=== PATIENT | male | born 1950 | race Caucasian/White ===

== ENCOUNTER 2022-11-25 15:09 | Emergency (ER) | payer MEDICARE, OTHER, SELFPAY ==
[2022-11-25 15:33] VITALS: BP 127/65; PULSE 75; RESP 24; TEMP 37; O2SAT 100; BMI 37.7
--- NOTE | 2022-11-25 16:02 | ED.GENADUL1 ---
HPI - General Adult General Chief complaint: Abdominal Pain Stated complaint: lEFT ARM GONE KRYSTLE Time Seen by Provider: 11/25/22 16:01 Source: patient and family Mode of arrival: Wheelchair Limitations: no limitations History of Present Illness HPI narrative: Patient is a 72-year-old male who is presenting to the Emergency Room today with chief complaint of left upper quadrant pain this started at 1 PM. Patient states that he is having normal bowel movements daily. Patient has no history kidney stones. pATIENT HAS NO CHEST PAIN OR SHORTNESS OF BREATH. nO HISTORY of acute onset of acid reflux. Patient has no rash. No heavy lifting, twisting or turning. Patient did give himself a insulin shot to the left upper quadrant earlier today, patient is afraid that he might have popped air bubble in his lung. Patient has nausea no vomiting. No fever or chills. Patient went to the bedside. 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 No acute changes to patient's face today. Patient very pleasant with his at bedside. No recent traveling. No sick contacts. No diarrhea. No bowel or bladder changes. No hematuria, right no urinary frequency or urgency or burning. Patient had a bowel movement in the Emergency Room prior to me seeing the patient. After patient had a soft stool bowel movement, patient feels like the painn is subsiding to his left upper quadrant and improving after his bowel movement. Patient's had no recent hard rocks or large hard balls. Patient states it is still has been soft . All systems are negative except as noted/marked. All systems reviewed and otherwise negative. . Nurses note and vital signs reviewed and patient is not hypoxic. General: The patient appears well and in no apparent distress. Patient is resting comfortably on cart. Patient is not toxic, lethargic, or listless Skin: Warm, dry, no pallor noted. There is no rash noted. No petechiae, purpura. Head: Normocephalic, atraumatic; Chronic changes to the left side of his face secondary to previous cancer history and treatment. Eye: Normal conjunctiva, no drainage, EOMI. PERRL Ears, Nose, Mouth, and Throat: oral mucosa is moist. Nares patent. Mouth without vesicles. Cardiovascular: Regular Rate and Rhythm, no murmur, gallop, rub Respiratory: Patient is in no distress, no accessory muscle use, lungs are clear to auscultation, no wheezing, rales or rhonchi Back: non-tender, no CVA tenderness bilaterally to percussion. No CT LS midline pain GI: soft, OBESE, Mild tenderness to palpation to the left upper quadrant that is improving after patient just had a bowel movement prior to my HPI. Bowel sounds ?4. no tenderness to palpation, no masses appreciated. No rebound, guarding, or rigidity noted. No flank pain bilateral, No distention Musculoskeletal: Patient has full range of motion of all of the extremities, no motor, sensory, or focal neurological deficits Neurological: A&O x3, normal speech Psychiatric: Cooperative Related Data Previous Rx's Medication Instructions Recorded dicyclomine 20 mg tablet 20 mg PO TID PRN abdominal pain #7 11/25/22 tabs hydrocodone 5 mg-acetaminophen 325 1 tab PO Q4H PRN pain #8 tabs 11/25/22 mg tablet ondansetron 4 mg disintegrating 4 mg PO Q4H PRN nausea and 11/25/22 tablet vomiting 3 days #6 tabs Allergies Allergy/AdvReac Type Severity Reaction Status Date / Time IV dye Allergy Uncoded 11/25/22 15:33 PFSH PFSH Social History Smoking status: Never smoker Exam Constitutional Vital Signs, click to edit/add: Last Vital Signs Temp 98.6 F 11/25/22 15:33 Pulse 78 11/25/22 18:01 Resp 18 11/25/22 18:01 BP 143/85 H 11/25/22 18:01 Pulse Ox 100 11/25/22 18:01 O2 Del Method Room Air 11/25/22 18:01 Course Vital Signs Vital signs: Vital Signs Temperature 98.6 F 11/25/22 15:33 Pulse Rate 75 11/25/22 15:33 Respiratory Rate 24 11/25/22 15:33 Blood Pressure 127/65 11/25/22 15:33 Pulse Oximetry 100 11/25/22 15:33 Oxygen Delivery Method Room Air 11/25/22 15:33 Temperature 98.6 F 11/25/22 15:33 Pulse Rate 78 11/25/22 18:01 Respiratory Rate 18 11/25/22 18:01 Blood Pressure 143/85 H 11/25/22 18:01 Pulse Oximetry 100 11/25/22 18:01 Oxygen Delivery Method Room Air 11/25/22 18:01 Medical Decision Making MDM Narrative Medical decision making narrative: CT reports is no acute findings. Patient CT report shows some inflammation around his pancreas. Patient's lipase is just about 3 times the upper limits of normal. Patient has no midepigastric pain, no right upper quadrant pain. At discharge patient has no left upper quadrant pain. Patient never had pancreatitis before. Patient does not drink daily. He does have his galllbladder and appendix. Patient is not fitting the clinical picture for pancreatitis. However with his left upper quadrant pain is almost completely resolved, patient was educated on pancreatitis and WILL BE treated pancreatitis at home to ERROR on the Side of caution. Patient was sent home with a prescription for Zofran, Bentyl and [place] to use as needed. Patient's pain is also completely subsided. We discussed the possibility of air underneath his left diaphragm secondary to backup of stool. Patient states he has felt very gassy recently and has been burping more as well. Education of pancreatitis was done at bedside and on discharge paperwork. Patient will do clear liquids for a few days. No questions at discharge. Patient feels very comfortable going home. Patient has no midepigastric, right or left upper quadrant tenderness to palpation at discharge. Nonsurgical abdomen, no peritoneal signs. No guarding, rebound, rigidity. Lab Data Labs: Lab Results 11/25/22 Range/Units 16:08 WBC 11.8 H (4.0-11.0) 10^3/uL RBC 3.73 L (4.70-6.10) 10^6/uL Hgb 10.2 L (14.0-18.0) g/dL Hct 31.7 L (42.0-54.0) % MCV 85.0 (80.0-94.0) fL MCH 27.3 (25.9-34.0) pg MCHC 32.2 (29.9-35.2) g/dL RDW 14.0 (11.0-15.0) % Plt Count 235 (150-450) 10^3/uL MPV 9.3 L (9.5-13.5) fL Neut % (Auto) 88.1 H (43.0-75.0) % Lymph % (Auto) 5.2 L (20.5-60.0) % [place] % (Auto) 4.9 (1.7-12.0) % Eos % (Auto) 0.8 L (0.9-7.0) % Baso % (Auto) 0.7 (0.2-2.0) % Neut # (Auto) 10.4 H (1.4-6.5) 10^3/uL Lymph # (Auto) 0.6 L (1.2-3.8) 10^3/uL [place] # (Auto) 0.6 (0.3-0.8) 10^3/uL Eos # (Auto) 0.1 (0.0-0.7) 10^3/uL Baso # (Auto) 0.1 (0.0-0.1) 10^3/uL Abs Immat Gran (auto) 0.04 H (0.00-0.03) 10^3/uL Imm/Tot Granulo (auto) 0.3 (0.0-0.5) % Sodium 137 (136-145) mmol/L Potassium 4.7 (3.5-5.1) mmol/L Chloride 105 (98-107) mmol/L Carbon Dioxide 18.4 L (21.0-32.0) mmol/L Anion Gap 18.3 BUN 70.0 H (7.0-18.0) mg/dL Creatinine 3.63 H (0.70-1.30) mg/dL Est GFR ( Amer) 20 L (>=60) Est GFR (Non-Af Amer) 17 L (>=60) BUN/Creatinine Ratio 19.3 Glucose 146 H (74-106) mg/dL Calcium 9.1 (8.5-10.1) mg/dL Total Bilirubin 0.2 (0.2-1.0) mg/dL AST 22 (15-37) U/L ALT 22 (16-63) U/L Alkaline Phosphatase 128 H (46-116) U/L Total Protein 7.0 (6.4-8.2) g/dL Albumin 3.4 (3.4-5.0) g/dL Globulin 3.6 g/dL Albumin/Globulin Ratio 0.9 Lipase 919.0 H (73.0-393.0) U/L Urine Color Lt. yellow (YELLOW) Urine Clarity Clear (CLEAR) Urine pH 6.0 (5.0-9.0) Ur Specific [place] 1.020 (1.005-1.025) Urine Protein >=300 A (NEG/TRACE) mg/dL Urine Glucose (UA) 100 A (NEGATIVE) mg/dL Urine Ketones Negative (NEGATIVE) mg/dL Urine Occult Blood Small A (NEGATIVE) Urine Nitrite Negative (NEGATIVE) Urine Bilirubin Negative (NEGATIVE) Urine Urobilinogen 0.2 (0.2-1.0) EU/dL Ur Leukocyte Esterase Negative (NEGATIVE) Urine RBC 5-10 A (0-2) #/HPF Urine WBC None seen (NONE SEEN) #/HPF Ur Squamous Epith Cells Few A (NONE/RARE) #/LPF Urine Crystals None seen (None Seen) #/HPF Urine Bacteria None seen (NONE SEEN) #/HPF Urine Casts None seen (NONE SEEN) #/LPF Urine Mucus None seen (NONE SEEN) Ur Culture Indicated? No Patient has known kidney disease, stage IV kidney disease. Discharge Plan Discharge Chief Complaint: Abdominal Pain Clinical Impression: Abdominal pain, Pancreatitis Patient Disposition: Home, Self-Care Condition: Fair Prescriptions / Home Meds: New hydrocodone-acetaminophen 5-325 mg tablet 1 tab PO Q4H PRN (Reason: pain) Qty: 8 0RF dicyclomine 20 mg tablet 20 mg PO TID PRN (Reason: abdominal pain) Qty: 7 0RF ondansetron 4 mg tablet,disintegrating 4 mg PO Q4H PRN (Reason: nausea and vomiting) 3 Days Qty: 6 0RF Instructions: Pancreatitis (ED), Abdominal Pain (ED) Additional Instructions: Clear liquid diet for the next 2-3 days. Use Zofran, Bentyl and [place] as needed for nausea, belly cramping, and pain respectively. If the pain significant worse, return back to the Emergency Room.Follow-up with PCP next week. Stand Alone Forms: Portal Instructions Referrals: ANGEL LUIS DOWNEY [Primary Care Provider] - 1 week Discharge Date/Time: 11/25/22 19:24
[2022-11-25 16:16] LABS: Basophils Absolute Auto 0.1 10^3/uL (0.0-0.1); Basophils Percent Auto 0.7 % (0.2-2.0); Bilirubin Urine NEGATIVE (NEGATIVE); Blood Urine SMALL (NEGATIVE); Clarity Urine CLEAR (CLEAR); Color Urine LT. YELLOW (YELLOW); Eosinophils Absolute Auto 0.1 10^3/uL (0.0-0.7); Eosinophils Percent Auto 0.8 % (0.9-7.0); Glucose Urine UA 100 mg/dL (NEGATIVE); Hematocrit 31.7 % (42.0-54.0); Hemoglobin 10.2 g/dL (14.0-18.0); Immature Granulocytes Abs Auto 0.04 10^3/uL (0.00-0.03); Immature Granulocytes Pct Auto 0.3 % (0.0-0.5); Ketones Urine NEGATIVE (NEGATIVE); Leukocyte Esterase Urine NEGATIVE (NEGATIVE); Lymphocytes Absolute Auto 0.6 10^3/uL (1.2-3.8); Lymphocytes Percent Auto 5.2 % (20.5-60.0); Mean Corpuscular HGB Conc 32.2 g/dL (29.9-35.2); Mean Corpuscular Hemoglobin 27.3 pg (25.9-34.0); Mean Platelet Volume 9.3 fL (9.5-13.5); Monocytes Absolute Auto 0.6 10^3/uL (0.3-0.8); Monocytes Percent Auto 4.9 % (1.7-12.0); Neutrophils Absolute Auto 10.4 10^3/uL (1.4-6.5); Neutrophils Percent Auto 88.1 % (43.0-75.0); Nitrite Urine NEGATIVE (NEGATIVE); Platelet Count 235 10^3/uL (150-450); Protein Urine >=300 mg/dL (NEG/TRACE); Red Blood Count 3.73 10^6/uL (4.70-6.10); Urine Microscopic Indicated YES; Urobilinogen Urine 0.2 EU/dL (0.2-1.0); White Blood Count 11.8 10^3/uL (4.0-11.0)
[2022-11-25 16:22] LABS: Bacteria Urine NONE SEEN #/HPF (NONE SEEN); Cast Seen? NONE SEEN #/LPF (NONE SEEN); Crystals Seen? None Seen #/HPF (None Seen); Mucus Urine NONE SEEN (NONE SEEN); Squamous Epithelial Cell Urine FEW #/LPF (NONE/RARE); Urine Culture Indicated NO; WBC Urine NONE SEEN #/HPF (NONE SEEN)
--- NOTE | 2022-11-25 16:24 | CT_ITS ---
[address] [address] Patient Name: SAHRA DRUMMOND MRN: [id number] date: 1950 Sex: M Assigned Patient Location: ED.MAIN Current Patient Location: Accession/Order Number: [id number] Exam Date: 11/25/2022 17:01 Report Date: 11/25/2022 17:47 At the request of: MANI HERMOSILLO Procedure: CT abdomen pelvis wo con EXAM: CT abdomen pelvis wo con HISTORY: LUQ pain COMPARISON: None. TECHNIQUE: Axial CT imaging was performed through the abdomen and pelvis without intravenous contrast. Multiplanar reformats were performed. Dose reduction techniques were achieved by using automated exposure control and/or adjustment of mA and/or kV according to patient size and/or use of iterative reconstruction technique. FINDINGS: Lung bases: There are mild fibrotic changes of both lung bases. Several small calcified granulomas are seen at the posterior pleural margins of each lower lobe. GI upper: Unremarkable. Liver: Normal size and contour. Gallbladder: No significant abnormality. No cholelithiasis. Biliary system: No dilatation or calculus Pancreas: The pancreas is normal in size. There is subtle fat stranding adjacent to the pancreatic tail. No abnormal fluid collection is seen in the area. Spleen: Normal size. Adrenal glands: Mild thickening bilaterally. The adrenal glands otherwise are normal in shape. Kidneys/ureters: Normal contours. No hydronephrosis or visible mass. Small low-density foci within the right kidney compatible with cysts. No nephrolithiasis. There is mild fat stranding adjacent to the superior pole of the left kidney. Both ureters are normal in caliber and course to the bladder. Vessels: No aneurysmal dilatation of the aorta. Atherosclerotic disease is noted. Retroperitoneum: No lymphadenopathy. Small bowel: No wall thickening or dilatation. Colon: No dilatation. Colonic diverticulosis. Adjacent fat planes are normal. Appendix: Appendix is identified with normal appearance. Peritoneal cavity: No free fluid or pneumoperitoneum. Lower : Unremarkable. Bones:Multilevel spondylosis. No acute bony abnormality. Soft tissues: No acute finding. Additional findings: None. CT/CT abdomen pelvis wo con IMPRESSION: 1. Subtle fat stranding adjacent to the pancreatic tail. Please correlate for laboratory evidence of pancreatitis. 2. Colonic diverticulosis without CT evidence for diverticulitis. 3. Remote granulomatous disease. Electronically authenticated by: Carlos DIAZ Date: 11/25/2022 17:47
[2022-11-25 16:30] LABS: Alanine Aminotransferase 22 U/L (16-63); Albumin Globulin Ratio 0.9; Albumin Level 3.4 g/dL (3.4-5.0); Alkaline Phosphatase 128 U/L (46-116); Anion Gap 18.3; Aspartate Amino Transferase 22 U/L (15-37); BUN Creatinine Ratio 19.3; Bilirubin Total 0.2 mg/dL (0.2-1.0); Calcium 9.1 mg/dL (8.5-10.1); Carbon Dioxide 18.4 mmol/L (21.0-32.0); Chloride 105 mmol/L (98-107); Estimated GFR (African America 20 (>=60); Estimated GFR (Non-African Ame 17 (>=60); Globulin 3.6 g/dL; Glucose 146 mg/dL (74-106); Potassium 4.7 mmol/L (3.5-5.1); Sodium 137 mmol/L (136-145)
[2022-11-25 16:44] VITALS: BP 154/62; PULSE 79; RESP 18
[2022-11-25] MEDS: ONDANSETRON PF 4 MG/2 ML VIAL IV (16:49)
[2022-11-25] MEDS: 0.9 % SODIUM CHLORIDE 1,000 ML 999 ML IV ×2 (16:49→17:57)
[2022-11-25 18:01] VITALS: BP 143/85; PULSE 78; RESP 18; O2SAT 100
== END 2022-11-25 19:24 | disposition home or self-care (01) ==
PROVIDERS: Emergency Provider Emergency Medicine; PCP Family Medicine
DX: K85.90 Acute pancreatitis without necrosis or infection, unspecified (principal); R10.9 Unspecified abdominal pain; Z68.37 Body mass index [BMI] 37.0-37.9, adult; E66.9 Obesity, unspecified
CPT/HCPCS: 36415; 74176; 80053; 81001; 81003; 83690; 85025; 96374; 96375; 99285

== ENCOUNTER 2023-03-21 18:07 | Observation (INO) | payer MEDICARE, OTHER, SELFPAY ==
[2023-03-21] VITALS (11 sets, daily range): BP systolic 117–149; BP diastolic 77; PULSE 63–89; RESP 13–23; TEMP 37; O2SAT 99; BMI 36.6
--- NOTE | 2023-03-21 18:23 | CT_ITS ---
The [address] [address] Patient Name: SAHRA DRUMMOND MRN: [id number] date: 1950 Sex: M Assigned Patient Location: ER Current Patient Location: ER Accession/Order Number: [id number] Exam Date: 03/21/2023 18:38 Report Date: 03/21/2023 18:52 At the request of: HIRAL FELIZ Procedure: CT head/brain wo con EXAM: CT head/brain wo con; [id number] REASON FOR EXAM: vision changes COMPARISON: None. TECHNIQUE: Axial CT images of the head obtained without contrast. Multiplanar reformats generated at the scanner. Dose reduction technique used: Automated exposure control and/or adjustment of the mA and/or kV according to patient size and/or use of iterative reconstruction technique. FINDINGS: Parenchyma: -Mild generalized cerebral volume loss. -No midline shift or mass effect. Basilar cisterns are patent. -No acute intracranial hemorrhage. -No loss of cortical plummer-white differentiation to indicate acute cortical infarct. Extra-axial spaces: No extra-axial fluid collection or hemorrhage. Ventricles: Normal in size and symmetric. Paranasal sinuses: Visualized paranasal sinuses are clear. Mastoid air cells: Small left mastoid air cell effusion. Orbits: No acute abnormality. Osseous: No acute findings. Partially visualized left mandibular fixation hardware. Soft tissues: Large amount of presumed cerumen in the left external auditory canal. CT/CT head/brain wo con IMPRESSION: No acute intracranial abnormality demonstrated. Electronically authenticated by: CELESTINO TERAN Date: 03/21/2023 18:52
--- NOTE | 2023-03-21 18:54 | PC.NURSE ---
pt states for about 1 week L eye issues. Has been painful, watering and vision changes on and off. States occassionally in his L eye the upper vision is completely black. 1 month ago, pt had laser eye surgery
--- NOTE | 2023-03-21 21:06 | ED.EYEPROB1 ---
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 treated surgically and with radiation. 2 years ago 2 stents placed left carotid at [facility]. 03/18 complete loss of vision left eye for about 1/2 hour. States vision returned to normal but occ would blur some and water and then return to normal. Tonight around 5pm he woke up from a nap and he was only able to see from the bottom 1/2 of vision left eye. Top was dark. This has now cleared and his vision is normal again. Has known diabetic retinopathy treated by laser therapy. No headache. No weakness of his extremities and his denies any change in his vision. Related Data Home Medications Medication Instructions Recorded Confirmed amlodipine 10 mg tablet 10 mg PO DAILY 03/21/23 03/21/23 aspirin 81 mg capsule 81 mg PO DAILY 03/21/23 03/21/23 atorvastatin 80 mg tablet 80 mg PO DAILY 03/21/23 03/21/23 calcitriol 0.25 mcg capsule 0.25 mcg PO DAILY 03/21/23 03/21/23 carvedilol 25 mg tablet 25 mg PO BID 03/21/23 03/21/23 fluoxetine 40 mg capsule 40 mg PO DAILY 03/21/23 03/21/23 insulin glargine 100 unit/mL (3 40 unit subcut DAILY 03/21/23 03/21/23 mL) subcutaneous pen (Navneetaglar Pearl U-100 Insulin) lisinopril 10 mg tablet 10 mg PO DAILY 03/21/23 03/21/23 pioglitazone 30 mg tablet 30 mg PO DAILY 03/21/23 03/21/23 Previous Rx's Medication Instructions Recorded dicyclomine 20 mg tablet 20 mg PO TID PRN abdominal pain #7 11/25/22 tabs hydrocodone 5 mg-acetaminophen 325 1 tab PO Q4H PRN pain #8 tabs 11/25/22 mg tablet ondansetron 4 mg disintegrating 4 mg PO Q4H PRN nausea and 11/25/22 tablet vomiting 3 days #6 tabs Allergies Allergy/AdvReac Type Severity Reaction Status Date / Time Iodinated Contrast Media Allergy Verified 03/21/23 18:21 Review of Systems ROS Status of ROS 10 or more systems reviewed and unremarkable except as noted in history and below PFS PFS Social History Smoking status: Former smoker Exam Constitutional Vital Signs, click to edit/add: Last Vital Signs Temp 98.6 F 03/21/23 18:13 Pulse 64 03/21/23 21:09 Resp 20 03/21/23 21:09 BP 149/77 H 03/21/23 21:09 Pulse Ox 99 03/21/23 21:09 O2 Del Method Room Air 03/21/23 18:13 Common normals: no apparent distress, average body habitus, oriented x3, no limitations, healthy appearing, alert and well nourished HENAL Other: surgical deformity left and right neck. More extensive on the left Eye Common normals: PERRL, EOMs intact bilaterally and conjunctivae normal Other: limited exam left retina with vessels visible. No evidence of bleeding that I can see Respiratory Common normals: normal respiratory effort, no retractions, no use of accessory muscles and clear to auscultation bilaterally Cardio Common normals: regular rate, regular rhythm, S1 normal heart sound and S2 normal heart sound GI Common normals: Normal to inspection, nondistended, normoactive bowel sounds present, soft to palpation and non-tender Extremity Common normals: normal to inspection and full ROM Neuro Common normals: oriented x3, moves all extremities, no focal motor deficits and no sensory deficits noted Psych Appearance: grossly normal Course Vital Signs Vital signs: Vital Signs Temperature 98.6 F 03/21/23 18:13 Pulse Rate 72 03/21/23 18:13 Respiratory Rate 18 03/21/23 18:13 Blood Pressure 117/77 03/21/23 18:13 Pulse Oximetry 99 03/21/23 18:13 Oxygen Delivery Method Room Air 03/21/23 18:13 Temperature 98.6 F 03/21/23 18:13 Pulse Rate 64 03/21/23 21:09 Respiratory Rate 20 03/21/23 21:09 Blood Pressure 149/77 H 03/21/23 21:09 Pulse Oximetry 99 03/21/23 21:09 Oxygen Delivery Method Room Air 03/21/23 18:13 MDM - Eye Problem MDM Narrative Medical decision making narrative: patient has past history of IDDM, CKD followed by nephrology and state he knows that he will likely require dialysis in the future. 3 days ago complete loss of vision left eye. returned after 30 minutes. for past couple of days vision would decrease some but return to normal. Woke up from nap tonight and had loss vision is 1/2 of the left eye. The upper 1/2 of the vision was dark and the lower was normal. This cleared back to normal again and remains normal now. CT brain neg. Discussed with environmental engineering intern stroke Neurologist Dr Grant who initially wanted CTAs ordered but because of patient's allergy to contrast dye recommended MRA brain and neck tomorrow. Also patient is not candidate for contrast due to his late stage renal disease. Dr Cotto recommended loading dose of 300mg plavix. 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 Both parotids removed and lymph nodes and radiation to his left neck. He also has 2 stents in the left carotid that were placed about 2 years ago. Discussed with the hospitalist and patient accepted to med surgery floor Lab Data Labs: Lab Results 03/21/23 Range/Units 21:46 WBC 8.9 (4.0-11.0) 10^3/uL RBC 3.97 L (4.70-6.10) 10^6/uL Hgb 10.4 L (14.0-18.0) g/dL Hct 33.4 L (42.0-54.0) % MCV 84.1 (80.0-94.0) fL MCH 26.2 (25.9-34.0) pg MCHC 31.1 (29.9-35.2) g/dL RDW 14.9 (11.0-15.0) % Plt Count 225 (150-450) 10^3/uL MPV 9.5 (9.5-13.5) fL Neut % (Auto) 79.8 H (43.0-75.0) % Lymph % (Auto) 9.9 L (20.5-60.0) % [place] % (Auto) 7.7 (1.7-12.0) % Eos % (Auto) 1.5 (0.9-7.0) % Baso % (Auto) 0.9 (0.2-2.0) % Neut # (Auto) 7.1 H (1.4-6.5) 10^3/uL Lymph # (Auto) 0.9 L (1.2-3.8) 10^3/uL [place] # (Auto) 0.7 (0.3-0.8) 10^3/uL Eos # (Auto) 0.1 (0.0-0.7) 10^3/uL Baso # (Auto) 0.1 (0.0-0.1) 10^3/uL Abs Immat Gran (auto) 0.02 (0.00-0.03) 10^3/uL Imm/Tot Granulo (auto) 0.2 (0.0-0.5) % Sodium 140 (136-145) mmol/L Potassium 4.5 (3.5-5.1) mmol/L Chloride 104 (98-107) mmol/L Carbon Dioxide 25.4 (21.0-32.0) mmol/L Anion Gap 15.1 BUN 77.0 H* (7.0-18.0) mg/dL Creatinine 4.16 H (0.70-1.30) mg/dL Est GFR ( Amer) 17 L (>=60) Est GFR (Non-Af Amer) 14 L (>=60) BUN/Creatinine Ratio 18.5 Glucose 105 (74-106) mg/dL Calcium 9.2 (8.5-10.1) mg/dL Troponin I High Sens 19.6 (4.0-76.1) pg/mL Critical Care Time Critical Care Time Total Critical Care Time: 30 Discharge Plan Discharge Chief Complaint: Eye Problems Clinical Impression: History of recurrent TIAs, CKD (chronic kidney disease), stage IV, Dehydration Patient Disposition: Admitted as Observation
--- NOTE | 2023-03-21 21:18 | ECG_ITS ---
The [facility] Test Date: 2023-03-21 Pat Name: SAHRA DRUMMOND Department: Room: - Gender: Male Ben Day Artist: : 1950 Requested By: [id number] Order Number: [id number] Reading MD: OTONIEL BADILLO Measurements Intervals [place] Rate: 64 P: 50 GA: 220 QRS: 26 QRSD: 96 T: 22 QT: 406 QTc: 416 Interpretive Statements 1100 Sinus rhythm 2231 First degree AV block 9150 abnormal ECG No previous ECG available for comparison Electronically Signed On 03-22-2023 7:19:06 EST by OTONIEL BADILLO
[2023-03-21] MEDS: CLOPIDOGREL BISULFATE 75 MG TABLET 300 MG PO (21:46)
[2023-03-21 21:56] LABS: Basophils Absolute Auto 0.1 10^3/uL (0.0-0.1); Basophils Percent Auto 0.9 % (0.2-2.0); Eosinophils Absolute Auto 0.1 10^3/uL (0.0-0.7); Eosinophils Percent Auto 1.5 % (0.9-7.0); Hematocrit 33.4 % (42.0-54.0); Hemoglobin 10.4 g/dL (14.0-18.0); Immature Granulocytes Abs Auto 0.02 10^3/uL (0.00-0.03); Immature Granulocytes Pct Auto 0.2 % (0.0-0.5); Lymphocytes Absolute Auto 0.9 10^3/uL (1.2-3.8); Lymphocytes Percent Auto 9.9 % (20.5-60.0); Mean Corpuscular HGB Conc 31.1 g/dL (29.9-35.2); Mean Corpuscular Hemoglobin 26.2 pg (25.9-34.0); Mean Corpuscular Volume 84.1 fL (80.0-94.0); Mean Platelet Volume 9.5 fL (9.5-13.5); Monocytes Absolute Auto 0.7 10^3/uL (0.3-0.8); Monocytes Percent Auto 7.7 % (1.7-12.0); Neutrophils Absolute Auto 7.1 10^3/uL (1.4-6.5); Neutrophils Percent Auto 79.8 % (43.0-75.0); Platelet Count 225 10^3/uL (150-450); Red Blood Count 3.97 10^6/uL (4.70-6.10); Red Cell Distribution Width 14.9 % (11.0-15.0); White Blood Count 8.9 10^3/uL (4.0-11.0)
[2023-03-21 22:13] LABS: Anion Gap 15.1; BUN Creatinine Ratio 18.5; Calcium 9.2 mg/dL (8.5-10.1); Carbon Dioxide 25.4 mmol/L (21.0-32.0); Chloride 104 mmol/L (98-107); Estimated GFR (African America 17 (>=60); Estimated GFR (Non-African Ame 14 (>=60); Glucose 105 mg/dL (74-106); Potassium 4.5 mmol/L (3.5-5.1); Sodium 140 mmol/L (136-145); Troponin I High Sensitivity 19.6 pg/mL (4.0-76.1)
[2023-03-21] MEDS: 0.9 % SODIUM CHLORIDE 1,000 ML 100 ML IV (23:20)
[2023-03-22] VITALS (13 sets, daily range): BP systolic 148–163; BP diastolic 64–77; PULSE 68–81; RESP 16–18; TEMP 36.4–36.7; O2SAT 96–98; BMI 36.8
--- NOTE | 2023-03-22 01:28 | MR_ITS ---
The [address] [address] Patient Name: SAHRA DRUMMOND MRN: [id number] date: 1950 Sex: M Assigned Patient Location: MS Current Patient Location: MS Accession/Order Number: [id number] Exam Date: 03/22/2023 14:25 Report Date: 03/22/2023 16:15 At the request of: ENRIQUE PINEDA Procedure: MR angio head wo con MRA HEAD EXAMINATION. HISTORY: tia COMPARISONS: None. TECHNIQUE: 3-D time of flight MR angiogram of the [place] of [place] was performed without IV contrast. Multiplanar reformatted and MIP images were created. NASCET criteria used where appropriate for estimation of percentage luminal stenosis. FINDINGS: ANTERIOR INTRACRANIAL CIRCULATION: There is no signal within the left cavernous ICA. There is signal within the supraclinoid ICA. The bilateral anterior cerebral arteries and middle cerebral arteries and anterior and posterior communicating arteries are normal. POSTERIOR INTRACRANIAL CIRCULATION: The basilar artery and posterior cerebral arteries are patent, without stenosis or occlusion. RIGHT INTERNAL CAROTID ARTERY: No significant stenosis.. LEFT INTERNAL CAROTID ARTERY: No significant stenosis.. RIGHT VERTEBRAL ARTERY: No significant stenosis.. LEFT VERTEBRAL ARTERY: No significant stenosis.. There is a 2 mm Y view directed outpouching involving the right ophthalmic ICA.. No AVM. MR/MR angio head wo con IMPRESSION: 1. 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 2. No high-grade stenosis or occlusion of the remaining major intracranial arteries. 3. Right ophthalmic ICA 2 mm outpouching which may represent an infundibulum or aneurysm. Consider CTA head for further evaluation. Electronically authenticated by: EVA MEZA Date: 03/22/2023 16:15
--- NOTE | 2023-03-22 01:28 | CA_ITS ---
Patient Name: SAHRA DRUMMOND MR#: [id number] : 1950 Exam Date: 03/22/2023 Ordering Doctor: ENRIQUE PINEDA ECHOCARDIOGRAM REPORT PROCEDURE: CA ECHO DOPPLER COMPLETE INDICATIONS: tia COMPARISON: None. DESCRIPTION: COMPLETE ECHOCARDIOGRAM Real-time transthoracic echocardiography with 2D, M-mode, spectral and color flow Doppler performed. QUALITY: Technical quality was limited. LEFT VENTRICLE: Normal chamber size. Moderate concentric left ventricular hypertrophy. Global left ventricular systolic function is normal. LV EF: Visual estimation of left ventricular ejection fraction is 55-60% DIASTOLIC: Grade I diastolic dysfunction. ATRIAL SEPTUM: LEFT ATRIUM: Moderate dilatation. RIGHT ATRIUM: Mild dilatation. RIGHT VENTRICLE: Normal chamber size. Normal right ventricular systolic function. TRICUSPID VALVE: Normal mobility and thickness. No stenosis with mild regurgitation. Moderate pulmonary hypertension. RVSP 45 mmHg MITRAL VALVE: Normal mobility and thickness. No evidence of mitral valve stenosis. There is no mitral annular calcification. Trivial mitral regurgitation. AORTIC VALVE: Normal trileaflet appearance. Mildly calcified aortic valve. Normal leaflet mobility. No evidence of aortic valve stenosis. No aortic regurgitation. AORTIC ROOT: Normal diameter and appearance. PULMONIC VALVE: Normal thickness and mobility. No stenosis. No regurgitation. PERICARDIUM: No evidence of pericardial effusion. IVC: Not well visualized. PLEURA: CONCLUSION: 1. Moderate concentric left ventricular hypertrophy with normal systolic function. LVEF is 55 to 60%. 2. Normal right ventricular size and systolic function. 3. Mild to moderate biatrial dilatation. 4. Mild tricuspid regurgitation. 5. Moderately elevated right-sided pressures. Adult Echocardiography Procedure Report Left Ventricle LVEDD (3.7 - 5.6 cm): 4.99 cm LVESD (2.2 - 4.0 cm): 3.43 cm LVIVS thickness (0.6 - 1.2 cm): 1.44 cm LVPW thickness (0.5 - 1.0 cm): 1.35 cm e': 0.07 m/s E - e': 12.02 LVOT Max Gradient: 3.12 mm[Hg] LVOT Area (cm2): 0.88 m/s Peak Velocity (LVOT): 0.88 m/s Mean Velocity (LVOT): 0.51 m/s LVOT Diameter 2.09 cm Left Atrium LA Volume Index (2D A2C): 50.22 ml/m2 Left Atrium Systolic Dimension: 4.09 cm Mitral Valve MV E to A Ratio: 0.76 Mitral Valve A-Wave Peak Velocity: 1.07 m/s Mitral Valve E-Wave Peak Velocity: 0.82 m/s Right Ventricle RV Internal Diastolic Dimension: 4.07 cm Aorta AO Root Diam: 3.22 cm Ascending Ao Diam: 3.30 cm Aortic Valve AoV Area (Peak Jn): 2.13 cm2, 2.13 cm2 AoV Area (VTI): 2.24 cm2, 2.24 cm2 Peak Velocity(Antegrade Flow): 1.42 m/s Peak Gradient(Antegrade Flow): 8.03 mm[Hg] Mean Velocity(Antegrade Flow): 0.97 m/s Mean Gradient(Antegrade Flow): 4.31 mm[Hg] Velocity Time Integral: 34.08 cm Tricuspid Valve Peak Velocity (Regurgitant Flow): 3.14 m/s, 3.25 m/s Pulmonic Valve Mean Gradient: 3.43 mm[Hg], 2.29 mm[Hg], 1.93 mm[Hg] Mean Velocity: 0.87 m/s, 0.72 m/s, 0.64 m/s Peak Velocity: 1.10 m/s Peak Gradient: 6.56 mm[Hg], 4.20 mm[Hg], 3.88 mm[Hg] Right Atrium Right Atrium Systolic Pressure: 68.44 ml, 68.44 ml Dictated by: Toni Hidalgo M.D. on 03/22/2023 at 19:49 Approved by: Toni Hidalgo M.D. on 03/22/2023 at 19:53
--- NOTE | 2023-03-22 01:35 | W.PM.TELEPN ---
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 He stated that he had complete visual loss of his left eye and it resolved within 30 minutes. He was doing well until today. He woke up from a nap at 5 PM and started having visual loss in the same eye. He stated that he could not see from the top half of his left eye. He is also got a left temporal headache. He presented to the ED and the provider spoke to teleneurology who is requesting admission for TIA workup. The patient is allergic to IV contrast dye and therefore is requesting an MRI of the head and neck. The patient was loaded with Plavix, 300 mg and is supposed to be continued on 75 mg daily. He is being admitted for further evaluation. Exam Narrative Exam Narrative: General : Alert and oriented x3 HEENT : Extraocular movements intact, pupils equal round and reactive to light and accommodation Neck: Supple, no JVD Chest: Clear to auscultation bilaterally, no wheezes Heart: Regular rate and rhythm, S1 and S2 heard Abdomen: Soft nontender nondistended. Extremities: No clubbing cyanosis or edema Neurologically: Moving all 4 extremities Skin: No rashes Constitutional Vital Signs, click to edit/add: Last Vital Signs Temp 98.1 F 03/22/23 00:05 Pulse 68 03/22/23 00:05 Resp 16 03/22/23 00:05 BP 163/68 H 03/22/23 00:05 Pulse Ox 96 03/22/23 00:05 O2 Del Method Room Air 03/22/23 00:05 Progress Note: Objective Labs Labs: Short CBC 03/21/23 Range/Units 21:46 WBC 8.9 (4.0-11.0) 10^3/uL Hgb 10.4 L (14.0-18.0) g/dL Hct 33.4 L (42.0-54.0) % Plt Count 225 (150-450) 10^3/uL BMP 03/21/23 21:46 Sodium 140 Potassium 4.5 Chloride 104 Carbon Dioxide 25.4 BUN 77.0 H* Creatinine 4.16 H Glucose 105 Calcium 9.2 Progress Note: A&P Assessment and Plan (1) History of recurrent TIAs: (2) CKD (chronic kidney disease), stage IV: Plan The patient is a 72-year-old male with above medical problems, presenting with left eye visual changes Left eye visual changes -Likely from TIA -Provide supportive care -Monitor on telemetry to look for underlying arrhythmia -Continue Plavix -Continue statin -Check lipid panel -Check MRI of head and neck and MRA. -If patient unable to undergo MRA, can change to carotid ultrasound. -PT/OT evaluation Accelerated hypertension -Hydralazine IV as needed -Resume home medications CKD stage III-IV -Appears to be stable, despite being on lisinopril -Monitor renal function -Patient states that we cannot use his right arm for blood draws or IV access as he may be getting a fistula placed in there in the future. Diabetes -Sliding scale coverage -Continue scheduled insulin DVT Prophylaxis -Plavix Medication review -Medication reconciliation form completed Goals of care -DNR [employer] -Discussed with the emergency room physician -Discussed with the bedside nurse -Patient updated of plan of care, all questions answered to their satisfaction Disposition -Home when medically stable Telemedicine clause -As the provider of this telehealth evaluation, requested by the patient's evaluating physician, I attest that I introduced myself to the patient, provided my credentials and determined that telemedicine via a real-time, two-way interactive audio and video platform is an appropriate and effective means of providing this service. -I reviewed the patient's chart and had a discussion with the member of the patient's treatment team. -The patient and I mutually agreed with continuation of this evaluation via telemedicine. The patient consented for the telemedicine evaluation. -This virtual encounter was taken place from [place], [place]. The encounter was approximately 35 minutes. The nurse was present during the entire time of the encounter and was able to remove the stethoscope and appropriate directions. The patient was evaluated at [facility] Telemedicine Attestation Telemedicine Attestation I conducted this encounter from [] via secure live, [id number] video conference with the patient, located at [facility] with []. Prior to the interview, the risks and benefits of telemedicine were discussed with the patient and verbal consent was obtained.
[2023-03-22] MEDS: SODIUM CHLORIDE 0.45 % 1,000 ML 75 ML IV ×2 (02:10→12:48)
[2023-03-22 05:35] LABS: Chol HDL Ratio 3.4; Cholesterol 121 mg/dL (<=200); HDL Cholesterol 36 mg/dL (40-60); Triglycerides 91 mg/dL (<=150); VLDL CHOLESTEROL 18.2 mg/dL
[2023-03-22 07:32] LABS: Glucometer 76 mg/dL (74-106)
[2023-03-22] MEDS: INSULIN DETEMIR 300 UNIT/3 ML INSULN.PEN 40 UNIT SUBQ (08:37)
[2023-03-22] MEDS: AMLODIPINE BESYLATE 5 MG TABLET 10 MG PO (08:37)
[2023-03-22] MEDS: ASPIRIN 81 MG TABLET.DR PO (08:38)
[2023-03-22] MEDS: CALCITRIOL 0.25 MCG CAPSULE PO (08:38)
[2023-03-22] MEDS: FLUOXETINE HCL 20 MG CAPSULE 40 MG PO (08:38)
[2023-03-22] MEDS: ZINC GLUCONATE 50 MG TABLET PO (08:38)
[2023-03-22] MEDS: CLOPIDOGREL BISULFATE 75 MG TABLET PO (08:38)
[2023-03-22] MEDS: LISINOPRIL 10 MG TABLET PO (08:38)
[2023-03-22] MEDS: PIOGLITAZONE 15 MG TABLET 30 MG PO (08:38)
[2023-03-22] MEDS: CARVEDILOL 25 MG TABLET PO (08:38)
--- NOTE | 2023-03-22 09:28 | US_ITS ---
[place] [address] Patient Name: SAHRA DRUMMOND MRN: [id number] date: 1950 Sex: M Assigned Patient Location: [place] Current Patient Location: Accession/Order Number: [id number] Exam Date: 03/22/2023 10:30 Report Date: 03/22/2023 12:06 At the request of: ANDREW DALE Procedure: US carotid duplex BI US carotid duplex BI, 03/22/2023 10:30 AM EST INDICATION:Loss of vision left eye. TIA symptoms. COMPARISON: CT of the neck 09/30/2011 TECHNIQUE: Duplex Doppler ultrasound evaluation of the carotid systems including both vertebral arteries was performed. FINDINGS: The following velocities were obtained in the right carotid system: ICA peak systolic velocity = 118 cm/sec CCA peak systolic velocity = 127 cm/sec ICA/CCA ratio is 0.9 The following velocities were obtained in the left carotid system: ICA peak systolic velocity = 23 cm/sec CCA peak systolic velocity = 0 cm/sec Complete occlusion of common carotid artery stent. Echogenic filling defect within the distal aspect of the stent extending into the adjacent internal carotid artery. Flow within the vertebral arteries is antegrade. US/US carotid duplex BI IMPRESSION: 1. Complete occlusion of left common carotid artery stent with significant intimal thickening and possible thrombus distal aspect of the stent and proximal left internal carotid artery. Extremely diminished flow within visualized portions of the internal carotid artery. 2. Antegrade flow within both vertebral arteries. Critical results were NOTIFIED by TELEPHONE BY Dr. Berry Hanna MD to Lety Weaver RN At 03/22/2023 11:51 AM EST. Electronically authenticated by: BERRY HANNA Date: 03/22/2023 12:06
--- NOTE | 2023-03-22 10:23 | CM.NOTE ---
rounding with Dr. Guillermo. Discussed stents in Carotid Stents. Pt. states he had a ultrasound pointing to left neck and there was a blockage. Dr. Guillermo discussed possibly transferring to [facility] as this is where his vascular provider and previous procedures have been performed. Dr Guillermo and SERGEY Harper at bedside, discussed MRI Brain and Ultrasound, and possible transfer after this. also at bedside and aware of the above discussion.
[2023-03-22 11:31] LABS: Glucometer 117 mg/dL (74-106)
--- NOTE | 2023-03-22 12:06 | PC.NURSE ---
radiologist notified technical report writer of critical results of carotid us. notified renu johnson collar runner. collar runner on floor at time of results.
--- NOTE | 2023-03-22 14:17 | PC.NURSE ---
patient taken to mri at this time
--- NOTE | 2023-03-22 14:25 | MR_ITS ---
The [address] [address] Patient Name: SAHRA DRUMMOND MRN: [id number] date: 1950 Sex: M Assigned Patient Location: MS Current Patient Location: MS Accession/Order Number: [id number] Exam Date: 03/22/2023 14:25 Report Date: 03/22/2023 16:10 At the request of: ENRIQUE PINEDA Procedure: MR head/brain wo con MRI BRAIN WITHOUT CONTRAST. INDICATION: TIA. COMPARISON: None available. TECHNIQUE: MR imaging of the brain using the following unenhanced sequences: Axial diffusion, axial FLAIR, axial T2 weighted, coronal and sagittal T1, coronal gradient-echo T2. FINDINGS: EXTRA-AXIAL SPACE:Age appropriate ventricles. No extra-axial collection. There is loss of signal flow void in the left cavernous ICA. CEREBRUM: There are T2/FLAIR hyperintense signal changes in the periventricular and deep white matter, which is nonspecific but likely reflective of chronic microvascular ischemic disease. No areas of restricted diffusion. No acute infarct, hemorrhage or mass. CEREBELLUM: No signal abnormality. No areas of restricted diffusion. No acute infarct, hemorrhage or mass. BRAINSTEM: No signal abnormality. No areas of restricted diffusion. No acute infarct, hemorrhage or mass. EXTRACRANIAL STRUCTURES:Paranasal sinuses are clear. There is mild fluid in the left mastoid air cells. Globes and orbits are normal. Normal pituitary gland. Normal calvarium. MR/MR head/brain wo con IMPRESSION: 1. No acute infarct or hemorrhage. 2. Findings are suggestive of high-grade stenosis or occlusion of the left cavernous ICA. 3. Mild chronic microvascular ischemic changes. Electronically authenticated by: EVA MEZA Date: 03/22/2023 16:10
--- NOTE | 2023-03-22 14:43 | P.HP_ITS ---
Patient seen and examined, agree with assessment and plan. Presented with visual field defect and know history of carotid artery stenosis. Stable in hospital. Carotid US showed complete occlusion of left and patient stated was scheduled for outpatient angiogram tomorrow. Contacted hospitalist and vascular surgery who accepted patient for transferred. Patient transferred to [facility] in stable condition. Diagnosis: 1. TIA 2. Visual field defect 3. Carotid artery stenosis 4. Diabetic retinopathy 5. DM2 6. CKD IV 7. 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 H&P: HPI History of Present Illness Chief complaint: postoperative complication VISION CHANGES TIA Narrative: Date/time of exam 03/22/23 1397 This is a 72-year-old male patient with past medical history of head and neck cancer status post parotidectomy and lymph node excision on the left, CKD 4, DM 2, and carotid stenosis s/p stents x2 in the left; who presented to the ED last night complaining of acute onset of visual disturbance on the left side. He began having visual issues on 03/18/2023 and has intermittently lost complete pleat vision of the left eye that usually resolved within 30 minutes he had been doing well the last couple of days but last night suddenly lost vision on the top half of his left eye that he noted after awakening from a nap. He also had a left temporal headache at that time. He presented to the ED for further evaluation. Work-up in the ED was relatively benign with labs unremarkable except for known CKD 4. A CT of the brain was unremarkable with no acute intracranial abnormalities. The ED provider spoke with the telestroke service and they recommended being loaded with Plavix 300 mg last night and then 75 mg daily. He was admitted to observation last night to the hospitalist service for further TIA work-up including 2D echo, MRI of the brain, MRA of the brain and neck, and further consult with telestroke service. At the time of my exam the patient is resting in bed visiting with his spouse. He reports that his vision changes completely resolved last night while he was still in the ER and have not recurred overnight. He denies any headache at this time. Patient and his spouse noted during our visit that he had a already had a carotid ultrasound as an outpatient which revealed significant occlusion on the left. He was scheduled tomorrow to meet with a vascular surgeon for possible intervention. We will attempt to complete work-up that is still pending and plan to arrange transfer to [facility] where the patient's usual vascular surgeon is located for more emergent intervention. There has been some delay in obtaining an MRI and if the patient has metal hardware implanted in his left jaw and we are attempting to find out if this is MRI compatible or not. A carotid ultrasound has alreeady been obtained and a critical result of near complete occlusion on the left has been reported. A 2D echo have been obtained and results are pending. Review of Systems ROS Status of ROS 10 or more systems reviewed and unremarkable except as noted in history and below [facility] Medical History (Updated 03/22/23 @ 15:11 by Meredith Azevedo NP) Abdominal pain ?R10.9 - Unspecified abdominal pain (ICD-10) Anemia in CKD (chronic kidney disease) ?N18.9 - Chronic kidney disease, unspecified (ICD-10) ?D63.1 - Anemia in chronic kidney disease (ICD-10) Chronic kidney disease (CKD) ?N18.9 - Chronic kidney disease, unspecified (ICD-10) CKD (chronic kidney disease), stage IV ?N18.4 - Chronic kidney disease, stage 4 (severe) (ICD-10) Dehydration ?E86.0 - Dehydration (ICD-10) Depression ?F32.A - Depression, unspecified (ICD-10) Diabetes mellitus ?E11.9 - Type 2 diabetes mellitus without complications (ICD-10) Diabetic retinopathy ?E11.319 - Type 2 diabetes mellitus with unspecified diabetic retinopathy without macular edema (ICD-10) Diabetic retinopathy associated with type 2 diabetes mellitus ?E11.319 - Type 2 diabetes mellitus with unspecified diabetic retinopathy without macular edema (ICD-10) History of recurrent TIAs ?Z86.73 - Personal history of transient ischemic attack (TIA), and cerebral infarction without residual deficits (ICD-10) HTN (hypertension) ?I10 - Essential (primary) hypertension (ICD-10) Pancreatitis ?K85.90 - Acute pancreatitis without necrosis or infection, unspecified (ICD- 10) 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 - Secondary and unspecified malignant neoplasm of lymph nodes of head, face and neck (ICD-10) Sleep apnea ?G47.30 - Sleep apnea, unspecified (ICD-10) Squamous cell carcinoma Type 2 diabetes mellitus with hyperglycemia ?E11.65 - Type 2 diabetes mellitus with hyperglycemia (ICD-10) Surgical History (Updated 03/22/23 @ 00:55 by Allie Chen, RN) History of mandibular surgery ?Z98.890 - Other specified postprocedural states (ICD-10) History of uvulectomy ?Z90.89 - Acquired absence of other organs (ICD-10) Hx of heart artery stent ?Z95.5 - Presence of coronary angioplasty implant and graft (ICD-10) Hx of parotidectomy ?Z90.49 - Acquired absence of other specified parts of digestive tract (ICD- 10) Stented coronary artery ?Z95.5 - Presence of coronary angioplasty implant and graft (ICD-10) Family History (Updated 03/22/23 @ 00:55 by Allie Chen, RN) Other Family history of COPD (chronic obstructive pulmonary disease) Family history of cancer Family history of diabetes mellitus Family history of hypertension Family history of stroke Social History (Updated 03/22/23 @ 00:56 by Allie Chen, RN) Within the past year, how often did you have a drink containing alcohol: never Within the past year, how often did you have six or more drinks on one occasion: never Score interpretation: A score less than 4 is consistent with normal alcohol consumption. Smoking status: Former smoker Non-prescribed substance use: denies use Do you think of yourself as: straight/heterosexual Gender Identity: male Meds Home Medications and Allergies Home Medications Medication Instructions Recorded Confirmed Type amlodipine 10 mg tablet 10 mg PO DAILY 03/21/23 03/21/23 History aspirin 81 mg capsule 81 mg PO DAILY 03/21/23 03/21/23 History atorvastatin 80 mg tablet 80 mg PO DAILY 03/21/23 03/21/23 History calcitriol 0.25 mcg capsule 0.25 mcg PO DAILY 03/21/23 03/21/23 History carvedilol 25 mg tablet 25 mg PO BID 03/21/23 03/21/23 History fluoxetine 40 mg capsule 40 mg PO DAILY 03/21/23 03/21/23 History insulin glargine 100 unit/mL (3 40 unit subcut DAILY 03/21/23 03/21/23 History mL) subcutaneous pen (Basaglar KwikPen U-100 Insulin) lisinopril 10 mg tablet 10 mg PO DAILY 03/21/23 03/21/23 History pioglitazone 30 mg tablet 30 mg PO DAILY 03/21/23 03/21/23 History nitroglycerin 0.4 mg sublingual 0.4 mg sublingual Q5M PRN chest 03/22/23 03/22/23 History tablet pain zinc gluconate 50 mg tablet 50 mg PO DAILY 03/22/23 03/22/23 History Allergies Allergy/AdvReac Type Severity Reaction Status Date / Time Iodinated Contrast Media Allergy Verified 03/21/23 18:21 Exam Constitutional Vital Signs, click to edit/add: Last Vital Signs Temp 97.5 F L 03/22/23 13:29 Pulse 75 03/22/23 13:52 Resp 16 03/22/23 13:29 BP 153/77 H 03/22/23 13:29 Pulse Ox 97 03/22/23 13:29 O2 Del Method Room Air 03/22/23 13:29 Common normals: no apparent distress, oriented x3, alert and well nourished General appearance: cooperative Orientation/consciousness: Yes awake HENMT Common normals: normocephalic, head/scalp atraumatic, hearing grossly normal bilaterally, external nose normal and moist oral mucous membranes Eye Common normals: PERRL, EOMs intact bilaterally, conjunctivae normal and no scleral icterus Alignment: alignment normal Eyelid: eyelids normal Neck & C-Spine Carotids: other (No carotid upstroke noted on L) Other: L neck deformity w/ scarring, muscle wasting s/p parotidectomy Chest Common normals: inspection of chest normal Chest: symmetrical chest wall rise Respiratory Common normals: normal respiratory effort, no retractions, no use of accessory muscles and clear to auscultation bilaterally Effort & inspection: able to speak in complete sentences Cardio Common normals: no JVD, regular rate, regular rhythm, S1 normal heart sound, S2 normal heart sound, no gallops, no clicks, no murmurs, no rub and peripheral pulses 2+ throughout GI Common normals: Normal to inspection, nondistended, normoactive bowel sounds present, soft to palpation, non-tender, no hepatosplenomegaly, no masses and no bruits Bladder/kidney exam: bladder normal to palpation Extremity Common normals: normal capillary refill and no pedal edema General: normal exam except as noted; no clubbing and no cyanosis Neuro Trini Coma Scale: GCS not evaluated Common normals: CN's II-XII intact bilaterally, moves all extremities, no focal motor deficits (No acute focal deficits) and no sensory deficits noted Speech: other (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) Motor exam: strength 5/5 throughout Other: Chronic L shoulder abduction weakness from nerve damage s/p neck/jaw surgery Psych Common normals: mental status grossly normal, thought process normal, affect normal and activity/motor behavior normal Results Labs Labs: Short CBC 03/21/23 Range/Units 21:46 WBC 8.9 (4.0-11.0) 10^3/uL Hgb 10.4 L (14.0-18.0) g/dL Hct 33.4 L (42.0-54.0) % Plt Count 225 (150-450) 10^3/uL BMP 03/21/23 21:46 Sodium 140 Potassium 4.5 Chloride 104 Carbon Dioxide 25.4 BUN 77.0 H* Creatinine 4.16 H Glucose 105 Calcium 9.2 Pulse Oximetry Attestation: I have reviewed the pertinent pulse oximetry results. Imaging CT scan - head: Attestation: I have reviewed the pertinent imaging results. Radiologist's impression: IMPRESSION: No acute intracranial abnormality demonstrated. Carotid Doppler: Attestation: I have reviewed the pertinent imaging results. Radiologist's impression: IMPRESSION: 1. Complete occlusion of left common carotid artery stent with significant intimal thickening and possible thrombus distal aspect of the stent and proximal left internal carotid artery. Extremely diminished flow within visualized portions of the internal carotid artery. 2. Antegrade flow within both vertebral arteries. Assessment and Plan Assessment and Plan (1) TIA (transient ischemic attack): Assessment and Plan: ACUTE * Adm observation * US carotid doppler - Complete occlusion of stents on L side - emergent finding * Attempt transfer to [facility] by attending physician Dr Guillermo where pt's usual vascular surgeon, Dr Euceda, is located * 2D echo obtained - result pending * MRI brain pending - attempting to confirm MRI compatibility of jaw hardware * MRA brain pending * MRA neck d/c'd - Already well assessed with US and significant artifact from jaw hardware would likely obscure the image completely * DAPT * Plavix 300 mg x 1 given in ED, continue 75 mg daily prior to carotid intervention per telestroke service recommendations * Continue home low dose daily ASA * Continue home statin * Lipid panel unremarkable (2) Carotid artery stenosis: Assessment and Plan: ACUTE ON CHRONIC * Known hx w/ L carotid stents x 2 placed about 2 yrs ago * Follows with Dr Euceda at [facility] (3) CKD (chronic kidney disease), stage IV: Assessment and Plan: CHRONIC * Stable at baseline * Planning fistula placement and initiation of HD within 6 months (4) Type 2 diabetes mellitus with hyperglycemia: Assessment and Plan: CHRONIC * ACHS glucometer checks * SS insulin for glucose correction * Continue home basal glargine insulin * Hold home PO meds for now (5) HTN (hypertension): Assessment and Plan: CHRONIC * Continue home amlodipine, Coreg, Lisinopril (6) Depression: Assessment and Plan: CHRONIC * Continue home fluoxetine
--- NOTE | 2023-03-22 15:15 | CM.NOTE ---
Medicare Outpatient Observation Notice discussed with pt, pt verbalizes understanding and signs paper. Original given to pt and copy placed on pt's chart.
[2023-03-22 16:24] LABS: Glucometer 120 mg/dL (74-106)
--- NOTE | 2023-03-22 18:58 | PC.NURSE ---
called report to [facility] at this time.
== END 2023-03-22 19:24 | disposition short-term general hospital (02) ==
LOC: ER 23:21 → MS 23:51
PROVIDERS: Internal Medicine; Admitting Provider Family Medicine; Emergency Provider Internal Medicine; PCP Family Medicine; Visit Provider Nurse Practitioner
DX: I65.22 Occlusion and stenosis of left carotid artery (principal); R47.1 Dysarthria and anarthria; Z79.82 Long term (current) use of aspirin; I25.10 Atherosclerotic heart disease of native coronary artery without angina pectoris; F32.A Depression, unspecified; E78.5 Hyperlipidemia, unspecified; Z79.899 Other long term (current) drug therapy; Z79.4 Long term (current) use of insulin; Z79.84 Long term (current) use of oral hypoglycemic drugs; Z95.5 Presence of coronary angioplasty implant and graft; E11.319 Type 2 diabetes mellitus with unspecified diabetic retinopathy without macular edema; N18.4 Chronic kidney disease, stage 4 (severe); I12.9 Hypertensive chronic kidney disease with stage 1 through stage 4 chronic kidney disease, or unspecified chronic kidney disease; E11.22 Type 2 diabetes mellitus with diabetic chronic kidney disease; H53.8 Other visual disturbances; D63.1 Anemia in chronic kidney disease; Z86.73 Personal history of transient ischemic attack (TIA), and cerebral infarction without residual deficits; G47.30 Sleep apnea, unspecified; Z85.89 Personal history of malignant neoplasm of other organs and systems; Z87.891 Personal history of nicotine dependence; E11.65 Type 2 diabetes mellitus with hyperglycemia; Z66 Do not resuscitate; Z92.3 Personal history of irradiation; Z92.21 Personal history of antineoplastic chemotherapy; Z91.041 Radiographic dye allergy status; E86.0 Dehydration; Z90.89 Acquired absence of other organs; I07.1 Rheumatic tricuspid insufficiency
CPT/HCPCS: 36415; 70450; 70544; 70551; 80048; 80061; 82948; 84484; 85025; 93005; 93306; 93880; 96360; 96361; 97162; 99285; G0378; Q3014

== ENCOUNTER 2023-10-12 23:04 | Emergency (ER) | payer MEDICARE, OTHER, SELFPAY ==
[2023-10-12 23:08] VITALS: BP 138/54; PULSE 80; TEMP 36.9; O2SAT 99; BMI 36.0
[2023-10-12 23:09] VITALS: BP 134/37
--- OUTSIDE RECORDS SUMMARY | 2023-10-12 23:17 | XMS_ITS | CCD ---
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 Name Role Phone KIRNUS, MATT Unavailable Unavailable KIRNUS, MATT Unavailable Unavailable KIRNUS, MATT Unavailable Unavailable KIRNUS, MATT Unavailable Unavailable KIRNUS, MATT Unavailable Unavailable LETY DOWNEY~[id number] UNKNOWN Unavailable Unavailable Lety Downey Unavailable [phone] Unavailable Unavailable Lety Downey Unavailable Pieter Duarte Unavailable Sidagam, Miguel Unavailable Unavailable Cardiology Consult Team Unavailable Unavaila armando Thayerfranklin Lynn Unavailable Gael Euceda Unavailable MD Lety Downey Primary Care Provider MD Gael Euceda Attending Provider Monique Palacios Unavailable MD Lety Downey Primary Care Provider MD Lety Downey Attending Provider [phone] Dr. Lety Downey Primary Care Unavail able Felicia, Dr. Pieter Baltazar Attending Shadia vailable Fleicia, Dr. Pieter Baltazar Referring Shadia vailable Nasreen, Dr. Lety Dooley Primary Care Unavail able Felicia, Dr. Pieter Baltazar Attending Shadia vailable Felicia, Dr. Pieter Baltazar Referring Shadia vailable Nasreen, Dr. Lety Dooley Primary Care Unavail able Sherwood, Dr. Villalta Attending Unavailable Sherwood, Dr. Villalta Referring Unavailable Nasreen, Dr. Lety Dooley Primary Care Unavail able Sherwood, Dr. Villalta Attending Unavailable Sherwood, Dr. Villalta Referring Unavailable Nasreen, Dr. Lety Dooley Primary Care Unavail able Sherwood, Dr. Villalta Attending Unavailable Sherwood, Dr. Villalta Referring Unavailable Nasreen, Dr. Lety Dooley Primary Care Unavail able MD Lety Downey Primary Care Provider QUINN Palacios Attending Provider MD Lety Downey Primary Care Provider QUINN Palacios Attending Provider MD Gael Euceda Attending Provider [phone] MD Lety Hodgson Primary Care Pr ovider DO Lynn Mane Admit Provider [phone] MD Sharri Cancino Attending Provider [phone] ANDREW Milan Other Provider Unavailable MD Gael Euceda Other Provider QUINN Palacios Other Provider MD Coleman Joyce F Other Provider [phone] MD Gregory Alegria Other Provider Lety Downey MD Primary Care Provider Tiny Pavon DO Unavailable [phone] Lety Downey MD Primary Care Provider MD Lety Hodgson Primary Care Pr ovider MD Gael Euceda Attending Provider [phone] LETY DOWNEY Referring Unavailable LETY DOWNEY Primary Care Unavailable LETY DOWNEY Referring Unavailable LETY DOWNEY Primary Care Unavailable Lety Downey MD Primary Care Provider PIETER DUARTE Attending Unavailable LETY DOWNEY Primary Care Unavailable MD Lety Hodgson Primary Care Pr ovider MD Gael Euceda Attending Provider PIETER DUARTE Attending Unavailable LETY DOWNEY Primary Care Unavailable MD Lety Hodgson Primary Care Pr ovider MD Gael Euceda Attending Provider Drew [facility] Maritza Grover Emergency Provider DO Gregory Rodriguez Emergency Provider UnavaADELINE Rivera Referring Unavailable LETY DOWNEY Primary Care Unavailable LETY DOWNEY Referring Unavailable LETY DOWNEY Primary Care Unavailable ADELINE OREILLY Referring Unavailable LETY DOWNEY Primary Care Unavailable LETY DOWNEY Referring Unavailable LETY DOWNEY Primary Care Unavailable LETY DOWNEY Referring Unavailable LETY DOWNEY Primary Care Unavailable LETY DOWNEY Referring Unavailable LETY DOWNEY Primary Care Unavailable LETY DOWNEY Referring Unavailable LETY DOWNEY Primary Care Unavailable MEREDITH SPICER Referring Unavailable LETY DOWNEY Primary Care Unavailable LETY DOWNEY Referring Unavailable LETY DOWNEY Primary Care Unavailable MEREDITH SPICER Referring Unavailable LETY DOWNEY Primary Care Unavailable LETY DOWNEY Referring Unavailable LETY DOWNEY Primary Care Unavailable MEREDITH SPICER Referring Unavailable LETY DOWNEY Primary Care Unavailable LETY DOWNEY Referring Unavailable LETY DOWNEY Primary Care Unavailable MEREDITH SPICER Referring Unavailable LETY DOWNEY Primary Care Unavailable ADELINE OREILLY Referring Unavailable LETY DOWNEY Primary Care Unavailable NASREEN LETY Coello Referring Unavailable LETY DOWNEY Primary Care Unavailable ADELINE OREILLY Referring Unavailable NASREEN LETY G Primary Care Unavailable NASREEN, LETY Coello Referring Unavailable NASREEN, LETY Coello Primary Care Unavailable ADELINE OREILLY Referring Unavailable LETY DOWNEY Primary Care Unavailable NASREEN, LETY Coello Referring Unavailable NASREEN, LETY G Primary Care Unavailable MEREDITH SPICER Referring Unavailable NASREEN, LETY G Primary Care Unavailable NASREEN, LETY Coello Referring Unavailable NASREEN, LETY Coello Primary Care Unavailable ADELINE OREILLY Referring Unavailable LETY DOWNEY Primary Care Unavailable LETY DOWNEY Referring Unavailable NASREEN, LETY G Primary Care Unavailable Monique Palacios Admitting Unavailable Monique Palacios Attending Unavailable Lilia Downey, Lety L Primary Care Un available Gael Euceda Attending Unavailable Lilia Downey, Lety L Primary Care Un available Gael Euceda Admitting Unavailable Gael Euceda Attending Unavailable Lilia Downey, Lety L Primary Care Un available Gael Euceda Admitting Unavailable Gael Euceda Admitting Unavailable MarioslaMahajan, Lety L Primary Care Un available Gael Euceda Attending Unavailable Maritza Russell Admitting Unavailable Maritza Russell Attending Unavailable Lilia Downey, Lety L Primary Care Un available Gregory Rodriguez Admitting Unavailable Gregory Rodriguez Attending Unavailable Lilia Downey, Lety L Primary Care Un available GreenslaMahajan, Lety L Primary Care Un available Lynn Mane Admitting Unavailable Sharri Cancino Attending Unavailable Thalia Milan Consulting Unavailable Gael Euceda Consulting Unavailable Monique Palacios Consulting Unavailable Coleman Joyce Consulting Unavailable Gregory Alegria Consulting Unavailjarrett e Gael Euceda Admitting Unavailable [place]lade Nasreen, Lety L Primary Care Un available Gael Euceda Attending Unavailable LETY DOWNEY Attending Unavailable TINY PAVON Attending Unavailable LETY DOWNEY Attending Unavailable TINY PAVON Attending Unavailable TINY PAVON Referring Unavailable LETY DOWNEY Attending Unavailable Allergies Allergy Classification Reported Allergen(s) Allergy Type Date of Onset Reaction(s) Facility (20 sources) Contrast media Allergy to substance (finding) [facility] 600 DO Work Phone: (1 source) Contrast media Unknown [facility] (20 sources) Iodinated Contrast Media; Translations: [IODINATED CONTRAST MEDIA] Propensity to adverse reactions 6 Unknown [facility] (20 sources) Benzoate; Translations: [BENZOIC ACID] Drug Allergy 6 Rash [facility] (1 source) Benzoate Drug Allergy 6 [facility] Medications Current Medications Medication Drug Class(es) Dates Sig (Normalized) Sig (Original) acetaminophen 32 mg/ml oral solution (1 source) Start: 08-01-2021 End: 08-10-2021 take 30 mL by mouth three times daily acetaminophen 160 mg/5 mL oral liquid ; 30 milliliter(s) by gastrostomy tube 3 times a day Quantity: 900 Refills: 0 Ordered: 01-Aug-2021 Charlie Pineda Start: 01-Aug-2021 End: 10-Aug-2021 Generic Substitution Allowed Comments: This product contains acetaminophen. Do not use with any other product containing acetaminophen to prevent possible liver damage. Comment on above: This product contain s acetaminophen. Do not use with any other product containing acetaminophen to prevent possible liver damage. amLODIPine 10 mg oral tablet (20 sources) Dihydropyridine Calcium Channel Marixa Start: 01-10-2023 End: 01-10-2024 take 10 mg by mouth once daily in the morning Amlodipine Active 10 MG PO Every morning March 22, 2023 1:00am Start: 08-01-2021 End: 08-30-2021 take 1 tablet by mouth once daily amLODIPine 10 mg oral tablet ; 1 tab(s) by gastrostomy tube once a day Quantity: 30 Refills: 0 Ordered: 01-Aug-2021 Charlie Pineda Start: 01-Aug-2021 End: 30-Aug-2021 Generic Substitution Allowed Aspir-81 81 MG (6 sources) take 1 tablet by mouth once daily Aspir-81 81 MG 1 tablet Orally Once a day Active aspirin 81 mg oral tablet (20 sources) Platelet Aggregation Inhibitor, Nonsteroidal Anti-inflammatory Drug Start: 2 take 1 tablet by mouth once daily aspirin 81 mg oral tablet ; 1 tab(s) by gastrostomy tube once a day Quantity: 81 Refills: 0 Ordered: 01-Aug-2021 Charlie Pineda Start: 01-Aug-2021 Generic Substitution Allowed Start: 05-31-2018 take 1 tablet by miah th once daily Aspirin (Aspir-81) 81 mg Tablet,Delayed Release (Dr/Ec) Active 81 MG PO Daily May 31, 2018 1:00am atorvastatin 80 mg oral tablet (20 sources) HMG-CoA Reductase Inhibitor Start: 12-25-2015 End: 07-23-2024 take 80 mg by mouth at bedtime Atorvastatin Active 80 MG PO Bedtime May 31, 2018 1:00am calcitriol 0.85532 mg oral capsule (20 sources) Vitamin D3 Analog Start: 08-11-2022 End: 08-06-2023 take 0.25 ug by mouth once daily Calcitriol Active 0.25 MCG PO 1 time daily March 22, 2023 1:00am carvedilol 25 mg oral tablet (20 sources) alpha-Adrenergic Marixa, beta-Adrenergic Marixa Start: 05-31-2018 End: 08-30-2021 take 25 mg by mouth twice daily Carvedilol Active 25 MG PO Twice daily May 31, 2018 1:00am take 1 tablet by mouth once martin y carvedilol (Coreg) 25 MG tablet Take 25 mg by mouth 1 (one) time each day. 0 Active chlorhexidine gluconate 1.2 mg/ml mouthwash (11 sources) Start: 08-01-2021 End: 08-10-2021 take 15 mL by mouth three times daily Peridex 0.12% mucous membrane liquid ; 15 milliliter(s) orally 3 times a day Quantity: 1 Refills: 0 Ordered: 01-Aug-2021 Charlie Pineda Start: 01-Aug-2021 End: 10-Aug-2021 Generic Substitution Allowed Start: 06-25-2021 Hibiclens 4 % External Liquid USE DIRECTED as preop shower Quantity: 1 Refills: 0 Ordered: 25-Jun-2021 Beatriz COATSDAVIDKhalida Start : 25-Jun-2021 Active Peridex 0.12 % M outh/Throat Solution Quantity: 0 Refills: 0 Ordered: 11-Aug-2021 DO Active cholecalciferol 0.05 mg oral tablet (20 sources) Vitamin D Start: 03-22-2023 take 100 ug by mouth once daily Cholecalciferol (Vitamin D3) Active 100 MCG PO 1 time daily March 22, 2023 1:00am Start: 08-11-2022 End: 08-06-2023 take 2 tablets by mouth in the morning cholecalciferol, vitamin D3, (VITAMIN D3) 2,000 units tablet Take 2 tablets (4,000 Units total) by mouth in the morning for 360 days. 180 tablet 3 08/11/2022 08/06/2023 Active take 1 tablet by miah th once daily cholecalciferol (Vitamin D3) 25 MCG (1000 UT) tablet Take 1 tablet (1,000 Units) by mouth once daily. Active take 1 capsule by mo uth once daily Vitamin D3 25 MCG (1000 UT) Oral Capsule TAKE 1 CAPSULE Daily Quantity: 90 Refills: 1 Ordered: 02-Jan-2023 DO Active ciprofloxacin 3 mg/ml / dexamethasone 1 mg/ml otic suspension (1 source) Corticosteroid, Quinolone Antimicrobial Start: 07-12-2023 End: 07-19-2023 ciprofloxacin-dexamethasone (CiproDEX) otic suspension Indications: Impacted cerumen of left ear , Infective otitis externa of left ear Administer 4 drops into affected ear(s) 2 times a day for 7 days. 7.5 mL 1 07/12/2023 07/19/2023 Active clopidogrel 75 mg oral tablet (20 sources) [id number] Platelet Inhibitor Start: 05-31-2018 End: 03-23-2023 take 75 mg by mouth once daily Clopidogrel Active 75 MG PO Daily March 24, 2023 1:00am clotrimazole 10 mg/ml topical solution (1 source) Azole Antifungal Start: 08-25-2023 clotrimazole (Lotrimin) 1 % external solution Indications: 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, unsp ear Apply 3 drops to left ear for 10 days, please use for 10 days prior to next visit as well 30 mL 1 08/25/2023 Active Continuous Blood Gluc Sensor (Dexcom G7 Sensor) mis (1 source) Start: 04-10-2023 Continuous Blood Gluc Sensor (Dexcom G7 Sensor) misc Indications: Type 2 diabetes mellitus with chronic kidney disease, with long-term current use of insulin, unspecified CKD stage (CMS/HCC) Inject 1 Device under the skin See administration instructions Change every 10 days 9 each 3 04/10/2023 Active dexamethasone 1 mg/ml / tobramycin 3 mg/ml ophthalmic suspension (2 sources) Aminoglycoside Antibacterial, Corticosteroid Start: 07-13-2023 take 5 drop(s) into the eye(s) twice daily tobramycin-dexamethasone (Tobradex) ophthalmic suspension Indications: Infective otitis externa of left ear 5 drops left ear bid for 7 days 10 mL 07/13/2023 Active Start: 01-13-2023 take 4-5 drop(s) int o the eye(s) twice daily Tobramycin-dexAMETHasone 0.3-0.1 % Ophthalmic Suspension Instill 4-5 drops into left ear two times a day for 5 days Quantity: 1 Refills: 0 Ordered: 13-Jan-2023 Pieter Duarte MD Start : 13-Jan-2023 Active famotidine 20 mg oral tablet (8 sources) Histamine-2 Receptor Antagonist Start: 08-01-2021 End: 08-30-2021 take 1 tablet by mouth twice daily famotidine 20 mg oral tablet ; 1 tab(s) by gastrostomy tube 2 times a day Quantity: 60 Refills: 0 Ordered: 01-Aug-2021 Charlie Pineda Start: 01-Aug-2021 End: 30-Aug-2021 Generic Substitution Allowed Comments: It is very important that you take or use this exactly as directed. Do not skip doses or discontinue unless directed by your doctor.Obtain medical advice before taking any non-prescription drugs as some may affect the action of this medication. take 1 tablet by mouth once martin y Famotidine 20 MG Oral Tablet TAKE 1 TABLET EVERY 12 HOURS DAILY. Quantity: 0 Refills: 0 Ordered: 12-Aug-2021 DO Active Comment on above: It is very important that you take or use this exactly as directed. Do not skip doses or discontinue unless directed by your doctor.Obtain medical advice before taking any non-prescription drugs as some may affect the action of this medication. FLUoxetine 40 mg oral capsule (20 sources) Serotonin Reuptake Inhibitor Start: 10-09-19 End: 05-30-19 take 40 mg by mouth once daily in the evening Fluoxetine Active 40 MG PO Every evening March 22, 2023 1:00am Start: 10-08-2021 FLUoxetine HCl - 40 MG Oral Capsule take po as directed Quantity: 0 Refills: 0 Ordered: 08-Oct-2021 DO Start : 08-Oct-2021 Active Start: 04-22-2021 take 1 capsule by mo uth once daily FLUoxetine HCl - 20 MG Oral Capsule TAKE 1 CAPSULE BY MOUTH ONCE DAILY Quantity: 90 Refills: 0 Ordered: 22-Apr-2021 DO Start : 22-Apr-2021 Active Fluoxetine Activ e gabapentin 400 mg oral capsule (2 sources) Anti-epileptic Agent Start: 10-08-2023 take 400 mg by mouth three times daily Gabapentin Active 400 MG PO Three times daily 10 09October 08, 2023 2:05pm insulin aspart, human 100 unt/ml injectable solution (2 sources) Insulin Analog Relion NovoLOG 1 00 units/mL injectable solution ; 15 injectable once a day Quantity: 0 Refills: 0 Ordered: 19-Jul-2021 Emilie Fritz Generic Substitution Allowed Relion NovoLOG 1 00 units/mL injectable solution ; 30 unit(s) injectable once a day (at bedtime) Quantity: 0 Refills: 0 Ordered: 19-Jul-2021 Emilie Fritz Generic Substitution Allowed 3 ml insulin glargine 100 unt/ml pen injector (20 sources) Insulin Analog Start: 03-22-2023 Insulin Glargi ne (Basaglar Kwikpen U-100 Insulin) 100 unit/mL (3 mL) insulin pen Active 27 UNIT SUBCUT Every morning March 22, 2023 1:00am Start: 03-22-2023 Insulin Glargi ne (Basaglar Kwikpen U-100 Insulin) 100 unit/mL (3 mL) insulin pen Active 30 UNIT SUBCUT 1 time daily March 22, 2023 12:00am Start: 09-19-2022 BASAGLAR KWIKP EN U-100 INSULIN 100 unit/mL (3 mL) insulin pen Inject 27 Units under the skin in the morning. 0 09/19/2022 Active Start: 09-19-2022 BASAGLAR KWIKP EN U-100 INSULIN 100 unit/mL (3 mL) insulin pen Inject 30 Units under the skin in the morning. 0 09/19/2022 Active Basaglar KwikPen 100 UNIT/ML Subcutaneous Solution Pen-injector INJECT 40 UNITS UNDER THE SKIN Quantity: 0 Refills: 0 Ordered: 02-Jan-2023 DO Active insulin isophane, human 70 unt/ml / insulin, regular, human 30 unt/ml injectable suspension (2 sources) Insulin End: 05-18-2023 inject 25 mg by subcutaneous injection twice daily before mealtime insulin NPH and regular human (NovoLIN 70-30) 100 unit/mL (70-30) injection Inject under the skin 2 (two) times a day before meals. 25MG AT NIGHT 15 IN MORNING 0 05/18/2023 Discontinued isosorbide dinitrate 30 mg oral tablet (8 sources) Nitrate Vasodilator Start: 08-01-2021 End: 08-30-2021 take 1 tablet by mouth three times daily isosorbide dinitrate 30 mg oral tablet ; 1 tab(s) by gastrostomy tube 3 times a day Quantity: 90 Refills: 0 Ordered: 01-Aug-2021 Charlie Pineda Start: 01-Aug-2021 End: 30-Aug-2021 Generic Substitution Allowed Comments: Do not drink alcoholic beverages when taking this medication.It is very important that you take or use this exactly as directed. Do not skip doses or discontinue unless directed by your doctor. Comment on above: Do not drink alcoholic beverages when ta usha this medication.It is very important that you take or use this exactly as directed. Do not skip doses or discontinue unless directed by your doctor. lisinopril 10 mg oral tablet (20 sources) Angiotensin Converting Enzyme Inhibitor Start: 08-24-2023 take 1 tablet by mouth once daily lisinopril 10 mg tablet Take 1 tablet (10 mg) by mouth once daily. 08/24/2023 Active Start: 08-25-2022 End: 05-22-2023 take 1 tablet by mouth in the morning lisinopriL (PRINIVIL,ZESTRIL) 10 mg tablet Take 1 tablet (10 mg total) by mouth in the morning. 90 tablet 3 05/22/2023 Active Start: 08-01-2021 End: 08-30-2021 take 1 tablet by mouth once daily lisinopril 20 mg oral tablet ; 1 tab(s) by gastrostomy tube once a day Quantity: 30 Refills: 0 Ordered: 01-Aug-2021 Charlie Pineda Start: 01-Aug-2021 End: 30-Aug-2021 Generic Substitution Allowed Start: 10-29-2020 take 10 mg by mouth once daily in the morning Lisinopril Active 10 MG PO Every morning October 29, 2020 12:00am Start: 10-29-2020 take 20 mg by mouth twice daily Lisinopril Active 20 MG PO Twice daily October 28, 2020 11:00pm nitroglycerin 0.4 mg sublingual tablet (20 sources) Nitrate Vasodilator Start: 02-17-2021 nitroglyce rin (Nitrostat) 0.[address] 1 tablet (0.4 mg) under the tongue every 5 minutes if needed. 02/17/2021 Active Start: 03-18-2019 nitroglycerin (NITROSTAT) 0.4 MG SL tablet 1 under the tongue as needed for angina, may repeat q5mins for up three doses 25 tablet 3 03/18/2019 Active petrolatum 1 mg/mg topical ointment (1 source) Start: 08-01-2021 End: 08-07-2021 Vaseline topical ointment ; Apply topically to surgery incisions 2 times a day Quantity: 1 Refills: 0 Ordered: 01-Aug-2021 Charlie Pineda Start: 01-Aug-2021 End: 07-Aug-2021 Generic Substitution Allowed Comments: For external use only. Comment on above: For external use onl y. pioglitazone 30 mg oral tablet (20 sources) Peroxisome Proliferator Receptor alpha Agonist, Peroxisome Proliferator Receptor gamma Agonist, Thiazolidinedione Start: 05-31-2018 End: 04-09-2024 take 1 tablet by mouth once daily in the morning Pioglitazone (Actos) 30 mg tablet Active 30 MG PO Every morning May 31, 2018 1:00am tamsulosin hydrochloride 0.4 mg oral capsule (19 sources) alpha-Adrenergic Marixa Start: 01-25-2024 take 1 capsule by mouth once daily Tamsulosin (Flomax) 0.4 mg capsule Active 0.4 MG PO Daily June 06, 2023 1:00am Zinc (14 sources) Start: 05-31-2018 take 50 mg by mouth once daily Zinc Active 50 MG PO Daily May 31, 2018 12:00am Start: 05-31-2018 take 50 mg by mouth once daily Zinc Active 50 MG PO Daily May 31, 2018 1:00am take 1 tablet by mouth once martin y Zinc 50 MG 1 tablet Orally Once a day for 30 day(s) Active zinc acetate 50 mg oral capsule (2 sources) take 1 capsule by mo uth once daily zinc acetate 50 mg (zinc) capsule Take 1 capsule by mouth once daily. Active zinc gluconate 50 mg oral tablet (20 sources) take 1 tablet by miah th in the morning zinc gluconate 50 mg tablet Take 1 tablet (50 mg total) by mouth in the morning. 0 Active Zinc Sulfate (1 source) Zinc ; 1 tab(s) by gastrostomy tube once a day Quantity: 0 Refills: 0 Ordered: 01-Aug-2021 Charlie Pineda Generic Substitution Allowed Completed/Discontinued Medications Medication Drug Class(es) Dates Sig (Normalized) Sig (Original) amoxicillin 875 mg / clavulanate 125 mg oral tablet (10 sources) Penicillin-class Antibacterial Start: 11-16-2021 take 1 tablet by mouth twice daily Amoxicillin-Pot Clavulanate 875-125 MG Oral Tablet TAKE 1 TABLET TWICE DAILY UNTIL GONE. Quantity: 28 Refills: 0 Ordered: 29-Apr-2022 Pieter Duarte MD Start : 16-Nov-2021 Active Start: 11-16-2021 take 1 tablet by miah th every twelve hours Amoxicillin-Pot Clavulanate 875-125 MG Oral Tablet TAKE 1 TABLET Every twelve hours crush and give through PEG tube. Quantity: 28 Refills: 0 Ordered: 28-Dec-2021 Pieter Duarte MD Start : 16-Nov-2021 Active Start: 08-01-2021 End: 08-05-2021 take 30 mL by mouth twice daily at mealtime Augmentin 125 mg-31.25 mg/5 mL oral liquid ; 30 milliliter(s) by gastrostomy tube 2 times a day Quantity: 300 Refills: 0 Ordered: 01-Aug-2021 Charlie Pineda Start: 01-Aug-2021 End: 05-Aug-2021 Generic Substitution Allowed Comments: Expires Finish all this medication unless otherwise directed by prescriber.Refrigerate and shake well. Expires Take with food or milk. Comment on above: Expires Finish all this medication unless otherwise directed by prescriber.Refrigerate and shake well. Expires Take with food or milk. benzonatate 100 mg oral capsule (13 sources) Non-narcotic Antitussive Star t: 08-11 End: 11-23 take 1 capsule by mouth three times daily Benzonatate (Tessalon Perles) 100 mg Capsule Discontinued 100 MG PO Three times daily October 29, 2020 12:00am December 14, 2020 6:46am cephalexin 500 mg oral capsule (12 sources) Cephalosporin Antibacterial Star t: 10-23 End: 11-23 take 500 mg by mouth every six hours Cephalexin Discontinued 500 MG PO Q6H 28 November 14, 2020 12:00am December 14, 2020 6:46am cloNIDine hydrochloride 0.1 mg oral tablet (20 sources) Central alpha-2 Adrenergic Agonist Star t: 11-10 End: 02-23 take 1 tablet by mouth once daily Clonidine Hcl Discontinued 1 TAB PO Daily May 31, 2018 1:00am March 23, 2023 12:10am take 1 tablet by miah th every twelve hours cloNIDine HCl 0.1 MG 1 tablet Orally twi ce a day Active 0.5 ml darbepoetin francisco 0.2 mg/ml prefilled syringe (6 sources) Erythropoiesis-stimulating Agent Start: 07-17-2023 End: 07-17-2023 darbepoetin rfancisco-polysorbate (ARANESP) injection 80 mcg Start: 07-03-2023 End: 07-03-2023 darbepoetin francisco-polysorbate (ARANESP) injection 60 mcg Start: 06-05-2023 End: 06-05-2023 darbepoetin francisco-polysorbate (ARANESP) injection 60 mcg Start: 08-11-2022 End: 07-13-2023 Darbepoetin Francisco (Aranesp) 6 0 MCG/ML injection Inject 60 mcg under the skin every 14 (fourteen) days. 0 08/11/2022 07/13/2023 Active diazePAM 5 mg oral tablet (12 sources) Benzodiazepine Start: 05-26-2020 End: 10-29-2020 take 1 tablet by mouth once daily Diazepam (Valium) 5 mg Tablet Discontinued 5 MG PO Daily May 26, 2020 1:00am October 29, 2020 9:31am diphenhydrAMINE hydrochloride 25 mg oral tablet (13 sources) Histamine-1 Receptor Antagonist Start: 05-21-2021 take 2 tablets by mouth every hour Benadryl Allergy 25 MG Oral Tablet take 2 tablets 1 hour prior to scan Quantity: 2 Refills: 0 Ordered: 21-May-2021 Pieter Duarte MD Start : 21-May-2021 Active glipiZIDE 5 mg oral tablet (20 sources) Sulfonylurea Start: 04-01-2020 End: 03-22-2023 take 5 mg by mouth once daily Glipizide Discontinued 5 MG PO Daily April 01, 2020 1:00am March 23, 2023 12:10am hydroCHLOROthiazide 12.5 mg / lisinopril 20 mg oral tablet (12 sources) Thiazide Diuretic, Angiotensin Converting Enzyme Inhibitor Start: 05-31-2018 End: 10-29-2020 take 1 tablet by mouth twice daily Lisinopril-Betsy Layne chlorothiazide Discontinued 1 TAB PO Twice daily May 31, 2018 1:00am October 29, 2020 9:31am insulin isophane, human 100 unt/ml injectable suspension (20 sources) Start: 10-29-2020 End: 03-22-2023 Insulin Nph Isoph U-100 Human (Novolin N Nph U-100 Insulin) 100 unit/mL suspension Discontinued 24 UNIT SUBCUT Bedtime October 29, 2020 12:00am March 23, 2023 12:11am Start: 06-20-2018 End: 03-22-2023 inject 10 [IU] by subcutaneous injection once daily in the morning Insulin Nph Isoph U-100 Human (Novolin N Nph U-100 Insulin) 100 unit/mL Suspension Discontinued 10 UNIT SUBCUT Daily June 20, 2018 1:00am March 23, 2023 12:11am takes in morning NovoLIN N 100 UN IT/ML Subcutaneous Active NovoLIN N 100 UN IT/ML Subcutaneous Active insulin isophane (NPH) human recombinant 100 units/mL subcutaneous suspension ; 1 dose subcutaneous Quantity: 0 Refills: 0 Ordered: 25-Jun-2021 Elke Edmondson Status: Discontinued Generic Substitution Allowed metFORMIN hydrochloride 500 mg oral tablet (20 sources) Biguanide Start: 05-31-2018 End: 03-22-2023 take 500 mg by mouth twice daily Metformin Discontinued 500 MG PO Twice daily May 31, 2018 1:00am March 23, 2023 12:10am take 1 tablet by miah th every twelve hours at mealtime metFORMIN HCl - 500 MG Oral Tablet TAKE 1 TABLET PO EVERY 12 HOURS WITH FOOD Quantity: 0 Refills: 0 Ordered: 17-Nov-2021 DO Active mupirocin 0.02 mg/mg topical ointment (3 sources) RNA Synthetase Inhibitor Antibacterial Start: 04-29-2022 Mupirocin 2 % External Ointment APPLY SPARINGLY TO AFFECTED AREA(S) TWICE DAILY Quantity: 1 Refills: 0 Ordered: 29-Apr-2022 Felicia GONZALEZ, Pieter Start : 29-Apr-2022 Active NIFEdipine 60 mg osmotic 24 hr extended release oral tablet (20 sources) Dihydropyridine Calcium Channel Marixa Start: 05-31-2018 End: 03-22-2023 take 60 mg by mouth once daily Nifedipine Discontinued 60 MG PO Daily May 31, 2018 1:00am March 23, 2023 12:10am take 1 tablet by mouth once martin y NIFEdipine ER 60 MG Oral Tablet Extended Release 24 Hour TAKE 1 TABLET PO DAILY. Quantity: 0 Refills: 0 Ordered: 17-Nov-2021 DO Active NIFEdipine 60 MG as directed Orally Active nystatin 201133 unt/ml oral suspension (6 sources) Polyene Antifungal Start: 08-16-2021 take 5 mL by mouth three times daily Nystatin 481996 UNIT/ML Mouth/Throat Suspension SWISH-SPIT 5 ML 3 times daily Quantity: 210 Refills: 0 Ordered: 16-Aug-2021 Felicia GONZALEZ, Pieter Start : 16-Aug-2021 Active oxyCODONE hydrochloride 1 mg/ml oral solution (5 sources) Opioid Agonist Start: 08-01-2021 End: 08-05-2021 take 5 mL by mouth four times daily as needed oxyCODONE HCl - 5 MG/5ML Oral Solution TAKE 5 ML BY GASTROSTOMY TUBE 4 TIMES DAILY NEEDED Quantity: 100 Refills: 0 Ordered: 13-Aug-2021 DO Start : 02-Aug-2021 Active Comment on above: Caution federal law prohibits the transfer of this drug to any person other than the person for whom it was prescribed.May cause drowsiness or dizziness.This prescription cannot be refilled.Using more of this medication than prescribed may cause serious breathing problems. predniSONE 10 mg oral tablet (6 sources) Start: 05-21-2021 predniSONE 10 MG Oral Tablet take 5 tablets 13 hours prior to scan then 5 tablets 7 hours before scan then 5 tablets 1 hour prior to scan Quantity: 15 Refills: 0 Ordered: 21-May-2021 Felicia GONZALEZ, Pieter Start : 21-May-2021 Active sennosides, group home 1.76 mg/ml oral solution (5 sources) Start: 08-01-2021 End: 08-10-2021 take 5 mL by mouth once daily at bedtime Senna 8.8 MG/5ML Oral Syrup ADMINISTER 5 ML BY GASTROSTOMY TUBE ONCE A DAY AT BEDTIME Quantity: 50 Refills: 0 Ordered: 02-Aug-2021 DO Start : 02-Aug-2021 Active sodium bicarbonate 650 mg oral tablet (8 sources) Start: 03-23-2023 End: 10-08-2023 Sodium Bicarbonate Discontinued 650 MG PO Daily at 0730, 1530, 2330 March 23, 2023 1:00am October 08, 2023 1:06pm sulfamethoxazole 40 mg/ml / trimethoprim 8 mg/ml oral suspension (6 sources) Dihydrofolate Reductase Inhibitor Antibacterial, Sulfonamide Antimicrobial Start: 08-19-2021 take 20 mL by mouth twice daily Sulfamethoxazole- Trimethoprim 200-40 MG/5ML Oral Suspension TAKE 20 ML Twice daily Quantity: 400 Refills: 0 Ordered: 19-Aug-2021 Felicia GONZALEZ, Pieter Start : 19-Aug-2021 Active XyliMelts 550 MG Mouth/Throat Disk (6 sources) Start: 03-11-2022 XyliMelts 550 MG Mouth/Throat Disk Use two discs while sleeping, one on each side of the mouth. During the day, use as needed Quantity: 1 Refills: 11 Ordered: 11-Mar-2022 Pieter Duarte MD Start : 11-Mar-2022 Active Problems Active Problems Problem Classification Problem Date Documented Da te Episodic/Chronic Allergic reactions (20 sources) Allergy to contrast media; Translations: [Allergy to radiographic dye] Episodic Aortic; peripheral; and visceral artery aneurysms (16 sources) Aneurysm; Translations: [Aneurysm of unspecified site] Onset: 11-21-2022 07-11-2022 Chronic Cancer of head and neck (15 sources) Malignant tumor of head and neck; Translations: [Malignant neoplasm of head, face and neck] Onset: 03-27-2012 04-01-2020 Chronic Cancer; other and unspecified primary (20 sources) History of malignant neoplasm of head and/or neck; Translations: [Personal history of malignant neoplasm of other sites] Onset: 04-09-2015 01-10-2023 Episodic Cancer; other and unspecified primary (2 sources) Personal history of malignant neoplasm of other organs and systems; Translations: [Personal history of malignant neoplasm of other organs and systems] Onset: 06-28-2023 Episodic Cardiac dysrhythmias (13 sources) Atrial fibrillation; Translations: [Unspecified atrial fibrillation] Onset: 11-21-2022 04-01-2020 Chronic Chronic kidney disease (20 sources) Chronic kidney disease stage 3; Translations: [Chronic kidney disease, Stage III (moderate)] Onset: 03-14-2017 Resolved: 01-10-2023 Chronic Chronic kidney disease (5 sources) Chronic kidney disease; Translations: [Hypertensive chronic kidney disease w stg 1-4/unsp chr kdny] Onset: 01-30-2017 Complications of surgical procedures or medical care (12 sources) Wound dehiscence; Translations: [Disruption of wound, unspecified, initial encounter] 08-14-2021 Episodic Congestive heart failure; nonhypertensive (3 sources) Acute on chronic diastolic heart failure; Translations: [Acute on chronic diastolic heart failure] Onset: 11-21-2022 07-28-2021 Chronic Coronary atherosclerosis and other heart disease (20 sources) Coronary atherosclerosis; Translations: [Coronary atherosclerosis of [place] coronary artery] Onset: 06-23-2016 07-27-2021 Chronic Deficiency and other anemia (1 source) Anemia of chronic disease; Translations: [Anemia in other chronic diseases classified elsewhere] Onset: 11-21-2022 11-21-2022 Chronic Deficiency and other anemia (1 source) Anemia in chronic kidney disease; Translations: [Anemia in chronic kidney disease] Onset: 03-14-2017 Chronic Deficiency and other anemia (2 sources) Myocardial infarction; Translations: [Anemia, unspecified] 07-23-2021 Episodic Deficiency and other anemia (20 sources) Anemia; Translations: [Anemia, unspecified] Onset: 04-03-2012 03-14-2017 Episodic Deficiency and other anemia (4 sources) Deficiency and other anemia 07-21-2021 Diabetes mellitus with complications (8 sources) Peripheral vascular disorder due to diabetes mellitus; Translations: [Type 2 diabetes mellitus with diabetic peripheral angiopathy without gangrene] Onset: 07-23-2016 Resolved: 04-10-2023 11-21-2022 Chronic Diabetes mellitus without complication (20 sources) Diabetes mellitus; Translations: [Diabetes mellitus without mention of complication, type II or unspecified type, not stated as uncontrolled] Onset: 06-05-2012 07-23-2021 Chronic Diabetes mellitus without complication (1 source) Diabetes mellitus without complication 07-23-2021 Diseases of mouth; excluding dental (12 sources) Xerostomia; Translations: [Disturbance of salivary secretion] Onset: 11-21-2022 11-21-2022 Episodic Disorders of lipid metabolism (20 sources) Hyperlipidemia; Translations: [Other and unspecified hyperlipidemia] Onset: 06-05-2012 03-22-2023 Chronic Disorders of teeth and jaw (1 source) Periodontitis ; Translations: [Chronic periodontitis, unspecified] Onset: 11-21-2022 11-21-2022 Chronic Disorders of teeth and jaw (20 sources) Inflammatory disorder of jaw region; Translations: [Inflammatory conditions of jaw] Onset: 06-04-2019 Resolved: 11-21-2022 04-01-2020 Episodic E Codes: Adverse effects of medical care (15 sources) Complication of procedure; Translations: [Radiological procedure and radiotherapy as the cause of abnormal reaction of the patient, or of later complication, without mention of misadventure at the time of the procedure] Onset: 11-21-2022 04-01-2020 Episodic Essential hypertension (20 sources) Essential hypertension; Translations: [Unspecified essential hypertension] Onset: 06-05-2012 07-27-2021 Chronic Fluid and electrolyte disorders (4 sources) Hypokalemia; Translations: [Hypopotassemia] Onset: 06-28-2023 06-28-2023 Episodic Hypertension with complications and secondary hypertension (15 sources) 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; Translations: [Hypertensive chronic kidney disease, unspecified, with chronic kidney disease stage I through stage IV, or unspecified] Onset: 06-28-2023 06-28-2023 Chronic Malaise and fatigue (2 sources) Malaise and fatigue; Translations: [Other malaise] Onset: 12-28-2017 01-10-2023 Episodic Melanomas of skin (13 sources) Malignant melanoma; Translations: [Malignant melanoma of skin, unspecified] Onset: 11-21-2022 04-01-2020 Chronic Mood disorders (1 source) Moderate major depression, single episode; Translations: [Major depressive disorder, single episode, moderate] Onset: 11-04-2022 11-04-2022 Chronic Mycoses (20 sources) Candidiasis of mouth; Translations: [Candidiasis of mouth] Onset: 06-28-2023 06-28-2023 Episodic Occlusion or stenosis of precerebral arteries (20 sources) Carotid artery stenosis; Translations: [Occlusion and stenosis of carotid artery without mention of cerebral infarction] Onset: 09-07-2018 Resolved: 01-25-2021 Chronic Open wounds of head; neck; and trunk (20 sources) Open wound in mouth with complication; Translations: [Open wound of mouth, unspecified site, complicated] Onset: 01-26-2015 07-19-2021 Episodic Osteoarthritis (1 source) Osteoarthritis of left knee joint; Translations: [Unilateral primary osteoarthritis, left knee] Onset: 11-21-2022 11-21-2022 Chronic Other aftercare (5 sources) Encounter for surgical aftercare following surgery on the circulatory system; Translations: [Aftercare following surgery of the circulatory system, NEC] Onset: 01-25-2021 Resolved: 01-25-2021 Episodic Other aftercare (6 sources) Surgical follow-up; Translations: [Encounter for surgical aftercare following surgery on the circulatory system] 06-06-2023 Episodic Other bone disease and musculoskeletal deformities (1 source) Aseptic necrosis of bone of jaw; Translations: [Aseptic necrosis of bone, other] 07-19-2021 Chronic Other circulatory disease (1 source) Disorder of carotid artery; Translations: [Disorder of arteries and arterioles, unspecified] Onset: 11-21-2022 11-21-2022 Chronic Other circulatory disease (6 sources) Arteriovenous fistula; Translations: [Arteriovenous fistula, acquired] 06-06-2023 Chronic Other circulatory disease (3 sources) Arteriovenous fistula, acquired; Translations: [Arteriovenous fistula, acquired] 08-01-2023 Chronic Other circulatory disease (12 sources) Venous hemorrhage; Translations: [Hemorrhage, not elsewhere classified] 12-14-2020 Episodic Other ear and sense organ disorders (20 sources) Hearing loss; Translations: [Unspecified hearing loss, unspecified ear] Onset: 06-28-2023 04-01-2020 Chronic Other ear and sense organ disorders (1 source) Mixed conductive and sensorineural hearing loss of left ear; Translations: [Mixed conductive and sensorineural hearing loss, unilateral, left ear, with unrestricted hearing on the contralateral side] Onset: 11-21-2022 11-21-2022 Chronic Other ear and sense organ disorders (1 source) Sensorineural hearing loss, bilateral; Translations: [Sensorineural hearing loss, bilateral] Onset: 11-21-2022 11-21-2022 Chronic Other ear and sense organ disorders (7 sources) Impacted cerumen; Translations: [Impacted cerumen] Episodic Other ear and sense organ disorders (3 sources) Impacted cerumen in left ear; Translations: [Impacted cerumen, left ear] Onset: 06-28-2023 07-12-2023 Episodic Other ear and sense organ disorders (3 sources) Infective otitis externa of left ear; Translations: [Other infective otitis externa, left ear] Onset: 07-12-2023 07-12-2023 Episodic Other ear and sense organ disorders (2 sources) Impacted cerumen, left ear; Translations: [Impacted cerumen, left ear] Onset: 06-28-2023 Episodic Other ear and sense organ disorders (2 sources) Other infective otitis externa, left ear; Translations: [Other infective otitis externa, left ear] Onset: 07-12-2023 Episodic Other endocrine disorders (1 source) Hypoglycemia; Translations: [Hypoglycemia, unspecified] 10-10-2023 Chronic Other gastrointestinal disorders (20 sources) Dysphagia; Translations: [Dysphagia, unspecified] Onset: 10-10-2018 07-19-2021 Episodic Other injuries and conditions due to external causes (12 sources) Adverse effect of radiation therapy; Translations: [Radiation sickness, unspecified, initial encounter] 04-01-2020 Episodic Other injuries and conditions due to external causes (12 sources) Radiation injury of bone; Translations: [Radiation sickness, unspecified, initial encounter] 04-01-2020 Episodic Other lower respiratory disease (20 sources) Nodule of lung; Translations: [Solitary pulmonary nodule] Onset: 06-28-2023 06-28-2023 Episodic Other nervous system disorders (1 source) Chronic pain; Translations: [Other chronic pain] Onset: 11-21-2022 11-21-2022 Chronic Other nervous system disorders (1 source) Peripheral nerve disease ; Translations: [Polyneuropathy, unspecified] 10-10-2023 Chronic Other non-traumatic joint disorders (2 sources) Foot joint pain; Translations: [Pain in right ankle and joints of right foot] 10-08-2023 Episodic Other nutritional; endocrine; and metabolic disorders (20 sources) Obesity; Translations: [Obesity, unspecified] 04-01-2020 Chronic Other nutritional; endocrine; and metabolic disorders (15 sources) Severe obesity; Translations: [Morbid (severe) obesity due to excess calories] Onset: 08-14-2017 03-20-2018 Chronic Other skin disorders (1 source) Finding of head and neck region; Translations: [Swelling, mass, or lump in head and neck] 07-30-2021 Episodic Other skin disorders (12 sources) Fistula of skin; Translations: [Other specified disorders of the skin and subcutaneous tissue] 04-01-2020 Episodic Otitis media and related conditions (4 sources) Infection of ear; Translations: [Unspecified otitis media] Onset: 11-21-2022 11-21-2022 Episodic Peripheral and visceral atherosclerosis (6 sources) Peripheral vascular disease, unspecified; Translations: [Arm claudication] Onset: 11-21-2022 Chronic Residual codes; unclassified (1 source) Stented artery; Translations: [Other postprocedural status] 07-23-2021 Episodic Residual codes; unclassified (20 sources) Past history of procedure; Translations: [Other postprocedural status] Onset: 12-25-2015 03-14-2017 Episodic Residual codes; unclassified (6 sources) History of cardiovascular surgery; Translations: [Other specified postprocedural states] 06-06-2023 Episodic Respiratory failure; insufficiency; arrest (adult) (2 sources) Respiratory failure; insufficiency; arrest (adult) 07-21-2021 Secondary malignancies (1 source) Secondary malignant neoplasm of skin; Translations: [Secondary malignant neoplasm of skin] Onset: 06-08-2015 01-10-2023 Chronic Skin and subcutaneous tissue infections (2 sources) Cellulitis and abscess of neck; Translations: [Cellulitis and abscess of neck] 07-30-2021 Episodic Superficial injury; contusion (2 sources) Abrasion or friction burn of foot and toe(s), without mention of infection; Translations: [Abrasion of right foot or toe] 10-08-2023 Episodic Unclassified (2 sources) PL: LEFT COMPOSITE RESECTION OF MANDIBLE, TRACHEOTOMY, PEG VS. DOBHOFF PLACEMENT, DENTA/SEE SOARIAN 06-10-2021 Comment on above: PL: LEFT COMPOSITE R ESECTION OF MANDIBLE, TRACHEOTOMY, PEG VS. DOBHOFF PLACEMENT, DENTA/SEE SOARIAN Unclassified (2 sources) Type 2 myocardial infarction 07-23-2021 Unclassified (1 source) 6M 05-13-2021 Comment on above: 6M Unclassified (1 source) HOSP FOLLOW UP [facility], HTN, TYPE 2 NV 07-28-2021 Comment on above: [facility], H TN, TYPE 2 NV Unclassified (1 source) Osteonecrosis of mandible 07-19-2021 Unclassified (1 source) Wound, open, mouth, complicated 07-19-2021 Unclassified (1 source) Open neck wound 07-19-2021 Unclassified (1 source) Internal carotid artery stent present 07-23-2021 Unclassified (1 source) CAD (coronary artery disease) 07-27-2021 Unclassified (1 source) Primary hypertension 07-27-2021 Unclassified (1 source) Localized swelling, mass, and lump of head 07-30-2021 Unclassified (1 source) Injection Onset: 07-03-2023 Unclassified (1 source) Encounter for preprocedural laboratory examination; Translations: [Encounter for preprocedural laboratory examination] Onset: 04-19-2023 Unclassified (1 source) Occlusion and stenosis of left carotid artery; Translations: [Occlusion and stenosis of left carotid artery] Onset: 03-22-2023 Unclassified (1 source) Encounter for other preprocedural examination; Translations: [Encounter for other preprocedural examination] Onset: 02-28-2023 Unclassified (1 source) Occlusion and stenosis of bilateral carotid arteries; Translations: [Occlusion and stenosis of bilateral carotid arteries] Onset: 02-14-2023 Urinary tract infections (12 sources) Acute urinary tract infection; Translations: [Urinary tract infection, site not specified] 11-14-2020 Episodic Past or Other Problems Problem Classification Problem Date Documented Da te Episodic/Chronic Cancer; other and unspecified primary (1 source) H/O: malignant neoplasm; Translations: [Personal history of malignant neoplasm of soft tissue] Onset: 11-27-2016 01-10-2023 Episodic Esophageal disorders (1 source) Disorder of esophagus; Translations: [Disease of esophagus, unspecified] Onset: 11-21-2022 11-21-2022 Episodic Gastrointestinal hemorrhage (1 source) Hematochezia; Translations: [Melena] Onset: 10-30-2015 01-10-2023 Episodic Melanomas of skin (1 source) History of malignant melanoma of the skin; Translations: [Personal history of malignant melanoma of skin] Onset: 05-01-2018 01-10-2023 Episodic Nonspecific chest pain (14 sources) Chest pain; Translations: [Chest pain, unspecified] Onset: 12-10-2015 03-14-2017 Episodic Other acquired deformities (1 source) Acquired genu varum; Translations: [Varus deformity, not elsewhere classified, unspecified knee] Onset: 11-21-2022 11-21-2022 Episodic Other aftercare (1 source) Long-term current use of insulin; 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] Onset: 11-22-2022 11-22-2022 Episodic Other and unspecified benign neoplasm (1 source) Melanocytic nevus of scalp; Translations: [Melanocytic nevi of scalp and neck] Onset: 11-21-2022 11-21-2022 Episodic Other and unspecified benign neoplasm (1 source) Benign neoplasm of skin; Translations: [Other benign neoplasm of skin, unspecified] Onset: 11-21-2022 11-21-2022 Episodic Other connective tissue disease (1 source) Trismus; Translations: [Cramp and spasm] Onset: 11-21-2022 11-21-2022 Episodic Other ear and sense organ disorders (1 source) Bilateral tinnitus; Translations: [Tinnitus, bilateral] Onset: 11-21-2022 11-21-2022 Episodic Other ear and sense organ disorders (1 source) Impacted cerumen of bilateral ears; Translations: [Impacted cerumen, bilateral] Onset: 02-09-2021 01-10-2023 Episodic Other non-epithelial cancer of skin (1 source) Malignant neoplasm of skin of cheek, external ; Translations: [Unspecified malignant neoplasm of skin of other parts of face] Onset: 12-21-2016 11-22-2022 Episodic Other nutritional; endocrine; and metabolic disorders (1 source) Obese class II; Translations: [Obesity, unspecified] Onset: 11-21-2022 Resolved: 04-10-2023 04-10-2023 Chronic Other skin disorders (1 source) Lesion of skin of face; Translations: [Disorder of the skin and subcutaneous tissue, unspecified] Onset: 11-21-2022 11-21-2022 Episodic Other skin disorders (1 source) Disorder of skin and/or subcutaneous tissue; Translations: [Disorder of the skin and subcutaneous tissue, unspecified] Onset: 12-06-2016 01-10-2023 Episodic Residual codes; unclassified (1 source) Amnesia; Translations: [Other amnesia] Onset: 11-21-2022 11-21-2022 Episodic Residual codes; unclassified (1 source) H/O: radiation exposure; Translations: [Personal history of irradiation] Onset: 07-14-2020 01-10-2023 Episodic Residual codes; unclassified (1 source) Pain, unspecified; Translations: [Pain, unspecified] Onset: 03-22-2023 Episodic Spondylosis; intervertebral disc disorders; other back problems (2 sources) Neck pain; Translations: [Cervicalgia] Onset: 12-24-2017 11-21-2022 Episodic Syncope (1 source) Syncope and collapse; Translations: [Syncope and collapse] Onset: 03-23-2023 Episodic Unclassified (20 sources) Never smoked tobacco; Translations: [Never a smoker] Unclassified (2 sources) Onset: 07-12-2023 Resolved: 08-25-2023 07-12-2023 Results Test Name Value Interpretation Reference Range Facility CT head/brain wo conon 10-09 CT head/brain wo con [address] [address] [address] Scan Report Signed Patient: Mendez Drummond MR#: [id number] : 1950 Acct:[id number] Age/Sex: 72 / M ADM Date: 10/09/23 Loc: ER Room: Type: [facility] ER Attending Dr: Copies to: Gregory Rodriguez DO Ordering Provider: Gregory Rodriguez DO Date of Service: 10/09/23 CT/CT head/brain wo con: r/o ich stroke CT BRAIN WITHOUT CONTRAST: CLINICAL HISTORY: Weakness dizziness. COMPARISON: CT brain 03/21/2023 TECHNIQUE: Contiguous axial unenhanced images were obtained through the brain. This CT exam was performed using one or more following dose reduction techniques: Automated exposure control, adjustment of the mA and/or kV according to patient size, or use of iterative reconstruction technique. FINDINGS: There is no evidence of midline shift, intra or extra-axial fluid collection, hemorrhage or CT evidence of stroke. Cortical atrophy with chronic microvascular ischemic changes. Posterior fossa appears unremarkable. Visualized intraorbital contents demonstrate no acute findings. Visualized paranasal sinuses are clear. The surrounding soft tissues are normal. CT/CT head/brain wo con IMPRESSION: NO ACUTE INTRACRANIAL ABNORMALITY. Impression dictated by: Tk Lorenzana Jr., D.OCristóbal10/10/2023 8:10 AM Dictation Location: [place] [address] Transcribed By: [facility] 10/10/23 0810 Dictated By: Tk Lorenzana Jr, DO 10/10/23 0808 Signed By: 10/10/23 0810 Normal [facility] XR chest 2V*on 10-10-2023 XR chest 2V* [address] [address] XRay Report Signed Patient: Mendez Drummond MR#: [id number] : 1950 Acct:[id number] Age/Sex: 72 / M ADM Date: 10/09/23 Loc: ER Room: Type: [facility] ER Attending Dr: Copies to: Gregory Rodriguez DO Ordering Provider: Gregory Rodriguez DO Date of Service: 10/09/23 XR/XR chest 2V*: Weakness Chest 2 views CLINICAL HISTORY: Weakness, dizziness COMPARISON: Chest 04/01/2020 FINDINGS: Heart is at the upper limits normal in size. There is elevation of the left hemidiaphragm with left basilar atelectasis. No consolidation pneumothorax pleural effusion or free air. Osseous stru ctures demonstrate degenerative change. Postsurgical changes right shoulder. XR/XR chest 2V* IMPRESSION: ELEVATION LEFT HEMIDIAPHRAGM WITH LEFT BASILAR ATELECTASIS. NO CONSOLIDATION TO SUGGEST PNEUMONIA. Impression dictated by: Tk Lorenzana Jr., D.OCristóbal10/10/2023 8:07 AM Dictation Location: [place] [address] Transcribed By: [facility] 10/10/23 0807 Dictated By: Tk Lorenzana Jr, DO 10/10/23 0806 Signed By: 10/10/23 0807 Normal [facility] Alanine aminotransferase [En zymatic activity/volume] in Serum or PlasmaOrdered By: Gregory Rodriguez on 10-09-2023 ALT [Catalytic activity/Vol] 10 U/L Normal 7-52 [facility] Comment on above: Performed By: #### C MP, CBC #### [place] [id number] [facility] Albumin [Mass/volume] in Ser um or Plasma by Bromocresol green (BCG) dye binding methoOrdered By: Gregory Rodriguez on 10-09-2023 Albumin BCG dye [Mass/Vol] 3.8 g/dL 3.5-5.7 [facility] Alkaline phosphatase [Enzyma tic activity/volume] in Serum or PlasmaOrdered By: Gregory Rodriguez on 10-09-2023 ALP [Catalytic activity/Vol] 86 U/L Normal 34-104 [facility] [place] Comment on above: Performed By: #### C MP, CBC #### [address] Aspartate aminotransferase [ Enzymatic activity/volume] in Serum or PlasmaOrdered By: Gregory Rodriguez on 10-09-2023 AST [Catalytic activity/Vol] 18 U/L Normal 13-39 [facility] [place] Comment on above: Performed By: #### C MP, CBC #### [address] Automated basophil %Ordered By: Gregory Rodriguez on 10-09-2023 Basophils/100 WBC (Bld) 0.6 % Normal . [facility] [place] Comment on above: Performed By: #### C MP, CBC #### [address] Automated basophil countOrde red By: Gregory Rodriguez on 10-09-2023 Basophils (Bld) [#/Vol] 0.1 10*3/uL Normal 0.0-0.2 [facility] [place] Comment on above: Result Comment: PERF ORMED BY: [place] [address] PATHOLOGIST [employer] ABHAY ABBASI M.D. Performed By: #### C MP, CBC #### [address] Automated blood monocyte cou ntOrdered By: Gregory Rodriguez on 10-09-2023 Monocytes (Bld) [#/Vol] 0.8 10*3/uL Normal 0.0-0.8 [facility] [place] Comment on above: Performed By: #### C MP, CBC #### [address] Automated eosinophil %Ordere d By: Gregory Rodriguez on 10-09-2023 Eosinophils/100 WBC (Bld) 0.8 % Normal . [facility] [place] Comment on above: Performed By: #### C MP, CBC #### [address] Automated eosinophil countOr dered By: Gregory Rodriguez on 10-09-2023 Eosinophils (Bld) [#/Vol] 0.1 10*3/uL Normal 0.0-0.45 [facility] [place] Comment on above: Performed By: #### C MP, CBC #### [facility] [address] Automated monocyte %Ordered By: Gregory Enriquearthy on 10-09-2023 Monocytes/100 WBC (Bld) 7.2 % Normal . [facility] [place] Comment on above: Performed By: #### C MP, CBC #### [facility] [address] Automated neutrophil %Ordere d By: Gregory Ivette on 10-09-2023 Neutrophils/100 WBC (Bld) 85.6 % Normal . [facility] [place] Comment on above: Performed By: #### C MP, CBC #### [facility] [address] Bilirubin.total [Mass/volume ] in Serum or PlasmaOrdered By: Gregory Rodriguez on 10-09-2023 Bilirubin [Mass/Vol] 0.4 mg/dL Normal 0.3-1.0 [facility] Comment on above: Performed By: #### C MP, CBC #### [address] Calcium [Mass/volume] in Ser um or PlasmaOrdered By: Gregory Rodriguez on 10-09-2023 Calcium [Mass/Vol] 9.4 mg/dL Normal 8.6-10.3 [facility] Comment on above: Performed By: #### C MP, CBC #### [address] Capillary blood glucose ishmael urement by glucometer (mass/volume)Ordered By: CHADWICK MILTON on 10-09-2023 Glucose [Mass/Vol] 62 mg/dL Normal [facility] Comment on above: Random Glucose Refer ence Range is dependent on time and content of last meal. Glucose of more than 200 mg/dL in a nonstressed, ambulatory subject supports the diagnosis of Diabetes Mellitus. Result Comment: [facility] Glucose Reference Range is dependent on time and content of last meal. Glucose of more than 200 mg/dL in a nonstressed, ambulatory subject supports the diagnosis of Diabetes Mellitus. PERFORMED BY: [place] [address] PATHOLOGIST [employer] ABHAY ABBASI M.D. Performed By: #### G CHEVY #### Point of Care testing , Carbon dioxide, total [Moles /volume] in Serum or PlasmaOrdered By: Gregory Rodriguez on 10-09-2023 CO2 [Moles/Vol] 21.1 mmol/L Normal 21.0-31.0 [facility] Comment on above: Performed By: #### C MP, CBC #### [address] Chloride [Moles/volume] in S salas or PlasmaOrdered By: Gregory Rodriguez on 10-09-2023 Chloride [Moles/Vol] 102 mmol/L Normal 98-107 [facility] Comment on above: Performed By: #### C MP, CBC #### [address] Complete Blood Count Auto Di ffon 10-09-2023 Mean Corpuscular HGB Conc 32.2 g/dL Low 32.5-35.6 [facility] Comment on above: Performed By: #### C MP, CBC #### [address] Monocytes/100 WBC (Bld) 15.77 % Normal 0.00-20.00 [facility] Comment on above: Performed By: #### C MP, CBC #### [address] NRBC% 0.1 /100{WBC} Normal 0-0.5 [facility] Comment on above: Performed By: #### C MP, CBC #### [address] Comprehensive Metabolic Pane bennett 10-09-2023 Albumin [Mass/Vol] 3.8 g/dL Normal 3.5-5.7 [facility] Comment on above: Performed By: #### C MP, CBC #### [address] Creatinine Clr Calc Pharmacy 16.74 Normal [facility] Comment on above: Result Comment: PERF ORMED BY: [place] [address] PATHOLOGIST [employer] ABHAY ABBASI M.D. Performed By: #### C MP, CBC #### [place] [address] [place] GFR/1.73 sq M.predicted MDRD (S/P/Bld) [Vol rate/Area] 11.892 mL/min/{1.73_m2} Normal [facility] Comment on above: Performed By: #### C MP, CBC #### [address] Creatinine [Mass/volume] in Serum or PlasmaOrdered By: Gregory Rodriguez on 10-09-2023 Creatinine [Mass/Vol] 4.92 mg/dL High 0.70-1.[address] [facility] Comment on above: Performed By: #### C MP, CBC #### [address] ECG 12 lead ECGon 10-09-2023 ECG 12 lead ECG [facility] [place] [address] [place] [address] Electrocardiograph Report Signed Patient: Mendez Drummond MR#: [id number] : 1950 Acct:[id number] Age/Sex: 72 / M ADM Date: 10/09/23 Loc: ER Room: Type: [facility] ER Attending Dr: Ordering Provider: Gregory Rodriguez DO Date of Service: 10/09/23 ECG/ECG 12 lead ECG: Weakness Copies to: Test Reason : Blood Pressure : / mmHG Vent. Rate : 065 BPM Atrial Rate : 065 BPM P-R Int : 206 ms QRS Dur : 096 ms QT Int : 416 ms P-R-T Axes : 051 010 023 degrees QTc Int : 432 ms Normal sinus rhythm nonspecific st findings Confirmed by Gregory Rodriguez DO ([id number]) on 10/10/2023 7:05:34 AM Referred By: Electronically Signed By:Gregory Rodriguez DO Transcribed By: MUS Signed By Gregory Rodriguez DO 0705 Normal [facility] Erythrocyte distribution wid th [Ratio] by Automated countOrdered By: Gregory Rodriguez on 10-09-2023 Erythrocyte distribution width (RBC) [Ratio] 16.1 % High 12.0-14.8 [facility] [place] Comment on above: Performed By: #### C MP, CBC #### [facility] [address] Erythrocytes [#/volume] in B lood by Automated countOrdered By: Gregory Rodriguez on 10-09-2023 RBC (Bld) [#/Vol] 3.67 10*6/uL Low 3.90-5.60 [facility] Comment on above: Performed By: #### C MP, CBC #### [facility] [address] Glucose [Mass/volume] in Ser um or PlasmaOrdered By: Gregory Rodriguez on 10-09-2023 Glucose [Mass/Vol] 76 mg/dL Normal 70-100 [facility] Comment on above: ADA recommended refe rence rangeRandom Glucose Reference Range is dependent on time and content of last meal. Glucose of more than 200 mg/dL in a nonstressed, ambulatory subject supports the diagnosis of Diabetes Mellitus. Result Comment: [place] [facility] Glucose Reference Range is dependent on time and content of last meal. Glucose of more than 200 mg/dL in a nonstressed, ambulatory subject supports the diagnosis of Diabetes Mellitus. ADA recommended reference range Performed By: #### C MP, CBC #### [facility] [address] [place] [id number] [place] Hematocrit [Volume Fraction] of Blood by Automated countOrdered By: Gregory Rodriguez on 10-09-2023 Hematocrit (Bld) [Volume fraction] 30.1 % Low 38.8-50.0 [facility] [place] Comment on above: Performed By: #### C MP, CBC #### [address] Hemoglobin [Mass/volume] in BloodOrdered By: Gregory Rodriguez on 10-09-2023 Hemoglobin (Bld) [Mass/Vol] 9.7 g/dL Low 13.0-17.0 [facility] [place] Comment on above: Performed By: #### C MP, CBC #### [address] Leukocytes [#/volume] correc ronni for nucleated erythrocytes in Blood by Automated counOrdered By: Gregory Rodriguez on 10-09-2023 WBC corrected for nucl RBC Auto (Bld) [#/Vol] 11.1 10*3/uL 4.1-10.5 [facility] [place] Leukocytes [#/volume] in Blo od by Automated countOrdered By: Gregory Rodriguez on 10-09-2023 WBC (Bld) [#/Vol] 11.1 10*3/uL High 4.1-10.5 [facility] Comment on above: Performed By: #### C MP, CBC #### [address] Lymphocytes [#/volume] in Bl ood by Automated countOrdered By: Gregory Rodriguez on 10-09-2023 Lymphocytes (Bld) [#/Vol] 0.6 10*3/uL Low 1.00-4.8 [facility] [place] Comment on above: Performed By: #### C MP, CBC #### [address] Lymphocytes/100 leukocytes i n Blood by Automated countOrdered By: Gregory Rodriguez on 10-09-2023 Lymphocytes/100 WBC (Bld) 5.8 % Normal . [facility] [place] Comment on above: Performed By: #### C MP, CBC #### [place] [address] [place] MCH [Entitic mass] by Automa ronni countOrdered By: Gregory Rodriguez on 10-09-2023 MCH (RBC) [Entitic mass] 26.3 pg Low 27.5-35.2 [facility] [place] Comment on above: Performed By: #### C MP, CBC #### [facility] [address] [place] [address] MCHC Auto (RBC) [Mass/Vol]Or dered By: Gregory Rodriguez on 10-09-2023 MCHC (RBC) [Mass/Vol] 32.2 g/dL 32.5-35.[address] [facility] MCV [Entitic volume] by Auto mated countOrdered By: Gregory Rodriguez on 10-09-2023 MCV (RBC) [Entitic vol] 81.9 fL Low 83.5-101 [facility] [place] Comment on above: Performed By: #### C MP, CBC #### [address] Monocyte distribution width [Entitic volume] in Blood by AutomatedOrdered By: Gregory Rodriguez on 10-09-2023 Monocyte distribution width Auto (Bld) [Entitic vol] 15.77 % 0.00-20.00 [facility] [place] Neutrophils [#/volume] in Bl ood by Automated countOrdered By: Gregory Rodriguez on 10-09-2023 Neutrophils (Bld) [#/Vol] 9.5 10*3/uL High 1.8-7.7 [facility] [place] Comment on above: Performed By: #### C MP, CBC #### [facility] [address] [place] [address] No Panel InformationOrdered By: Gregory Rodriguez on 10-09-2023 Estimated GFR (CKD-EPI) 11.892 mL/Min [facility] [place] [facility] Creatinine Clearance (Chem 16.74 [facility] [place] Nucleated erythrocytes [Pres ence] in Blood by Automated countOrdered By: Gregory Rodriguez on 10-09-2023 Nucleated RBC Auto Ql (Bld) 0.1 /100{WBC} 0-0.5 [facility] [place] Platelet mean volume [Entiti c volume] in Blood by Automated countOrdered By: Gregory Rodriguez on 10-09-2023 Platelet mean volume (Bld) [Entitic vol] 8.3 fL Normal 6.6-10.1 [facility] [place] Comment on above: Performed By: #### C MP, CBC #### [place] [address] [place] Platelets [#/volume] in Bloo d by Automated countOrdered By: Gregory Rodriguez on 10-09-2023 Platelets (Bld) [#/Vol] 186 10*3/uL Normal 150-450 [facility] [place] Comment on above: Performed By: #### C MP, CBC #### [address] Potassium [Moles/volume] in Serum or PlasmaOrdered By: Gregory Rodriguez on 10-09-2023 Potassium [Moles/Vol] 5.0 mmol/L Normal 3.5-5.[address] [facility] Comment on above: Performed By: #### C MP, CBC #### [address] Protein [Mass/volume] in Ser um or PlasmaOrdered By: Gregory Rodriguez on 10-09-2023 Protein [Mass/Vol] 6.5 g/dL Normal 6.4-8.9 [facility] Comment on above: Performed By: #### C MP, CBC #### [address] Serum globulin measurement b y calculation (mass/volume)Ordered By: Gregory Rodriguez on 10-09-2023 Globulin (S) [Mass/Vol] 2.7 g/dL [facility] Comment on above: Performed By: #### C MP, CBC #### [address] Serum or plasma albumin/glob ulin mass ratioOrdered By: Gregory Rodriguez on 10-09-2023 Albumin/Globulin [Mass ratio] 1.4 {ratio} [facility] Comment on above: Performed By: #### C MP, CBC #### [address] Serum or plasma anion gap de terminationOrdered By: Gregory Rodriguez on 10-09-2023 Anion gap [Moles/Vol] 16.9 mmol/L High 6.0-15.0 [facility] Comment on above: Performed By: #### C MP, CBC #### [facility] [address] Sodium [Moles/volume] in Ser um or PlasmaOrdered By: Gregory Ivette on 10-09-2023 Sodium [Moles/Vol] 135 mmol/L Low 136-145 [facility] Comment on above: Performed By: #### C MP, CBC #### [facility] [address] Urea nitrogen [Mass/volume] in Serum or PlasmaOrdered By: Grgeoryduc Rodriguez on 10-09-2023 Urea nitrogen [Mass/Vol] 93 mg/dL High 7-25 [facility] [place] Comment on above: Performed By: #### C MP, CBC #### [facility] [address] XR foot RT min 3V*on [facility] XR foot RT min 3V* [facility] [place] [address] [place] [address] XRay Report Signed Patient: Mendez Drummond MR#: [id number] : 1950 Acct:[id number] Age/Sex: 72 / M ADM Date: 10/08/23 Loc: ER Room: Type: [facility] ER Attending Dr: Copies to: DAVEY Cabrera Ordering Provider: DAVEY Cabrera Date of Service: 10/08/23 XR/XR foot RT min 3V*: Extremity Injury, Lower 3 views RIGHT foot plain film COMPARISON:None HISTORY: Injury involving the 1st 2nd and 3rd toes ACUTE FINDINGS: None DEGENERATIVE CHANGE: Moderate midfoot degeneration. Posterior and inferior calcaneal spurring. SOFT TISSUE FINDINGS: Atherosclerosis JOINT EFFUSION: None POSTOP CHANGES: None BONE MINERALIZATION: Adequate XR/XR foot RT min 3V* IMPRESSION: No acute findings. Impression dictated by: Gael Chapin M.D.10/08/2023 1:27 PM Dictation Location: [place] [address] Transcribed By: [facility] 10/08/23 1327 Dictated By: Gael Chapin DO 10/08/23 1326 Signed By: 10/08/23 1327 Normal [facility] HGB AND HCTon 10-06-2023 Hematocrit (Bld) [Volume fraction] 31.8 % Low 39-49 [facility] [place] [facility] Comment on above: Performed By: #### C BC, BMP, 06682-9, 2777-1, UPCR, 2731-8, 84150-4 #### [facility] ([id number]) [address], [address] [place] [address] Hemoglobin (Bld) [Mass/Vol] 10.3 g/dL Low 13.0-17.0 [facility] [place] [facility] Comment on above: Performed By: #### C BC, BMP, 04176-9, 7-1, UPCR, 2731-8, 93854-2 #### [facility] ([id number]) [address], [address] [place] [address] HGB AND HCTon 09-22-2023 Hematocrit (Bld) [Volume fraction] 31.6 % Low 39-49 [facility] [place] [facility] Comment on above: Performed By: #### Sherri BC, BMP, 15104-5, 2777-1, UPCR, 2731-8, 58093-4 #### [facility] ([id number]) [address], [address] [place] [address] Hemoglobin (Bld) [Mass/Vol] 10.4 g/dL Low 13.0-17.0 [facility] Comment on above: Performed By: #### C BC, BMP, 67059-2, 2777-1, UPCR, 2731-8, 62168-7 #### [facility] ([id number]) [address], [address] [place] [address] BASIC METABOLIC PANLon 09-19 Anion gap [Moles/Vol] 11 mmol/L Normal 5-15 [facility] Comment on above: Performed By: #### C BC, BMP, 68851-8, 2777-1, UPCR, 2731-8, 96243-8 #### [facility] ([id number]) [address], [address] [place] [address] Calcium [Mass/Vol] 9.6 mg/dL Normal 8.5-10.5 [facility] Comment on above: Performed By: #### C BC, BMP, 19799-7, 2777-1, UPCR, 2731-8, 23573-2 #### [facility] ([id number]) [address], [address] [place] [address] Chloride [Moles/Vol] 105 mmol/L Normal 98-109 [facility] Comment on above: Performed By: #### C BC, BMP, 42827-2, 2777-1, UPCR, 2731-8, 36737-3 #### [facility] ([id number]) [address], [address] [place] [address] CO2 [Moles/Vol] 23 mmol/L Normal 22-32 [facility] Comment on above: Performed By: #### C BC, BMP, 40930-6, 2777-1, UPCR, 2731-8, 17862-6 #### [facility] ([id number]) [address], [address] [place] [address] Creatinine [Mass/Vol] 4.27 mg/dL High 0.60-1.30 [facility] Comment on above: Result Comment: METH OD TRACEABLE TO IDMS STANDARD Performed By: #### C BC, BMP, 78876-4, 2777-1, UPCR, 2731-8, 31134-9 #### [facility] ([id number]) [address], [address] [place] [address] GFR/1.73 sq M.predicted among non-blacks MDRD (S/P/Bld) [Vol rate/Area] 14 mL/min/{1.73_m2} Low >59 [facility] Comment on above: Result Comment: Reported eGFR is based on the CKD-EPI 2020 equation that does not use a race coefficient. Performed By: #### C BC, BMP, 07021-6, 2777-1, UPCR, 2731-8, 93339-2 #### [facility] ([id number]) [address], [address] [place] [address] Glucose [Mass/Vol] 134 mg/dL High 65-99 [facility] Comment on above: Performed By: #### C BC, BMP, 94572-5, 2777-1, UPCR, 2731-8, 33376-4 #### [facility] ([id number]) [address], [address] [place] [address] Potassium [Moles/Vol] 4.7 mmol/L Normal 3.5-5.0 [facility] Comment on above: Performed By: #### C BC, BMP, 82796-1, 2777-1, UPCR, 2731-8, 15723-8 #### [facility] ([id number]) [address], [address] [place] [address] Sodium [Moles/Vol] 139 mmol/L Normal 134-146 [facility] Comment on above: Performed By: #### Sherri BC, BMP, 56659-5, 2777-1, UPCR, 2731-8, 21966-4 #### [facility] ([id number]) [address], [address] [place] [address] Urea nitrogen [Mass/Vol] 72 mg/dL High 5-27 [facility] Comment on above: Performed By: #### C BC, BMP, 87126-1, 2777-1, UPCR, 2731-8, 49417-3 #### [facility] ([id number]) [address], [address] [place] [address] COMPLETE BLOOD COUNTon 09-19 Erythrocyte distribution width (RBC) [Ratio] 15.7 % High 11.5-15.0 [facility] Comment on above: Performed By: #### C BC, BMP, 25825-7, 2777-1, UPCR, 2731-8, 41320-9 #### [facility] ([id number]) [address], [facility] [address] [place] [address] Hematocrit (Bld) [Volume fraction] 32.8 % Low 39-49 [facility] Comment on above: Performed By: #### C BC, BMP, 70163-0, 2777-1, UPCR, 2731-8, 93429-4 #### [facility] ([id number]) [address], [facility] [address] [place] [address] Hemoglobin (Bld) [Mass/Vol] 10.6 g/dL Low 13.0-17.0 [facility] Comment on above: Performed By: #### C BC, BMP, 82670-6, 2777-1, UPCR, 2731-8, 56649-1 #### [facility] ([id number]) [address], [facility] [address] [place] [address] MCH (RBC) [Entitic mass] 27.1 pg Normal 27-34 [facility] Comment on above: Performed By: #### C BC, BMP, 28680-9, 2777-1, UPCR, 2731-8, 46494-8 #### [facility] ([id number]) [address], [address] [place] [address] MCHC (RBC) [Mass/Vol] 32.2 g/dL Normal 32-36 [facility] Comment on above: Performed By: #### C BC, BMP, 01799-5, 2777-1, UPCR, 2731-8, 88822-1 #### [facility] ([id number]) [address], [address] [place] [address] MCV (RBC) [Entitic vol] 84 fL Normal 80-100 [facility] Comment on above: Performed By: #### C BC, BMP, 32118-7, 2777-1, UPCR, 2731-8, 54765-6 #### [facility] ([id number]) [address], [address] [place] [address] Platelet mean volume (Bld) [Entitic vol] 8.5 fL Normal 7-12 [facility] Comment on above: Performed By: #### C BC, BMP, 19712-3, 2777-1, UPCR, 2731-8, 01209-3 #### [facility] ([id number]) [address] [address] [place] [address] Platelets (Bld) [#/Vol] 201 10*3/uL Normal 150-450 [facility] Comment on above: Performed By: #### Sherri BC, BMP, 70048-4, 2777-1, UPCR, 2731-8, 83083-1 #### [facility] ([id number]) [address] [address] [place] [address] RBC COUNT 3.89 X10E12/L Low 4.10-5.70 [facility] Comment on above: Performed By: #### Sherri BC, BMP, 70644-9, 2777-1, UPCR, 2731-8, 02873-0 #### [facility] ([id number]) [address], [address] [place] [address] WBC (Bld) [#/Vol] 6.4 10*3/uL Normal 4.0-11.0 [facility] Comment on above: Performed By: #### Sherri BC, BMP, 76895-8, 2777-1, UPCR, 2731-8, 59449-7 #### [facility] ([id number]) [address], [address] [place] [address] MAGNESIUMon 09-20-2023 Magnesium [Mass/Vol] 1.8 mg/dL Normal 1.8-2.6 [facility] Comment on above: Performed By: #### C BC, BMP, 53828-2, 2777-1, UPCR, 2731-8, 92894-4 #### [facility] ([id number]) [address], [address] [place] [address] PHOSPHORUSon 09-20-2023 Phosphate [Mass/Vol] 6.1 mg/dL High 2.4-4.9 [facility] Comment on above: Performed By: #### C BC, BMP, 68687-0, 2777-1, UPCR, 2731-8, 77595-8 #### [facility] ([id number]) [address], [address] [place] [address] PROTEIN CREAT RATIOon 2023 RANDOM URINE PROTEIN 2370 mg/L High <120 [facility] Comment on above: Performed By: #### C BC, BMP, 95990-5, 2777-1, UPCR, 2731-8, 17814-2 #### [facility] ([id number]) [address], [address] [place] [address] U/PRO/DRAPERY INSTALLER RATIO CALC 3.10 High <0.2 [facility] Comment on above: Result Comment: Neph rotic Syndrome is associated with ratios >3.5 Performed By: #### C BC, BMP, 16831-2, 2777-1, UPCR, 2731-8, 80728-2 #### [facility] ([id number]) [address], [address] [place] [address] URINE CREATININE,RDM 76.40 mg/dL Normal [facility] Comment on above: Performed By: #### C BC, BMP, 07444-6, 2777-1, UPCR, 2731-8, 48091-1 #### [facility] ([id number]) [address], [address] [place] [address] Parathyrin.intact [Mass/Vol] on 09-20-2023 PTH INTACT 139 pg/mL High 1288 [facility] Comment on above: Performed By: #### C BC, BMP, 14545-2, 2777-1, UPCR, 2731-8, 06894-5 #### [facility] ([id number]) [address], [address] [place] [address] URINALYSISon 09-20-2023 Bilirubin Ql (U) Negative Normal NEG [facility] Comment on above: Performed By: #### C BC, BMP, 68407-7, 2777-1, UPCR, 2731-8, 03208-4 #### [facility] ([id number]) [address], [address] [place] [address] BLOOD/HGB Trace Abnormal NEG [facility] Comment on above: Performed By: #### Sherri BC, BMP, 87119-5, 2777-1, UPCR, 2731-8, 62797-0 #### [facility] ([id number]) [address], [address] [place] [address] Color (U) YELLOW Normal YELLOW [facility] Comment on above: Performed By: #### Sherri BC, BMP, 97817-6, 2777-1, UPCR, 2731-8, 42327-7 #### [facility] ([id number]) [address], [address] [place] [address] Glucose Ql (U) 150 mg/dL Abnormal NEG [facility] Comment on above: Performed By: #### Sherri BC, BMP, 57781-5, 2777-1, UPCR, 2731-8, 15119-8 #### [facility] ([id number]) [address], [address] [place] [address] Ketones Ql (U) Negative Normal NEG [facility] Comment on above: Performed By: #### C BC, BMP, 49415-5, 2777-1, UPCR, 2731-8, 40639-8 #### [facility] ([id number]) [address], [address] [place] [address] Leukocyte esterase Test strip Ql (U) Small Abnormal NEG [facility] Comment on above: Performed By: #### C BC, BMP, 20062-7, 2777-1, UPCR, 2731-8, 94070-5 #### [facility] ([id number]) [address], [address] [place] [address] MUCOUS PRESENT Abnormal NONE [facility] Comment on above: Performed By: #### C BC, BMP, 07316-8, 2777-1, UPCR, 2731-8, 56084-4 #### [facility] ([id number]) [address], [address] [place] [address] Nitrite Ql (U) Negative Normal NEG [facility] Comment on above: Performed By: #### C BC, BMP, 70856-4, 2777-1, UPCR, 2731-8, 26605-7 #### [facility] ([id number]) [address], [address] [place] [address] pH (U) 6.0 [pH] Normal 5.0-8.5 [facility] Comment on above: Performed By: #### C BC, BMP, 68886-2, 2777-1, UPCR, 2731-8, 03623-7 #### [facility] ([id number]) [address], [address] [place] [address] Protein Ql (U) 200 mg/dL Abnormal NEG [facility] Comment on above: Performed By: #### C BC, BMP, 09142-5, 2777-1, UPCR, 2731-8, 57915-3 #### [facility] ([id number]) [address], [address] [place] [address] R.B.CELLS 12 /hpf High 0-5 [facility] Comment on above: Performed By: #### C BC, BMP, 97003-5, 2777-1, UPCR, 2731-8, 03053-0 #### [facility] ([id number]) [address], [facility] [address] [place] [address] Specific gravity (U) [Rel density] 1.012 Normal 1.003-1.03 5 [facility] Comment on above: Performed By: #### C BC, BMP, 44521-0, 2777-1, UPCR, 2731-8, 56713-9 #### [facility] ([id number]) [address] [place] [address] SQUAMOUS EPITHELIUM 5 /hpf Normal 0-5 [facility] Comment on above: Performed By: #### C BC, BMP, 80931-6, 2777-1, UPCR, 2731-8, 26817-1 #### [facility] ([id number]) [address] [address] TURBIDITY CLEAR Normal CLEAR [facility] Comment on above: Performed By: #### Sherri BC, BMP, 33378-5, 2777-1, UPCR, 2731-8, 15356-9 #### [facility] ([id number]) [address], [facility] [address] [place] [address] Urobilinogen (U) [Mass/Vol] mg/dL Normal <1.1 [facility] Comment on above: Performed By: #### C BC, BMP, 57214-3, 2777-1, UPCR, 2731-8, 49646-9 #### [facility] ([id number]) [address] [place] [address] W.B.CELLS 13 /hpf High 0-5 [facility] Comment on above: Performed By: #### C BC, BMP, 08070-2, 2776-1, UPCR, 2731-8, 60491-5 #### [facility] ([id number]) [address], [address] [place] [address] Vitamin D+Metabolites [Mass/ Vol]on 09-20-2023 VITAMIN D 25 HYD TOT 55.1 ng/mL Normal 30-100 [facility] Comment on above: Result Comment: Vitamin D status 25 [place] Vitamin D Deficiency <20 ng/mL Insufficiency 20-29 ng/mL Sufficiency 30-100 ng/mL Toxicity >100 ng/mL NOTE: A pediatric reference range has not been established by the art class model of this kit. The [place] [employer] recommends a Vitamin D level of = or >20ng/mL in infants and children. Performed By: #### C BC, BMP, 51875-8, 2776-, UPCR, 2731-8, 07981-2 #### [facility] ([id number]) [address], [address] [place] [address] HGB AND HCTon 09-08-2023 Hematocrit (Bld) [Volume fraction] 30.1 % Low 39-49 [facility] Comment on above: Performed By: #### Sherri BC, BMP, 54698-0, 2776-, UPCR, 2731-8, 52223-3 #### [facility] ([id number]) [address], [address] [place] [address] Hemoglobin (Bld) [Mass/Vol] 10.0 g/dL Low 13.0-17.0 [facility] Comment on above: Performed By: #### C BC, BMP, 57703-8, 2776-1, UPCR, 2731-8, 87505-1 #### [facility] ([id number]) [address] [place] [address] HGB AND HCTon 08-24-2023 Hematocrit (Bld) [Volume fraction] 31.0 % Low 39-49 [facility] Comment on above: Performed By: #### C BC, BMP, 14742-7, 2777-1, UPCR, 2731-8, 71881-7 #### [facility] ([id number]) [address], [address] [place] [address] Hemoglobin (Bld) [Mass/Vol] 10.3 g/dL Low 13.0-17.0 [facility] Comment on above: Performed By: #### C BC, BMP, 51320-8, 2777-1, UPCR, 2731-8, 79334-4 #### [facility] ([id number]) [address], [address] [place] [address] HGB AND HCTon 08-11-2023 Hematocrit (Bld) [Volume fraction] 31.5 % Low 39-49 [facility] Comment on above: Performed By: #### C BC, BMP, 20236-1, 2777-1, UPCR, 2731-8, 58127-4 #### [facility] ([id number]) [address] [place] [address] Hemoglobin (Bld) [Mass/Vol] 10.6 g/dL Low 13.0-17.0 [facility] Comment on above: Performed By: #### C BC, BMP, 73946-8, 2777-1, UPCR, 2731-8, 41716-0 #### [facility] ([id number]) [address], [address] [place] [address] US AV Fistulaon 08-01-2023 US AV Fistula [facility] [address] [place] [address] Ultrasound Report Signed Patient: Mendez Drummond MR#: [id number] : 1950 Acct:[id number] Age/Sex: 72 / M ADM Date: 08/01/23 Loc: [facility] Room: Type: [facility] Attending Dr: Gael Euceda MD Ordering Provider: Gael Euceda MD Date of Service: 08/01/23 US/US AV Fistula: N18.4 Copies to: Gael Euceda MD Duplex examination right Sandeep fistula Indication for study: 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 Overall flow within the fistula is estimated to be 800-1000 cc per minute. Overall size of the fistula on the forearm segment is 6 to 8 mm. Near the antecubital space it is just under 6 mm. It is somewhat deeper on the flat portion of the forearm is less than 6 mm from the skin distally. No obstruction is noted. US/US AV Fistula IMPRESSION: Functional right arm fistula with overall adequate flow and size. Impression dictated by: Gael Euceda M.D.08/01/2023 1:07 PM Dictation Location: [place] [address] Tech: Ro Gutierrez Transcribed By: SANGEETHA 08/01/23 1307 Dictated By: Gael Euceda MD 08/01/23 1306 Signed By: 08/01/23 1307 Normal [facility] HGB AND HCTon 07-28-2023 Hematocrit (Bld) [Volume fraction] 31.3 % Low 39-49 [facility] Comment on above: Performed By: #### C SAVANA WOO, 52675-0, 2777-1, UP, 2731-8, 02074-7 #### [facility] ([id number]) [address] [place] [address] Hemoglobin (Bld) [Mass/Vol] 10.2 g/dL Low 13.0-17.0 [facility] Comment on above: Performed By: #### C SAVANA WOO, 30338-8, 2777-1, UPCR, 2731-8, 89565-1 #### [facility] ([id number]) [address], [address] [place] [address] HGB AND HCTon 07-13-2023 Hematocrit (Bld) [Volume fraction] 29.2 % Low 39-49 [facility] Comment on above: Performed By: #### C BC, BMP, 09659-7, 7-1, UPCR, 2731-8, 32973-1 #### [facility] ([id number]) [address], [address] [place] [address] Hemoglobin (Bld) [Mass/Vol] 9.7 g/dL Low 13.0-17.0 [facility] Comment on above: Performed By: #### C BC, BMP, 54933-7, 2776-1, UPCR, 273-8, 56260-1 #### [facility] ([id number]) [address], [address] [place] [address] BASIC METABOLIC PANLon 07-03 Anion gap [Moles/Vol] 10 mmol/L Normal 5-15 [facility] Comment on above: Performed By: #### C BC, BMP, 39285-7, 2776-, UPCR, 273-8, 74486-8 #### [facility] ([id number]) [address], [address] [place] [address] Calcium [Mass/Vol] 9.5 mg/dL Normal 8.5-10.5 [facility] Comment on above: Performed By: #### C BC, BMP, 55613-0, 2777-1, UPCR, 2731-8, 19770-8 #### [facility] ([id number]) [address], [address] [place] [address] Chloride [Moles/Vol] 107 mmol/L Normal 98-109 [facility] Comment on above: Performed By: #### C BC, BMP, 60944-1, 277-1, UPCR, 2731-8, 30545-6 #### [facility] ([id number]) [address], [address] [place] [address] CO2 [Moles/Vol] 23 mmol/L Normal 22-32 [facility] Comment on above: Performed By: #### C BC, BMP, , 2776-, UPCR, 2731-8, 08822-9 #### [facility] ([id number]) [address], [address] [place] [address] Creatinine [Mass/Vol] 4.26 mg/dL High 0.60-1.30 [facility] Comment on above: Result Comment: METH OD TRACEABLE TO IDMS STANDARD Performed By: #### C BC, BMP, , 2776-, UPCR, 2731-8, 37061-6 #### [facility] ([id number]) [address], [address] [place] [address] GFR/1.73 sq M.predicted among non-blacks MDRD (S/P/Bld) [Vol rate/Area] 14 mL/min/{1.73_m2} Low >59 [facility] Comment on above: Result Comment: Reported eGFR is based on the CKD-EPI 2020 equation that does not use a race coefficient. Performed By: #### C BC, BMP, , 2776-, UPCR, 2731-8, 44353-6 #### [facility] ([id number]) [address], [address] [place] [address] Glucose [Mass/Vol] 127 mg/dL High 65-99 [facility] Comment on above: Performed By: #### C BC, BMP, 56991-5, 2776-, UPCR, 2731-8, 78910-4 #### [facility] ([id number]) [address], [address] [place] [address] Potassium [Moles/Vol] 4.6 mmol/L Normal 3.5-5.0 [facility] Comment on above: Performed By: #### C BC, BMP, 05250-9, 2777-1, UPCR, 2731-8, 53170-9 #### [facility] ([id number]) [address], [address] [place] [address] Sodium [Moles/Vol] 140 mmol/L Normal 134-146 [facility] Comment on above: Performed By: #### C BC, BMP, 16570-4, 7-1, UPCR, 2731-8, 67641-8 #### [facility] ([id number]) [address], [address] [place] [address] Urea nitrogen [Mass/Vol] 83 mg/dL High 5-27 [facility] Comment on above: Performed By: #### C BC, BMP, 08774-3, 2776-1, UPCR, 2731-8, 84172-7 #### [facility] ([id number]) [address], [address] [place] [address] COMPLETE BLOOD COUNTon 07-03 Erythrocyte distribution width (RBC) [Ratio] 18.0 % High 11.5-15.0 [facility] Comment on above: Performed By: #### C BC, BMP, 98614-1, 2776-1, UPCR, 2731-8, 06250-7 #### [facility] ([id number]) [address], [address] [place] [address] Hematocrit (Bld) [Volume fraction] 28.3 % Low 39-49 [facility] Comment on above: Performed By: #### C BC, BMP, 50694-6, 2776-1, UPCR, 2731-8, 16835-7 #### [facility] ([id number]) [address], [address] [place] [address] Hemoglobin (Bld) [Mass/Vol] 9.5 g/dL Low 13.0-17.0 [facility] Comment on above: Performed By: #### C BC, BMP, 62807-5, 2777-1, UPCR, 2731-8, 27759-2 #### [facility] ([id number]) [address], [address] [place] [address] MCH (RBC) [Entitic mass] 28.4 pg Normal 27-34 [facility] Comment on above: Performed By: #### Sherri BC, BMP, 88522-1, 7-1, UPCR, 2731-8, 18403-3 #### [facility] ([id number]) [address], [address] [place] [address] MCHC (RBC) [Mass/Vol] 33.4 g/dL Normal 32-36 [facility] Comment on above: Performed By: #### Sherri BC, BMP, 14416-2, 2776-1, UPCR, 2731-8, 43529-3 #### [facility] ([id number]) [address], [address] [place] [address] MCV (RBC) [Entitic vol] 85 fL Normal 80-100 [facility] Comment on above: Performed By: #### Sherri BC, BMP, 03909-2, 7-1, UPCR, 2731-8, 15593-5 #### [facility] ([id number]) [address], [address] [place] [address] Platelet mean volume (Bld) [Entitic vol] 8.6 fL Normal 7-12 [facility] Comment on above: Performed By: #### Sherri BC, BMP, 14938-8, 2777-, UPCR, 2731-8, 10273-1 #### [facility] ([id number]) [address], [address] [place] [address] Platelets (Bld) [#/Vol] 162 10*3/uL Normal 150-450 [facility] Comment on above: Performed By: #### C BC, BMP, 26274-9, 7-1, UPCR, 2731-8, 34783-1 #### [facility] ([id number]) [address], [address] [place] [address] RBC COUNT 3.33 X10E12/L Low 4.10-5.70 [facility] Comment on above: Performed By: #### C BC, BMP, 34096-3, 2776-1, UPCR, 2731-8, 75677-4 #### [facility] ([id number]) [address], [address] [place] [address] WBC (Bld) [#/Vol] 6.1 10*3/uL Normal 4.0-11.0 [facility] Comment on above: Performed By: #### C BC, BMP, 54134-2, 2776-, UPCR, 273-8, 38294-6 #### [facility] ([id number]) [address], [address] [place] [address] MAGNESIUMon 07-04-2023 Magnesium [Mass/Vol] 1.8 mg/dL Normal 1.8-2.6 [facility] Comment on above: Performed By: #### C BC, BMP, 11426-4, 2776-, UPCR, 273-8, 29400-2 #### [facility] ([id number]) [address], [address] [place] [address] PHOSPHORUSon 07-04-2023 Phosphate [Mass/Vol] 6.2 mg/dL High 2.4-4.9 [facility] Comment on above: Performed By: #### C BC, BMP, 80920-2, 2776-1, UPCR, 2731-8, 42610-3 #### [facility] ([id number]) [address], [address] [place] [address] PROTEIN CREAT RATIOon 2023 RANDOM URINE PROTEIN 1840 mg/L High <120 [facility] Comment on above: Performed By: #### C BC, BMP, 84839-2, 2777-1, UPCR, 2731-8, 66600-2 #### [facility] ([id number]) [address], [address] [place] [address] U/PRO/DRAPERY INSTALLER RATIO CALC 2.13 High <0.2 [facility] Comment on above: Result Comment: Neph rotic Syndrome is associated with ratios >3.5 Performed By: #### C BC, BMP, 13505-5, 2777-1, UPCR, 2731-8, 31785-2 #### [facility] ([id number]) [address], [address] [place] [address] URINE CREATININE,RDM 86.44 mg/dL Normal [facility] Comment on above: Performed By: #### Sherri BC, BMP, 15068-9, 2777-1, UPCR, 2731-8, 07582-6 #### [facility] ([id number]) [address], [address] [place] [address] Parathyrin.intact [Mass/Vol] on 07-04-2023 PTH INTACT 153 pg/mL High 12-88 [facility] Comment on above: Performed By: #### Sherri BC, BMP, 12427-1, 7-1, UPCR, 2731-8, 17569-9 #### [facility] ([id number]) [address], [address] [place] [address] URINALYSISon 07-04-2023 Bilirubin Ql (U) Negative Normal NEG [facility] BLOOD/HGB Trace Abnormal NEG [facility] Color (U) YELLOW Normal YELLOW [facility] Glucose Ql (U) 50 mg/dL Abnormal NEG [facility] Ketones Ql (U) Negative Normal NEG [facility] Leukocyte esterase Test strip Ql (U) Negative Normal NEG [facility] MUCOUS PRESENT Abnormal NONE [facility] Nitrite Ql (U) Negative Normal NEG [facility] pH (U) 6.0 [pH] Normal 5.0-8.5 [facility] Protein Ql (U) 200 mg/dL Abnormal NEG [facility] R.B.CELLS <1 Normal 0-5 [facility] Specific gravity (U) [Rel density] 1.012 Normal 1.003-1.03 5 [facility] SQUAMOUS EPITHELIUM <1 Normal 0-5 [facility] TURBIDITY CLEAR Normal CLEAR [facility] Urobilinogen (U) [Mass/Vol] mg/dL Normal <1.1 [facility] W.B.CELLS 2 /hpf Normal 0-5 [facility] Vitamin D+Metabolites [Mass/ Vol]on 07-04-2023 VITAMIN D 25 HYD TOT 38.8 ng/mL Normal 30-100 [facility] Comment on above: Result Comment: Vitamin D status 25 [place] Vitamin D Deficiency <20 ng/mL Insufficiency 20-29 ng/mL Sufficiency 30-100 ng/mL Toxicity >100 ng/mL NOTE: A pediatric reference range has not been established by the art class model of this kit. The [place] [employer] recommends a Vitamin D level of = or >20ng/mL in infants and children. Performed By: #### C AMNA, SAVANA, , 2777-, UP, 2731-8, 38243-7 #### [facility] ([id number]) [address] [place] [address] HGB AND HCTon 06-30-2023 Hematocrit (Bld) [Volume fraction] 28.2 % Low 39-49 [facility] Comment on above: Performed By: #### C AMNA, BMP, , 2776-, UP, 2731-8, 80977-6 #### [facility] ([id number]) [address], [address] [place] [address] Hemoglobin (Bld) [Mass/Vol] 9.4 g/dL Low 13.0-17.0 [facility] Comment on above: Performed By: #### C BC, BMP, 14920-9, 2777-1, UPCR, 2731-8, 45605-4 #### [facility] ([id number]) [address], [address] [place] [address] HGB AND HCTon 06-16-2023 Hematocrit (Bld) [Volume fraction] 26.4 % Low 39-49 [facility] Comment on above: Performed By: #### H H #### [facility] ([id number]) [address], [address] [place] [address] Hemoglobin (Bld) [Mass/Vol] 8.7 g/dL Low 13.0-17.0 [facility] Comment on above: Performed By: #### H H #### [facility] ([id number]) [address], [address] [place] [address] HGB AND HCTon 06-02-2023 Hematocrit (Bld) [Volume fraction] 27.1 % Low 39-49 [facility] Comment on above: Performed By: #### H H #### [facility] ([id number]) [address] [place] [address] Hemoglobin (Bld) [Mass/Vol] 9.0 g/dL Low 13.0-17.0 [facility] Comment on above: Performed By: #### H H #### [facility] ([id number]) [address], [address] [place] [address] BASIC METABOLIC PANLon 05-09 Anion gap [Moles/Vol] 9 mmol/L Normal 5-15 [facility] Comment on above: Performed By: #### C BC, BMP, 25689-5, 2777-1, UPCR, 2731-8, 96878-9 #### [facility] ([id number]) [address], [address] [place] [address] Calcium [Mass/Vol] 9.2 mg/dL Normal 8.5-10.5 [facility] Comment on above: Performed By: #### C BC, BMP, 59597-0, 2777-1, UPCR, 2731-8, 70263-6 #### [facility] ([id number]) [address] [place] [address] Chloride [Moles/Vol] 105 mmol/L Normal 98-109 [facility] Comment on above: Performed By: #### C BC, BMP, 92096-3, 2777-1, UPCR, 2731-8, 66234-1 #### [facility] ([id number]) [address], [address] [place] [address] CO2 [Moles/Vol] 22 mmol/L Normal 22-32 [facility] Comment on above: Performed By: #### C BC, BMP, 93968-8, 2777-1, UPCR, 2731-8, 97661-7 #### [facility] ([id number]) [address], [address] [place] [address] Creatinine [Mass/Vol] 3.99 mg/dL High 0.60-1.30 [facility] Comment on above: Result Comment: METH OD TRACEABLE TO IDMS STANDARD Performed By: #### C BC, BMP, 42830-7, 2777-1, UPCR, 2731-8, 66411-4 #### [facility] ([id number]) [address], [address] [place] [address] GFR/1.73 sq M.predicted among non-blacks MDRD (S/P/Bld) [Vol rate/Area] 15 mL/min/{1.73_m2} Low >59 [facility] Comment on above: Result Comment: Reported eGFR is based on the CKD-EPI 2020 equation that does not use a race coefficient. Performed By: #### C BC, BMP, 35631-3, 2777-1, UPCR, 2731-8, 31161-8 #### [facility] ([id number]) [address], [address] [place] [address] Glucose [Mass/Vol] 146 mg/dL High 65-99 [facility] Comment on above: Performed By: #### C BC, BMP, 32559-2, 2777-1, UPCR, 2731-8, 88829-2 #### [facility] ([id number]) [address], [address] [place] [address] Potassium [Moles/Vol] 5.0 mmol/L Normal 3.5-5.0 [facility] Comment on above: Performed By: #### C BC, BMP, 02104-3, 2777-1, UPCR, 2731-8, 84219-4 #### [facility] ([id number]) [address] [place] [address] Sodium [Moles/Vol] 136 mmol/L Normal 134-146 [facility] Comment on above: Performed By: #### C BC, BMP, 34286-3, 2777-1, UPCR, 2731-8, 15609-8 #### [facility] ([id number]) [address] [place] [address] Urea nitrogen [Mass/Vol] 63 mg/dL High 5-27 [facility] Comment on above: Performed By: #### C BC, BMP, 40832-6, 2777-1, UPCR, 2731-8, 20477-4 #### [facility] ([id number]) [address] [place] [address] COMPLETE BLOOD COUNTon 05-09 Erythrocyte distribution width (RBC) [Ratio] 18.1 % High 11.5-15.0 [facility] Comment on above: Performed By: #### C BC, BMP, 90242-6, 2776-, UPCR, 2731-8, 61768-7 #### [facility] ([id number]) [address] [place] [address] Hematocrit (Bld) [Volume fraction] 29.4 % Low 39-49 [facility] Comment on above: Performed By: #### C BC, BMP, 26458-2, 2776-, UPCR, 2731-8, 20403-0 #### [facility] ([id number]) [address] [place] [address] Hemoglobin (Bld) [Mass/Vol] 9.6 g/dL Low 13.0-17.0 [facility] Comment on above: Performed By: #### C BC, BMP, , 2776-, UPCR, 2731-8, 00576-6 #### [facility] ([id number]) [address], [address] [place] [address] MCH (RBC) [Entitic mass] 26.7 pg Low 27-34 [facility] Comment on above: Performed By: #### C BC, BMP, , 2776-, UPCR, 2731-8, 27625-3 #### [facility] ([id number]) [address], [address] [place] [address] MCHC (RBC) [Mass/Vol] 32.7 g/dL Normal 32-36 [facility] Comment on above: Performed By: #### C BC, BMP, 78965-2, 2776-, UPCR, 2731-8, 95277-0 #### [facility] ([id number]) [address], [address] [place] [address] MCV (RBC) [Entitic vol] 81 fL Normal 80-100 [facility] Comment on above: Performed By: #### C BC, BMP, 87782-0, 2777-1, UPCR, 2731-8, 31443-6 #### [facility] ([id number]) [address], [address] [place] [address] Platelet mean volume (Bld) [Entitic vol] 8.7 fL Normal 7-12 [facility] Comment on above: Performed By: #### C BC, BMP, 44963-5, 7-1, UPCR, 2731-8, 35526-1 #### [facility] ([id number]) [address], [facility] [address] [place] [address] Platelets (Bld) [#/Vol] 176 10*3/uL Normal 150-450 [facility] Comment on above: Performed By: #### Sherri BC, BMP, 35795-3, 7-1, UPCR, 2731-8, 66686-4 #### [facility] ([id number]) [address], [address] [place] [address] RBC COUNT 3.61 X10E12/L Low 4.10-5.70 [facility] [facility] Comment on above: Performed By: #### [place]ri [place], BMP, 22435-6, 7-1, UPCR, 2731-8, 07976-9 #### [facility] ([id number]) [address], [address] [place] [address] WBC (Bld) [#/Vol] 6.9 10*3/uL Normal 4.0-11.0 [facility] Comment on above: Performed By: #### C BC, BMP, 64366-7, 2777-1, UPCR, 2731-8, 35507-4 #### [facility] ([id number]) [address] [place] [address] MAGNESIUMon 05-09-2023 Magnesium [Mass/Vol] 1.7 mg/dL Low 1.8-2.6 [facility] Comment on above: Performed By: #### C BC, BMP, 44507-7, 2777-1, UPCR, 2731-8, 64735-6 #### [facility] ([id number]) [address], [address] [place] [address] PHOSPHORUSon 05-09-2023 Phosphate [Mass/Vol] 4.4 mg/dL Normal 2.4-4.9 [facility] Comment on above: Performed By: #### C BC, BMP, 98291-7, 2777-1, UPCR, 2731-8, 26016-1 #### [facility] ([id number]) [address], [address] [place] [address] PROTEIN CREAT RATIOon 2023 RANDOM URINE PROTEIN 2840 mg/L High <120 [facility] Comment on above: Performed By: #### C BC, BMP, 23143-6, 7-1, UPCR, 2731-8, 33709-0 #### [facility] ([id number]) [address], [address] [place] [address] U/PRO/DRAPERY INSTALLER RATIO CALC 4.66 High <0.2 [facility] Comment on above: Result Comment: Neph rotic Syndrome is associated with ratios >3.5 Performed By: #### C BC, BMP, 86257-5, 7-1, UPCR, 2731-8, 56603-8 #### [facility] ([id number]) [address], [address] [place] [address] URINE CREATININE,RDM 60.96 mg/dL Normal [facility] Comment on above: Performed By: #### C BC, BMP, 86542-9, 2777-1, UPCR, 2731-8, 47569-3 #### [facility] ([id number]) [address], [address] [place] [address] Parathyrin.intact [Mass/Vol] on 05-09-2023 PTH INTACT 190 pg/mL High 12-88 [facility] Comment on above: Performed By: #### C BC, BMP, 55091-1, 2777-1, UPCR, 2731-8, 81523-7 #### [facility] ([id number]) [address] [place] [address] URINALYSISon 05-09-2023 Bilirubin Ql (U) Negative Normal NEG [facility] BLOOD/HGB Trace Abnormal NEG [facility] Color (U) YELLOW Normal YELLOW [facility] Glucose Ql (U) 150 mg/dL Abnormal NEG [facility] Ketones Ql (U) Negative Normal NEG [facility] Leukocyte esterase Test strip Ql (U) Negative Normal NEG [facility] MUCOUS PRESENT Abnormal NONE [facility] Nitrite Ql (U) Negative Normal NEG [facility] pH (U) 6.5 [pH] Normal 5.0-8.5 [facility] Protein Ql (U) 200 mg/dL Abnormal NEG [facility] R.B.CELLS 0 /hpf Normal 0-5 [facility] Specific gravity (U) [Rel density] 1.012 Normal 1.003-1.03 5 [facility] SQUAMOUS EPITHELIUM <1 Normal 0-5 [facility] TURBIDITY CLEAR Normal CLEAR [facility] Urobilinogen (U) [Mass/Vol] mg/dL Normal <1.1 [facility] W.B.CELLS 1 /hpf Normal 0-5 [facility] Vitamin D+Metabolites [Mass/ Vol]on 05-09-2023 VITAMIN D 25 HYD TOT 40.6 ng/mL Normal 30-100 [facility] Comment on above: Result Comment: Vitamin D status 25 [place] Vitamin D Deficiency <20 ng/mL Insufficiency 20-29 ng/mL Sufficiency 30-100 ng/mL Toxicity >100 ng/mL NOTE: A pediatric reference range has not been established by the art class model of this kit. The [place] [employer] recommends a Vitamin D level of = or >20ng/mL in infants and children. Performed By: #### C BC, BMP, 25273-2, 2777-1, UPCR, 2731-8, 28948-9 #### [facility] ([id number]) [address] [place] [address] Capillary blood glucose ishmael urement by glucometer (mass/volume)Ordered By: Gael Euceda on 05-04-2023 Glucose [Mass/Vol] 146 mg/dL Normal [facility] Comment on above: Random Glucose Refer ence Range is dependent on time and content of last meal. Glucose of more than 200 mg/dL in a nonstressed, ambulatory subject supports the diagnosis of Diabetes Mellitus. Result Comment: [facility] Glucose Reference Range is dependent on time and content of last meal. Glucose of more than 200 mg/dL in a nonstressed, ambulatory subject supports the diagnosis of Diabetes Mellitus. PERFORMED BY: [place] [address] PATHOLOGIST [employer] ABHAY ABBASI M.D. Performed By: #### R MAURICIO Muse #### [address] Glucose Poct Glucometerson 0 05-04-2023 Commemt1 Glu2: Cleaned Meter Normal [facility] Comment on above: Result Comment: PERF ORMED BY: [place] [address] PATHOLOGIST [employer] ABHAY ABBASI M.D. Performed By: #### G CHEVY #### Point of Care testing , Glucose [Mass/Vol] 83 mg/dL Normal [facility] Comment on above: Result Comment: [facility] Glucose Reference Range is dependent on time and content of last meal. Glucose of more than 200 mg/dL in a nonstressed, ambulatory subject supports the diagnosis of Diabetes Mellitus. Performed By: #### G JUWANLS #### Point of Care testing , No Panel InformationOrdered By: Gael Euceda on 05-04-2023 Bedside Glucose Comment Glu2: cleaned meter [facility] Potassium [Moles/volume] in Serum or PlasmaOrdered By: Trevor Galvez on 05-04-2023 Potassium [Moles/Vol] 4.4 mmol/L Normal 3.5-5.[address] [facility] Comment on above: Result Comment: PERF ORMED BY: [place] [address] PATHOLOGIST [employer] ABHAY ABBASI M.D. Performed By: #### G CHEVY #### Point of Care testing , Alanine aminotransferase [En zymatic activity/volume] in Serum or PlasmaOrdered By: Gael Euceda on 04-19-2023 ALT [Catalytic activity/Vol] 9 U/L Normal 7-52 [facility] Comment on above: Performed By: #### R MAURICIO Muse #### [facility] [address] [place] [address] Albumin [Mass/volume] in Ser um or Plasma by Bromocresol green (BCG) dye binding methoOrdered By: Gael Euceda on 04-19-2023 Albumin BCG dye [Mass/Vol] 3.6 g/dL 3.5-5.7 [facility] Alkaline phosphatase [Enzyma tic activity/volume] in Serum or PlasmaOrdered By: Gael Euceda on 04-19-2023 ALP [Catalytic activity/Vol] 90 U/L Normal 34-104 [facility] Comment on above: Result Comment: PERF ORMED BY: [address] [place] [address] PATHOLOGIST [employer] ABHAY ABBASI M.D. Performed By: #### R MAURICIO K #### [facility] [address] [place], [place] [address] [facility] Aspartate aminotransferase [ Enzymatic activity/volume] in Serum or PlasmaOrdered By: Gael Euceda on 04-19-2023 AST [Catalytic activity/Vol] 14 U/L Normal 13-39 [facility] Comment on above: Performed By: #### Dale Muse #### [address] Automated basophil %Ordered By: Gael Euceda on 04-19-2023 Basophils/100 WBC (Bld) 0.9 % Normal . [facility] Comment on above: Performed By: #### Dale Muse #### [address] Automated basophil countOrde red By: Gael Euceda on 04-19-2023 Basophils (Bld) [#/Vol] 0.1 10*3/uL Normal 0.0-0.2 [facility] Comment on above: Result Comment: PERF ORMED BY: [place] [address] PATHOLOGIST [employer] ABHAY ABBASI M.D. Performed By: #### Dale Muse #### [address] Automated blood monocyte cou ntOrdered By: Gael Euceda on 04-19-2023 Monocytes (Bld) [#/Vol] 0.6 10*3/uL Normal 0.0-0.8 [facility] Comment on above: Performed By: #### Dale Muse #### [address] Automated eosinophil %Ordere d By: Gael Euceda on 04-19-2023 Eosinophils/100 WBC (Bld) 1.6 % Normal . [facility] Comment on above: Performed By: #### Dale Muse #### [address] Automated eosinophil countOr dered By: Gael Euceda on 04-19-2023 Eosinophils (Bld) [#/Vol] 0.1 10*3/uL Normal 0.0-0.45 [facility] Comment on above: Performed By: #### Dale Muse #### [address] Automated monocyte %Ordered By: Gael Euceda on 04-19-2023 Monocytes/100 WBC (Bld) 8.1 % Normal . [facility] Comment on above: Performed By: #### Dale Muse #### [address] Automated neutrophil %Ordere d By: Gael Euceda on 04-19-2023 Neutrophils/100 WBC (Bld) 80.1 % Normal . [facility] Comment on above: Performed By: #### Dale Muse #### [address] Bilirubin.total [Mass/volume ] in Serum or PlasmaOrdered By: Gael Euceda on 04-19-2023 Bilirubin [Mass/Vol] 0.3 mg/dL Normal 0.3-1.0 [facility] Comment on above: Performed By: #### Dale Muse #### [place] [address] [place] Calcium [Mass/volume] in Ser um or PlasmaOrdered By: Gael Euceda on 04-19-2023 Calcium [Mass/Vol] 9.4 mg/dL Normal 8.6-10.3 [facility] Comment on above: Performed By: #### Dale Muse #### [address] Carbon dioxide, total [Moles /volume] in Serum or PlasmaOrdered By: Gael Euceda on 04-19-2023 CO2 [Moles/Vol] 25.4 mmol/L Normal 21.0-31.0 [facility] Comment on above: Performed By: #### Dale Muse #### [facility] [address] [place] [address] [place] Chloride [Moles/volume] in S salas or PlasmaOrdered By: Gael Euceda on 04-19-2023 Chloride [Moles/Vol] 106 mmol/L Normal 98-107 [facility] Comment on above: Performed By: #### Dale Muse #### [address] Complete Blood Count Auto Di ffon 04-19-2023 Mean Corpuscular HGB Conc 32.8 g/dL Normal 32.5-35.6 [facility] Comment on above: Performed By: #### Dale Muse #### [address] NRBC% 0.0 /100{WBC} Normal 0-0.5 [facility] Comment on above: Performed By: #### Dale Muse #### [address] Comprehensive Metabolic Pane bennett 04-19-2023 Albumin [Mass/Vol] 3.6 g/dL Normal 3.5-5.7 [facility] Comment on above: Performed By: #### Dale Muse #### [address] GFR/1.73 sq M.predicted MDRD (S/P/Bld) [Vol rate/Area] 14.714 mL/min/{1.73_m2} Normal [facility] Comment on above: Performed By: #### Dale Muse #### [address] Creatinine [Mass/volume] in Serum or PlasmaOrdered By: Gael Euceda on 04-19-2023 Creatinine [Mass/Vol] 4.12 mg/dL High 0.70-1.[address] [facility] Comment on above: Performed By: #### Dale Muse #### [address] Erythrocyte distribution wid th [Ratio] by Automated countOrdered By: Gael Euceda on 04-19-2023 Erythrocyte distribution width (RBC) [Ratio] 17.2 % High 12.0-14.8 [facility] Comment on above: Performed By: #### Dale Muse #### [address] Erythrocytes [#/volume] in B lood by Automated countOrdered By: Gael Euceda on 04-19-2023 RBC (Bld) [#/Vol] 3.88 10*6/uL Low 3.90-5.60 [facility] Comment on above: Performed By: #### Dale Muse #### [address] Glucose [Mass/volume] in Ser um or PlasmaOrdered By: Gael Euceda on 04-19-2023 Glucose [Mass/Vol] 121 mg/dL High 70-100 [facility] Comment on above: ADA recommended refe rence rangeRandom Glucose Reference Range is dependent on time and content of last meal. Glucose of more than 200 mg/dL in a nonstressed, ambulatory subject supports the diagnosis of Diabetes Mellitus. Result Comment: [facility] Glucose Reference Range is dependent on time and content of last meal. Glucose of more than 200 mg/dL in a nonstressed, ambulatory subject supports the diagnosis of Diabetes Mellitus. ADA recommended reference range Performed By: #### Dale Muse #### [address] Hematocrit [Volume Fraction] of Blood by Automated countOrdered By: Gael Euceda on 04-19-2023 Hematocrit (Bld) [Volume fraction] 31.0 % Low 38.8-50.0 [facility] Comment on above: Performed By: #### Dale Muse #### [address] Hemoglobin [Mass/volume] in BloodOrdered By: Gael Euceda on 04-19-2023 Hemoglobin (Bld) [Mass/Vol] 10.2 g/dL Low 13.0-17.0 [facility] Comment on above: Performed By: #### Dale Muse #### [address] Leukocytes [#/volume] correc ronni for nucleated erythrocytes in Blood by Automated counOrdered By: Gael Euceda on 04-19-2023 WBC corrected for nucl RBC Auto (Bld) [#/Vol] 7.4 10*3/uL 4.1-10.5 [facility] Leukocytes [#/volume] in Blo od by Automated countOrdered By: Gael Euceda on 04-19-2023 WBC (Bld) [#/Vol] 7.4 10*3/uL Normal 4.1-10.5 [facility] Comment on above: Performed By: #### Dale Muse #### [facility] [address] [place] [address] [place] Lymphocytes [#/volume] in Bl ood by Automated countOrdered By: Gael Euceda on 04-19-2023 Lymphocytes (Bld) [#/Vol] 0.7 10*3/uL Low 1.00-4.8 [facility] Comment on above: Performed By: #### Dale Muse #### [facility] [address] [place] [address] Lymphocytes/100 leukocytes i n Blood by Automated countOrdered By: Gael Euceda on 04-19-2023 Lymphocytes/100 WBC (Bld) 9.3 % Normal . [facility] Comment on above: Performed By: #### Dale MARTÍNEZ K #### [facility] [address] [place] [address] MCH [Entitic mass] by Automa ronni countOrdered By: Gael Euceda on 04-19-2023 MCH (RBC) [Entitic mass] 26.2 pg Low 27.5-35.2 [facility] Comment on above: Performed By: #### Dale MARTÍNEZ K #### [facility] [address] [place] [address] MCHC Auto (RBC) [Mass/Vol]Or dered By: Gael Euceda on 04-19-2023 MCHC (RBC) [Mass/Vol] 32.8 g/dL 32.5-35.[address] [facility] MCV [Entitic volume] by Auto mated countOrdered By: Gael Euceda on 04-19-2023 MCV (RBC) [Entitic vol] 79.9 fL Low 83.5-101 [facility] Comment on above: Performed By: #### Dale Muse #### [address] Neutrophils [#/volume] in Bl ood by Automated countOrdered By: Gael Euceda on 04-19-2023 Neutrophils (Bld) [#/Vol] 5.9 10*3/uL Normal 1.8-7.7 [facility] Comment on above: Performed By: #### Dale Muse #### [address] No Panel InformationOrdered By: Gael Euceda on 04-19-2023 Estimated GFR (CKD-EPI) 14.714 mL/Min [facility] Creatinine Clearance (Chem N/A [facility] Nucleated erythrocytes [Pres ence] in Blood by Automated countOrdered By: Gael Euceda on 04-19-2023 Nucleated RBC Auto Ql (Bld) 0.0 /100{WBC} 0-0.5 [facility] Platelet mean volume [Entiti c volume] in Blood by Automated countOrdered By: Gael Euceda on 04-19-2023 Platelet mean volume (Bld) [Entitic vol] 8.2 fL Normal 6.6-10.1 [facility] Comment on above: Performed By: #### Dale Muse #### [address] Platelets [#/volume] in Bloo d by Automated countOrdered By: Gael Euceda on 04-19-2023 Platelets (Bld) [#/Vol] 191 10*3/uL Normal 150-450 [facility] Comment on above: Performed By: #### Dale Muse #### [address] Potassium [Moles/volume] in Serum or PlasmaOrdered By: Gael Euceda on 04-19-2023 Potassium [Moles/Vol] 5.6 mmol/L High 3.5-5.[address] [facility] Comment on above: Performed By: #### Dale Muse #### [facility] [address] [place] [address] Protein [Mass/volume] in Ser um or PlasmaOrdered By: Gael Euceda on 04-19-2023 Protein [Mass/Vol] 5.8 g/dL Low 6.4-8.9 [facility] Comment on above: Performed By: #### R MAURICIO Muse #### [address] Serum globulin measurement b y calculation (mass/volume)Ordered By: Gael Euceda on 04-19-2023 Globulin (S) [Mass/Vol] 2.2 g/dL Normal [facility] Comment on above: Performed By: #### R MAURICIO Muse #### [address] Serum or plasma albumin/glob ulin mass ratioOrdered By: Gael Euceda on 04-19-2023 Albumin/Globulin [Mass ratio] 1.6 {ratio} [facility] Comment on above: Performed By: #### R MAURICIO Muse #### [address] Serum or plasma anion gap de terminationOrdered By: Gael Euceda on 04-19-2023 Anion gap [Moles/Vol] 11.2 mmol/L Normal 6.0-15.0 [facility] Comment on above: Performed By: #### Dale Muse #### [facility] [address] [place] [address] [place] Sodium [Moles/volume] in Ser um or PlasmaOrdered By: Gael Euceda on 04-19-2023 Sodium [Moles/Vol] 137 mmol/L Normal 136-145 [facility] Comment on above: Performed By: #### R MAURICIO Muse #### [place] [address] [place] Urea nitrogen [Mass/volume] in Serum or PlasmaOrdered By: Gael Euceda on 04-19-2023 Urea nitrogen [Mass/Vol] 78 mg/dL High 7-25 [facility] Comment on above: Performed By: #### R MAURICIO K #### [facility] [address] Basic Metabolic Panelon 12-0 Creatinine Clr Calc Pharmacy 19.13 Normal [facility] Comment on above: Result Comment: PERF ORMED BY: [facility] [address] [place] [address] PATHOLOGIST [employer] ABHAY ABBASI M.D. Performed By: #### G LULS #### Point of Care testing , GFR/1.73 sq M.predicted MDRD (S/P/Bld) [Vol rate/Area] 14.629 mL/min/{1.73_m2} Normal [facility] Comment on above: Performed By: #### G LULS #### Point of Care testing , Calcium [Mass/volume] in Ser um or PlasmaOrdered By: Sharri Cancino on 03-24-2023 Calcium [Mass/Vol] 9.0 mg/dL Normal 8.6-10.3 [facility] Comment on above: Performed By: #### G LULS #### Point of Care testing , Capillary blood glucose ishmael urement by glucometer (mass/volume)Ordered By: Sharri Cancino on 03-24-2023 Glucose [Mass/Vol] 120 mg/dL Normal [facility] Comment on above: Random Glucose Refer ence Range is dependent on time and content of last meal. Glucose of more than 200 mg/dL in a nonstressed, ambulatory subject supports the diagnosis of Diabetes Mellitus. Result Comment: [facility] Glucose Reference Range is dependent on time and content of last meal. Glucose of more than 200 mg/dL in a nonstressed, ambulatory subject supports the diagnosis of Diabetes Mellitus. PERFORMED BY: [facility] [address] [place] [address] PATHOLOGIST [employer] ABHAY ABBASI M.D. Performed By: #### G LULS #### Point of Care testing , Carbon dioxide, total [Moles /volume] in Serum or PlasmaOrdered By: Sharri Cancino on 03-24-2023 CO2 [Moles/Vol] 21.2 mmol/L Normal 21.0-31.0 [facility] Comment on above: Performed By: #### G CHEVY #### Point of Care testing , Chloride [Moles/volume] in S salas or PlasmaOrdered By: Sharri Blancomar on 03-24-2023 Chloride [Moles/Vol] 106 mmol/L Normal 98-107 [facility] Comment on above: Performed By: #### G CHEVY #### Point of Care testing , Creatinine [Mass/volume] in Serum or PlasmaOrdered By: Sharri Blancomar on 03-24-2023 Creatinine [Mass/Vol] 4.14 mg/dL Significan t change up 0.70-1.30 [facility] Comment on above: Delta: 3.58 on 03/23 Performed By: #### G CHEVY #### Point of Care testing , Glucose Poct Glucometerson 1 05-25-2022 Glucose [Mass/Vol] 133 mg/dL Normal [facility] Comment on above: Result Comment: [place] Glucose Reference Range is dependent on time and content of last meal. Glucose of more than 200 mg/dL in a nonstressed, ambulatory subject supports the diagnosis of Diabetes Mellitus. PERFORMED BY: [place] [address] PATHOLOGIST [employer] ABHAY ABBASI M.D. Performed By: #### R MAURICIO Muse #### [address] Glucose [Mass/volume] in Ser um or PlasmaOrdered By: Kristaldaestrada Blancomadale on 03-24-2023 Glucose [Mass/Vol] 133 mg/dL High 70-100 [facility] Comment on above: ADA recommended refe rence rangeRandom Glucose Reference Range is dependent on time and content of last meal. Glucose of more than 200 mg/dL in a nonstressed, ambulatory subject supports the diagnosis of Diabetes Mellitus. Result Comment: [facility] Glucose Reference Range is dependent on time and content of last meal. Glucose of more than 200 mg/dL in a nonstressed, ambulatory subject supports the diagnosis of Diabetes Mellitus. ADA recommended reference range Performed By: #### G LULS #### Point of Care testing , No Panel InformationOrdered By: Sharri Cancino on 03-24-2023 Estimated GFR (CKD-EPI) 14.629 mL/Min [facility] Creatinine Clearance (Chem 19.13 [facility] Potassium [Moles/volume] in Serum or PlasmaOrdered By: Sharri Cancino on 03-24-2023 Potassium [Moles/Vol] 4.6 mmol/L Normal 3.5-5.[address] [facility] Comment on above: Performed By: #### G LULS #### Point of Care testing , Serum or plasma anion gap de terminationOrdered By: Sharri Cancino on 03-24-2023 Anion gap [Moles/Vol] 14.4 mmol/L Normal 6.0-15.0 [facility] Comment on above: Performed By: #### G LULS #### Point of Care testing , Sodium [Moles/volume] in Ser um or PlasmaOrdered By: Sharri Cancino on 03-24-2023 Sodium [Moles/Vol] 137 mmol/L Normal 136-145 [facility] Comment on above: Performed By: #### G LULS #### Point of Care testing , US carotid doppler BIon -0 US carotid doppler BI [facility] [place] [address] Ultrasound Report Signed Patient: Mendez Drummond MR#: [id number] : 1950 Acct:[id number] Age/Sex: 72 / M ADM Date: 03/22/23 Loc: Room: [address] [place] [address] Type: ADM IN Attending Dr: Sharri Cancino MD Ordering Provider: Gael Euecda MD Date of Service: 03/23/23 US/US carotid doppler BI: known left stenosis ? progression to occlusion Copies to: MD Sharri Brady MD CAROTID DUPLEX INDICATION: Known carotid occlusive disease PROCEDURE: Color-flow duplex scanning is used to interrogate the extracranial carotid arterial system, as well as both vertebral arteries. Both carotid bifurcations show mild to moderate heterogeneous plaque formation. The proximal right internal carotid artery shows a highest peak systolic velocity of 125 cm/s with an end-diastolic velocity of 25.9 cm/s . The mid internal carotid artery measures 122 cm/s peak systolic and 31.4 cm/s end diastolic. The distal segment measures 134 cm/s peak systolic with an end diastolic velocity of 36.1 cm/s . The velocities of the right common carotid artery are 144 cm/s peak systolic and 28.6 cm/s end-diastolic proximally and 126 cm/s peak systolic and 27.4 cm/s end diastolic distally. The peak systolic velocity ratio of the internal to the common carotid artery is 1.06. The right external carotid artery measures 118 cm/s peak systolic. The right vertebral artery is patent at 66.7 cm/s with antegrade flow. Since the prior study there has been progression to complete occlusion of the left common carotid artery. There is an extensive amount of intraluminal debris noted in the previously stented segments of the carotid artery. 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 Less than 50% stenosis is seen in the right internal carotid artery. Right vertebral artery is patent with antegrade flow. Left vertebral artery is difficult to visualize. Impression dictated by: Gael Euceda M.D.03/24/2023 12:27 PM Dictation Location: [facility] Tech: Khalida Mazariegos Transcribed By: SANGEETHA 03/24/23 1227 Dictated By: Gael Euceda MD 03/24/23 1225 Signed By: 03/24/23 1227 Normal [facility] [facility] Urea nitrogen [Mass/volume] in Serum or PlasmaOrdered By: Sharri Cancino on 03-24-2023 Urea nitrogen [Mass/Vol] 60 mg/dL High 7- [facility] Comment on above: Performed By: #### G LULS #### Point of Care testing , A1C with Estimated Average Mode awad 03-23-2023 Glucose [Mass/Vol] 169 mg/dL Normal [facility] Comment on above: Result Comment: PERF ORMED BY: [place] [address] PATHOLOGIST [employer] ABHAY ABBASI M.D. Performed By: #### G CHEVY #### Point of Care testing , Activated partial thrombopla stin time (aPTT) in platelet poor plasma by coagulation aOrdered By: Kylie Salazar on 03-23-2023 aPTT Coag (PPP) [Time] 37.9 s 25.1-36.5 [facility] Comment on above: A hematocrit value g reater than 55% may lead to inaccurate results in coagulation testing. Patients having hematocrit values >55% require a special collection tube for coagulation studies. Please contact the laboratory at [phone] for redraw instructions. Automated basophil %Ordered By: Kylie Salazar on 03-23-2023 Basophils/100 WBC (Bld) 1.2 % Normal . [facility] Comment on above: Performed By: #### B MP, MG, A1C WTH eA, PTT, CBC, PT #### [facility] [address] [place] [address] Automated basophil countOrde red By: Kylie Salazar on 03-23-2023 Basophils (Bld) [#/Vol] 0.1 10*3/uL Normal 0.0-0.2 [facility] Comment on above: Result Comment: PERF ORMED BY: [place] [address] PATHOLOGIST [employer] ABHAY ABBASI M.D. Performed By: #### B MP, MG, A1C WTH eA, PTT, CBC, PT #### [facility] [address] [place] [address] Automated blood monocyte cou ntOrdered By: Kylie Salazar on 03-23-2023 Monocytes (Bld) [#/Vol] 0.5 10*3/uL Normal 0.0-0.8 [facility] Comment on above: Performed By: #### B MP, MG, A1C WTH eA, PTT, CBC, PT #### [address] Automated eosinophil %Ordere d By: Kylie Salazar on 03-23-2023 Eosinophils/100 WBC (Bld) 1.3 % Normal . [facility] Comment on above: Performed By: #### B MP, MG, A1C WTH eA, PTT, CBC, PT #### [address] Automated eosinophil countOr dered By: Kylie Salazar on 03-23-2023 Eosinophils (Bld) [#/Vol] 0.1 10*3/uL Normal 0.0-0.45 [facility] Comment on above: Performed By: #### B MP, MG, A1C WTH eA, PTT, CBC, PT #### [address] Automated monocyte %Ordered By: Kylie Salazar on 03-23-2023 Monocytes/100 WBC (Bld) 6.4 % Normal . [facility] Comment on above: Performed By: #### B MP, MG, A1C WTH eA, PTT, CBC, PT #### [address] Automated neutrophil %Ordere d By: Kylie Salazar on 03-23-2023 Neutrophils/100 WBC (Bld) 81.0 % Normal . [facility] Comment on above: Performed By: #### B MP, MG, A1C WTH eA, PTT, CBC, PT #### [address] Basic Metabolic Panelon 113 Anion gap [Moles/Vol] Not performed Normal 6.0-15.0 [facility] Comment on above: Performed By: #### B MP, MG, A1C WTH eA, PTT, CBC, PT #### [address] Calcium [Mass/Vol] 8.9 mg/dL Normal 8.6-10.3 [facility] Comment on above: Performed By: #### B MP, MG, A1C WTH eA, PTT, CBC, PT #### [address] Chloride [Moles/Vol] 106 mmol/L Normal 98-107 [facility] Comment on above: Performed By: #### B MP, MG, A1C WTH eA, PTT, CBC, PT #### [facility] [address] CO2 [Moles/Vol] 20.3 mmol/L Low 21.0-31.0 [facility] Comment on above: Performed By: #### B MP, MG, A1C WTH eA, PTT, CBC, PT #### [address] Creatinine [Mass/Vol] 3.58 mg/dL High 0.70-1.30 [facility] Comment on above: Performed By: #### B MP, MG, A1C WTH eA, PTT, CBC, PT #### [address] Creatinine Clr Calc Pharmacy 22.25 Normal [facility] Comment on above: Performed By: #### B MP, MG, A1C WTH eA, PTT, CBC, PT #### [address] GFR/1.73 sq M.predicted MDRD (S/P/Bld) [Vol rate/Area] 17.417 mL/min/{1.73_m2} Normal [facility] Comment on above: Performed By: #### B MP, MG, A1C WTH eA, PTT, CBC, PT #### [address] Glucose [Mass/Vol] 95 mg/dL Normal 70-100 [facility] Comment on above: Result Comment: [place] Glucose Reference Range is dependent on time and content of last meal. Glucose of more than 200 mg/dL in a nonstressed, ambulatory subject supports the diagnosis of Diabetes Mellitus. ADA recommended reference range Performed By: #### B MP, MG, A1C WTH eA, PTT, CBC, PT #### [address] Potassium Normal 3.5-5.1 [facility] Comment on above: Result Comment: Spec imen hemolyzed, redraw requested Results called at 0527 on 03/23/23 Performed By: #### B MP, MG, A1C WTH eA, PTT, CBC, PT #### [address] Sodium [Moles/Vol] 135 mmol/L Low 136-145 [facility] Comment on above: Performed By: #### B MP, MG, A1C WTH eA, PTT, CBC, PT #### [address] Urea nitrogen [Mass/Vol] 60 mg/dL High 7-25 [facility] Comment on above: Performed By: #### B MP, MG, A1C WTH eA, PTT, CBC, PT #### [address] Complete Blood Count Auto Di ffon 03-23-2023 Mean Corpuscular HGB Conc 32.4 g/dL Low 32.5-35.6 [facility] Comment on above: Performed By: #### B MP, MG, A1C WTH eA, PTT, CBC, PT #### [address] NRBC% 0.1 /100{WBC} Normal 0-0.5 [facility] Comment on above: Performed By: #### B MP, MG, A1C WTH eA, PTT, CBC, PT #### [address] Erythrocyte distribution wid th [Ratio] by Automated countOrdered By: Kylie Salazar on 03-23-2023 Erythrocyte distribution width (RBC) [Ratio] 15.9 % High 12.0-14.8 [facility] Comment on above: Performed By: #### B MP, MG, A1C WTH eA, PTT, CBC, PT #### [address] Erythrocytes [#/volume] in B lood by Automated countOrdered By: Kylie Salazar on 03-23-2023 RBC (Bld) [#/Vol] 4.30 10*6/uL Normal 3.90-5.60 [facility] Comment on above: Performed By: #### B MP, MG, A1C WTH eA, PTT, CBC, PT #### [facility] [address] Glucose Poct Glucometerson 1 05-23-2022 Glucose [Mass/Vol] 192 mg/dL Normal [facility] Comment on above: Result Comment: [place] Glucose Reference Range is dependent on time and content of last meal. Glucose of more than 200 mg/dL in a nonstressed, ambulatory subject supports the diagnosis of Diabetes Mellitus. PERFORMED BY: [place] [address] PATHOLOGIST [employer] ABHAY ABBASI M.D. Performed By: #### G LULS #### Point of Care testing , Glucose [Mass/Vol] 86 mg/dL Normal [facility] Comment on above: Result Comment: [place] Glucose Reference Range is dependent on time and content of last meal. Glucose of more than 200 mg/dL in a nonstressed, ambulatory subject supports the diagnosis of Diabetes Mellitus. PERFORMED BY: [place] [address] PATHOLOGIST [employer] ABHAY ABBASI M.D. Performed By: #### G LULS #### Point of Care testing , Glucose [Mass/Vol] 87 mg/dL Normal [facility] Comment on above: Result Comment: [place] Glucose Reference Range is dependent on time and content of last meal. Glucose of more than 200 mg/dL in a nonstressed, ambulatory subject supports the diagnosis of Diabetes Mellitus. PERFORMED BY: [place] [address] PATHOLOGIST [employer] ABHAY ABBASI M.D. Performed By: #### G LULS #### Point of Care testing , Glucose [Mass/Vol] 96 mg/dL Normal [facility] Comment on above: Result Comment: [place] Glucose Reference Range is dependent on time and content of last meal. Glucose of more than 200 mg/dL in a nonstressed, ambulatory subject supports the diagnosis of Diabetes Mellitus. PERFORMED BY: [place] [address] PATHOLOGIST [employer] ABHAY ABBASI M.D. Performed By: #### G LULS #### Point of Care testing , Glucose mean value [Mass/vol ume] in Blood Estimated from glycated hemoglobinOrdered By: Kylie Salazar on 03-23-2023 Average glucose Estimated from glycated hemoglobin (Bld) [Mass/Vol] 169 mg/dL [facility] Hematocrit [Volume Fraction] of Blood by Automated countOrdered By: Kylie Salazar on 03-23-2023 Hematocrit (Bld) [Volume fraction] 34.1 % Low 38.8-50.0 [facility] Comment on above: Performed By: #### B MP, MG, A1C WTH eA, PTT, CBC, PT #### [facility] [address] [place] [address] Hemoglobin A1c percentageOrd ered By: Kylie Salazar on 03-23-2023 HbA1c (Bld) [Mass fraction] 7.5 % High 4.3-5.6 [facility] Comment on above: Increased risk for d iabetes: 5.7 - 6.4diabetes: >6.4glycemic control for adults with diabetes: <7.0 Result Comment: Incr eased risk for diabetes: 5.7 - 6.4 diabetes: >6.4 glycemic control for adults with diabetes: <7.0 Performed By: #### G LULS #### Point of Care testing , Hemoglobin [Mass/volume] in BloodOrdered By: Kylie Salazar on 03-23-2023 Hemoglobin (Bld) [Mass/Vol] 11.1 g/dL Low 13.0-17.0 [facility] Comment on above: Performed By: #### B MP, MG, A1C WTH eA, PTT, CBC, PT #### [facility] [address] [place] [address] INR in Platelet poor plasma by Coagulation assayOrdered By: Kylie Salazar on 03-23-2023 INR Coag (PPP) [Relative time] 1.1 {INR} Normal [facility] Comment on above: INR Therapeutic Rang e A) Pre- and Peroperative OAT started two weeks before surgery. NOT HIP SURGERY: 1.5 - 2.5 HIP SURGERY: 2 - 3B) Primary and secondary prevention of venous THROMBOSIS: 2 - 3C) Active venous thrombosis, pulmonary embolismand prevention of recurrent venous thrombosis: 2 - 3D) Prevention of arterial thromboembolismincluding patients with mechanical heart valves: 3 - 4.5 Result Comment: INR Therapeutic Range A) Pre- and Peroperative OAT started two weeks before surgery. NOT HIP SURGERY: 1.5 - 2.5 HIP SURGERY: 2 - 3 B) Primary and secondary prevention of venous THROMBOSIS: 2 - 3 C) Active venous thrombosis, pulmonary embolism and prevention of recurrent venous thrombosis: 2 - 3 D) Prevention of arterial thromboembolism including patients with mechanical heart valves: 3 - 4.5 Performed By: #### B MP, MG, A1C WTH eA, PTT, CBC, PT #### [address] Leukocytes [#/volume] correc ronni for nucleated erythrocytes in Blood by Automated counOrdered By: Kylie Salazar on 03-23-2023 WBC corrected for nucl RBC Auto (Bld) [#/Vol] 7.5 10*3/uL 4.1-10.5 [facility] Leukocytes [#/volume] in Blo od by Automated countOrdered By: Kylie Salazar on 03-23-2023 WBC (Bld) [#/Vol] 7.5 10*3/uL Normal 4.1-10.5 [facility] Comment on above: Performed By: #### B MP, MG, A1C WTH eA, PTT, CBC, PT #### [facility] [address] [place] [address] [place] Lymphocytes [#/volume] in Bl ood by Automated countOrdered By: Kylie Salazar on 03-23-2023 Lymphocytes (Bld) [#/Vol] 0.8 10*3/uL Low 1.00-4.8 [facility] Comment on above: Performed By: #### B MP, MG, A1C WTH eA, PTT, CBC, PT #### [place] [address] [place] Lymphocytes/100 leukocytes i n Blood by Automated countOrdered By: Kylie Salazar on 03-23-2023 Lymphocytes/100 WBC (Bld) 10.1 % Normal . [facility] Comment on above: Performed By: #### B MP, MG, A1C WTH eA, PTT, CBC, PT #### [facility] [address] MCH [Entitic mass] by Automa ronni countOrdered By: Kylie Salazar on 03-23-2023 MCH (RBC) [Entitic mass] 25.7 pg Low 27.5-35.2 [facility] Comment on above: Performed By: #### B MP, MG, A1C WTH eA, PTT, CBC, PT #### [facility] [address] MCHC Auto (RBC) [Mass/Vol]Or dered By: Kylie Salazar on 03-23-2023 MCHC (RBC) [Mass/Vol] 32.4 g/dL 32.5-35.[address] [facility] MCV [Entitic volume] by Auto mated countOrdered By: Kylie Salazar on 03-23-2023 MCV (RBC) [Entitic vol] 79.3 fL Low 83.5-101 [facility] Comment on above: Performed By: #### B MP, MG, A1C WTH eA, PTT, CBC, PT #### [address] Magnesium [Mass/volume] in S salas or PlasmaOrdered By: Kylie Salazar on 03-23-2023 Magnesium [Mass/Vol] 2.0 mg/dL Normal 1.9-2.7 [facility] Comment on above: Result Comment: PERF ORMED BY: [place] [address] PATHOLOGIST [employer] ABHAY ABBASI M.D. Performed By: #### B MP, MG, A1C WTH eA, PTT, CBC, PT #### [facility] [address] [place] [address] [place] Neutrophils [#/volume] in Bl ood by Automated countOrdered By: Kylie Salazar on 03-23-2023 Neutrophils (Bld) [#/Vol] 6.1 10*3/uL Normal 1.8-7.7 [facility] Comment on above: Performed By: #### B MP, MG, A1C WTH eA, PTT, CBC, PT #### [address] Nucleated erythrocytes [Pres ence] in Blood by Automated countOrdered By: Kylie Salazar on 03-23-2023 Nucleated RBC Auto Ql (Bld) 0.1 /100{WBC} 0-0.5 [facility] Partial Thromboplastin Timeo n 03-23-2023 aPTT Coag (Bld) [Time] 37.9 s High 25.1-36.5 [facility] Comment on above: Result Comment: A he matocrit value greater than 55% may lead to inaccurate results in coagulation testing. Patients having hematocrit values >55% require a special collection tube for coagulation studies. Please contact the laboratory at [phone] for redraw instructions. PERFORMED BY: [place] [address] PATHOLOGIST [employer] ABHAY ABBASI M.D. Performed By: #### B MP, MG, A1C WTH eA, PTT, CBC, PT #### [address] Platelet mean volume [Entiti c volume] in Blood by Automated countOrdered By: Kylie Salazar on 03-23-2023 Platelet mean volume (Bld) [Entitic vol] 7.7 fL Normal 6.6-10.1 [facility] Comment on above: Performed By: #### B MP, MG, A1C WTH eA, PTT, CBC, PT #### [facility] [address] Platelets [#/volume] in Bloo d by Automated countOrdered By: Kylie Salazar on 03-23-2023 Platelets (Bld) [#/Vol] 228 10*3/uL Normal 150-450 [facility] Comment on above: Performed By: #### B MP, MG, A1C WTH eA, PTT, CBC, PT #### [facility] [address] [place] [address] Prothrombin time (PT)Ordered By: Kylie Salazar on 03-23-2023 PT Coag (PPP) [Time] 12.8 s Normal 9.0-12.9 [facility] Comment on above: A hematocrit value g reater than 55% may lead to inaccurate results in coagulation testing. Patients having hematocrit values >55% require a special collection tube for coagulation studies. Please contact the laboratory at [phone] for redraw instructions. Result Comment: A he matocrit value greater than 55% may lead to inaccurate results in coagulation testing. Patients having hematocrit values >55% require a special collection tube for coagulation studies. Please contact the laboratory at [phone] for redraw instructions. Performed By: #### B MP, MG, A1C WTH eA, PTT, CBC, PT #### [facility] [address] [place] [address] Redraw Potassiumon 3 Potassium [Moles/Vol] 4.5 mmol/L Normal 3.5-5.1 [facility] Comment on above: Result Comment: PERF ORMED BY: [place] [address] PATHOLOGIST [employer] ABHAY ABBASI M.D. Performed By: #### R EDRAW K #### [address] US map hemodial access BILon 03-01-2023 US map hemodial access ONESIMO [facility] Main [place] [address] [place] [address] Ultrasound Report Signed Patient: Mendez Drummond MR#: [id number] : 1950 Acct:[id number] Age/Sex: 72 / M ADM Date: 02/28/23 Loc: Room: Type: [facility] Attending Dr: Gael Euceda MD Ordering Provider: Gael Euceda MD Date of Service: 02/28/23 US/US map hemodial access ONEISMO: N18.6, Z01.818 Copies to: Gael Euceda MD Bilateral upper extremity vein mapping INDICATIONS: Need for dialysis access. FINDINGS: Right upper extremity: The right upper extremity subclavian and axillary veins are patent. The brachial artery is of adequate diameter for fistula creation. The cephalic vein is of adequate diameter throughout the entire right upper extremity including the forearm. Left upper extremity: The subclavian and axillary veins are patent. The brachial radial artery diameter is adequate for fistula creation. Cephalic vein in the right upper extremity is of adequate diameter and the arm, but not the forearm. US/US map hemodial access ONESIMO IMPRESSION: As above. Impression dictated by: Gregory Alegria MD03/01/2023 9:37 AM Dictation Location: [place] [address] Tech: Samara Ivy Transcribed By: SANGEETHA 03/01/23936 Dictated By: Gregory Alegria MD 03/01/23935 Signed By: 03/01/23936 Normal [facility] US carotid doppler BIon 10-2 US carotid doppler BI [facility] [place] [address] Ultrasound Report Signed Patient: Mendez Drummond MR#: [id number] : 1950 Acct:[id number] Age/Sex: 72 / M ADM Date: 02/14/23 Loc: [facility] Room: Type: [facility] Attending Dr: Monique Palacios [employer]AR[employer] INSPECTOR-C Ordering Provider: Monique Palacios APRN Date of Service: 02/14/23 US/US carotid doppler BI: I65.23 Copies to: Monique Palacios APRN CAROTID DUPLEX INDICATION: Known carotid occlusive disease PROCEDURE: Color-flow duplex scanning is used to interrogate the extracranial carotid arterial system, as well as both vertebral arteries. Both carotid bifurcations show mild to moderate heterogeneous plaque formation. The proximal right internal carotid artery shows a highest peak systolic velocity of 114 cm/s with an end-diastolic velocity of 24.3 cm/s . The mid internal carotid artery measures 133 cm/s peak systolic and 29.8 cm/s end diastolic. The distal segment measures 109 cm/s peak systolic with an end diastolic velocity of 32.9 cm/s . The velocities of the right common carotid artery are 103 cm/s peak systolic and 16.8 cm/s end-diastolic proximally and 101 cm/s peak systolic and 24.9 cm/s end diastolic distally. The peak systolic velocity ratio of the internal to the common carotid artery is 1.32. The right external carotid artery measures 104 cm/s peak systolic. The right vertebral artery is patent at 85.1 cm/s with antegrade flow. There is an indwelling left internal carotid artery stent. The proximal left internal carotid artery shows a highest peak systolic velocity of 34.8 cm/s with an end-diastolic velocity of 6.9 cm/s . The mid internal carotid artery measures 30.4 cm/s peak systolic and 6.9 cm/s end diastolic. The distal segment measures 26.3 cm/s peak systolic with an end diastolic velocity of 6.9 cm/s . The velocities of the left common carotid artery are 179 cm/s peak systolic and 58 cm/s end- diastolic proximally and 161 cm/s peak systolic and 19.8 cm/s end diastolic distally. The peak systolic velocity ratio of the internal to the common carotid artery is 0.22 . The left external carotid artery measures 52 cm/s peak systolic. The left vertebral artery is patent at 78 cm/s with antegrade flow. US/US carotid doppler BI IMPRESSION: Less than 50% stenosis is seen in the right extracranial internal carotid artery. The velocities in the left internal carotid artery are markedly diminished by comparison to the prior examination. There is also an area of calcified dense plaque formation the common carotid artery at the proximal end point of the previously stented segment. This likely that there is a high-grade inflow stenosis at that level which is causing the diminished distal velocities. Both vertebral arteries are patent with antegrade flow. 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) Ear infection (382.9) (H66.90) Orders Start: Tobramycin-dexAMETHasone 0.3-0.1 % Ophthalmic Suspension (TobraDex); Instill 4-5 drops into left ear two times a day for 5 days Provider Impressions doing well left otitis externa will place on tobradex will use debrox both ears every couple weeks to minimize buildup will see me in 6 months will follow locally with middle or intermediate school principal surgeon dr mariscal History of Present Illness 70 y/o male with a history of SCCa s/p WLE, L neck dissection, b/l parotidectomy with radiation and chemotherapy presenting with concern for ORN of the left mandible. States 1.5 years ago he noted issues with drainage from his left jaw and intraoral drainage as well. He has been tried on several courses of antibiotics and has recently completed hyperbaric oxygen therapy with no improvement. He continues to have an area of scabbing on the left mandible that intermittently drains. He has pain with chewing on the left side. 06/11/20 Patient having virtual follow-up visit with he and his family to further discuss his updated scans as well as the proposed procedure Since expelling the shard of bone there is been less drainage We reviewed my sharing screen his updated 3D CT scan showing the radio necrotic appearance of his left mandible with likely healed pathologic fracture but with additional bone fragment being seen Also discussed his lower extremity angiogram showing patency in three vessel runoff 08/11/21 Here for follow-up visit He is doing well No significant neck drainage 08/18/21 here for wound check no drainage was in the ED over weekend 08/27/21 doing well no issues with the wound vac 09/17/21 doing well no issues 10/15/21 doing better wouldl yajaira his tube removed still on plavix would like to see the dentist 11/05/21 diallo mckee here for peg rem,oval he is not using it has stopped anitcoags 11/16/21 being seen today after noting some drainage in the left face yesterday no pain peg site has healed up 12/17/21 no further drainage no pain feeeling good has two more weeks of antibiotics 03/11/22 doing well no drainage or pain decreaed hearing on left feels good 01/13/23 doing well concerend about an indentation on the left no drainage or pain feels good Review of Systems review of systems have been completed and are negative unless otherwise mentioning the H0 PI ENT and Constitutional systems have been reviewed and are negative for complaint except what is stated in the HPI and/or Past Medical History. Active Problems Allergy to intravenous contrast media (V15.08) (Z91.041) Anemia (285.9) (D64.9) Atherosclerosis of [place] coronary artery of [place] heart without angina pectoris (414.01) (I25.10) Carotid artery stenosis (433.10) (I65.29) Chronic renal insufficiency, stage III (moderate) (585.3) (N18.30) CKD (chronic kidney disease), stage V (585.5) (N18.5) CKD stage 4 secondary to hypertension (403.90,585.4) (I12.9,N18.4) Class 2 obesity with body mass index (BMI) of 36.0 to 36.9 in adult (278.00,V85.36) (E66.9,Z68.36) Diabetes mellitus (250.00) (E11.9) Dysphagia (787.20) (R13.10) Essential hypertension (401.9) (I10) H/O carotid endarterectomy (V45.89) (Z98.890) Hard of hearing (389.9) (H91.90) History of head and neck cancer (V10.89) (Z85.89) History of left common carotid artery stent placement (V45.89) (Z98.890,Z95.828) Hyperlipidemia (272.4) (E78.5) Hypertensive heart and kidney disease 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 (404.92,585.6) (I13.11,N18.6) Hypokalemia (276.8) (E87.6) Impacted cerumen of left ear (380.4) (H61.22) Inflammatory condition of jaw (526.4) (M27.2) Lung nodule (793.11) (R91.1) Never a smoker Open neck wound (874.8) (S11.90XA) Oral thrush (112.0) (B37.0) 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,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,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) Xerostomia (527.7) (K11.7) Surgical History History of Carotid artery angioplasty History of Colonoscopy ONSET DATE [id number] History of Jaw surgery History of Lymphadenectomy LEFT CHEEK History of Nose surgery R/T SLEEP APNEA History of Percutaneous transluminal coronary angioplasty History of Tonsillectomy with adenoidectomy Family History FHx: myocardial infarction (V17.3) (Z82.49) Family history of congestive heart failure (V17.49) (Z82.49) FH: coronary artery disease (V17.3) (Z82.49) FHx: myocardial infarction (V17.3) (Z82.49) Social History Caffeine use (V49.89) (Z78.9) 3 CUPS OF COFFEE DAILY, 1 CUP OF DIET SODA Never a smoker No alcohol use No illicit drug use Allergies No Known Drug Allergies Recorded By: Kristal Drake; 01/02/2023 11:48:41 AM IV Contrast Dye Recorded By: Susu Hayes; 02/17/2021 4:38:30 PM Current Meds Medication NameInstruction amLODIPine Besylate 10 MG Oral TabletTAKE 1 TABLET PO DAILY. Aspirin 81 MG Oral Tablet Delayed (more content not included)... Normal [employer] Tobacco Screening.on 023 Adult depression screening assessment No -[facility] 4100 Work Phone: Fall risk assessment a) No falls within the last year -[facility] 4[address] Work Phone: Tobacco use status [facility] b) No -[facility] 4[address] Work Phone: Office Visit (Cardiology)on 01-02-2023 Follow-up visit Diagnoses/Problems Assessed Allergy to intravenous contrast media (V15.08) (Z91.041) CKD (chronic kidney disease), stage V (585.5) (N18.5) Atherosclerosis of [place] coronary artery of [place] heart without angina pectoris (414.01) (I25.10) Chronic renal insufficiency, stage III (moderate) (585.3) (N18.30) Diabetes mellitus (250.00) (E11.9) Essential hypertension (401.9) (I10) Hyperlipidemia (272.4) (E78.5) Carotid artery stenosis (433.10) (I65.29) CKD stage 4 secondary to hypertension (403.90,585.4) (I12.9,N18.4) Hard of hearing (389.9) (H91.90) History of head and neck cancer (V10.89) (Z85.89) History of left common carotid artery stent placement (V45.89) (Z98.890,Z95.828) Never a smoker Class 2 obesity with body mass index (BMI) of 36.0 to 36.9 in adult (278.00,V85.36) (E66.9,Z68.36) Orders Atherosclerosis of [place] coronary artery of [place] heart without angina pectoris Changed: From Aspirin EC 81 MG TBEC TAKE 1 TABLET DAILY To Aspirin 81 MG Oral Tablet Delayed Release TAKE 1 TABLET BY MOUTH DAILY Renew: Nitroglycerin 0.4 MG Sublingual Tablet Sublingual (Nitrostat); PLACE 1 TABLET UNDER THE TONGUE EVERY 5 MINUTES UP TO 3 DOSES NEEDED FOR CHEST PAIN Atherosclerosis of [place] coronary artery of [place] heart without angina pectoris, Essential hypertension Renew: Carvedilol 25 MG Oral Tablet; Take 1 tablet twice daily Atherosclerosis of [place] coronary artery of [place] heart without angina pectoris, Hyperlipidemia Renew: Atorvastatin Calcium 80 MG Oral Tablet; TAKE 1 TABLET DAILY CKD (chronic kidney disease), stage V, Diabetes mellitus, Hyperlipidemia Complete Blood Count; Status:Active - Retrospective Authorization; Requested for:[id number]; Comprehensive Metabolic Panel; Status:Active - Retrospective Authorization; Requested for:[id number]; Hemoglobin A1C; Status:Active - Retrospective Authorization; Requested for:[id number]; Lipid Panel; Status:Active - Retrospective Authorization; Requested for:[id number]; Class 2 obesity with body mass index (BMI) of 36.0 to 36.9 in adult Healthy Weight Tips; Status:Complete - Retrospective Authorization; Done: [id number] Some eating tips that can help you lose weight.; Status:Complete - Retrospective Authorization; Done: [id number] SocHx: Never a smoker Tobacco Use Screening; Status:Complete; Done: [id number] Patient Instructions Please bring all medicines, vitamins, and herbal supplements with you when you come to the office. Prescriptions will not be filled unless you are compliant with your follow up appointments or have a follow up appointment scheduled as per instruction of your physician. Refills should be requested at the time of your visit. labs prior to next OV Follow up in 10 months October 2023 Chief Complaint MENDEZ DRUMMOND is being seen for a 5 month follow-up of. History of Present Illness 82-year-old with history of atherosclerotic [place] vessel coronary artery disease, insulin requiring diabetes, hypertension, dyslipidemia, acute on chronic kidney disease with stage V kidney disease at this time with most recent GFR of 20 from July 2022, is followed by nephrology and primary care. History of extensive head and neck surgery and dissection on the left side of the neck for cancer, cancer free. Blood pressure is at target Does not report any chest discomfort pressure tightness heaviness or palpitations. Primary MD apparently had labs drawn recently results are not available to me. I reviewed the laboratory data from July 2022 to include comprehensive profile, CBC, LDL cholesterol 80, patient remains on high-dose high intensity statin. GFR 20, potassium 4.7. Getting infusion of Aranesp every 2 weeks for anemia. Feeling better, says hemoglobin now is greater than 10.5. Assessment: 1. Hypertension, at target with hypertensive heart and kidney disease functional class II 2. Hyperlipidemia, at target 3. Insulin requiring diabetes, with diabetic kidney disease currently stage IV 4. Cerebrovascular disease status post left carotid stenting, followed by vascular surgery 5. Chronic kidney disease stage IV GFR July 2021 27, creatinine clearance 36, July 2022 GFR 20 6. Lexiscan Myoview June 2021-normal LV ejection fraction of 65% normal transient ischemic dilatation 1.1 no ischemia 7. CTA of the abdominal aorta with iliofemoral runoff May 2021-no evidence of abdominal aortic aneurysm overall limited study, suggesting moderate to high-grade stenosis of the mid to distal SFA extending to the level of the popliteal artery on the left side. Patient is followed by vascular surgery. Does not report any claudication 8. Atherosclerotic [place] vessel coronary artery disease with stenting of the LAD in 2017, does not report angina or anginal equivalents 9. Status post head and neck surgery left side for malignancy. 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 Recomme (more content not included)... Normal [employer] Tobacco Screening.on 023 Fall risk assessment a) No falls within the last year [facility] [address] DO Work Phone: Tobacco use status [facility] b) No [facility] [address] DO Work Phone: Office Visit (Cardiology)on 08-01-2022 Follow-up visit Diagnoses/Problems Assessed Allergy to intravenous contrast media (V15.08) (Z91.041) Anemia (285.9) (D64.9) Atherosclerosis of [place] coronary artery of [place] heart without angina pectoris (414.01) (I25.10) Carotid artery stenosis (433.10) (I65.29) Diabetes mellitus (250.00) (E11.9) Hard of hearing (389.9) (H91.90) History of left common carotid artery stent placement (V45.89) (Z98.890,Z95.828) Hyperlipidemia (272.4) (E78.5) Never a smoker CKD (chronic kidney disease), stage V (585.5) (N18.5) Class 2 obesity with body mass index (BMI) of 36.0 to 36.9 in adult (278.00,V85.36) (E66.9,Z68.36) Orders Anemia, Atherosclerosis of [place] coronary artery of [place] heart without angina pectoris, Class 2 obesity with body mass index (BMI) of 36.0 to 36.9 in adult, Diabetes mellitus, Health Maintenance, Hyperlipidemia Complete Blood Count; Status:Active - Retrospective Authorization; Requested for:[id number]; Comprehensive Metabolic Panel; Status:Active - Retrospective Authorization; Requested for:[id number]; Lipid Panel; Status:Active - Retrospective Authorization; Requested for:[id number]; Atherosclerosis of [place] coronary artery of [place] heart without angina pectoris Renew: Aspirin EC 81 MG Oral Tablet Delayed Release; TAKE 1 TABLET DAILY Atherosclerosis of [place] coronary artery of [place] heart without angina pectoris, Essential hypertension Renew: Carvedilol 25 MG Oral Tablet; Take 1 tablet twice daily Atherosclerosis of [place] coronary artery of [place] heart without angina pectoris, Hyperlipidemia Renew: Atorvastatin Calcium 80 MG Oral Tablet; TAKE 1 TABLET DAILY Class 2 obesity with body mass index (BMI) of 36.0 to 36.9 in adult Healthy Weight Tips; Status:Complete - Retrospective Authorization; Done: 01Aug2022 Some eating tips that can help you lose weight.; Status:Complete - Retrospective Authorization; Done: 01Aug2022 SocHx: Never a smoker Tobacco Use Screening; Status:Complete; Done: 01Aug2022 Patient Instructions Please bring all medicines, vitamins, and herbal supplements with you when you come to the office. Prescriptions will not be filled unless you are compliant with your follow up appointments or have a follow up appointment scheduled as per instruction of your physician. Refills should be requested at the time of your visit. Follow up in 6 months Chief Complaint MENDEZ DRUMMOND is being seen for a 6 month follow-up of. History of Present Illness 6 month FU. Companied by to the office. Patient is hard of hearing. Prior notes reviewed, patient is new to this provider. Has atherosclerotic [place] vessel coronary artery disease with prior PCI and stenting, also cerebrovascular disease with stenting. On examination he has extensive scars in the left side of the neck from head and neck surgery for cancer. He ambulates with a cane, careful to avoid falls. His blood sugars were elevated and his hemoglobin A1c was elevated, he was not taking his medications in the right manner, says that the medications have been resumed and his blood sugars are better. No symptoms of hypoglycemia. Sees nephrology Dr. Oreilly. Consideration may be given for stopping the pioglitazone and switching to Farxiga. No recent laboratory data available. Assessment: 1. Hypertension 2. Hyperlipidemia 3. Insulin requiring diabetes 4. Cerebrovascular disease status post left carotid stenting, followed by vascular surgery 5. Chronic kidney disease stage IV GFR July 2021 27, creatinine clearance 36 6. Lexiscan Myoview June 2021-normal LV ejection fraction of 65% normal transient ischemic dilatation 1.1 no ischemia 7. CTA of the abdominal aorta with iliofemoral runoff May 2021-no evidence of abdominal aortic aneurysm overall limited study, suggesting moderate to high-grade stenosis of the mid to distal SFA extending to the level of the popliteal artery on the left side. Patient is followed by vascular surgery. 8. Atherosclerotic [place] vessel coronary artery disease with stenting of the LAD in 2016 9. Status post head and neck surgery left side for malignancy. 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 Patient does not appear volume overloaded on examination, he is not complaining of angina pectoris, he reports compliance with medications. He remains on high intensity statin high-dose. Recommendations: 1. Vascular disease is addressed by Dr. Downey 2. Cardiac medications were renewed 3. Consider using Farxiga in place of pioglitazone-defer to primary service. 4. Follow-up in 6 months with comprehensive profile CBC and lipid profile in the near future. Current Meds Medication NameInstruction amLODIPine Besylate 10 MG Oral TabletTAKE 1 TABLET PO DAILY. Aspirin EC 81 MG Oral Tablet Delayed ReleaseTAKE 1 TABLET DAILY. Atorvastatin Calcium 80 MG Oral TabletTAKE 1 TABLET DAILY. Carvedilol 25 MG Oral (more content not included)... Normal [employer] Tobacco Screening.on 023 Adult depression screening assessment No [facility] [address] DO Work Phone: Fall risk assessment a) No falls within the last year [facility] DO Work Phone: Tobacco use status [facility] b) No [facility] DO Work Phone: XR Chest 2 Views*on 05-10-19 23 XR Chest 2 Views* FINDINGS: Diffuse increase in interstitial markings are present, possibly representing interstitial pneumonia. No alveolar infiltrate, hilar/mediastinal lymphadenopathy, pulmonary edema, or pleural effusions are seen. Cardiac silhouette size is normal. Skeletal structures are normal. IMPRESSION: Parenchymal findings, possible acute interstitial pneumonia COMMENT: If interstitial pneumonia is not clinically suspect, findings can be consistent with early interstitial lung disease. 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 During the day, use as needed Provider Impressions healed ORN resection/flap recon doing well will use drops left ear once a week reji follow locally with dr re mendoza see me in one year with MF ct with recons sooner if needed can proceed with dental prosthetic if he wishes Chief Complaint follow up History of Present [id number] y/o male with a history of SCCa s/p WLE, L neck dissection, b/l parotidectomy with radiation and chemotherapy presenting with concern for ORN of the left mandible. States 1.5 years ago he noted issues with drainage from his left jaw and intraoral drainage as well. He has been tried on several courses of antibiotics and has recently completed hyperbaric oxygen therapy with no improvement. He continues to have an area of scabbing on the left mandible that intermittently drains. He has pain with chewing on the left side. 06/11/20 Patient having virtual follow-up visit with he and his family to further discuss his updated scans as well as the proposed procedure Since expelling the shard of bone there is been less drainage We reviewed my sharing screen his updated 3D CT scan showing the radio necrotic appearance of his left mandible with likely healed pathologic fracture but with additional bone fragment being seen Also discussed his lower extremity angiogram showing patency in three vessel runoff 08/11/21 Here for follow-up visit He is doing well No significant neck drainage 08/18/21 here for wound check no drainage was in the ED over weekend 08/27/21 doing well no issues with the wound vac 09/17/21 doing well no issues 10/15/21 doing better wouldl yajaira his tube removed still on plavix would like to see the dentist 11/05/21 diallo mckee here for peg rem,oval he is not using it has stopped anitcoags 11/16/21 being seen today after noting some drainage in the left face yesterday no pain peg site has healed up 12/17/21 no further drainage no pain feeeling good has two more weeks of antibiotics 03/11/22 doing well no drainage or pain decreaed hearing on left feels good Review of Systems review of systems have been completed and are negative unless otherwise mentioning the H0 PI Active Problems Allergy to intravenous contrast media (V15.08) (Z91.041) Anemia (285.9) (D64.9) Atherosclerosis of [place] coronary artery of [place] heart without angina pectoris (414.01) (I25.10) Carotid artery stenosis (433.10) (I65.29) Chronic renal insufficiency, stage III (moderate) (585.3) (N18.30) CKD stage 4 secondary to hypertension (403.90,585.4) (I12.9,N18.4) Class 2 obesity with body mass index (BMI) of 35.0 to 35.9 in adult (278.00,V85.35) (E66.9,Z68.35) Diabetes mellitus (250.00) (E11.9) Dysphagia (787.20) (R13.10) Essential hypertension (401.9) (I10) H/O carotid endarterectomy (V45.89) (Z98.890) Hard of hearing (389.9) (H91.90) History of head and neck cancer (V10.89) (Z85.89) History of left common carotid artery stent placement (V45.89) (Z98.890,Z95.828) Hyperlipidemia (272.4) (E78.5) Inflammatory condition of jaw (526.4) (M27.2) Lung nodule (793.11) (R91.1) Never a smoker Open neck wound (874.8) (S11.90XA) Oral thrush (112.0) (B37.0) 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,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,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) Surgical History History of Carotid artery angioplasty History of Colonoscopy ONSET DATE 24APR2006 History of Jaw surgery History of Lymphadenectomy LEFT CHEEK History of Nose surgery R/T SLEEP APNEA History of Percutaneous transluminal coronary angioplasty History of Tonsillectomy with adenoidectomy Social History Caffeine use (V49.89) (Z78.9) 3 CUPS OF COFFEE DAILY, 1 CUP OF DIET SODA Never a smoker No alcohol use No illicit drug use Allergies IV Contrast Dye Recorded By: Susu Hayes; 02/17/2021 4:38:30 PM Current Meds Medication NameInstruction amLODIPine Besylate 10 MG Oral TabletTAKE 1 TABLET PO DAILY. Aspirin EC 81 MG Oral Tablet Delayed ReleaseTAKE 1 TABLET DAILY. Atorvastatin Calcium 80 MG Oral TabletTAKE 1 TABLET DAILY. Carvedilol 25 MG Oral TabletTake 1 tablet twice daily FLUoxetine HCl - 40 MG Oral Capsu[place]ake po as directed Nitroglycerin 0.4 [address] Sub[address]t Sub[address]ual[address] 1 TABLET UNDER THE TONGUE EVERY 5 MINUTES UP TO 3 DOSES NEEDED FOR CHEST PAIN. NovoLIN N 100 UNIT/ML Subcutaneous SuspensionINJECT SUBQ TWICE DAILY PER SLIDING SCALE. Pioglitazone HCl - 30 MG Oral TabletTAKE 1 TABLET PO ONCE DAILY. Zinc 50 MG Oral Tablettake 1 tablet po daily Physical Exam PE: CONSTITUTIONAL: Vitals -reviewed from intake field, well developed, well nourished. VOICE: RESPIRATION: Breathing c (more content not included)... Normal [employer] Office Visit (Cardiology)on 02-10-2022 Follow-up visit Diagnoses/Problems Assessed Allergy to intravenous contrast media (V15.08) (Z91.041) Atherosclerosis of [place] coronary artery of [place] heart without angina pectoris (414.01) (I25.10) Carotid artery stenosis (433.10) (I65.29) Chronic renal insufficiency, stage III (moderate) (585.3) (N18.30) Diabetes mellitus (250.00) (E11.9) Essential hypertension (401.9) (I10) History of head and neck cancer (V10.89) (Z85.89) Hyperlipidemia (272.4) (E78.5) Never a smoker CKD stage 4 secondary to hypertension (403.90,585.4) (I12.9,N18.4) Anemia (285.9) (D64.9) History of left common carotid artery stent placement (V45.89) (Z98.890,Z95.828) Class 2 obesity with body mass index (BMI) of 35.0 to 35.9 in adult (278.00,V85.35) (E66.9,Z68.35) Orders Carotid artery stenosis, Essential hypertension, History of left common carotid artery stent placement, Hyperlipidemia Complete Blood Count; Status:Active - Retrospective Authorization; Requested for:11Aug2022; Comprehensive Metabolic Panel; Status:Active - Retrospective Authorization; Requested for:11Aug2022; Lipid Panel; Status:Active - Retrospective Authorization; Requested for:11Aug2022; Class 2 obesity with body mass index (BMI) of 35.0 to 35.9 in adult Healthy Weight Tips; Status:Complete - Retrospective Authorization; Done: 10Feb2022 Some eating tips that can help you lose weight.; Status:Complete - Retrospective Authorization; Done: [id number] SocHx: Never a smoker Tobacco Use Screening; Status:Complete; Done: [id number] Patient Instructions Please bring all medicines, vitamins, and herbal supplements with you when you come to the office. Prescriptions will not be filled unless you are compliant with your follow up appointments or have a follow up appointment scheduled as per instruction of your physician. Refills should be requested at the time of your visit. Follow up in 6 months Chief Complaint MENDEZ DRUMMOND is being seen for a 6 month follow-up of. History of Present Illness 6 month FU, seen by 6 months ago.Per notes, Mr. Drummond is a 70-year-old male who is seen back today for follow-up on his history of coronary disease. He has a history of coronary disease with previous intervention to the LAD in 2017. He had restenosis of that lesion and required further intervention in 2017 but has been stable since then. He has a history of carotid disease and recently ENT cancer and had recent surgery. Prior to his surgery he did have a stress test done that did not demonstrate evidence for ischemia. He has no cardiac complaints today. Still recovering from his recent ENT surgery. Patient does not report any chest discomfort pressure tightness or heaviness. He has multiple comorbidities. Accompanied by to the office. Patient is now 71 years old. Fell 2 weeks ago right knee gave out, broke seventh rib, and has been using a cane. Is hard of hearing, examination shows extensive scarring left side of the neck from prior surgery, there is limited lateral flexion of the neck, forward flexion is intact, lungs are clear heart sounds are regular without murmur rub or gallop and he has trace lower extremity edema. Laboratory data July 2021-hemoglobin 8.5 hematocrit 29 MCV 94 platelets 302 white blood cell count 10.5. On 08/14/2021 hemoglobin and hematocrit were 8.2 and 25. Patient does not report any bleeding diathesis. In July 2021 BUN was 31 creatinine 2.38 GFR 27 creatinine clearance 36 Patient is followed by nephrology Assessment: 1. Hypertension 2. Hyperlipidemia 3. Insulin requiring diabetes 4. Cerebrovascular disease status post left carotid stenting, followed by vascular surgery 5. Chronic kidney disease stage IV GFR July 2021 27, creatinine clearance 36 6. Lexiscan Myoview June 2021-normal LV ejection fraction of 65% normal transient ischemic dilatation 1.1 no ischemia 7. CTA of the abdominal aorta with iliofemoral runoff May 2021-no evidence of abdominal aortic aneurysm overall limited study, suggesting moderate to high-grade stenosis of the mid to distal SFA extending to the level of the popliteal artery on the left side. Patient is followed by vascular surgery. 8. Atherosclerotic [place] vessel coronary artery disease with stenting of the LAD in 2017 9. Status post head and neck surgery left side for malignancy. 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 Recommendations: 1. I did not suggest any change in cardiac medications. 2. Patient should continue follow-up with specialists such as nephrology and ENT and oncology as indicated. 3. I do not know the etiology for his anemia, will defer this to primary. May be related to his chronic kidney disease? 4. Fall precautions were reiterated 5. Follow-up with me in 6 months sooner if interval problems arise, CBC basic metabolic profile lipid and liver prior to next visit. Surgical History Problems (more content not included)... Normal [employer] Tobacco Screening.on 022 Fall risk assessment b) One or more fall s in the last year [facility] [address] DO Work Phone: Tobacco use status [facility] b) No [facility] [address] DO Work Phone: XR Knee Complete Left*on XR Knee Complete Left* FINDINGS: Moderate to severe medial and mild patellofemoral joint space reduction is seen with a moderate sized suprapatellar effusion.. No acute fracture is identified. Tibial plateaus are maintained in height. Mild medial tibiofemoral osteophyte formation is present. Large inferior patellar enthesophyte. Menisci are non-calcified. IMPRESSION: Moderate to severe osteoarthritis, greatest involvement medial compartment Report reported and signed by Tk Mccarthy on 02/04/2022 1334 Normal [facility] CT Facial Boneson 12-17-2021 CT Facial bones Normal [facility] 4100 Work Phone: CT Image Reconstruction 3D V olume and MIPon 12-17-2021 CT Image Reconstruction 3D Volume and MIP [facility] Work Phone: Tobacco Screening.on Adult depression screening assessment No [facility] 4100 Work Phone: [phone] Fall risk assessment a) No falls within the last year [facility] [address] Work Phone: [phone] Tobacco use status [facility] b) No -[facility] 4100 Work Phone: [phone] Cult, Misc + smearon Bacteria identified Cx Nom (Unsp spec) Abnormal [facility] 4100 Work Phone: Tobacco Screening.on Adult depression screening assessment No MG-Otolaryn gology-Subu rban Work Phone: [phone] Fall risk assessment a) No falls within the last year MG-Otolaryn gology-Subu rban Work Phone: [phone] Tobacco use status CPHS b) No MG-Otolaryn gology-Subu rban Work Phone: [phone] Tobacco Screening.on Fall risk assessment a) No falls within the last year MG-Otolaryn gology-[facility] 4100 Work Phone: [phone] Tobacco use status CPHS b) No MG-Otolaryn gology-[facility] 4100 Work Phone: [phone] Tobacco Screening.on Fall risk assessment a) No falls within the last year MG-Otolaryn gology-[facility] 4100 Work Phone: [phone] Tobacco use status CPHS b) No MG-Otolaryn gology-[facility] 4100 Work Phone: [phone] Tobacco Screening.on Fall risk assessment a) No falls within the last year MG-Otolaryn gology-[facility] 4100 Work Phone: Tobacco use status CP b) No MG-Otolaryn gology-[facility] 4100 Work Phone: Microalbumin (with Creat)on 09-09-2021 mALB 75.4 mg/dL Normal [facility] Specialist Comment on above: Result Comment: mALB reference range not established. Performed By: #### m ALBC #### [facility] [address] [place], [place] [id number] mALB/Creat Ratio 523.6 MCG/MG Normal [facility] Specialist Comment on above: Result Comment: The ADA (Diabetes Care 26:S94-S98, 2002) defines abnormalities in Albumin excretion as follows: Category Result (MCG/MG Creatinine) Normal <30 Microalbuminuria 30-299 Clinical Albuminuria > or = 300 Performed By: #### m ALBC #### [facility] [address] [place], [place] [id number] UCREA 144 mg/dL Normal 39-259 [facility] Cementer Comment on above: Performed By: #### m ALBC #### [facility] [address] [place], [place] [id number] Tobacco Screening.on Fall risk assessment a) No falls within the last year MG-Otolaryn gology-[facility] 4100 Work Phone: [phone] Tobacco use status [facility] b) No MG-Otolaryn gology-[facility] 4100 Work Phone: [phone] Cult, Misc + smearon Bacteria identified Cx Nom (Unsp spec) Abnormal MG-Otolaryn gology-Subu rban Work Phone: Tobacco Screening.on Fall risk assessment a) No falls within the last year MG-Otolaryn gology-Subu rban Work Phone: [phone] Tobacco use status [facility] b) No MG-Otolaryn gology-Subu rban Work Phone: Tobacco Screening.on Fall risk assessment a) No falls within the last year [facility] Suki Rodriguez DO Work Phone: Tobacco use status [facility] b) No [facility] Suki Rodriguez DO Work Phone: Tobacco Screening. Yes [facility] Suki Rodriguez DO Work Phone: Tobacco Screening.on Fall risk assessment a) No falls within the last year [facility] Suki Rodriguez DO Work Phone: Tobacco use status [facility] b) No [facility] Suki Rodriguez DO Work Phone: Laboratory - Chemistry and C hemistry - challengeon 08-01-2021 Glucose [Mass/Vol] 175 mg/dL above high threshold 74 - 99 [facility] Suki Rodriguez DO Work Phone: Laboratory - Hematology and Cell countson 08-01-2021 Erythrocyte distribution width (RBC) [Ratio] 15.8 % above high threshold See Below [facility] Suki Rodriguez DO Work Phone: Comment on above: Reference Range: 11. 5 - 14.5 Hematocrit (Bld) [Volume fraction] 29.1 % below low threshold See Below [facility] Suki Rodriguez DO Work Phone: Comment on above: Reference Range: 41. 0 - 52.0 Hemoglobin (Bld) [Mass/Vol] 8.5 g/dL below low threshold See Below [facility] Suki Rodriguez DO Work Phone: Comment on above: Reference Range: 13. 5 - 17.5 MCHC (RBC) [Mass/Vol] 29.2 g/dL below low threshold See Below [facility] Suki Rodriguez DO Work Phone: Comment on above: Reference Range: 32. 0 - 36.0 MCV (RBC) [Entitic vol] 94 fL 80 - 100 [facility] TapInfluenceElysia lexx 250 DO Work Phone: Platelets (Bld) [#/Vol] 302 10*3/uL 150 - 450 [facility] 250 DO Work Phone: RBC (Bld) [#/Vol] 3.09 {x10E12/L} below low threshold See Below [facility] 250 DO Work Phone: Comment on above: Reference Range: 4.5 0 - 5.90 WBC (Bld) [#/Vol] 10.5 10*3/uL 4.4 - 11.3 -[facility] AudienceViewgaudencio lexx 250 DO Work Phone: [phone] Magnesium, Serumon 2 Magnesium [Mass/Vol] 2.14 mg/dL See Below [facility] TapInfluenceDebbie lexx 250 DO Work Phone: Comment on above: Reference Range: 1.6 0 - 2.40 No Panel Informationon 08-01 0.0 {/100_WBC} 0.0-0.0 [facility] TapInfluenceDebbie lexx 250 DO Work Phone: Renal Function Panelon 08-01 Albumin BCP dye [Mass/Vol] 3.2 g/dL below low threshold 3.4 - 5.0 [facility] TapInfluenceDebbie lexx 250 DO Work Phone: Anion gap [Moles/Vol] 18 mmol/L 10 - 20 [facility] [employer] lexx 250 DO Work Phone: Calcium [Mass/Vol] 8.8 mg/dL 8.6 - 10.6 [facility] Kangsheng Chuangxiang 250 DO Work Phone: Chloride [Moles/Vol] 110 mmol/L above high threshold 98 - 107 [facility] [employer] lexx 250 DO Work Phone: CO2 [Moles/Vol] 19 mmol/L below low threshold 21 - 32 [facility] 250 DO Work Phone: Creatinine [Mass/Vol] 2.15 mg/dL above high threshold See Below [facility] OmniataDebbie lexx Michael DO Work Phone: Comment on above: Reference Range: 0.5 0 - 1.30 Glucose [Mass/Vol] 162 mg/dL above high threshold 74 - 99 [facility] Michael DO Work Phone: Phosphate [Mass/Vol] 3.2 mg/dL 2.5 - 4.9 [facility] OmniataFeedtrace lexx 250 DO Work Phone: Comment on above: The performance abrahan acteristics of phosphorus testing in heparinized plasma have been validated by the individual laboratory site where testing is performed. Testing on heparinized plasma is not approved by the FDA; however, such approval is not necessary. Potassium [Moles/Vol] 4.1 mmol/L 3.5 - 5.3 [place] [address] DO Work Phone: Sodium [Moles/Vol] 143 mmol/L 136 - 145 [facility] Adallom DO Work Phone: Urea nitrogen [Mass/Vol] 41 mg/dL above high threshold 6 - 23 [place] [address] DO Work Phone: Renal Function Panel 32 {mL/min/1.73m2} Abnormal >90 [place] [address] DO Work Phone: Comment on above: CALCULATIONS OF AWILDA MATED GFR ARE PERFORMED USING THE 2020 CKD-EPI STUDY REFIT EQUATION WITHOUT THE RACE VARIABLE FOR THE IDMS-TRACEABLE CREATININE METHODS.https://jasn.asnjournals.org/content//A SN.4087442427 Laboratory - Chemistry and C hemistry - challengeon 07-31-2021 Glucose [Mass/Vol] 235 mg/dL above high threshold 74 - 99 [facility] TNC DO Work Phone: Glucose [Mass/Vol] 255 mg/dL above high threshold 74 - 99 [facility] AudienceViewgaudencio lexx 250 DO Work Phone: Glucose [Mass/Vol] 227 mg/dL above high threshold 74 - 99 [facility] TapInfluenceDebbie lexx 250 DO Work Phone: Glucose [Mass/Vol] 204 mg/dL above high threshold 74 - 99 [facility] TapInfluenceDebbie lexx 250 DO Work Phone: Laboratory - Hematology and Cell countson 07-31-2021 Erythrocyte distribution width (RBC) [Ratio] 15.9 % above high threshold See Below [facility] [employer] Adallom DO Work Phone: Comment on above: Reference Range: 11. 5 - 14.5 Hematocrit (Bld) [Volume fraction] 26.6 % below low threshold See Below [facility] TapInfluenceElysia Adallom DO Work Phone: Comment on above: Reference Range: 41. 0 - 52.0 Hemoglobin (Bld) [Mass/Vol] 8.0 g/dL below low threshold See Below [facility] AudienceViewgaudencio Adallom DO Work Phone: Comment on above: Reference Range: 13. 5 - 17.5 MCHC (RBC) [Mass/Vol] 30.1 g/dL below low threshold See Below [facility] TapInfluenceElysia Adallom DO Work Phone: Comment on above: Reference Range: 32. 0 - 36.0 MCV (RBC) [Entitic vol] 92 fL 80 - 100 [facility] TapInfluenceElysia Adallom DO Work Phone: Platelets (Bld) [#/Vol] 254 10*3/uL 150 - 450 [facility] Adallom DO Work Phone: RBC (Bld) [#/Vol] 2.90 {x10E12/L} below low threshold See Below [facility] AudienceViewgaudencio [place] DO Work Phone: Comment on above: Reference Range: 4.5 0 - 5.90 WBC (Bld) [#/Vol] 10.3 10*3/uL 4.4 - 11.3 MP-No [facility] Kangsheng Chuangxiang 250 DO Work Phone: Magnesium, Serumon 2 Magnesium [Mass/Vol] 2.19 mg/dL See Below -[facility] Kangsheng Chuangxiang 250 DO Work Phone: Comment on above: Reference Range: 1.6 0 - 2.40 No Panel Informationon 07-31 0.0 {/100_WBC} 0.0-0.0 [facility] [employer] lexx 250 DO Work Phone: Renal Function Panelon 07-31 Albumin BCP dye [Mass/Vol] 3.0 g/dL below low threshold 3.4 - 5.0 [facility] lexx [facility] DO Work Phone: Anion gap [Moles/Vol] 18 mmol/L 10 - 20 [facility] lexx 250 DO Work Phone: Calcium [Mass/Vol] 8.4 mg/dL below low threshold 8.6 - 10.6 [facility] [employer] Adallom DO Work Phone: Chloride [Moles/Vol] 110 mmol/L above high threshold 98 - 107 [facility] [employer] lexx [facility] DO Work Phone: CO2 [Moles/Vol] 20 mmol/L below low threshold 21 - 32 [facility] [employer] lexx 250 DO Work Phone: Creatinine [Mass/Vol] 2.48 mg/dL above high threshold See Below [facility] [employer] lexx 250 DO Work Phone: Comment on above: Reference Range: 0.5 0 - 1.30 Glucose [Mass/Vol] 179 mg/dL above high threshold 74 - 99 [facility] [employer] lexx 250 DO Work Phone: Phosphate [Mass/Vol] 3.7 mg/dL 2.5 - 4.9 [facility] Kangsheng Chuangxiang 250 DO Work Phone: Comment on above: The performance abrahan acteristics of phosphorus testing in heparinized plasma have been validated by the individual laboratory site where testing is performed. Testing on heparinized plasma is not approved by the FDA; however, such approval is not necessary. Potassium [Moles/Vol] 4.2 mmol/L 3.5 - 5.3 [facility] 250 DO Work Phone: Sodium [Moles/Vol] 144 mmol/L 136 - 145 [facility] 250 DO Work Phone: Urea nitrogen [Mass/Vol] 48 mg/dL above high threshold 6 - 23 [place] [address] DO Work Phone: Renal Function Panel 27 {mL/min/1.73m2} Abnormal >90 [place] [address] DO Work Phone: Comment on above: CALCULATIONS OF AWILDA MATED GFR ARE PERFORMED USING THE 2020 CKD-EPI STUDY REFIT EQUATION WITHOUT THE RACE VARIABLE FOR THE IDMS-TRACEABLE CREATININE METHODS.https://jasn.asnjournals.org/content//A SN.5009795072 Laboratory - Chemistry and C hemistry - challengeon 07-30-2021 Glucose [Mass/Vol] 272 mg/dL above high threshold 74 - 99 [facility] 250 DO Work Phone: Glucose [Mass/Vol] 297 mg/dL above high threshold 74 - 99 [facility] 250 DO Work Phone: Glucose [Mass/Vol] 309 mg/dL above high threshold 74 - 99 [facility] 250 DO Work Phone: Glucose [Mass/Vol] 172 mg/dL above high threshold 74 - 99 [facility] 250 DO Work Phone: Glucose [Mass/Vol] 178 mg/dL above high threshold 74 - 99 [facility] 250 DO Work Phone: Laboratory - Hematology and Cell countson 07-30-2021 Erythrocyte distribution width (RBC) [Ratio] 15.9 % above high threshold See Below [facility] AudienceViewgaudencio Adallom DO Work Phone: Comment on above: Reference Range: 11. 5 - 14.5 Hematocrit (Bld) [Volume fraction] 29.2 % below low threshold See Below [facility] [employer] Adallom DO Work Phone: Comment on above: Reference Range: 41. 0 - 52.0 Hemoglobin (Bld) [Mass/Vol] 8.7 g/dL below low threshold See Below [facility] [employer] Adallom DO Work Phone: Comment on above: Reference Range: 13. 5 - 17.5 MCHC (RBC) [Mass/Vol] 29.8 g/dL below low threshold See Below [facility] lexx [facility] DO Work Phone: Comment on above: Reference Range: 32. 0 - 36.0 MCV (RBC) [Entitic vol] 94 fL 80 - 100 [facility] lexx TNC DO Work Phone: Platelets (Bld) [#/Vol] 255 10*3/uL 150 - 450 [facility] lexx TNC DO Work Phone: RBC (Bld) [#/Vol] 3.10 {x10E12/L} below low threshold See Below [facility] [employer] Adallom DO Work Phone: Comment on above: Reference Range: 4.5 0 - 5.90 WBC (Bld) [#/Vol] 10.9 10*3/uL 4.4 - 11.3 [facility] [employer] Adallom DO Work Phone: Erythrocyte distribution width (RBC) [Ratio] 15.9 % above high threshold See Below [facility] [employer] Adallom DO Work Phone: Comment on above: Reference Range: 11. 5 - 14.5 Hematocrit (Bld) [Volume fraction] 27.5 % below low threshold See Below [facility] AudienceViewgaudencio lexx 250 DO Work Phone: Comment on above: Reference Range: 41. 0 - 52.0 Hemoglobin (Bld) [Mass/Vol] 8.1 g/dL below low threshold See Below [facility] [employer] lexx 250 DO Work Phone: Comment on above: Reference Range: 13. 5 - 17.5 MCHC (RBC) [Mass/Vol] 29.5 g/dL below low threshold See Below [facility] [employer] lexx 250 DO Work Phone: Comment on above: Reference Range: 32. 0 - 36.0 MCV (RBC) [Entitic vol] 94 fL 80 - 100 [facility] lexx 250 DO Work Phone: Platelets (Bld) [#/Vol] 241 10*3/uL 150 - 450 [facility] DO Work Phone: RBC (Bld) [#/Vol] 2.93 {x10E12/L} below low threshold See Below [facility] [employer] lexx 250 DO Work Phone: Comment on above: Reference Range: 4.5 0 - 5.90 WBC (Bld) [#/Vol] 9.1 10*3/uL 4.4 - 11.3 [facility] Kangsheng Chuangxiang 250 DO Work Phone: Magnesium, Serumon 2 Magnesium [Mass/Vol] 1.95 mg/dL See Below [facility] Kangsheng Chuangxiang 250 DO Work Phone: Comment on above: Reference Range: 1.6 0 - 2.40 No Panel Informationon 07-30 0.0 {/100_WBC} 0.0-0.0 [facility] [employer] lexx 250 DO Work Phone: 0.0 {/100_WBC} 0.0-0.0 [facility] [employer] lexx 250 DO Work Phone: Renal Function Panelon 07-30 Albumin BCP dye [Mass/Vol] 2.9 g/dL below low threshold 3.4 - 5.0 [facility] lexx TNC DO Work Phone: Anion gap [Moles/Vol] 15 mmol/L 10 - 20 [place] [address] DO Work Phone: Calcium [Mass/Vol] 8.3 mg/dL below low threshold 8.6 - 10.6 [place] [address] DO Work Phone: Chloride [Moles/Vol] 110 mmol/L above high threshold 98 - 107 [place] [address] DO Work Phone: CO2 [Moles/Vol] 22 mmol/L 21 - 32 [place] [address] DO Work Phone: Creatinine [Mass/Vol] 2.11 mg/dL above high threshold See Below [place] [address] DO Work Phone: Comment on above: Reference Range: 0.5 0 - 1.30 Glucose [Mass/Vol] 162 mg/dL above high threshold 74 - 99 [place] [address] DO Work Phone: Phosphate [Mass/Vol] 4.4 mg/dL 2.5 - 4.9 [facility] TNC DO Work Phone: Comment on above: The performance abrahan acteristics of phosphorus testing in heparinized plasma have been validated by the individual laboratory site where testing is performed. Testing on heparinized plasma is not approved by the FDA; however, such approval is not necessary. Potassium [Moles/Vol] 4.3 mmol/L 3.5 - 5.3 [facility] TNC DO Work Phone: Sodium [Moles/Vol] 143 mmol/L 136 - 145 [facility] 250 DO Work Phone: Urea nitrogen [Mass/Vol] 42 mg/dL above high threshold 6 - 23 [facility] [employer] Adallom DO Work Phone: Renal Function Panel 33 {mL/min/1.73m2} Abnormal >90 [facility] Adallom DO Work Phone: Comment on above: CALCULATIONS OF AWILDA MATED GFR ARE PERFORMED USING THE 2020 CKD-EPI STUDY REFIT EQUATION WITHOUT THE RACE VARIABLE FOR THE IDMS-TRACEABLE CREATININE METHODS.https://jasn.asnjournals.org/content/early//A SN.1930396058 Laboratory - Chemistry and C hemistry - challengeon 07-29-2021 Glucose [Mass/Vol] 215 mg/dL above high threshold 74 - 99 [facility] [employer] Adallom DO Work Phone: Glucose [Mass/Vol] 204 mg/dL above high threshold 74 - 99 [facility] TNC DO Work Phone: Anion gap 4 (BldA) [Moles/Vol] 11 mmol/L 10 - 25 [facility] lexx TNC DO Work Phone: Base excess Calc (Bld) [Moles/Vol] -5.1000 mmol/L below low threshold -2.0 - 3.0 [facility] Adallom DO Work Phone: Calcium.ionized (BldA) [Moles/Vol] 1.24 mmol/L See Below [facility] lexx TNC DO Work Phone: Comment on above: Reference Range: 1.1 0 - 1.33 Chloride (BldA) [Moles/Vol] 110 mmol/L above high threshold 98 - 107 [facility] Adallom DO Work Phone: CO2 (Bld) [Partial pressure] 40 mm[Hg] 38 - 42 [facility] lexx TNC DO Work Phone: Glucose [Mass/Vol] 148 mg/dL above high threshold 74 - 99 [facility] Kangsheng Chuangxiang 250 DO Work Phone: HCO3 (Bld) [Moles/Vol] 20.6 mmol/L below low threshold See Below [facility] [employer] DO Work Phone: Comment on above: Reference Range: 22. 0 - 26.0 Lactate (BldA) [Moles/Vol] 0.7 mmol/L 0.4 - 2.0 [facility] [employer] DO Work Phone: Oxygen (Bld) [Partial pressure] 143 mm[Hg] above high threshold 85 - 95 [facility] [employer] Adallom DO Work Phone: Oxyhemoglobin (BldA) [Mass fraction] 96.7 % See Below [facility] [employer] DO Work Phone: Comment on above: Reference Range: 94. 0 - 98.0 pH (Bld) 7.32 [pH] below low threshold See Below [facility] [employer] DO Work Phone: Comment on above: Reference Range: 7.3 8 - 7.42 Potassium (BldA) [Moles/Vol] 4.4 mmol/L 3.5 - 5.3 [facility] [employer] DO Work Phone: Sodium (BldA) [Moles/Vol] 137 mmol/L 136 - 145 [facility] [employer] DO Work Phone: Glucose [Mass/Vol] 143 mg/dL above high threshold 74 - 99 [facility] [employer] DO Work Phone: Glucose [Mass/Vol] 118 mg/dL above high threshold 74 - 99 [facility] [employer] DO Work Phone: Laboratory - Hematology and Cell countson 07-29-2021 Hematocrit Est (Bld) [Volume fraction] 25.0 % below low threshold See Below [facility] [employer] DO Work Phone: Comment on above: Reference Range: 41. 0 - 52.0 Hemoglobin (Bld) [Mass/Vol] 8.4 g/dL below low threshold See Below [facility] [employer] DO Work Phone: Comment on above: Reference Range: 13. 5 - 17.5 Erythrocyte distribution width (RBC) [Ratio] 15.9 % above high threshold See Below [facility] [employer] DO Work Phone: Comment on above: Reference Range: 11. 5 - 14.5 Hematocrit (Bld) [Volume fraction] 29.4 % below low threshold See Below [facility] [employer] Adallom DO Work Phone: Comment on above: Reference Range: 41. 0 - 52.0 Hemoglobin (Bld) [Mass/Vol] 9.2 g/dL below low threshold See Below [facility] [employer] Adallom DO Work Phone: Comment on above: Reference Range: 13. 5 - 17.5 MCHC (RBC) [Mass/Vol] 31.3 g/dL below low threshold See Below [facility] [employer] DO Work Phone: Comment on above: Reference Range: 32. 0 - 36.0 MCV (RBC) [Entitic vol] 89 fL 80 - 100 [facility] [employer] Adallom DO Work Phone: Platelets (Bld) [#/Vol] 246 10*3/uL 150 - 450 [facility] [employer] DO Work Phone: RBC (Bld) [#/Vol] 3.29 {x10E12/L} below low threshold See Below [facility] [employer] DO Work Phone: Comment on above: Reference Range: 4.5 0 - 5.90 WBC (Bld) [#/Vol] 8.3 10*3/uL 4.4 - 11.3 [facility] BrightArch DO Work Phone: Magnesium, Serumon 2 Magnesium [Mass/Vol] 2.11 mg/dL See Below [facility] [employer] lexx 250 DO Work Phone: Comment on above: Reference Range: 1.6 0 - 2.40 No Panel Informationon 07-29 0.0 {/100_WBC} 0.0-0.0 [facility] DO Work Phone: Renal Function Panelon 07-29 Albumin BCP dye [Mass/Vol] 3.2 g/dL below low threshold 3.4 - 5.0 [facility] lexx TNC DO Work Phone: Anion gap [Moles/Vol] 16 mmol/L 10 - 20 [place] [address] DO Work Phone: Calcium [Mass/Vol] 8.5 mg/dL below low threshold 8.6 - 10.6 [place] [address] DO Work Phone: Chloride [Moles/Vol] 109 mmol/L above high threshold 98 - 107 [facility] TNC DO Work Phone: CO2 [Moles/Vol] 20 mmol/L below low threshold 21 - 32 [place] [address] DO Work Phone: Creatinine [Mass/Vol] 1.80 mg/dL above high threshold See Below [place] [address] DO Work Phone: Comment on above: Reference Range: 0.5 0 - 1.30 Glucose [Mass/Vol] 110 mg/dL above high threshold 74 - 99 [facility] TNC DO Work Phone: Phosphate [Mass/Vol] 3.4 mg/dL 2.5 - 4.9 [facility] lexx 250 DO Work Phone: Comment on above: The performance abrahan acteristics of phosphorus testing in heparinized plasma have been validated by the individual laboratory site where testing is performed. Testing on heparinized plasma is not approved by the FDA; however, such approval is not necessary. Potassium [Moles/Vol] 4.2 mmol/L 3.5 - 5.3 [place] [address] DO Work Phone: Sodium [Moles/Vol] 141 mmol/L 136 - 145 [facility] 250 DO Work Phone: Urea nitrogen [Mass/Vol] 45 mg/dL above high threshold 6 - 23 [place] [address] DO Work Phone: Renal Function Panel 40 {mL/min/1.73m2} Abnormal >90 [place] [address] DO Work Phone: Comment on above: CALCULATIONS OF AWILDA MATED GFR ARE PERFORMED USING THE 2020 CKD-EPI STUDY REFIT EQUATION WITHOUT THE RACE VARIABLE FOR THE IDMS-TRACEABLE CREATININE METHODS.https://jasn.asnjournals.org/content//A .[id number] Laboratory - Blood bankon ABO group Nom (Bld) A -[place] [address] DO Work Phone: Blood group antibody screen Ql Negative [place] [address] DO Work Phone: Rh immune globulin screen (Bld) [Interp] Positive [place] [address] DO Work Phone: Laboratory - Chemistry and C hemistry - challengeon 07-28-2021 Glucose [Mass/Vol] 209 mg/dL above high threshold 74 - 99 [facility] 250 DO Work Phone: Glucose [Mass/Vol] 299 mg/dL above high threshold 74 - 99 [facility] 250 DO Work Phone: Glucose [Mass/Vol] 271 mg/dL above high threshold 74 - 99 [place] [address] DO Work Phone: Glucose [Mass/Vol] 205 mg/dL above high threshold 74 - 99 [place] [address] DO Work Phone: Natriuretic peptide B (Bld) [Mass/Vol] 250 pg/mL above high threshold 0 - 99 [facility] lexx TNC DO Work Phone: Comment on above: . <100 pg/mL - Heart failure [id number] pg/mL - Intermediate probability of acute heart. failure exacerbation. Correlate with clinical. context and patient history. >=300 pg/mL - Heart Failure likely. Correlate with clinical. context and patient history. Biotin interference may cause falsely decreased results. Patients taking a Biotin dose of up to 5 mg/day should refrain from taking Biotin for 24 hours before sample collection. Providers may contact their local laboratory for further information. Glucose [Mass/Vol] 198 mg/dL above high threshold 74 - 99 [facility] TNC DO Work Phone: Glucose [Mass/Vol] 281 mg/dL above high threshold 74 - 99 [facility] TNC DO Work Phone: Laboratory - Hematology and Cell countson 07-28-2021 Erythrocyte distribution width (RBC) [Ratio] 16.0 % above high threshold See Below [facility] TNC DO Work Phone: Comment on above: Reference Range: 11. 5 - 14.5 Hematocrit (Bld) [Volume fraction] 27.1 % below low threshold See Below [facility] TNC DO Work Phone: Comment on above: Reference Range: 41. 0 - 52.0 Hemoglobin (Bld) [Mass/Vol] 8.9 g/dL below low threshold See Below [facility] lexx TNC DO Work Phone: Comment on above: Reference Range: 13. 5 - 17.5 MCHC (RBC) [Mass/Vol] 32.8 g/dL See Below [facility] TNC DO Work Phone: Comment on above: Reference Range: 32. 0 - 36.0 MCV (RBC) [Entitic vol] 85 fL 80 - 100 [facility] 250 DO Work Phone: [phone] Platelets (Bld) [#/Vol] 210 10*3/uL 150 - 450 [facility] Center[facility]base[facility]bie lexx 250 DO Work Phone: RBC (Bld) [#/Vol] 3.17 {x10E12/L} below low threshold See Below [facility] 250 DO Work Phone: Comment on above: Reference Range: 4.5 0 - 5.90 WBC (Bld) [#/Vol] 7.7 10*3/uL 4.4 - 11.3 [facility] [employer] lexx 250 DO Work Phone: Magnesium, Serumon 2 Magnesium [Mass/Vol] 2.25 mg/dL See Below [facility] [employer] lexx 250 DO Work Phone: Comment on above: Reference Range: 1.6 0 - 2.40 No Panel Informationon 07-28 0.0 {/100_WBC} 0.0-0.0 [facility] TapInfluenceDebbie lexx 250 DO Work Phone: Renal Function Panelon 07-28 Albumin BCP dye [Mass/Vol] 3.2 g/dL below low threshold 3.4 - 5.0 [facility] Center[facility]base[facility] lexx 250 DO Work Phone: Anion gap [Moles/Vol] 13 mmol/L 10 - 20 [facility] 250 DO Work Phone: Calcium [Mass/Vol] 8.7 mg/dL 8.6 - 10.6 [facility] [employer] lexx 250 DO Work Phone: Chloride [Moles/Vol] 112 mmol/L above high threshold 98 - 107 [facility] 250 DO Work Phone: CO2 [Moles/Vol] 22 mmol/L 21 - 32 [facility] lexx 250 DO Work Phone: Creatinine [Mass/Vol] 1.81 mg/dL above high threshold See Below [facility] lexx TNC DO Work Phone: Comment on above: Reference Range: 0.5 0 - 1.30 Glucose [Mass/Vol] 174 mg/dL above high threshold 74 - 99 [place] [address] DO Work Phone: Phosphate [Mass/Vol] 3.2 mg/dL 2.5 - 4.9 [facility] 250 DO Work Phone: Comment on above: The performance abrahan acteristics of phosphorus testing in heparinized plasma have been validated by the individual laboratory site where testing is performed. Testing on heparinized plasma is not approved by the FDA; however, such approval is not necessary. Potassium [Moles/Vol] 4.2 mmol/L 3.5 - 5.3 [place] [address] DO Work Phone: Sodium [Moles/Vol] 143 mmol/L 136 - 145 [facility] TNC DO Work Phone: Urea nitrogen [Mass/Vol] 42 mg/dL above high threshold 6 - 23 [place] [address] DO Work Phone: Renal Function Panel 40 {mL/min/1.73m2} Abnormal >90 [place] [address] DO Work Phone: Comment on above: CALCULATIONS OF AWILDA MATED GFR ARE PERFORMED USING THE 2020 CKD-EPI STUDY REFIT EQUATION WITHOUT THE RACE VARIABLE FOR THE IDMS-TRACEABLE CREATININE METHODS.https://jasn.asnjournals.org/content//A SN.[email or web address] Coronavirus 2019 RNA by PCR, Screening Asymptomticon 07-27-2021 Coronavirus 2019 RNA by PCR, Screening Asymptomtic Not detected Normal See Below [facility] TNC DO Work Phone: Comment on above: SOURCE: Nasal, Nasop haryngealReference Range: Not Detected.This assay is designed to detect the ORF1ab and/or S genes of SARS-CoV-2 via nucleic acid amplification. A Not Detected result does not preclude 2019-nCoV infection since the adequacy of sample collection and/or low viral burden may result in presence of viral nucleic acids below the clinical sensitivity of this test method. Fact sheet for providers: www.fda.gov/media/289880/downloadFact sheet for patients: www.fda.gov/media/570305/downloadThis test has received FDA Emergency Use Authorization (EUA) and has been verified by [facility] ([facility]). This test is only authorized for the duration of time that circumstances exist to justify the authorization of the emergency use of in vitro diagnostic tests for the detection of SARS-CoV-2 virus and/or diagnosis of COVID-19 infection under section 564(b)(1) of the Act, 21 U.S.C. 360bbb-3(b)(1), unless the authorization is terminated or revoked sooner. [facility] is certified under CLIA-88 as qualified to perform high complexity testing. Testing is performed in the [facility] laboratories located at [address] [place] [address]. Laboratory - Chemistry and C hemistry - challengeon 07-27-2021 Glucose [Mass/Vol] 240 mg/dL above high threshold 74 - 99 [facility] lexx 250 DO Work Phone: Glucose [Mass/Vol] 198 mg/dL above high threshold 74 - 99 [facility] 250 DO Work Phone: Glucose [Mass/Vol] 278 mg/dL above high threshold 74 - 99 [facility] lexx 250 DO Work Phone: Glucose [Mass/Vol] 290 mg/dL above high threshold 74 - 99 [facility] lexx 250 DO Work Phone: Glucose [Mass/Vol] 147 mg/dL above high threshold 74 - 99 [facility] lexx 250 DO Work Phone: Laboratory - Hematology and Cell countson 07-27-2021 Erythrocyte distribution width (RBC) [Ratio] 16.2 % above high threshold See Below [facility] BrightArch DO Work Phone: Comment on above: Reference Range: 11. 5 - 14.5 Hematocrit (Bld) [Volume fraction] 28.0 % below low threshold See Below [facility] Kangsheng Chuangxiang 250 DO Work Phone: Comment on above: Reference Range: 41. 0 - 52.0 Hemoglobin (Bld) [Mass/Vol] 8.8 g/dL below low threshold See Below [facility] BrightArch DO Work Phone: Comment on above: Reference Range: 13. 5 - 17.5 MCHC (RBC) [Mass/Vol] 31.4 g/dL below low threshold See Below [facility] [employer] Adallom DO Work Phone: Comment on above: Reference Range: 32. 0 - 36.0 MCV (RBC) [Entitic vol] 89 fL 80 - 100 [facility] [employer] Adallom DO Work Phone: Platelets (Bld) [#/Vol] 192 10*3/uL 150 - 450 [facility] [employer] Adallom DO Work Phone: RBC (Bld) [#/Vol] 3.16 {x10E12/L} below low threshold See Below [facility] [employer] Adallom DO Work Phone: Comment on above: Reference Range: 4.5 0 - 5.90 WBC (Bld) [#/Vol] 7.8 10*3/uL 4.4 - 11.3 [facility] Kangsheng Chuangxiang 250 DO Work Phone: Magnesium, Serumon 2 Magnesium [Mass/Vol] 2.33 mg/dL See Below [facility] BrightArch DO Work Phone: Comment on above: Reference Range: 1.6 0 - 2.40 No Panel Informationon 07-27 0.0 {/100_WBC} 0.0-0.0 [facility] [employer] Adallom DO Work Phone: Renal Function Panelon 07-27 Albumin BCP dye [Mass/Vol] 3.3 g/dL below low threshold 3.4 - 5.0 [facility] DO Work Phone: Anion gap [Moles/Vol] 15 mmol/L 10 - 20 [facility] DO Work Phone: Calcium [Mass/Vol] 8.7 mg/dL 8.6 - 10.6 [facility] Adallom DO Work Phone: Chloride [Moles/Vol] 115 mmol/L above high threshold 98 - 107 [place] [address] DO Work Phone: CO2 [Moles/Vol] 21 mmol/L 21 - 32 [place] [address] DO Work Phone: Creatinine [Mass/Vol] 1.82 mg/dL above high threshold See Below [facility] lexx TNC DO Work Phone: Comment on above: Reference Range: 0.5 0 - 1.30 Glucose [Mass/Vol] 136 mg/dL above high threshold 74 - 99 [facility] DO Work Phone: Phosphate [Mass/Vol] 3.5 mg/dL 2.5 - 4.9 [facility] Adallom DO Work Phone: Comment on above: The performance abrahan acteristics of phosphorus testing in heparinized plasma have been validated by the individual laboratory site where testing is performed. Testing on heparinized plasma is not approved by the FDA; however, such approval is not necessary. Potassium [Moles/Vol] 4.2 mmol/L 3.5 - 5.3 [facility] lexx TNC DO Work Phone: Sodium [Moles/Vol] 147 mmol/L above high threshold 136 - 145 [facility] lexx TNC DO Work Phone: Urea nitrogen [Mass/Vol] 46 mg/dL above high threshold 6 - 23 [facility] TNC DO Work Phone: Renal Function Panel 40 {mL/min/1.73m2} Abnormal >90 [place] [address] DO Work Phone: Comment on above: CALCULATIONS OF AWILDA MATED GFR ARE PERFORMED USING THE 2020 CKD-EPI STUDY REFIT EQUATION WITHOUT THE RACE VARIABLE FOR THE IDMS-TRACEABLE CREATININE METHODS.https://jasn.asnjournals.org/content/early/A SN.8168860644 Laboratory - Chemistry and C hemistry - challengeon 07-26-2021 Glucose [Mass/Vol] 240 mg/dL above high threshold 74 - 99 [place] [address] DO Work Phone: Glucose [Mass/Vol] 207 mg/dL above high threshold 74 - 99 [facility] lexx TNC DO Work Phone: Glucose [Mass/Vol] 308 mg/dL above high threshold 74 - 99 [facility] TNC DO Work Phone: Laboratory - Hematology and Cell countson 07-26-2021 Erythrocyte distribution width (RBC) [Ratio] 16.5 % above high threshold See Below [place] [address] DO Work Phone: Comment on above: Reference Range: 11. 5 - 14.5 Hematocrit (Bld) [Volume fraction] 30.3 % below low threshold See Below [place] [address] DO Work Phone: Comment on above: Reference Range: 41. 0 - 52.0 Hemoglobin (Bld) [Mass/Vol] 9.6 g/dL below low threshold See Below [place] [address] DO Work Phone: Comment on above: Reference Range: 13. 5 - 17.5 MCHC (RBC) [Mass/Vol] 31.7 g/dL below low threshold See Below [facility] lexx 250 DO Work Phone: Comment on above: Reference Range: 32. 0 - 36.0 MCV (RBC) [Entitic vol] 88 fL 80 - 100 [facility] Center[facility] hallman 250 DO Work Phone: Platelets (Bld) [#/Vol] 195 10*3/uL 150 - 450 [facility] YarielFirebaseDebbie lexx 250 DO Work Phone: RBC (Bld) [#/Vol] 3.46 {x10E12/L} below low threshold See Below [facility] TapInfluenceDebbie lexx 250 DO Work Phone: Comment on above: Reference Range: 4.5 0 - 5.90 WBC (Bld) [#/Vol] 9.2 10*3/uL 4.4 - 11.3 [facility] AudienceViewgaudencio lexx 250 DO Work Phone: Magnesium, Serumon 2 Magnesium [Mass/Vol] 2.19 mg/dL See Below [facility] AudienceViewgaudencio lexx 250 DO Work Phone: Comment on above: Reference Range: 1.6 0 - 2.40 No Panel Informationon 07-26 0.0 {/100_WBC} 0.0-0.0 [facility] TapInfluenceDebbie lexx TNC DO Work Phone: Renal Function Panelon 07-26 Albumin BCP dye [Mass/Vol] 3.4 g/dL 3.4 - 5.0 [facility] TapInfluenceElysia lexx 250 DO Work Phone: Anion gap [Moles/Vol] 17 mmol/L 10 - 20 [facility] lexx 250 DO Work Phone: Calcium [Mass/Vol] 8.6 mg/dL 8.6 - 10.6 [facility] AudienceViewgaudencio lexx 250 DO Work Phone: Chloride [Moles/Vol] 113 mmol/L above high threshold 98 - 107 [facility] 250 DO Work Phone: CO2 [Moles/Vol] 20 mmol/L below low threshold 21 - 32 [place] [address] DO Work Phone: Creatinine [Mass/Vol] 1.94 mg/dL above high threshold See Below [place] [address] DO Work Phone: Comment on above: Reference Range: 0.5 0 - 1.30 Glucose [Mass/Vol] 284 mg/dL above high threshold 74 - 99 [place] [address] DO Work Phone: Phosphate [Mass/Vol] 2.7 mg/dL 2.5 - 4.9 [facility] TNC DO Work Phone: Comment on above: The performance abrahan acteristics of phosphorus testing in heparinized plasma have been validated by the individual laboratory site where testing is performed. Testing on heparinized plasma is not approved by the FDA; however, such approval is not necessary. Potassium [Moles/Vol] 4.1 mmol/L 3.5 - 5.3 [place] [address] DO Work Phone: Sodium [Moles/Vol] 146 mmol/L above high threshold 136 - 145 [place] [address] DO Work Phone: Urea nitrogen [Mass/Vol] 43 mg/dL above high threshold 6 - 23 [place] [address] DO Work Phone: Renal Function Panel 37 {mL/min/1.73m2} Abnormal >90 [place] [address] DO Work Phone: Comment on above: CALCULATIONS OF AWILDA MATED GFR ARE PERFORMED USING THE 2020 CKD-EPI STUDY REFIT EQUATION WITHOUT THE RACE VARIABLE FOR THE IDMS-TRACEABLE CREATININE METHODS.https://jasn.asnjournals.org/content//A SN.3459836306 Laboratory - Chemistry and C hemistry - challengeon 07-25-2021 Glucose [Mass/Vol] 264 mg/dL above high threshold 74 - 99 [facility] OmniataSerene lexx 250 DO Work Phone: Glucose [Mass/Vol] 285 mg/dL above high threshold 74 - 99 [facility] OmniataSerene lexx 250 DO Work Phone: Glucose [Mass/Vol] 160 mg/dL above high threshold 74 - 99 [facility] OmniataChiquis lexx 250 DO Work Phone: Glucose [Mass/Vol] 150 mg/dL above high threshold 74 - 99 [facility] OmniataSerene lexx 250 DO Work Phone: Glucose [Mass/Vol] 120 mg/dL above high threshold 74 - 99 [facility] OmniataChiquis lexx 250 DO Work Phone: Laboratory - Hematology and Cell countson 07-25-2021 Erythrocyte distribution width (RBC) [Ratio] 16.1 % above high threshold See Below [facility] OmniataSerene Rodriguez DO Work Phone: Comment on above: Reference Range: 11. 5 - 14.5 Hematocrit (Bld) [Volume fraction] 29.4 % below low threshold See Below [facility] OmniataSerene hallman TNC DO Work Phone: Comment on above: Reference Range: 41. 0 - 52.0 Hemoglobin (Bld) [Mass/Vol] 9.0 g/dL below low threshold See Below [facility] OmniataSerene Rodriguez DO Work Phone: Comment on above: Reference Range: 13. 5 - 17.5 MCHC (RBC) [Mass/Vol] 30.6 g/dL below low threshold See Below [facility] OmniataSerene lewisy Michael DO Work Phone: Comment on above: Reference Range: 32. 0 - 36.0 MCV (RBC) [Entitic vol] 89 fL 80 - 100 [facility] Suki Rodriguez DO Work Phone: Platelets (Bld) [#/Vol] 174 10*3/uL 150 - 450 [facility] OmniataSerene lexx TNC DO Work Phone: RBC (Bld) [#/Vol] 3.29 {x10E12/L} below low threshold See Below [facility] Kangsheng Chuangxiang 250 DO Work Phone: Comment on above: Reference Range: 4.5 0 - 5.90 WBC (Bld) [#/Vol] 9.8 10*3/uL 4.4 - 11.3 -[facility] [employer] lexx 250 DO Work Phone: Magnesium, Serumon 2 Magnesium [Mass/Vol] 1.95 mg/dL See Below -[facility] [employer] lexx 250 DO Work Phone: Comment on above: Reference Range: 1.6 0 - 2.40 No Panel Informationon 07-25 0.0 {/100_WBC} 0.0-0.0 [facility] lexx 250 DO Work Phone: [email or web address] [email or web address]?Shantell [id number]&Date=06-25&Time=00%3a34%3a34%3a 00&TestType=ECG&Site=9&Out putType=PDF&Ext=PDF MG-Otolaryn gology-[facility] 4100 Work Phone: Normal sinus rhythm MG-Ot olaryn gology-[facility] 4100 Work Phone: Abnormal MG-Otolaryn gology-[facility] 4100 Work Phone: [phone] MG-Otolaryn gology-[facility] 4100 Work Phone: [phone] MG-Otolaryn gology-[facility] 4100 Work Phone: [phone] MG-Otolaryn gology-[facility] 4100 Work Phone: 115 1 MG-Otolaryn gology-[facility] 4100 Work Phone: [phone] MG-Otolaryn gology-[facility] 4100 Work Phone: [phone] MG-Otolaryn gology-[facility] 4100 Work Phone: [phone] MG-Otolaryn gology-[facility] 4100 Work Phone: [phone] MG-Otolaryn gology-[facility] 4100 Work Phone: [phone] MG-Otolaryn gology-[facility] 4100 Work Phone: [phone] MG-Otolaryn gology-[facility] 4100 Work Phone: [phone] MG-Otolaryn gology-[facility] 4100 Work Phone: [phone] MG-Otolaryn gology-[facility] 4100 Work Phone: [phone] MG-Otolaryn gology-[facility] 4100 Work Phone: [phone] MG-Otolaryn gology-[facility] 4100 Work Phone: Renal Function Panelon 07-25 Albumin BCP dye [Mass/Vol] 3.3 g/dL below low threshold 3.4 - 5.0 [facility] 250 DO Work Phone: Anion gap [Moles/Vol] 17 mmol/L 10 - 20 [facility] 250 DO Work Phone: Calcium [Mass/Vol] 8.4 mg/dL below low threshold 8.6 - 10.6 [facility] 250 DO Work Phone: Chloride [Moles/Vol] 114 mmol/L above high threshold 98 - 107 [facility] TNC DO Work Phone: CO2 [Moles/Vol] 19 mmol/L below low threshold 21 - 32 [place] [address] DO Work Phone: Creatinine [Mass/Vol] 1.78 mg/dL above high threshold See Below [place] [address] DO Work Phone: Comment on above: Reference Range: 0.5 0 - 1.30 Glucose [Mass/Vol] 179 mg/dL above high threshold 74 - 99 [place] [address] DO Work Phone: Phosphate [Mass/Vol] 2.9 mg/dL 2.5 - 4.9 [place] [address] DO Work Phone: Comment on above: The performance abrahan acteristics of phosphorus testing in heparinized plasma have been validated by the individual laboratory site where testing is performed. Testing on heparinized plasma is not approved by the FDA; however, such approval is not necessary. Potassium [Moles/Vol] 3.6 mmol/L 3.5 - 5.3 [place] [address] DO Work Phone: Sodium [Moles/Vol] 146 mmol/L above high threshold 136 - 145 [place] [address] DO Work Phone: Urea nitrogen [Mass/Vol] 37 mg/dL above high threshold 6 - 23 [place] [address] DO Work Phone: Renal Function Panel 41 {mL/min/1.73m2} Abnormal >90 [place] [address] DO Work Phone: Comment on above: CALCULATIONS OF AWILDA MATED GFR ARE PERFORMED USING THE 2020 CKD-EPI STUDY REFIT EQUATION WITHOUT THE RACE VARIABLE FOR THE IDMS-TRACEABLE CREATININE METHODS.https://jasn.asnjournals.org/content//A SN.2795314595 Laboratory - Chemistry and C hemistry - challengeon 07-24-2021 Glucose [Mass/Vol] 378 mg/dL above high threshold 74 - 99 [facility] OmniataSerene lexx Michael DO Work Phone: Glucose [Mass/Vol] 341 mg/dL above high threshold 74 - 99 [facility] DO Work Phone: Glucose [Mass/Vol] 235 mg/dL above high threshold 74 - 99 [facility] 250 DO Work Phone: Glucose [Mass/Vol] 271 mg/dL above high threshold 74 - 99 [facility] lexx TNC DO Work Phone: Laboratory - Hematology and Cell countson 07-24-2021 Erythrocyte distribution width (RBC) [Ratio] 15.9 % above high threshold See Below [facility] DO Work Phone: Comment on above: Reference Range: 11. 5 - 14.5 Hematocrit (Bld) [Volume fraction] 25.6 % below low threshold See Below [facility] OmniataElysia lexx TNC DO Work Phone: Comment on above: Reference Range: 41. 0 - 52.0 Hemoglobin (Bld) [Mass/Vol] 8.2 g/dL below low threshold See Below [facility] TapInfluenceDebbie lexx Michael DO Work Phone: Comment on above: Reference Range: 13. 5 - 17.5 MCHC (RBC) [Mass/Vol] 32.0 g/dL See Below [facility] DO Work Phone: Comment on above: Reference Range: 32. 0 - 36.0 MCV (RBC) [Entitic vol] 86 fL 80 - 100 [place] [address] DO Work Phone: Platelets (Bld) [#/Vol] 163 10*3/uL 150 - 450 [place] [address] DO Work Phone: RBC (Bld) [#/Vol] 2.96 {x10E12/L} below low threshold See Below [facility] AudienceViewgaudencio Adallom DO Work Phone: Comment on above: Reference Range: 4.5 0 - 5.90 WBC (Bld) [#/Vol] 7.7 10*3/uL 4.4 - 11.3 [facility] Kangsheng Chuangxiang 250 DO Work Phone: Magnesium, Serumon 2 Magnesium [Mass/Vol] 2.07 mg/dL See Below [facility] AudienceViewgaudencio lexx 250 DO Work Phone: Comment on above: Reference Range: 1.6 0 - 2.40 No Panel Informationon 07-24 ORDER RECD [facility] TapInfluenceElysia lexxdavid Rodriguez DO Work Phone: 0.0 {/100_WBC} 0.0-0.0 [facility] TapInfluenceDebbie lexx [facility] DO Work Phone: Renal Function Panelon 07-24 Albumin BCP dye [Mass/Vol] 3.2 g/dL below low threshold 3.4 - 5.0 [facility] TapInfluenceDebbie lexx TNC DO Work Phone: Anion gap [Moles/Vol] 16 mmol/L 10 - 20 [facility] TapInfluenceDebbie lexx TNC DO Work Phone: Calcium [Mass/Vol] 8.2 mg/dL below low threshold 8.6 - 10.6 [facility] TapInfluenceDebbie Adallom DO Work Phone: Chloride [Moles/Vol] 115 mmol/L above high threshold 98 - 107 [facility] TapInfluenceDebbie lexx TNC DO Work Phone: CO2 [Moles/Vol] 22 mmol/L 21 - 32 [facility] TapInfluenceDebbie Adallom DO Work Phone: Creatinine [Mass/Vol] 1.82 mg/dL above high threshold See Below [facility] [employer] lexx Michael DO Work Phone: Comment on above: Reference Range: 0.5 0 - 1.30 Glucose [Mass/Vol] 289 mg/dL above high threshold 74 - 99 [facility] lexx TNC DO Work Phone: Phosphate [Mass/Vol] 2.0 mg/dL below low threshold 2.5 - 4.9 [place] [address] DO Work Phone: Comment on above: The performance abrahan acteristics of phosphorus testing in heparinized plasma have been validated by the individual laboratory site where testing is performed. Testing on heparinized plasma is not approved by the FDA; however, such approval is not necessary. Potassium [Moles/Vol] 3.6 mmol/L 3.5 - 5.3 [place] [address] DO Work Phone: Sodium [Moles/Vol] 149 mmol/L above high threshold 136 - 145 [place] [address] DO Work Phone: Urea nitrogen [Mass/Vol] 38 mg/dL above high threshold 6 - 23 [place] [address] DO Work Phone: Renal Function Panel 40 {mL/min/1.73m2} Abnormal >90 [place] [address] DO Work Phone: Comment on above: CALCULATIONS OF AWILDA MATED GFR ARE PERFORMED USING THE 2020 CKD-EPI STUDY REFIT EQUATION WITHOUT THE RACE VARIABLE FOR THE IDMS-TRACEABLE CREATININE METHODS.https://jasn.asnjournals.org/content//A SN.[id number] Laboratory - Blood bankon ABO group Nom (Bld) A MP-No rth [facility] TNC DO Work Phone: Blood group antibody screen Ql Negative [facility] TNC DO Work Phone: Rh immune globulin screen (Bld) [Interp] Positive [facility] TNC DO Work Phone: Laboratory - Chemistry and C hemistry - challengeon 07-23-2021 Glucose [Mass/Vol] 249 mg/dL above high threshold 74 - 99 [facility] OmniataSerene lexx 250 DO Work Phone: Glucose [Mass/Vol] 222 mg/dL above high threshold 74 - 99 [facility] lexx 250 DO Work Phone: Base excess Calc (BldV) [Moles/Vol] -4.1000 mmol/L below low threshold -2.0 - 3.0 [facility] lexx 250 DO Work Phone: CO2 (BldV) [Partial pressure] 41 mm[Hg] 41 - 51 [facility] lexx 250 DO Work Phone: HCO3 (Bld) [Moles/Vol] 21.6 mmol/L below low threshold See Below [facility] Michael DO Work Phone: Comment on above: Reference Range: 22. 0 - 26.0 Oxygen (BldV) [Partial pressure] 93 mm[Hg] above high threshold 35 - 45 [facility] lexx TNC DO Work Phone: Oxyhemoglobin (BldV) [Mass fraction] 96.1 % above high threshold See Below [facility] lexx TNC DO Work Phone: Comment on above: Reference Range: 45. 0 - 75.0 pH (BldV) 7.33 [pH] See Below [facility] lexx TNC DO Work Phone: Comment on above: Reference Range: 7.3 3 - 7.43 Glucose [Mass/Vol] 192 mg/dL above high threshold 74 - 99 [facility] lexx 250 DO Work Phone: Glucose [Mass/Vol] 203 mg/dL above high threshold 74 - 99 [facility] lexx 250 DO Work Phone: Glucose [Mass/Vol] 323 mg/dL above high threshold 74 - 99 [facility] lexx 250 DO Work Phone: Laboratory - Hematology and Cell countson 07-23-2021 Erythrocyte distribution width (RBC) [Ratio] 15.3 % above high threshold See Below [facility] [employer] lexx 250 DO Work Phone: Comment on above: Reference Range: 11. 5 - 14.5 Hematocrit (Bld) [Volume fraction] 26.3 % below low threshold See Below [facility] [employer] lexx 250 DO Work Phone: Comment on above: Reference Range: 41. 0 - 52.0 Hemoglobin (Bld) [Mass/Vol] 8.9 g/dL below low threshold See Below [facility] [employer] lexx 250 DO Work Phone: Comment on above: Reference Range: 13. 5 - 17.5 MCHC (RBC) [Mass/Vol] 33.8 g/dL See Below [facility] [employer] lexx 250 DO Work Phone: Comment on above: Reference Range: 32. 0 - 36.0 MCV (RBC) [Entitic vol] 83 fL 80 - 100 [facility] [employer] lexx 250 DO Work Phone: Platelets (Bld) [#/Vol] 164 10*3/uL 150 - 450 [facility] [employer] lexx 250 DO Work Phone: RBC (Bld) [#/Vol] 3.18 {x10E12/L} below low threshold See Below [facility] [employer] lexx 250 DO Work Phone: Comment on above: Reference Range: 4.5 0 - 5.90 WBC (Bld) [#/Vol] 8.1 10*3/uL 4.4 - 11.3 [facility] Kangsheng Chuangxiang 250 DO Work Phone: Hematocrit (Bld) [Volume fraction] Canceled [facility] [employer] lexx 250 DO Work Phone: [phone] Hemoglobin (Bld) [Mass/Vol] Canceled [facility] [employer] lexx 250 DO Work Phone: Platelets (Bld) [#/Vol] Canceled [facility] TapInfluenceElysia lexx 250 DO Work Phone: RBC (Bld) [#/Vol] Canceled [facility] Kangsheng Chuangxiang 250 DO Work Phone: Erythrocyte distribution width (RBC) [Ratio] 15.5 % above high threshold See Below [facility] DO Work Phone: Comment on above: Reference Range: 11. 5 - 14.5 Hematocrit (Bld) [Volume fraction] 24.8 % below low threshold See Below [facility] [employer] lexx 250 DO Work Phone: Comment on above: Reference Range: 41. 0 - 52.0 Hemoglobin (Bld) [Mass/Vol] 8.0 g/dL below low threshold See Below [facility] CenterFirebase[facility]bie lexx 250 DO Work Phone: Comment on above: Reference Range: 13. 5 - 17.5 MCHC (RBC) [Mass/Vol] 32.3 g/dL See Below [facility] DO Work Phone: Comment on above: Reference Range: 32. 0 - 36.0 MCV (RBC) [Entitic vol] 85 fL 80 - 100 [facility] DO Work Phone: Platelets (Bld) [#/Vol] 171 10*3/uL 150 - 450 [facility] 250 DO Work Phone: RBC (Bld) [#/Vol] 2.93 {x10E12/L} below low threshold See Below [facility] DO Work Phone: Comment on above: Reference Range: 4.5 0 - 5.90 WBC (Bld) [#/Vol] 8.3 10*3/uL 4.4 - 11.3 [facility] AudienceViewgaudencio lexx 250 DO Work Phone: Hematocrit (Bld) [Volume fraction] Canceled [facility] 250 DO Work Phone: Hemoglobin (Bld) [Mass/Vol] Canceled [facility] Suki hallman 250 DO Work Phone: [phone] Platelets (Bld) [#/Vol] Canceled [facility] Suki hallman 250 DO Work Phone: RBC (Bld) [#/Vol] Canceled [place] Suki hallman 250 DO Work Phone: Magnesium, Serumon 2 Magnesium [Mass/Vol] 2.19 mg/dL See Below GRISEL-Edis ashraf [place] Suki hallman 250 DO Work Phone: Comment on above: Reference Range: 1.6 0 - 2.40 Magnesium [Mass/Vol] 2.11 mg/dL See Below GRISEL-Edis ashraf [place] Suki hallman 250 DO Work Phone: Comment on above: Reference Range: 1.6 0 - 2.40 No Panel Informationon 07-23 0.0 {/100_WBC} 0.0-0.0 [facility] Suki hallman 250 DO Work Phone: Canceled [facility] Suki hallman 250 DO Work Phone: ORDER RECD [facility] Suki hallman 250 DO Work Phone: 0.0 {/100_WBC} 0.0-0.0 [facility] Suki hallman 250 DO Work Phone: Canceled [facility] Suki hallman 250 DO Work Phone: [email or web address]?R etrieveTestByDateTime?Shantell cdwEF=[id number]&Date=04-27&Time=01%3a22%3a17%3a 00&TestType=ECG&Site=9&Out putType=PDF&Ext=PDF [facility] lexx 250 DO Work Phone: Sinus rhythm with 1s t degree AV block [facility] lexx 250 DO Work Phone: Abnormal [facility] lexx 250 DO Work Phone: [phone] [facility] lexx 250 DO Work Phone: [phone] 1 [facility] lexx 250 DO Work Phone: [phone] 1 [facility] lexx 250 DO Work Phone: [phone] 1 [facility] lexx 250 DO Work Phone: [phone] 1 [facility] lexx 250 DO Work Phone: [phone] [facility] lexx 250 DO Work Phone: [phone] [facility] lexx 250 DO Work Phone: -[phone] 1 [facility] lexx 250 DO Work Phone: [phone] 1 [facility] lexx 250 DO Work Phone: [phone] [facility] lexx 250 DO Work Phone: [phone] [facility] lexx 250 DO Work Phone: [phone] [facility] lexx 250 DO Work Phone: [phone] [facility] lexx 250 DO Work Phone: [phone] [facility] lexx 250 DO Work Phone: [email or web address]?R etrieveTestByDateTime?Shantell [id number]&Date=04-27&Time=01%3a21%3a42%3a 00&TestType=ECG&Site=9&Out putType=PDF&Ext=PDF [facility] 4100 Work Phone: [phone] Sinus rhythm with 1s t degree AV block [facility] 4100 Work Phone: [phone] [facility] 4100 Work Phone: [phone] [facility] 4100 Work Phone: [phone] [facility] 4100 Work Phone: [phone] [facility] 4100 Work Phone: [phone] [facility] 4100 Work Phone: [phone] 1 [facility] 4100 Work Phone: [phone] [facility] 4[address] Work Phone: [phone] [facility] 4100 Work Phone: [phone] [facility] 4[address] Work Phone: [phone] 1 [facility] 4[address] Work Phone: [phone] 1 [facility] 4[address] Work Phone: [phone] 1 [facility] 4100 Work Phone: [phone] 1 [facility] 4[address] Work Phone: [phone] 1 [facility] 4100 Work Phone: [phone] [facility] r[facility] 4100 Work Phone: Renal Function Panelon 07-23 Albumin BCP dye [Mass/Vol] 3.3 g/dL below low threshold 3.4 - 5.0 [facility] DO Work Phone: Anion gap [Moles/Vol] 15 mmol/L 10 - 20 [facility] 250 DO Work Phone: Calcium [Mass/Vol] 8.0 mg/dL below low threshold 8.6 - 10.6 [facility] 250 DO Work Phone: Chloride [Moles/Vol] 112 mmol/L above high threshold 98 - 107 [facility] 250 DO Work Phone: CO2 [Moles/Vol] 21 mmol/L 21 - 32 [facility] 250 DO Work Phone: Creatinine [Mass/Vol] 2.01 mg/dL above high threshold See Below [facility] 250 DO Work Phone: Comment on above: Reference Range: 0.5 0 - 1.30 Glucose [Mass/Vol] 220 mg/dL above high threshold 74 - 99 [facility] 250 DO Work Phone: Phosphate [Mass/Vol] 1.6 mg/dL below low threshold 2.5 - 4.9 [facility] 250 DO Work Phone: Comment on above: The performance abrahan acteristics of phosphorus testing in heparinized plasma have been validated by the individual laboratory site where testing is performed. Testing on heparinized plasma is not approved by the FDA; however, such approval is not necessary. Potassium [Moles/Vol] 3.7 mmol/L 3.5 - 5.3 [facility] lexx 250 DO Work Phone: Sodium [Moles/Vol] 144 mmol/L 136 - 145 [facility] [employer] lexx 250 DO Work Phone: Urea nitrogen [Mass/Vol] 38 mg/dL above high threshold 6 - 23 [facility] lexx 250 DO Work Phone: Renal Function Panel 35 {mL/min/1.73m2} Abnormal >90 [place] [address] DO Work Phone: Comment on above: CALCULATIONS OF AWILDA MATED GFR ARE PERFORMED USING THE 2020 CKD-EPI STUDY REFIT EQUATION WITHOUT THE RACE VARIABLE FOR THE IDMS-TRACEABLE CREATININE METHODS.https://jasn.asnjournals.org/content///A SN.[email or web address] Albumin BCP dye [Mass/Vol] 3.0 g/dL below low threshold 3.4 - 5.0 [place] [address] DO Work Phone: Anion gap [Moles/Vol] 14 mmol/L 10 - 20 [facility] TNC DO Work Phone: Calcium [Mass/Vol] 7.5 mg/dL below low threshold 8.6 - 10.6 [facility] TNC DO Work Phone: Chloride [Moles/Vol] 113 mmol/L above high threshold 98 - 107 [facility] TNC DO Work Phone: CO2 [Moles/Vol] 22 mmol/L 21 - 32 [facility] TNC DO Work Phone: Creatinine [Mass/Vol] 1.76 mg/dL above high threshold See Below [facility] lexx TNC DO Work Phone: Comment on above: Reference Range: 0.5 0 - 1.30 Glucose [Mass/Vol] 199 mg/dL above high threshold 74 - 99 [facility] DO Work Phone: Phosphate [Mass/Vol] 1.5 mg/dL below low threshold 2.5 - 4.9 [facility] Adallom DO Work Phone: Comment on above: The performance abrahan acteristics of phosphorus testing in heparinized plasma have been validated by the individual laboratory site where testing is performed. Testing on heparinized plasma is not approved by the FDA; however, such approval is not necessary. Potassium [Moles/Vol] 3.6 mmol/L 3.5 - 5.3 [facility] DO Work Phone: Sodium [Moles/Vol] 145 mmol/L 136 - 145 [facility] [employer] lexx 250 DO Work Phone: Urea nitrogen [Mass/Vol] 37 mg/dL above high threshold 6 - 23 [facility] TNC DO Work Phone: Renal Function Panel 41 {mL/min/1.73m2} Abnormal >90 [place] [address] DO Work Phone: Comment on above: CALCULATIONS OF AWILDA MATED GFR ARE PERFORMED USING THE 2020 CKD-EPI STUDY REFIT EQUATION WITHOUT THE RACE VARIABLE FOR THE IDMS-TRACEABLE CREATININE METHODS.https://jasn.asnjournals.org/content/early/A SN.5445741437 Troponin I, Serumon 07-24-19 Troponin I.cardiac [Mass/Vol] 2.46 ng/mL above high threshold See Below [facility] TNC DO Work Phone: Comment on above: Reference Range: 0.0 0 - 0.03LESS THAN 0.04 NG/ML: NEGATIVEREPEAT TESTING IN THREE TO SIX HOURSIF CLINICALLY INDICATED.0.04 - 0.5 NG/ML: CONSISTENT WITH POSSIBLECARDIAC DAMAGE AND POSSIBLE INCREASEDCLINICAL RISK.SERIAL MEASUREMENTS MAY HELP ASSESS EXTENT OFMYOCARDIAL DAMAGE.>0.5 NG/ML: CONSISTENT WITH CARDIAC DAMAGE,INCREASED CLINICAL RISK AND MYOCARDIALINFARCTION. SERIAL MEASUREMENTS MAY HELPASSESS EXTENT OF MYOCARDIAL DAMAGE..Note: Troponin I testing is performed using different testing methodology at [facility] than at other [facility]. Direct result comparisons should only be made within the same method.. Biotin interference may cause falsely decreased results. Patients taking a Biotin dose of up to 5 mg/day should refrain from taking Biotin for 24 hours before sample collection. Providers may contact their laboratory for further information. This is a critical result. Per Laboratory policy, critical results for this test only qualify to the call list once per 24 hours. Troponin I.cardiac [Mass/Vol] Canceled [facility] Kangsheng Chuangxiang 250 DO Work Phone: Comment on above: LESS THAN 0.04 NG/ML : NEGATIVEREPEAT TESTING IN THREE TO SIX HOURSIF CLINICALLY INDICATED.0.04 - 0.5 NG/ML: CONSISTENT WITH POSSIBLECARDIAC DAMAGE AND POSSIBLE INCREASEDCLINICAL RISK.SERIAL MEASUREMENTS MAY HELP ASSESS EXTENT OFMYOCARDIAL DAMAGE.>0.5 NG/ML: CONSISTENT WITH CARDIAC DAMAGE,INCREASED CLINICAL RISK AND MYOCARDIALINFARCTION. SERIAL MEASUREMENTS MAY HELPASSESS EXTENT OF MYOCARDIAL DAMAGE..Note: Troponin I testing is performed using different testing methodology at [facility] than at other [facility]. Direct result comparisons should only be made within the same method.. Biotin interference may cause falsely decreased results. Patients taking a Biotin dose of up to 5 mg/day should refrain from taking Biotin for 24 hours before sample collection. Providers may contact their laboratory for further information. Troponin I.cardiac [Mass/Vol] 2.65 ng/mL above high threshold See Below [facility] Kangsheng Chuangxiang 250 DO Work Phone: Comment on above: Reference Range: 0.0 0 - 0.03LESS THAN 0.04 NG/ML: NEGATIVEREPEAT TESTING IN THREE TO SIX HOURSIF CLINICALLY INDICATED.0.04 - 0.5 NG/ML: CONSISTENT WITH POSSIBLECARDIAC DAMAGE AND POSSIBLE INCREASEDCLINICAL RISK.SERIAL MEASUREMENTS MAY HELP ASSESS EXTENT OFMYOCARDIAL DAMAGE.>0.5 NG/ML: CONSISTENT WITH CARDIAC DAMAGE,INCREASED CLINICAL RISK AND MYOCARDIALINFARCTION. SERIAL MEASUREMENTS MAY HELPASSESS EXTENT OF MYOCARDIAL DAMAGE..Note: Troponin I testing is performed using different testing methodology at [facility] than at other [facility]. Direct result comparisons should only be made within the same method.. Biotin interference may cause falsely decreased results. Patients taking a Biotin dose of up to 5 mg/day should refrain from taking Biotin for 24 hours before sample collection. Providers may contact their laboratory for further information. This is a critical result. Per Laboratory policy, critical results for this test only qualify to the call list once per 24 hours. Troponin I.cardiac [Mass/Vol] 1.75 ng/mL above high threshold See Below [facility] Kangsheng Chuangxiang 250 DO Work Phone: Comment on above: Reference Range: 0.0 0 - 0.03LESS THAN 0.04 NG/ML: NEGATIVEREPEAT TESTING IN THREE TO SIX HOURSIF CLINICALLY INDICATED.0.04 - 0.5 NG/ML: CONSISTENT WITH POSSIBLECARDIAC DAMAGE AND POSSIBLE INCREASEDCLINICAL RISK.SERIAL MEASUREMENTS MAY HELP ASSESS EXTENT OFMYOCARDIAL DAMAGE.>0.5 NG/ML: CONSISTENT WITH CARDIAC DAMAGE,INCREASED CLINICAL RISK AND MYOCARDIALINFARCTION. SERIAL MEASUREMENTS MAY HELPASSESS EXTENT OF MYOCARDIAL DAMAGE..Note: Troponin I testing is performed using different testing methodology at [facility] than at other [facility]. Direct result comparisons should only be made within the same method.. Biotin interference may cause falsely decreased results. Patients taking a Biotin dose of up to 5 mg/day should refrain from taking Biotin for 24 hours before sample collection. Providers may contact their laboratory for further information. This is a critical result. Per Laboratory policy, critical results for this test only qualify to the call list once per 24 hours. Troponin I.cardiac [Mass/Vol] 1.51 ng/mL above high threshold See Below [facility] BrightArch DO Work Phone: Comment on above: Reference Range: 0.0 0 - 0.03LESS THAN 0.04 NG/ML: NEGATIVEREPEAT TESTING IN THREE TO SIX HOURSIF CLINICALLY INDICATED.0.04 - 0.5 NG/ML: CONSISTENT WITH POSSIBLECARDIAC DAMAGE AND POSSIBLE INCREASEDCLINICAL RISK.SERIAL MEASUREMENTS MAY HELP ASSESS EXTENT OFMYOCARDIAL DAMAGE.>0.5 NG/ML: CONSISTENT WITH CARDIAC DAMAGE,INCREASED CLINICAL RISK AND MYOCARDIALINFARCTION. SERIAL MEASUREMENTS MAY HELPASSESS EXTENT OF MYOCARDIAL DAMAGE..Note: Troponin I testing is performed using different testing methodology at [facility] than at other [facility]. Direct result comparisons should only be made within the same method.. Biotin interference may cause falsely decreased results. Patients taking a Biotin dose of up to 5 mg/day should refrain from taking Biotin for 24 hours before sample collection. Providers may contact their laboratory for further information. This is a critical result. Per Laboratory policy, critical results for this test only qualify to the call list once per 24 hours. Troponin I.cardiac [Mass/Vol] 1.41 ng/mL above high threshold See Below [facility] Kangsheng Chuangxiang 250 DO Work Phone: Comment on above: Reference Range: 0.0 0 - 0.03LESS THAN 0.04 NG/ML: NEGATIVEREPEAT TESTING IN THREE TO SIX HOURSIF CLINICALLY INDICATED.0.04 - 0.5 NG/ML: CONSISTENT WITH POSSIBLECARDIAC DAMAGE AND POSSIBLE INCREASEDCLINICAL RISK.SERIAL MEASUREMENTS MAY HELP ASSESS EXTENT OFMYOCARDIAL DAMAGE.>0.5 NG/ML: CONSISTENT WITH CARDIAC DAMAGE,INCREASED CLINICAL RISK AND MYOCARDIALINFARCTION. SERIAL MEASUREMENTS MAY HELPASSESS EXTENT OF MYOCARDIAL DAMAGE..Note: Troponin I testing is performed using different testing methodology at [facility] than at other [facility]. Direct result comparisons should only be made within the same method.. Biotin interference may cause falsely decreased results. Patients taking a Biotin dose of up to 5 mg/day should refrain from taking Biotin for 24 hours before sample collection. Providers may contact their laboratory for further information. This is a critical result. Per Laboratory policy, critical results for this test only qualify to the call list once per 24 hours. Vital signson 07-23-2021 Oxygen saturation in Venous blood 98 % above high threshold 45 - 75 [facility] lexx 250 DO Work Phone: Laboratory - Chemistry and C hemistry - challengeon 07-22-2021 Glucose [Mass/Vol] 202 mg/dL above high threshold 74 - 99 [facility] Kangsheng Chuangxiang 250 DO Work Phone: Glucose [Mass/Vol] 202 mg/dL above high threshold 74 - 99 [facility] 250 DO Work Phone: Glucose [Mass/Vol] 221 mg/dL above high threshold 74 - 99 [facility] DO Work Phone: Glucose [Mass/Vol] 256 mg/dL above high threshold 74 - 99 [facility] AudienceViewgaudencio lexx 250 DO Work Phone: Glucose [Mass/Vol] 202 mg/dL above high threshold 74 - 99 [facility] [employer] lexx 250 DO Work Phone: Glucose [Mass/Vol] 195 mg/dL above high threshold 74 - 99 [facility] lexx TNC DO Work Phone: Laboratory - Hematology and Cell countson 07-22-2021 Erythrocyte distribution width (RBC) [Ratio] 15.7 % above high threshold See Below [facility] Adallom DO Work Phone: Comment on above: Reference Range: 11. 5 - 14.5 Hematocrit (Bld) [Volume fraction] 29.8 % below low threshold See Below [facility] lexx [facility] DO Work Phone: Comment on above: Reference Range: 41. 0 - 52.0 Hemoglobin (Bld) [Mass/Vol] 9.8 g/dL below low threshold See Below [facility] [employer] Adallom DO Work Phone: Comment on above: Reference Range: 13. 5 - 17.5 MCHC (RBC) [Mass/Vol] 32.9 g/dL See Below [facility] OmniataDebbie lexx TNC DO Work Phone: Comment on above: Reference Range: 32. 0 - 36.0 MCV (RBC) [Entitic vol] 85 fL 80 - 100 [facility] lexx TNC DO Work Phone: Platelets (Bld) [#/Vol] 154 10*3/uL 150 - 450 [facility] lexx TNC DO Work Phone: RBC (Bld) [#/Vol] 3.52 {x10E12/L} below low threshold See Below [facility] [employer] Adallom DO Work Phone: Comment on above: Reference Range: 4.5 0 - 5.90 WBC (Bld) [#/Vol] 7.0 10*3/uL 4.4 - 11.3 [facility] BrightArch DO Work Phone: Erythrocyte distribution width (RBC) [Ratio] 15.7 % above high threshold See Below [facility] [employer] Adallom DO Work Phone: Comment on above: Reference Range: 11. 5 - 14.5 Hematocrit (Bld) [Volume fraction] 23.8 % below low threshold See Below [facility] [employer] Adallom DO Work Phone: Comment on above: Reference Range: 41. 0 - 52.0 Hemoglobin (Bld) [Mass/Vol] 7.4 g/dL below low threshold See Below [facility] [employer] Adallom DO Work Phone: Comment on above: Reference Range: 13. 5 - 17.5 MCHC (RBC) [Mass/Vol] 31.1 g/dL below low threshold See Below [facility] [employer] Adallom DO Work Phone: Comment on above: Reference Range: 32. 0 - 36.0 MCV (RBC) [Entitic vol] 89 fL 80 - 100 [facility] [employer] Adallom DO Work Phone: Platelets (Bld) [#/Vol] 159 10*3/uL 150 - 450 [facility] [employer] lexx TNC DO Work Phone: RBC (Bld) [#/Vol] 2.67 {x10E12/L} below low threshold See Below [facility] [employer] Adallom DO Work Phone: Comment on above: Reference Range: 4.5 0 - 5.90 WBC (Bld) [#/Vol] 8.5 10*3/uL 4.4 - 11.3 [facility] [employer] DO Work Phone: Magnesium, Serumon 2 Magnesium [Mass/Vol] 2.33 mg/dL See Below [facility] lexx 250 DO Work Phone: Comment on above: Reference Range: 1.6 0 - 2.40 No Panel Informationon 07-22 0.0 {/100_WBC} 0.0-0.0 [facility] lexx 250 DO Work Phone: ORDER RECD [facility] 250 DO Work Phone: 0.0 {/100_WBC} 0.0-0.0 [facility] lexx 250 DO Work Phone: Radiologyon 07-22-2021 XR Chest Single view Normal [facility] lexx 250 DO Work Phone: Renal Function Panelon 07-22 Albumin BCP dye [Mass/Vol] 3.3 g/dL below low threshold 3.4 - 5.0 [facility] 250 DO Work Phone: Anion gap [Moles/Vol] 16 mmol/L 10 - 20 [facility] 250 DO Work Phone: Calcium [Mass/Vol] 8.0 mg/dL below low threshold 8.6 - 10.6 [facility] 250 DO Work Phone: Chloride [Moles/Vol] 110 mmol/L above high threshold 98 - 107 [facility] 250 DO Work Phone: CO2 [Moles/Vol] 19 mmol/L below low threshold 21 - 32 [facility] 250 DO Work Phone: Creatinine [Mass/Vol] 2.43 mg/dL above high threshold See Below [facility] lexx 250 DO Work Phone: Comment on above: Reference Range: 0.5 0 - 1.30 Glucose [Mass/Vol] 207 mg/dL above high threshold 74 - 99 [facility] lexx 250 DO Work Phone: Phosphate [Mass/Vol] 2.1 mg/dL below low threshold 2.5 - 4.9 [facility] [employer] Adallom DO Work Phone: Comment on above: The performance abrahan acteristics of phosphorus testing in heparinized plasma have been validated by the individual laboratory site where testing is performed. Testing on heparinized plasma is not approved by the FDA; however, such approval is not necessary. Potassium [Moles/Vol] 3.9 mmol/L 3.5 - 5.3 [facility] Adallom DO Work Phone: Sodium [Moles/Vol] 141 mmol/L 136 - 145 [facility] Kangsheng Chuangxiang 250 DO Work Phone: Urea nitrogen [Mass/Vol] 50 mg/dL above high threshold 6 - 23 [facility] Adallom DO Work Phone: Renal Function Panel 28 {mL/min/1.73m2} Abnormal >90 [facility] TNC DO Work Phone: Comment on above: CALCULATIONS OF AWILDA MATED GFR ARE PERFORMED USING THE 2020 CKD-EPI STUDY REFIT EQUATION WITHOUT THE RACE VARIABLE FOR THE IDMS-TRACEABLE CREATININE METHODS.https://jasn.asnjournals.org/content/early/A SN.8432091414 Troponin I, Serumon 07-23-19 22 Troponin I.cardiac [Mass/Vol] 0.67 ng/mL Critically high See Below [facility] lexx TNC DO Work Phone: Comment on above: Reference Range: 0.0 0 - 0.03LESS THAN 0.04 NG/ML: NEGATIVEREPEAT TESTING IN THREE TO SIX HOURSIF CLINICALLY INDICATED.0.04 - 0.5 NG/ML: CONSISTENT WITH POSSIBLECARDIAC DAMAGE AND POSSIBLE INCREASEDCLINICAL RISK.SERIAL MEASUREMENTS MAY HELP ASSESS EXTENT OFMYOCARDIAL DAMAGE.>0.5 NG/ML: CONSISTENT WITH CARDIAC DAMAGE,INCREASED CLINICAL RISK AND MYOCARDIALINFARCTION. SERIAL MEASUREMENTS MAY HELPASSESS EXTENT OF MYOCARDIAL DAMAGE..Note: Troponin I testing is performed using different testing methodology at [facility] than at other [facility]. Direct result comparisons should only be made within the same method.. Biotin interference may cause falsely decreased results. Patients taking a Biotin dose of up to 5 mg/day should refrain from taking Biotin for 24 hours before sample collection. Providers may contact their laboratory for further information. DANA CAMPBELL CALLED RB TO [place]., 07/23/2021 00:01 Troponin I.cardiac [Mass/Vol] 0.07 ng/mL above high threshold See Below FirebaseSt. Mary'S Medical CenterSimulated Surgical Systems DO Work Phone: Comment on above: Reference Range: 0.0 0 - 0.03LESS THAN 0.04 NG/ML: NEGATIVEREPEAT TESTING IN THREE TO SIX HOURSIF CLINICALLY INDICATED.0.04 - 0.5 NG/ML: CONSISTENT WITH POSSIBLECARDIAC DAMAGE AND POSSIBLE INCREASEDCLINICAL RISK.SERIAL MEASUREMENTS MAY HELP ASSESS EXTENT OFMYOCARDIAL DAMAGE.>0.5 NG/ML: CONSISTENT WITH CARDIAC DAMAGE,INCREASED CLINICAL RISK AND MYOCARDIALINFARCTION. SERIAL MEASUREMENTS MAY HELPASSESS EXTENT OF MYOCARDIAL DAMAGE..Note: Troponin I testing is performed using different testing methodology at [facility] than at other [facility]. Direct result comparisons should only be made within the same method.. Biotin interference may cause falsely decreased results. Patients taking a Biotin dose of up to 5 mg/day should refrain from taking Biotin for 24 hours before sample collection. Providers may contact their laboratory for further information. Troponin I.cardiac [Mass/Vol] 0.03 ng/mL See Below [facility] BrightArch DO Work Phone: Comment on above: Reference Range: 0.0 0 - 0.03LESS THAN 0.04 NG/ML: NEGATIVEREPEAT TESTING IN THREE TO SIX HOURSIF CLINICALLY INDICATED.0.04 - 0.5 NG/ML: CONSISTENT WITH POSSIBLECARDIAC DAMAGE AND POSSIBLE INCREASEDCLINICAL RISK.SERIAL MEASUREMENTS MAY HELP ASSESS EXTENT OFMYOCARDIAL DAMAGE.>0.5 NG/ML: CONSISTENT WITH CARDIAC DAMAGE,INCREASED CLINICAL RISK AND MYOCARDIALINFARCTION. SERIAL MEASUREMENTS MAY HELPASSESS EXTENT OF MYOCARDIAL DAMAGE..Note: Troponin I testing is performed using different testing methodology at [facility] than at other [facility]. Direct result comparisons should only be made within the same method.. Biotin interference may cause falsely decreased results. Patients taking a Biotin dose of up to 5 mg/day should refrain from taking Biotin for 24 hours before sample collection. Providers may contact their laboratory for further information. Laboratory - Chemistry and C hemistry - challengeon 07-21-2021 Glucose [Mass/Vol] 197 mg/dL above high threshold 74 - 99 [place] [address] DO Work Phone: Glucose [Mass/Vol] 155 mg/dL above high threshold 74 - 99 [place] [address] DO Work Phone: Glucose [Mass/Vol] 185 mg/dL above high threshold 74 - 99 [place] [address] DO Work Phone: Glucose [Mass/Vol] 176 mg/dL above high threshold 74 - 99 [place] [address] DO Work Phone: Laboratory - Hematology and Cell countson 07-21-2021 Erythrocyte distribution width (RBC) [Ratio] 15.1 % above high threshold See Below [place] [address] DO Work Phone: Comment on above: Reference Range: 11. 5 - 14.5 Hematocrit (Bld) [Volume fraction] 22.4 % below low threshold See Below [place] [address] DO Work Phone: Comment on above: Reference Range: 41. 0 - 52.0 Hemoglobin (Bld) [Mass/Vol] 7.2 g/dL below low threshold See Below [place] [address] DO Work Phone: Comment on above: Reference Range: 13. 5 - 17.5 MCHC (RBC) [Mass/Vol] 32.1 g/dL See Below [place] [address] DO Work Phone: Comment on above: Reference Range: 32. 0 - 36.0 MCV (RBC) [Entitic vol] 85 fL 80 - 100 [place] [address] DO Work Phone: Platelets (Bld) [#/Vol] 166 10*3/uL 150 - 450 [facility] OmniataSerene hallman 250 DO Work Phone: RBC (Bld) [#/Vol] 2.63 {x10E12/L} below low threshold See Below [facility] OmniataSerene hallman 250 DO Work Phone: Comment on above: Reference Range: 4.5 0 - 5.90 WBC (Bld) [#/Vol] 8.7 10*3/uL 4.4 - 11.3 [facility] Tap[employer]fluenceElysia lexx 250 DO Work Phone: Magnesium, Serumon 2 Magnesium [Mass/Vol] 2.38 mg/dL See Below [facility] TapInfluenceElysia hallman 250 DO Work Phone: Comment on above: Reference Range: 1.6 0 - 2.40 No Panel Informationon 07-21 ORDER RECD [facility] Suki Rodriguez DO Work Phone: 0.0 {/100_WBC} 0.0-0.0 [facility] OmniataSerene hallman TNC DO Work Phone: Renal Function Panelon 07-21 Albumin BCP dye [Mass/Vol] 3.4 g/dL 3.4 - 5.0 [facility] Suki Rodriguez DO Work Phone: Anion gap [Moles/Vol] 17 mmol/L 10 - 20 [facility] Suki hallman 250 DO Work Phone: Calcium [Mass/Vol] 8.0 mg/dL below low threshold 8.6 - 10.6 [facility] Suki hallman 250 DO Work Phone: Chloride [Moles/Vol] 109 mmol/L above high threshold 98 - 107 [facility] Suki hallman 250 DO Work Phone: CO2 [Moles/Vol] 20 mmol/L below low threshold 21 - 32 [facility] OmniataSerene hallman 250 DO Work Phone: Creatinine [Mass/Vol] 2.27 mg/dL above high threshold See Below [facility] lexx Michael DO Work Phone: Comment on above: Reference Range: 0.5 0 - 1.30 Glucose [Mass/Vol] 151 mg/dL above high threshold 74 - 99 [place] [address] DO Work Phone: Phosphate [Mass/Vol] 3.5 mg/dL 2.5 - 4.9 [facility] 250 DO Work Phone: Comment on above: The performance abrahan acteristics of phosphorus testing in heparinized plasma have been validated by the individual laboratory site where testing is performed. Testing on heparinized plasma is not approved by the FDA; however, such approval is not necessary. Potassium [Moles/Vol] 4.3 mmol/L 3.5 - 5.3 [place] [address] DO Work Phone: Sodium [Moles/Vol] 142 mmol/L 136 - 145 [facility] TNC DO Work Phone: Urea nitrogen [Mass/Vol] 50 mg/dL above high threshold 6 - 23 [place] [address] DO Work Phone: Renal Function Panel 30 {mL/min/1.73m2} Abnormal >90 [place] [address] DO Work Phone: Comment on above: CALCULATIONS OF AWILDA MATED GFR ARE PERFORMED USING THE 2020 CKD-EPI STUDY REFIT EQUATION WITHOUT THE RACE VARIABLE FOR THE IDMS-TRACEABLE CREATININE METHODS.https://jasn.asnjournals.org/content//A SN.1475268898 Hemoglobin A1Con 07-20-2021 Glucose [Mass/Vol] 146 mg/dL [place] [address] DO Work Phone: HbA1c (Bld) [Mass fraction] 6.7 % Abnormal [place] [address] DO Work Phone: Comment on above: Diagnosis of Diabete s-Adults Non-Diabetic: < or = 5.6% Increased risk for developing diabetes: 5.7-6.4% Diagnostic of diabetes: > or = 6.5%. Monitoring of Diabetes Age (y) Therapeutic Goal (%) Adults: >18 <7.0 Pediatrics: 13-18 <7.5 7-12 <8.0 0- 6 7.5-8.5 [place] [employer]. Diabetes Care 33(S1), Apr 2009. Laboratory - Chemistry and C hemistry - challengeon 07-20-2021 Glucose [Mass/Vol] 216 mg/dL above high threshold 74 - 99 [facility] BrightArch DO Work Phone: Glucose [Mass/Vol] 232 mg/dL above high threshold 74 - 99 [facility] Bright[employer] DO Work Phone: Glucose [Mass/Vol] 243 mg/dL above high threshold 74 - 99 [facility] [employer] Adallom DO Work Phone: Glucose [Mass/Vol] 237 mg/dL above high threshold 74 - 99 [facility] [employer] Adallom DO Work Phone: Laboratory - Hematology and Cell countson 07-20-2021 Erythrocyte distribution width (RBC) [Ratio] 14.9 % above high threshold See Below [facility] [employer] Adallom DO Work Phone: Comment on above: Reference Range: 11. 5 - 14.5 Hematocrit (Bld) [Volume fraction] 28.8 % below low threshold See Below [facility] [employer] Adallom DO Work Phone: Comment on above: Reference Range: 41. 0 - 52.0 Hemoglobin (Bld) [Mass/Vol] 8.7 g/dL below low threshold See Below [facility] BrightArch DO Work Phone: Comment on above: Reference Range: 13. 5 - 17.5 MCHC (RBC) [Mass/Vol] 30.2 g/dL below low threshold See Below [facility] BrightArch DO Work Phone: Comment on above: Reference Range: 32. 0 - 36.0 MCV (RBC) [Entitic vol] 92 fL 80 - 100 [facility] TapInfluenceElysia lexx 250 DO Work Phone: Platelets (Bld) [#/Vol] 196 10*3/uL 150 - 450 [facility] Michael DO Work Phone: RBC (Bld) [#/Vol] 3.12 {x10E12/L} below low threshold See Below [facility] TapInfluenceDebbie lexx Michael DO Work Phone: Comment on above: Reference Range: 4.5 0 - 5.90 WBC (Bld) [#/Vol] 9.1 10*3/uL 4.4 - 11.3 [facility] TapInfluenceElysia Adallom DO Work Phone: Magnesium, Serumon 2 Magnesium [Mass/Vol] 1.81 mg/dL See Below [facility] TapInfluenceDebbie lexx 250 DO Work Phone: Comment on above: Reference Range: 1.6 0 - 2.40 No Panel Informationon 07-20 0.0 {/100_WBC} 0.0-0.0 [facility] TapInfluenceDebbie lexx TNC DO Work Phone: Renal Function Panelon 07-20 Albumin BCP dye [Mass/Vol] 3.7 g/dL 3.4 - 5.0 [facility] TNC DO Work Phone: Anion gap [Moles/Vol] 19 mmol/L 10 - 20 [facility] TNC DO Work Phone: Calcium [Mass/Vol] 8.4 mg/dL below low threshold 8.6 - 10.6 [facility] lexx TNC DO Work Phone: Chloride [Moles/Vol] 106 mmol/L 98 - 107 [facility] TapInfluenceDebbie lexx TNC DO Work Phone: CO2 [Moles/Vol] 20 mmol/L below low threshold 21 - 32 [facility] TNC DO Work Phone: Creatinine [Mass/Vol] 1.91 mg/dL above high threshold See Below [place] [address] DO Work Phone: Comment on above: Reference Range: 0.5 0 - 1.30 Glucose [Mass/Vol] 206 mg/dL above high threshold 74 - 99 [facility] TNC DO Work Phone: Phosphate [Mass/Vol] 4.9 mg/dL 2.5 - 4.9 [facility] 250 DO Work Phone: Comment on above: The performance abrahan acteristics of phosphorus testing in heparinized plasma have been validated by the individual laboratory site where testing is performed. Testing on heparinized plasma is not approved by the FDA; however, such approval is not necessary. Potassium [Moles/Vol] 4.8 mmol/L 3.5 - 5.3 [place] [address] DO Work Phone: Sodium [Moles/Vol] 140 mmol/L 136 - 145 [facility] TNC DO Work Phone: Urea nitrogen [Mass/Vol] 44 mg/dL above high threshold 6 - 23 [place] [address] DO Work Phone: Renal Function Panel 37 {mL/min/1.73m2} Abnormal >90 [place] [address] DO Work Phone: Comment on above: CALCULATIONS OF AWILDA MATED GFR ARE PERFORMED USING THE 2020 CKD-EPI STUDY REFIT EQUATION WITHOUT THE RACE VARIABLE FOR THE IDMS-TRACEABLE CREATININE METHODS.https://jasn.asnjournals.org/content//A SN.7288358758 Laboratory - Chemistry and C hemistry - challengeon 07-19-2021 Glucose [Mass/Vol] 173 mg/dL above high threshold 74 - 99 [facility] 250 DO Work Phone: Anion gap 4 (BldA) [Moles/Vol] 14 mmol/L 10 - 25 [facility] lexx 250 DO Work Phone: Base excess Calc (Bld) [Moles/Vol] -6.0000 mmol/L below low threshold -2.0 - 3.0 [facility] lexx TNC DO Work Phone: Calcium.ionized (BldA) [Moles/Vol] 1.20 mmol/L See Below [facility] lexx TNC DO Work Phone: Comment on above: Reference Range: 1.1 0 - 1.33 Chloride (BldA) [Moles/Vol] 108 mmol/L above high threshold 98 - 107 [facility] lexx TNC DO Work Phone: CO2 (Bld) [Partial pressure] 38 mm[Hg] 38 - 42 [facility] TNC DO Work Phone: Glucose [Mass/Vol] 165 mg/dL above high threshold 74 - 99 [facility] lexx TNC DO Work Phone: HCO3 (Bld) [Moles/Vol] 19.6 mmol/L below low threshold See Below [facility] le[facility] TNC DO Work Phone: Comment on above: Reference Range: 22. 0 - 26.0 Lactate (BldA) [Moles/Vol] 0.5 mmol/L 0.4 - 2.0 [facility] lexx TNC DO Work Phone: Oxygen (Bld) [Partial pressure] 97 mm[Hg] above high threshold 85 - 95 [facility] lexx TNC DO Work Phone: Oxyhemoglobin (BldA) [Mass fraction] 96.3 % See Below [facility] lexx TNC DO Work Phone: Comment on above: Reference Range: 94. 0 - 98.0 pH (Bld) 7.32 [pH] below low threshold See Below [facility] lexx TNC DO Work Phone: Comment on above: Reference Range: 7.3 8 - 7.42 Potassium (BldA) [Moles/Vol] 4.8 mmol/L 3.5 - 5.3 [facility] lexx TNC DO Work Phone: Sodium (BldA) [Moles/Vol] 137 mmol/L 136 - 145 [facility] 250 DO Work Phone: Anion gap 4 (BldA) [Moles/Vol] 12 mmol/L 10 - 25 [place] [address] DO Work Phone: Base excess Calc (Bld) [Moles/Vol] -5.2000 mmol/L below low threshold -2.0 - 3.0 [place] [address] DO Work Phone: Calcium.ionized (BldA) [Moles/Vol] 1.17 mmol/L See Below [facility] TNC DO Work Phone: Comment on above: Reference Range: 1.1 0 - 1.33 Chloride (BldA) [Moles/Vol] 109 mmol/L above high threshold 98 - 107 [place] [address] DO Work Phone: CO2 (Bld) [Partial pressure] 36 mm[Hg] below low threshold 38 - 42 [facility] TNC DO Work Phone: Glucose [Mass/Vol] 144 mg/dL above high threshold 74 - 99 [place] [address] DO Work Phone: HCO3 (Bld) [Moles/Vol] 19.9 mmol/L below low threshold See Below [place] [address] DO Work Phone: Comment on above: Reference Range: 22. 0 - 26.0 Lactate (BldA) [Moles/Vol] 0.4 mmol/L 0.4 - 2.0 [facility] Adallom DO Work Phone: Oxygen (Bld) [Partial pressure] 167 mm[Hg] above high threshold 85 - 95 [facility] Adallom DO Work Phone: Oxyhemoglobin (BldA) [Mass fraction] 97.1 % See Below [facility] Adallom DO Work Phone: Comment on above: Reference Range: 94. 0 - 98.0 pH (Bld) 7.35 [pH] below low threshold See Below [facility] [employer] Adallom DO Work Phone: Comment on above: Reference Range: 7.3 8 - 7.42 Potassium (BldA) [Moles/Vol] 4.5 mmol/L 3.5 - 5.3 [facility] Adallom DO Work Phone: Sodium (BldA) [Moles/Vol] 136 mmol/L 136 - 145 [facility] Adallom DO Work Phone: Glucose [Mass/Vol] 102 mg/dL above high threshold 74 - 99 [facility] Adallom DO Work Phone: Laboratory - Hematology and Cell countson 07-19-2021 Hematocrit Est (Bld) [Volume fraction] 28.0 % below low threshold See Below [facility] Adallom DO Work Phone: Comment on above: Reference Range: 41. 0 - 52.0 Hemoglobin (Bld) [Mass/Vol] 9.2 g/dL below low threshold See Below [facility] Adallom DO Work Phone: Comment on above: Reference Range: 13. 5 - 17.5 Hematocrit Est (Bld) [Volume fraction] 29.0 % below low threshold See Below [facility] Adallom DO Work Phone: Comment on above: Reference Range: 41. 0 - 52.0 Hemoglobin (Bld) [Mass/Vol] 9.5 g/dL below low threshold See Below [facility] lexx 250 DO Work Phone: Comment on above: Reference Range: 13. 5 - 17.5 No Panel Informationon 07-19 [facility] hall[facility] 250 DO Work Phone: Coronavirus 2019 RNA by PCR, Screening Asymptomticon 07-16-2021 Coronavirus 2019 RNA by PCR, Screening Asymptomtic Not detected Normal See Below [facility] lexx 250 DO Work Phone: Comment on above: SOURCE: Nasal, Nasop haryngealReference Range: Not Detected.This assay is designed to detect the N, ORF1ab and/or S genes of SARS-CoV-2 via nucleic acid amplification. A Negative (NOT DETECTED) result does not preclude 2019-nCoV infection since the adequacy of sample collection and/or low viral burden may result in presence of viral nucleic acids below the clinical sensitivity of this test method. Negative (NOT DETECTED) result should not be used as the sole basis for treatment or other patient management decisions. Rather negative results should be combined with clinical observations, patient history, and epidemiological information to make patient management decisions.Fact sheet for providers: https://www.fda.gov/media/026817/downloadFact sheet for patients: https://www.fda.gov/media/226308/downloadThis test has received FDA Emergency Use Authorization (EUA) and has been verified by [facility] ([facility]). This test is only authorized for the duration of time that circumstances exist to justify the authorization of the emergency use of in vitro diagnostic tests for the detection of SARS-CoV-2 virus and/or diagnosis of COVID-19 infection under section 564(b)(1) of the Act, 21 U.S.C. 360bbb-3(b)(1), unless the authorization is terminated or revoked sooner. [facility] is certified under CLIA-88 as qualified to perform high complexity testing. Testing is performed in the [facility] laboratories located at [address] [place] [address]. Laboratory - Blood bankon ABO group Nom (Bld) A MP-No [facility] HeartLinkagoalu lexx 250 DO Work Phone: Blood group antibody screen Ql Negative -[facility] [employer] 250 DO Work Phone: Rh immune globulin screen (Bld) [Interp] Positive -[facility] Kangsheng Chuangxiang 250 DO Work Phone: Lipid Panelon 07-05-2021 Cholesterol [Mass/Vol] 153 mg/dL Normal 125-200 [facility] Comment on above: Result Comment: Low risk < 200mg/dL Borderline risk 201-239 mg/dl High risk > or equal to 240 Performed By: #### L IPD #### [facility] [address] [place], [place] [id number] Cholesterol in HDL [Mass/Vol] 30 mg/dL Low >40 [facility] Comment on above: Result Comment: High Cardiovascular Risk HDL <40 mg/dL Low Cardiovascular Risk HDL > or equal to 60 mg/dl Performed By: #### L IPD #### [facility] [address] [place], [place] [id number] Cholesterol in LDL [Mass/Vol] 79 mg/dL Normal [facility] Comment on above: Result Comment: LDL ATP III CLASSIFICATION LDL less than 100 mg/dl Optimal LDL 100-129 mg/dl Near or above optimal LDL 130-159 Borderline high LDL 160-189 High LDL greater than 189 mg/dl Very High Performed By: #### L IPD #### [facility] [address] [place], [place] [id number] Cholesterol in VLDL [Mass/Vol] 44 mg/dL Normal [facility] Comment on above: Performed By: #### L IPD #### [facility] [address] [place], [place] [id number] Cholesterol.total/Chol esterol in HDL [Mass ratio] 5 {ratio} Normal [facility] Comment on above: Performed By: #### L IPD #### [facility] [address] [place], [place] [id number] Triglyceride [Mass/Vol] 222 mg/dL High 30-150 [facility] Comment on above: Result Comment: TRIG ATPIII CLASSIFICATIONS TRIG less than 150 mg/dl Normal TRIG 150-199 mg/dl Borderline High TRIG 200-500 mg/dl High TRIG greather than 500 mg/dl Very High Performed By: #### L IPD #### [facility] [address] [place], [place] [id number] PSA SCREEN (MEDICARE)on 06-22 TPSA 1.180 ng/mL Normal <4.000 [facility] Comment on above: Result Comment: PSA Test Method: ECLIA/Scott e 601 Performed By: #### P SA MC #### [facility] [address] [place], [place] [id number] No Panel Informationon 07-02 [facility]-Subu rban Work Phone: [phone] No Panel Informationon 07-01 Normal [facility]-Subu rban Work Phone: [phone] Laboratory - Blood bankon ABO group Nom (Bld) A [facility]-Ot olaryn gology-Subu rban Work Phone: [phone] Blood group antibody screen Ql Negative [facility] rban Work Phone: [phone] Rh immune globulin screen (Bld) [Interp] Positive [facility]ary n g[facility]-Subu rban Work Phone: [phone] Laboratory - Chemistry and C hemistry - challengeon 06-25-2021 Anion gap [Moles/Vol] 16 mmol/L 10 - 20 [facility]- Otolaryn gology-Subu rban Work Phone: [phone] Calcium [Mass/Vol] 9.0 mg/dL 8.6 - 10.6 [facility]Neo laryn gology-Subu rban Work Phone: [phone] Chloride [Moles/Vol] 108 mmol/L above high threshold 98 - 107 [facility]u rban Work Phone: [phone] CO2 [Moles/Vol] 20 mmol/L below low threshold 21 - 32 [facility] rban Work Phone: [phone] Creatinine [Mass/Vol] 2.00 mg/dL above high threshold See Below [facility]-Subu rban Work Phone: [phone] Comment on above: Reference Range: 0.5 0 - 1.30 Glucose [Mass/Vol] 68 mg/dL below low threshold 74 - 99 [facility]-Subu rban Work Phone: [phone] Potassium [Moles/Vol] 4.9 mmol/L 3.5 - 5.3 [facility]- Otolaryn gology-Subu rban Work Phone: [phone] Sodium [Moles/Vol] 139 mmol/L 136 - 145 [facility] laryn gology-Subu rban Work Phone: [phone] Urea nitrogen [Mass/Vol] 42 mg/dL above high threshold 6 - 23 [facility]-Subu rban Work Phone: [phone] Laboratory - Coagulationon 0 06-25-2021 aPTT Coag (PPP) [Time] 37 s 26 - 39 [facility] rban Work Phone: [phone] Comment on above: Note new reference r saul as of 03/23/2021 at 10:00am. INR Coag (PPP) [Relative time] 1.1 {INR} 0.9 - 1.1 [facility] rban Work Phone: PT Coag (PPP) [Time] 12.2 s 9.8 - 13.4 [facility]O tolaryn gology-Subu rban Work Phone: Comment on above: Note new reference r saul as of 03/23/2021 at 10:00am. Laboratory - Hematology and Cell countson 06-25-2021 Erythrocyte distribution width (RBC) [Ratio] 15.2 % above high threshold See Below [facility]-Subu rban Work Phone: [phone] Comment on above: Reference Range: 11. 5 - 14.5 Hematocrit (Bld) [Volume fraction] 30.5 % below low threshold See Below [facility]-Subu rban Work Phone: [phone] Comment on above: Reference Range: 41. 0 - 52.0 Hemoglobin (Bld) [Mass/Vol] 9.5 g/dL below low threshold See Below [facility]-Subu rban Work Phone: [phone] Comment on above: Reference Range: 13. 5 - 17.5 MCHC (RBC) [Mass/Vol] 31.1 g/dL below low threshold See Below [facility]Otol[facility] g[facility]-Subu rban Work Phone: [phone] Comment on above: Reference Range: 32. 0 - 36.0 MCV (RBC) [Entitic vol] 88 fL 80 - 100 [facility]-Subu rban Work Phone: [phone] Platelets (Bld) [#/Vol] 213 10*3/uL 150 - 450 [facility]-Subu rban Work Phone: [phone] RBC (Bld) [#/Vol] 3.45 {x10E12/L} below low threshold See Below [facility]Otolaryn [facility]-Subu rban Work Phone: [phone] Comment on above: Reference Range: 4.5 0 - 5.90 WBC (Bld) [#/Vol] 5.8 10*3/uL 4.4 - 11.3 [facility]-Neo laryn zafarogy-Subu rban Work Phone: [phone] MRSA Screenon 06-25-2021 Staphylococcus sp identified Org specific cx Nom (Unsp spec) [facility]-Subu rban Work Phone: [phone] Panel Informationon 06-25 35 {mL/min/1.73m2} Abnormal >90 [facility] laryn gology-Subu rban Work Phone: [phone] Comment on above: CALCULATIONS OF AWILDA MATED GFR ARE PERFORMED USING THE 2020 CKD-EPI STUDY REFIT EQUATION WITHOUT THE RACE VARIABLE FOR THE IDMS-TRACEABLE CREATININE METHODS.https://jasn.asnjournals.org/content/early/A SN.1226939056 0.0 {/100_WBC} 0.0-0.0 [facility]-Otolary n zafarogy-Subu rban Work Phone: [phone] Prealbumin, Serumon 06-26-19 Prealbumin Nephelometry [Mass/Vol] 25.4 mg/dL See Below [facility]Otolaryn zafarogy-Subu rban Work Phone: [phone] Comment on above: Reference Range: 18. 0 - 40.0 TSH - Thyroid Stimulating Ho rmone, Serumon 06-25-2021 TSH Qn 2.77 m[IU]/L See Below [facility]-Otolaryn zafarogy-Subu rban Work Phone: [phone] Comment on above: Reference Range: 0.4 4 - 3.98 TSH testing is performed using different testing methodology at [facility] than at other [facility]. Direct result comparisons should only be made within the same method. Tobacco Screening.on 022 Fall risk assessment b) One or more fall s in the last year [facility]-Subu rban Work Phone: [phone] Tobacco use status CPHS b) No [facility]-Otolaryn gology-Subu rbvarghese Work Phone: [phone] Chest with Contraston CT Chest W contrast IV Normal [facility] [place] 4100 Work Phone: [phone] Facial Bones with Contras ton 06-07-2021 CT Facial bones W contrast IV Normal [facility]ology[facility] 4100 Work Phone: [phone] Image Reconstruction 3D V olume and MIPon 06-07-2021 CT Image Reconstruction 3D Volume and MIP Normal -Otn[facility]yn [facility] 4100 Work Phone: [phone] Neck with Contraston 05-25 CT Neck W contrast IV Normal [facility] [place] [facility] 4100 Work Phone: [phone] CTA ABD Aorta With Bilat Roseanne ofem Extr Runoff w/wo Cont Post Procon 06-07-2021 CTA ABD Aorta With Bilat Iliofem Extr Runoff w/wo Cont Post Proc Normal [facility] 4100 Work Phone: Blood Urea Nitrogen, Serumon 05-21-2021 Urea nitrogen [Mass/Vol] 52 mg/dL above high threshold 6 - 23 [facility] Work Phone: Creatinine, Serumon 05-21-19 Creatinine [Mass/Vol] 2.14 mg/dL above high threshold See Below [facility] Work Phone: Comment on above: Reference Range: 0.5 0 - 1.30 Creatinine, Serum 33 {mL/min/1.73m2} Abnormal >90 [facility] Work Phone: Comment on above: CALCULATIONS OF AWILDA MATED GFR ARE PERFORMED USING THE 2020 CKD-EPI STUDY REFIT EQUATION WITHOUT THE RACE VARIABLE FOR THE IDMS-TRACEABLE CREATININE METHODS.https://jasn.asnjournals.org/content//[email or web address] Tobacco Screening.on Fall risk assessment b) One or more fall s in the last year [facility] 4100 Work Phone: Tobacco use status [facility] b) No [facility] 4100 Work Phone: Tobacco Screening.on Fall risk assessment a) No falls within the last year [facility] 250 DO Work Phone: Tobacco use status CP b) No [facility] 250 DO Work Phone: CNPNon 05-11-2021 CNPN Telephone (NCCAP) -- HODAMENDEZ ([id number]) 1950 M Date Time Provider Department 05/11/21 GREGOR FRASER During your visit today, we recorded the following information about you: Heather Carlos Pss 05/11/2021 12:25 PM Signed Patient may be having surgery and would like to see what the doc up at [facility] says before coming back in Wendy Mullins APRN.WASHER ENGINEER 05/11/2021 12:50 PM Signed That should be fine to reschedule. What type of surgery is the patient having? Thanks, Wendy Mullins APRN.WASHER ENGINEER Jenna Higgins RN 05/12/2021 12:00 PM Signed Pt's phone not working. Message left on 's phone for patient to call office for question from doctor. RAFAEL Correa RN 05/12/2021 4:30 PM Signed Spoke with pt's Daria who states pt has appt Monday to see surgeon who is going to assess pt's ability to have surgery. Surgery would be on his jaw. Daria states pt had a lot of radiation back in 2011 and his jaw is deteriorating. She will call back after appt to update us on the plan. Jenna Higgins RN Allergies As of Date: 05/11/2021 Noted Allergy Reaction CONTRAST DYE 03/27/2012 2 - Rash BENZOIC ACID 03/30/2016 2 - Rash Date Reviewed: 05/11/2021 Reviewed by: Wendy Mullins APRN.WASHER ENGINEER - Fully Assessed Reason for Visit: Patient Update [1234] Prescriptions as of 05/12/2021 - glipiZIDE (GLUCOTROL) 5 mg tablet TAKE 1 TABLET BY MOUTH ONCE DAILY FOR 90 DAYS - insulin NPH-insulin regular injection (HumuLIN, NovoLIN 70/30) Inject 30 Units subcutaneously. - NOVOLIN N NPH U-100 INSULIN 100 unit/mL injection Inject 30 Units subcutaneously twice daily. - nitroglycerin sublingual (NITROQUICK) 0.4 mg SL tablet 1 under the tongue as needed for angina, may repeat q5mins for up three doses - predniSONE (DELTASONE) 50 mg tab Take 1 tablet by mouth 13 hours prior to exam, then take 1 tablet by mouth 7 hours prior to exam time and then take 1 tablet by mouth 1 hour prior to exam time. - diphenhydrAMINE (BENADRYL) 50 mg capsule Take 1 tablet (50 mg) by mouth 1 hour prior to exam time. - benzonatate (TESSALON PERLES) 100 mg capsule Take 100 mg by mouth three times daily as needed. - NIFEdipine XL (ADALAT CC, PROCARDIA XL) 60 mg 24 hr tablet Take 60 mg by mouth. - carvedilol (COREG) 25 mg tablet Take 25 mg by mouth twice daily with meals. - INSULIN ZINC HUMAN RECOMBINANT (NOVOLIN L SUBCUTANE.) Inject subcutaneously as directed. - clopidogrel (PLAVIX) 75 mg tablet Take 75 mg by mouth once daily. - atorvastatin (LIPITOR) 80 mg tablet Take 80 mg by mouth once daily. - aspirin, enteric coated (ASPIRIN, ENTERIC COATED) 81 mg EC tablet Take 81 mg by mouth. - metFORMIN (GLUCOPHAGE) 500 mg tablet Take 500 mg by mouth twice daily with meals. - pioglitazone (ACTOS) 30 mg tablet Take 30 mg by mouth once daily. - Zinc 50 mg tab Take 50 mg by mouth once daily. - CLONIDINE 0.1 mg tablet Take 0.1 mg by mouth twice daily. - lisinopril-hydrochlorothia zide 20-12.5 mg per tablet Take 1 tablet by mouth once daily. 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 Anemia [D64.9] 04/03/2012 Diabetes mellitus [E11.9] 06/05/2012 Hypertension [I10] 06/05/2012 Hyperlipidemia [E78.5] 06/05/2012 History of head and neck cancer [Z85.89] 04/09/2015 CAD (coronary artery disease) [I25.10] 06/23/2016 Malaise and fatigue [R53.81, R53.83] 12/28/2017 Encounter Status:Closed by HEATHER MADDOX [facility] 05/12/21 [facility] C[facility]N Tele[facility] (LALIT) -- MENDEZ DRUMMOND ([id number]) 1950 M Date Time Provider Department 05/10/21 GREGOR FRASER During your visit today, we recorded the following information about you: Анна Martin 05/10/2021 10:18 AM Signed Please sign pending lab orders for Monday05/18/21. Thanks, Анна Salazar MA Allergies As of Date: 05/10/2021 Noted Allergy Reaction CONTRAST DYE 03/27/2012 2 - Rash BENZOIC ACID 03/30/2016 2 - Rash Date Reviewed: 05/10/2021 Reviewed by: Wendy Mullins APRN.WASHER ENGINEER - Fully Assessed Reason for Visit: Lab Orders [1688] Primary Visit Diagnosis:Malignant neoplasm of head, face, and neck (HCC) [C76.0] Order(s):CBC + DIFF [SQCBCDIF] Order #: [id number] FUTURE Prescriptions as of 05/10/2021 - glipiZIDE (GLUCOTROL) 5 mg tablet TAKE 1 TABLET BY MOUTH ONCE DAILY FOR 90 DAYS - insulin NPH-insulin regular injection (HumuLIN, NovoLIN 70/30) Inject 30 Units subcutaneously. - NOVOLIN N NPH U-100 INSULIN 100 unit/mL injection Inject 30 Units subcutaneously twice daily. - nitroglycerin sublingual (NITROQUICK) 0.4 mg SL tablet 1 under the tongue as needed for angina, may repeat q5mins for up three doses - predniSONE (DELTASONE) 50 mg tab Take 1 tablet by mouth 13 hours prior to exam, then take 1 tablet by mouth 7 hours prior to exam time and then take 1 tablet by mouth 1 hour prior to exam time. - diphenhydrAMINE (BENADRYL) 50 mg capsule Take 1 tablet (50 mg) by mouth 1 hour prior to exam time. - benzonatate (TESSALON PERLES) 100 mg capsule Take 100 mg by mouth three times daily as needed. - NIFEdipine XL (ADALAT CC, PROCARDIA XL) 60 mg 24 hr tablet Take 60 mg by mouth. - carvedilol (COREG) 25 mg tablet Take 25 mg by mouth twice daily with meals. - INSULIN ZINC HUMAN RECOMBINANT (NOVOLIN L SUBCUTANE.) Inject subcutaneously as directed. - clopidogrel (PLAVIX) 75 mg tablet Take 75 mg by mouth once daily. - atorvastatin (LIPITOR) 80 mg tablet Take 80 mg by mouth once daily. - aspirin, enteric coated (ASPIRIN, ENTERIC COATED) 81 mg EC tablet Take 81 mg by mouth. - metFORMIN (GLUCOPHAGE) 500 mg tablet Take 500 mg by mouth twice daily with meals. - pioglitazone (ACTOS) 30 mg tablet Take 30 mg by mouth once daily. - Zinc 50 mg tab Take 50 mg by mouth once daily. - CLONIDINE 0.1 mg tablet Take 0.1 mg by mouth twice daily. - lisinopril-hydrochlorothia zide 20-12.5 mg per tablet Take 1 tablet by mouth once daily. 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 POC GLUCOSE LABon 09-17-2020 Glucose [Mass/Vol] 151 mg/dL High 70-[address] [facility] Comment on above: Performed By: #### [id number] #### [facility] [address] [place] [address], [facility] Glucose [Mass/Vol] 194 mg/dL High 70-[address] [facility] Comment on above: Performed By: #### 8 [id number] #### [facility] [address] [place] [address], [place] POC GLUCOSE LABon 09-16-2020 Glucose [Mass/Vol] 199 mg/dL High 70-[address] [facility] Comment on above: Performed By: #### 8 [id number] #### [facility] [address] [place] [address], [place] Glucose [Mass/Vol] 262 mg/dL High 70-[address] [facility] Comment on above: Performed By: #### 8 [id number] #### [facility] [address] [place] [address], [place] POC GLUCOSE LABon 09-15-2020 Glucose [Mass/Vol] 130 mg/dL High 70-[address] [facility] Comment on above: Performed By: #### 8 [id number] #### [facility] [address] [place] [address], [place] Glucose [Mass/Vol] 256 mg/dL High 70-[address] [facility] Comment on above: Performed By: #### 8 [id number] #### [facility] [address] [place] [address], [place] POC GLUCOSE LABon 09-14-2020 Glucose [Mass/Vol] 123 mg/dL High 70-[address] [facility] Comment on above: Performed By: #### 8 [id number] #### [facility] [address] [place] [address], [place] Glucose [Mass/Vol] 87 mg/dL Normal 70-[address] [facility] Comment on above: Performed By: #### 8 [id number] #### [facility] [address] [place] [address], [place] Glucose [Mass/Vol] 119 mg/dL High 70-[address] [facility] Comment on above: Performed By: #### 8 [id number] #### [facility] [address] [place] [address], [place] POC GLUCOSE LABon 09-10-2020 Glucose [Mass/Vol] 137 mg/dL High 70-[address] [facility] Comment on above: Performed By: #### 8 [id number] #### [facility] [address] [place] [address], [place] Glucose [Mass/Vol] 185 mg/dL High 70-[address] [facility] Comment on above: Performed By: #### 8 [id number] #### [facility] [address] [place] [address], [place] POC GLUCOSE LABon 09-09-2020 Glucose [Mass/Vol] 137 mg/dL High 70-[address] [facility] Comment on above: Performed By: #### 8 [id number] #### [facility] [address] [place] [address], [place] Glucose [Mass/Vol] 163 mg/dL High 70-[address] [facility] Comment on above: Performed By: #### 8 [id number] #### [facility] [address] [place] [address], [place] POC GLUCOSE LABon 09-08-2020 Glucose [Mass/Vol] 121 mg/dL High 70-[address] [facility] Comment on above: Performed By: #### 8 [id number] #### [facility] [address] [place] [address], [place] Glucose [Mass/Vol] 146 mg/dL High 70-[address] [facility] Comment on above: Performed By: #### 8 [id number] #### [facility] [address] [place] [address], [place] POC GLUCOSE LABon 09-07-2020 Glucose [Mass/Vol] 111 mg/dL High 70-[address] [facility] Comment on above: Performed By: #### 8 [id number] #### [facility] [address] [place] [address], [place] Glucose [Mass/Vol] 153 mg/dL High 70-[address] [facility] Comment on above: Performed By: #### 8 [id number] #### [facility] [address] [place] [address], [place] POC GLUCOSE LABon 09-04-2020 Glucose [Mass/Vol] 118 mg/dL High 70-[address] [facility] Comment on above: Performed By: #### 8 [id number] #### [facility] [address] [place] [address], [place] Glucose [Mass/Vol] 143 mg/dL High 70-[address] [facility] Comment on above: Performed By: #### 8 [id number] #### [facility] [address] [place] [address], [place] POC GLUCOSE LABon 09-02-2020 Glucose [Mass/Vol] 162 mg/dL High 70-[address] [facility] Comment on above: Performed By: #### 8 [id number] #### [facility] [address] [place] [address], [place] Glucose [Mass/Vol] 207 mg/dL High 70-[address] [facility] Comment on above: Performed By: #### 8 [id number] #### [facility] [address] [place] [address], [place] POC GLUCOSE LABon 09-01-2020 Glucose [Mass/Vol] 217 mg/dL High 70-[address] [facility] Comment on above: Performed By: #### 8 [id number] #### [facility] [address] [place] [address], [place] POC GLUCOSE LABon 08-31-2020 Glucose [Mass/Vol] 141 mg/dL High 70-[address] [facility] Comment on above: Performed By: #### 8 [id number] #### [facility] [address] [place] [address], [place] Glucose [Mass/Vol] 184 mg/dL High 70-[address] [facility] Comment on above: Performed By: #### 8 [id number] #### [facility] [address] [place] [address], [place] POC GLUCOSE LABon 08-27-2020 Glucose [Mass/Vol] 127 mg/dL High 70-[address] [facility] Comment on above: Performed By: #### 8 [id number] #### [facility] [address] [place] [address], [place] Glucose [Mass/Vol] 129 mg/dL High 70-[address] [facility] Comment on above: Performed By: #### 8 [id number] #### [facility] [address] [place] [address], [place] POC GLUCOSE LABon 08-26-2020 Glucose [Mass/Vol] 112 mg/dL High 70-[address] [facility] Comment on above: Performed By: #### 8 [id number] #### [facility] [address] [place] [address], [place] Glucose [Mass/Vol] 87 mg/dL Normal 70-[address] [facility] Comment on above: Performed By: #### 8 [id number] #### [facility] [address] [place] [address], [place] Glucose [Mass/Vol] 124 mg/dL High 70-[address] [facility] Comment on above: Performed By: #### 8 [id number] #### [facility] [address] [place] [address], [place] POC GLUCOSE LABon 08-25-2020 Glucose [Mass/Vol] 134 mg/dL High 70-[address] [facility] Comment on above: Performed By: #### 8 [id number] #### [facility] [address] [place] [address], [place] Glucose [Mass/Vol] 231 mg/dL High 70-[address] [facility] Comment on above: Performed By: #### 8 [id number] #### [facility] [address] [place] [address], [place] POC GLUCOSE LABon 08-21-2020 Glucose [Mass/Vol] 126 mg/dL High 70-[address] [facility] Comment on above: Performed By: #### 8 [id number] #### [facility] [address] [place] [address], [place] Glucose [Mass/Vol] 188 mg/dL High 70-[address] [facility] Comment on above: Performed By: #### 8 [id number] #### [facility] [address] [place] [address], [place] POC GLUCOSE LABon 08-20-2020 Glucose [Mass/Vol] 114 mg/dL High 70-[address] [facility] Comment on above: Performed By: #### 8 [id number] #### [facility] [address] [place] [address], [place] Glucose [Mass/Vol] 152 mg/dL High 70-[address] [facility] Comment on above: Performed By: #### 8 [id number] #### [facility] [address] [place] [address], [place] POC GLUCOSE LABon 08-19-2020 Glucose [Mass/Vol] 127 mg/dL High 70-[address] [facility] Comment on above: Performed By: #### 8 [id number] #### [facility] [address] [place] [address], [place] Glucose [Mass/Vol] 152 mg/dL High 70-[address] [facility] Comment on above: Performed By: #### 8 [id number] #### [facility] [address] [place] [address], [place] [facility] CARDIAC STRESS/REST (MIMI CARDIAL PERFUSION/MIBI)on 04-20-2020 [facility] CARDIAC STRESS/REST (MYOCARDIAL PERFUSION/MIBI) Patient Name: MENDEZ DRUMMOND STUDY: MYOCARDIAL PERFUSION STRESS TEST WITH LEXISCAN Performing facility: [facility], [address] [place] [address], [address], [place] [address] [facility] Provider: HARIKA HOLDER PCP: Dr. Caterina DOWNEY Supervising provider: FARHAD OCAMPO INDICATION: CP CAD HISTORY: Gender: M; Age: 69 y/o ; Height: 177.8 cm; Weight: 115.428991 kg. DM HTN High Cholesterol; CP Denies smoking. PTCA on 2016 COMPARISON: ACCESSION NUMBER(S): [id number] ORDERING CLINICIAN: LYNN HOLDER TECHNIQUE: ONE DAY protocol. Stress injection: Date:04/20/2020, 33 mCi of Myoview IV 20 seconds after rapid injection of Lexiscan. Rest injection: Date: 04/20/2020, 11.9 mCi of Myoview IV at rest. The patient had a rapid injection of 0.4 mg of Lexiscan IV over 10 seconds. Imaging was performed by gated tomographic technique. Reason for Lexiscan: KNEE PAIN STRESS TEST DATA: Resting heart rate was 73 BPM. Resting blood pressure was 130/78 mmHg. Peak blood pressure was 128/80 mmHg. Peak heart rate was 86 BPM. TEST TERMINATED DUE TO: KNEE PAIN FINDINGS: STRESS TEST RESULTS: Resting electrocardiogram revealed normal sinus rhythm with nonspecific ST-T changes and occasional PVC. There were no significant ischemic ECG changes or dysrhythmias. The patient did not have chest pains/symptoms during procedure. There was a normal recovery phase. IMAGING RESULTS: Image quality was good. Rest and stress tomographic images were reviewed and revealed normal perfusion without evidence of ischemia, myocardial infarction, or left ventricular dilatation with stress. Overall left ventricular systolic function appeared to be normal without regional wall motion abnormalities. Ejection fraction was 51%. TID is 1.07 and is normal. There were no evidence of attenuation artifact. IMPRESSION: Normal Lexiscan Myoview cardiac perfusion stress test. No evidence of ischemia or myocardial infarction by perfusion imaging. Normal left ventricular systolic function, ejection fraction 51%. No previous study available for comparison. Electronically signed by: JANNA GUZMAN MD Normal [facility] CARDIAC STRESS/REST INJE CTIONon 04-20-2020 [facility] CARDIAC STRESS/REST INJECTION Patient Name: MENDEZ DRUMMOND STUDY: MYOCARDIAL PERFUSION STRESS TEST WITH LEXISCAN Performing facility: [facility], [address] [place] [address], [address], [place] [address] [facility] Provider: HARIKA HOLDER PCP: Dr. Caterina DOWNEY Supervising provider: FARHAD OCAMPO INDICATION: CP CAD HISTORY: Gender: M; Age: 69 y/o ; Height: 177.8 cm; Weight: 115.840388 kg. DM HTN High Cholesterol; CP Denies smoking. PTCA on 2016 COMPARISON: ACCESSION NUMBER(S): [id number] ORDERING CLINICIAN: LYNN HOLDER TECHNIQUE: ONE DAY protocol. Stress injection: Date:04/20/2020, 33 mCi of Myoview IV 20 seconds after rapid injection of Lexiscan. Rest injection: Date: 04/20/2020, 11.9 mCi of Myoview IV at rest. The patient had a rapid injection of 0.4 mg of Lexiscan IV over 10 seconds. Imaging was performed by gated tomographic technique. Reason for Lexiscan: KNEE PAIN STRESS TEST DATA: Resting heart rate was 73 BPM. Resting blood pressure was 130/78 mmHg. Peak blood pressure was 128/80 mmHg. Peak heart rate was 86 BPM. TEST TERMINATED DUE TO: KNEE PAIN FINDINGS: STRESS TEST RESULTS: Resting electrocardiogram revealed normal sinus rhythm with nonspecific ST-T changes and occasional PVC. There were no significant ischemic ECG changes or dysrhythmias. The patient did not have chest pains/symptoms during procedure. There was a normal recovery phase. IMAGING RESULTS: Image quality was good. Rest and stress tomographic images were reviewed and revealed normal perfusion without evidence of ischemia, myocardial infarction, or left ventricular dilatation with stress. Overall left ventricular systolic function appeared to be normal without regional wall motion abnormalities. Ejection fraction was 51%. TID is 1.07 and is normal. There were no evidence of attenuation artifact. IMPRESSION: Normal Lexiscan Myoview cardiac perfusion stress test. No evidence of ischemia or myocardial infarction by perfusion imaging. Normal left ventricular systolic function, ejection fraction 51%. No previous study available for comparison. Electronically signed by: JANNA GUZMAN MD Normal [facility] PART 2 STRESS OR REST (N O CHARGE)on 04-20-2020 [facility] PART 2 STRESS OR REST (NO CHARGE) Patient Name: MENDEZ DRUMMOND STUDY: MYOCARDIAL PERFUSION STRESS TEST WITH LEXISCAN Performing facility: [facility], [address] [place] [address], [address], [place] [address] [facility] Provider: HARIKA HOLDER PCP: Dr. Caterina DOWNEY Supervising provider: FARHAD OCAMPO INDICATION: CP CAD HISTORY: Gender: M; Age: 69 y/o ; Height: 177.8 cm; Weight: 115.935866 kg. DM HTN High Cholesterol; CP Denies smoking. PTCA on 2016 COMPARISON: ACCESSION NUMBER(S): [id number] ORDERING CLINICIAN: LYNN HOLDER TECHNIQUE: ONE DAY protocol. Stress injection: Date:04/20/2020, 33 mCi of Myoview IV 20 seconds after rapid injection of Lexiscan. Rest injection: Date: 04/20/2020, 11.9 mCi of Myoview IV at rest. The patient had a rapid injection of 0.4 mg of Lexiscan IV over 10 seconds. Imaging was performed by gated tomographic technique. Reason for Lexiscan: KNEE PAIN STRESS TEST DATA: Resting heart rate was 73 BPM. Resting blood pressure was 130/78 mmHg. Peak blood pressure was 128/80 mmHg. Peak heart rate was 86 BPM. TEST TERMINATED DUE TO: KNEE PAIN FINDINGS: STRESS TEST RESULTS: Resting electrocardiogram revealed normal sinus rhythm with nonspecific ST-T changes and occasional PVC. There were no significant ischemic ECG changes or dysrhythmias. The patient did not have chest pains/symptoms during procedure. There was a normal recovery phase. IMAGING RESULTS: Image quality was good. Rest and stress tomographic images were reviewed and revealed normal perfusion without evidence of ischemia, myocardial infarction, or left ventricular dilatation with stress. Overall left ventricular systolic function appeared to be normal without regional wall motion abnormalities. Ejection fraction was 51%. TID is 1.07 and is normal. There were no evidence of attenuation artifact. IMPRESSION: Normal Lexiscan Myoview cardiac perfusion stress test. No evidence of ischemia or myocardial infarction by perfusion imaging. Normal left ventricular systolic function, ejection fraction 51%. No previous study available for comparison. Electronically signed by: JANNA GUZMAN MD Normal [facility] Creatinineon 01-30-2017 Creatinine 2.23 mg/dL High 0.50-1.30 [facility] Comment on above: Performed By: #### 1 [id number] ####[facility] [address] [place] [address] eGFR (MDRD) 30 mL/min/{1.73_m2} Normal [facility] Comment on above: Result Comment: Inte rpretation for Chronic Kidney Disease:Stages 1&2 >60 Healthy or potential kidney damage.Mild decrease of GFR.Stage 3 30-59 Moderate decrease of GFR.Stage 4 15-29 Severe decrease of GFR.Stage 5 <15 Kidney failure or on dialysis. Performed By: #### 1 [id number] ####[facility] [id number] [facility] [place] [address] Electrolyte Panelon 01-31-20 17 Anion gap 15 mmol/L Normal 10-20 [facility] Comment on above: Performed By: #### 1 [id number] ####[facility] [id number] [facility] [address] [place] [address] Bicarbonate (HCO3) 24 mmol/L Normal 21-32 [facility] Comment on above: Performed By: #### 1 [id number] ####[facility] [id number] [facility] [place] [address] Chloride 104 mmol/L Normal 98-107 [facility] Comment on above: Performed By: #### 1 [id number] ####[facility] [id number] [facility] [place] [address] Potassium molar conc 5.8 mmol/L High 3.5-5.1 [facility] Comment on above: Performed By: #### 1 [id number] ####[facility] [id number] [facility] [place] [address] Sodium 137 mmol/L Normal 136-145 [facility] Comment on above: Performed By: #### 1 [id number] ####[facility] [id number] [facility] [place] [address] Urea Nitrogenon 01-30-2017 Urea nitrogen 67 mg/dL High 6-23 [facility] [facility] Healthcare Comment on above: Performed By: #### [id number] ####[facility] [id number] [facility] [place] [address] US Renalon 01-23-2017 US Renal Exam Date/Time:2016 07:41 EDTReason for Exam:CHRONIC RENAL INSUFF STAGE 3 N18.3 HYPERTENSION [id number] REFER TO THE RENAL ARTERIES REPORT. FINAL REPORT Dictated: 01/23/2017 12:59 pm Trevor Arzola M.D. Signed (Electronic Signature): 01/23/2017 12:59 pm Signed by: Trevor Arzola M.D. Transcribed by: DP Technologist: DONOVAN [facility] Coding Summary.on 01-19-2017 Coding Summary. CODING DATE: 017 [facility] STATUS: Home (Routine DC) PAYOR: Medicare APC DESCRIPTION 5523 Level 3 Imaging without Contrast ADMIT DX: REASON FOR VISIT DX: I12.9 Hypertensive chronic kidney disease with stage 1 through stage 4 chronic kidney disease, or unspecified chronic kidney disease FINAL DX: PRINCIPAL: I12.9 Hypertensive chronic kidney disease with stage 1 through stage 4 chronic kidney disease, or unspecified chronic kidney disease SECONDARY: N18.3 Chronic kidney disease, stage 3 (moderate) E66.3 Overweight PYMT PROC APC STAT DESCRIPTION DOCTOR NAME DATE NOTE: The code number assigned matches the documented diagnosis and / or procedure in the patient's chart. However, the narrative phrase printed from the coding software may appear abbreviated, or result in slightly different terminology. Coded By: Tasneem Taylor Date Saved: 01/19/2017 01:08 pm [facility] Vital Signs Date Time Vital Sign Value Performing Clinician Facility 10-10-2023 00:41-0400 Diastolic blood pressure 87 mm[Hg] MD Lety Downey Work Phone: [facility] 10-10-2023 00:41-0400 Heart rate 60 /min MD Lety Downey Work Phone: [facility] 10-10-2023 00:41-0400 Respiratory rate 18 /min MD Lety Downey Work Phone: [facility] 10-10-2023 00:41-0400 SaO2% (BldA) [Mass fraction] 98 % MD Lety Downey Work Phone: [facility] 10-10-2023 00:41-0400 Systolic blood pressure 146 mm[Hg] MD Lety Downey Work Phone: [facility] 10-09-2023 19:56-0400 Body height 175.26 cm MD Lety Downey Work Phone: [facility] 10-09-2023 19:56-0400 Body temperature 97.6 [degF] MD Lety Downey Work Phone: [facility] 10-09-2023 19:56-0400 Body weight 108.86 kg MD Lety Downey Work Phone: [facility] 10-08-2023 12:53-0400 Body height 175.26 cm MD Lety Downey Work Phone: [facility] 10-08-2023 12:53-0400 Body temperature 97.5 [degF] MD Lety Downey Work Phone: [facility] 10-08-2023 12:53-0400 Body weight 111.65 kg MD Lety Downey Work Phone: [facility] 10-08-2023 12:53-0400 Diastolic blood pressure 87 mm[Hg] MD Lety Downey Work Phone: [facility] 10-08-2023 12:53-0400 Heart rate 89 /min MD Lety Downey Work Phone: [facility] 10-08-2023 12:53-0400 Respiratory rate 18 /min MD Lety Downey Work Phone: [facility] 10-08-2023 12:53-0400 SaO2% (BldA) [Mass fraction] 98 % MD Lety Downey Work Phone: [facility] 10-08-2023 12:53-0400 Systolic blood pressure 145 mm[Hg] MD Lety Downey Work Phone: [facility] 08-25-2023 12:52-0400 Body height 175.3 cm Pieter Duarte MD Work Phone: [facility] 08-25-2023 12:52-0400 Body mass index (BMI) [Ratio] 36.18 kg/m2 Pieter Duarte MD Work Phone: [facility] 08-25-2023 12:52-0400 Body weight 111.13 kg Pieter Duarte MD Work Phone: [facility] 08-01-2023 12:40-0400 Body height 177.8 cm MD Lety Downey Work Phone: [facility] 08-01-2023 12:40-0400 Body mass index (BMI) [Ratio] 35.9 kg/m2 MD Lety Downey Work Phone: [facility] 08-01-2023 12:40-0400 Body temperature 97.6 [degF] MD Lety Downey Work Phone: [facility] 08-01-2023 12:40-0400 Body weight 113.39 kg MD Lety Downey Work Phone: [facility] 08-01-2023 12:40-0400 Diastolic blood pressure 78 mm[Hg] MD Lety Downey Work Phone: [facility] 08-01-2023 12:40-0400 Heart rate 75 /min MD Lety Downey Work Phone: [facility] 08-01-2023 12:40-0400 Respiratory rate 16 /min MD Lety Downey Work Phone: [facility] 08-01-2023 12:40-0400 SaO2% (BldA) [Mass fraction] 96 % MD Lety Downey Work Phone: [facility] 08-01-2023 12:40-0400 Systolic blood pressure 118 mm[Hg] MD Lety Downey Work Phone: [facility] 07-17-2023 11:58-0400 Body height 177.8 cm Pfo 1 [facility] [employer] [facility] 07-17-2023 11:58-0400 Body mass index (BMI) [Ratio] 35.87 kg/m2 Pfo 1 [facility] [employer] [facility] 07-17-2023 11:58-0400 Body temperature 97.3 [degF] [facility] 07-17-2023 11:58-0400 Body weight 113.4 kg Pfo 1 [facility] [employer] [facility] 07-17-2023 11:58-0400 Diastolic blood pressure 77 mm[Hg] Pfo 1 [facility] [employer] [facility] 07-17-2023 11:58-0400 Heart rate 64 /min Pfo 1 [facility] [employer] [facility] 07-17-2023 11:58-0400 Respiratory rate 18 /min Pfo 1 [facility] 07-17-2023 11:58-0400 SaO2% (BldA) [Mass fraction] 98 % Pfo 1 [facility] [employer] [facility] 07-17-2023 11:58-0400 Systolic blood pressure 124 mm[Hg] Pfo 1 [facility] [employer] [facility] 07-13-2023 07:53-0400 Diastolic blood pressure 56 mm[Hg] Meredith Oberneder ENVIRONMENTAL COMPLIANCE INSPECTOR-WASHER ENGINEER Work Phone: [facility] [employer] [facility] 07-13-2023 07:53-0400 Heart rate 79 /min Meredith Oberneder ENVIRONMENTAL COMPLIANCE INSPECTOR-WASHER ENGINEER Work Phone: [facility] [employer] [facility] 07-13-2023 07:53-0400 Systolic blood pressure 108 mm[Hg] Meredith Oberneder ENVIRONMENTAL COMPLIANCE INSPECTOR-WASHER ENGINEER Work Phone: [facility] [employer] [facility] 07-13-2023 07:51-0400 Body mass index (BMI) [Ratio] 36.19 kg/m2 Meredith Oberneder ENVIRONMENTAL COMPLIANCE INSPECTOR-WASHER ENGINEER Work Phone: [facility] [employer] [facility] 07-13-2023 07:51-0400 Body weight 114.4 kg Meredith Oberneder ENVIRONMENTAL COMPLIANCE INSPECTOR-WASHER ENGINEER [facility] Phone: [facility] 07-13-2023 07:51-0400 SaO2% (BldA) [Mass fraction] 100 % Meredith Oberneder ENVIRONMENTAL COMPLIANCE INSPECTOR-WASHER ENGINEER Work Phone: [facility] [employer] [facility] 07-12-2023 15:27-0400 Body height 177.8 cm Pieter Duarte MD Work Phone: [facility] 07-12-2023 15:27-0400 Body mass index (BMI) [Ratio] 35.9 kg/m2 Pieter Duarte MD Work Phone: [facility] 07-12-2023 15:27-0400 Body temperature 97.3 [degF] Pieter Duarte MD Work Phone: [facility] 07-12-2023 15:27-0400 Body weight 113.49 kg Pieter Duarte MD Work Phone: [facility] 07-03-2023 11:52-0400 Body height 177.8 cm Pfo 1 [facility] [employer] [facility] 07-03-2023 11:52-0400 Body mass index (BMI) [Ratio] 36.3 kg/m2 Pfo 1 [facility] [employer] [facility] 07-03-2023 11:52-0400 Body temperature 97.59 [degF] [facility]fo 1 [facility] 07-03-2023 11:52-0400 Body weight 114.76 kg Pfo 1 [facility] [employer] [facility] 07-03-2023 11:52-0400 Diastolic blood pressure 64 mm[Hg] Pfo 1 [facility] [employer] [facility] 07-03-2023 11:52-0400 Heart rate 73 /min [facility]fo 1 [facility] 07-03-2023 11:52-0400 Respiratory rate 18 /min Pfo 1 [facility] 07-03-2023 11:52-0400 SaO2% (BldA) [Mass fraction] 96 % Pfo 1 [facility] [employer] [facility] 07-03-2023 11:52-0400 Systolic blood pressure 163 mm[Hg] Pfo 1 [facility] 06-06-2023 11:51-0500 Body height 177.8 cm MD Lety Downey Work Phone: [facility] 06-06-2023 11:51-0500 Body mass index (BMI) [Ratio] 36.6 kg/m2 MD Lety Downey Work Phone: [facility] 06-06-2023 11:51-0500 Body temperature 96.9 [degF] MD Lety Downey Work Phone: [facility] 06-06-2023 11:51-0500 Body weight 115.66 kg MD Lety Downey Work Phone: [facility] 06-06-2023 11:51-0500 Diastolic blood pressure 52 mm[Hg] MD Lety Downey Work Phone: [facility] 06-06-2023 11:51-0500 Heart rate 66 /min MD Lety Downey Work Phone: [facility] 06-06-2023 11:51-0500 SaO2% (BldA) [Mass fraction] 98 % MD Lety Downey Work Phone: [facility] 06-06-2023 11:51-0500 Systolic blood pressure 118 mm[Hg] MD Lety Downey Work Phone: [facility] 06-05-2023 14:29-0500 Body height 177.8 cm Pfo 1 [facility] 06-05-2023 14:29-0500 Body mass index (BMI) [Ratio] 36.59 kg/m2 Pfo 1 [facility] 06-05-2023 14:29-0500 Body temperature 98.01 [degF] Pfo 1 [facility] 06-05-2023 14:29-0500 Body weight 115.67 kg Pfo 1 [facility] 06-05-2023 14:29-0500 Diastolic blood pressure 78 mm[Hg] Pfo 1 [facility] 06-05-2023 14:29-0500 Heart rate 71 /min Pfo 1 [facility] 06-05-2023 14:29-0500 Respiratory rate 18 /min Pfo 1 [facility] 06-05-2023 14:29-0500 SaO2% (BldA) [Mass fraction] 100 % Pfo 1 [facility] 06-05-2023 14:29-0500 Systolic blood pressure 93 mm[Hg] Pfo 1 [facility] 05-18-2023 08:20-0500 Diastolic blood pressure 115 mm[Hg] Adeline Oreilly MD Work Phone: [facility] 05-18-2023 08:20-0500 Heart rate 89 /min Adeline Oreilly MD Work Phone: [facility] 05-18-2023 08:20-0500 Systolic blood pressure 154 mm[Hg] Adeline Oreilly MD Work Phone: [facility] 05-18-2023 08:15-0500 Body mass index (BMI) [Ratio] 36.3 kg/m2 Adeline Orielly MD Work Phone: [facility] 05-18-2023 08:15-0500 Body weight 114.76 kg Adeline Oreilly MD Work Phone: [facility] 05-18-2023 08:15-0500 SaO2% (BldA) [Mass fraction] 93 % Adeline Oreilly MD Work Phone: [facility] 05-04-2023 12:30-0500 Diastolic blood pressure 70 mm[Hg] MD Lety Downey Work Phone: [facility] 05-04-2023 12:30-0500 Heart rate 60 /min MD Lety Downey Work Phone: [facility] 05-04-2023 12:30-0500 Respiratory rate 16 /min MD Lety Downey Work Phone: [facility] 05-04-2023 12:30-0500 SaO2% (BldA) [Mass fraction] 97 % MD Lety Downey Work Phone: [facility] 05-04-2023 12:30-0500 Systolic blood pressure 126 mm[Hg] MD Lety Downey Work Phone: [facility] 05-04-2023 09:08-0500 Body height 177.8 cm MD Lety Downey Work Phone: [facility] 05-04-2023 09:08-0500 Body mass index (BMI) [Ratio] 36.3 kg/m2 MD Lety Downey Work Phone: [facility] 05-04-2023 09:08-0500 Body weight 114.75 kg MD Lety Downey Work Phone: [facility] 05-04-2023 08:06-0500 Body temperature 97.9 [degF] MD Lety Downey Work Phone: [facility] 03-24-2023 11:17-0500 Body temperature 97.5 [degF] MD Lety Downye Work Phone: [facility] 03-24-2023 11:17-0500 Diastolic blood pressure 72 mm[Hg] MD Lety Downey Work Phone: [facility] 03-24-2023 11:17-0500 Heart rate 61 /min MD Lety Downey Work Phone: [facility] 03-24-2023 11:17-0500 Respiratory rate 16 /min MD Lety Downey Work Phone: [facility] 03-24-2023 11:17-0500 SaO2% (BldA) [Mass fraction] 97 % MD Lety Downey Work Phone: [facility] 03-24-2023 11:17-0500 Systolic blood pressure 138 mm[Hg] MD Lety Downey Work Phone: [facility] 03-24-2023 06:00-0500 Body weight 101.1 kg MD Lety Downey Work Phone: [facility] 03-23-2023 15:41-0500 Body height 175.26 cm MD Lety Downey Work Phone: [facility] 03-07-2023 10:45-0500 Body height 177.8 cm Gael Euceda Other [facility] Other 03-07-2023 10:45-0500 Body mass index (BMI) [Ratio] 36.44 kg/m2 Gael Euceda Other [facility] Other 03-07-2023 10:45-0500 Body temperature 97.8 [degF] Gael Hankinsredale Other [facility] Other 03-07-2023 10:45-0500 Body weight 115.21 kg Gael Euceda Other [facility] Other 03-07-2023 10:45-0500 Diastolic blood pressure 86 mm[Hg] Gael Euceda Other [facility] Other 03-07-2023 10:45-0500 SaO2% (BldA) [Mass fraction] 97 % Gael Euceda Other [facility] Other 03-07-2023 10:45-0500 Systolic blood pressure 134 mm[Hg] Gael Buehrer Other [facility] Other 02-14-2023 12:30-0400 Body height 177.8 cm Gael Woodsonehrer Other [facility] Other 02-14-2023 12:30-0400 Body mass index (BMI) [Ratio] 35.44 kg/m2 Gael Buehrer Other [facility] Other 02-14-2023 12:30-0400 Body temperature 97.4 [degF] Gael Hankinsrer Other [facility] Other 02-14-2023 12:30-0400 Body weight 112.04 kg Gael Hankinsrer Other [facility] Other 02-14-2023 12:30-0400 Diastolic blood pressure 74 mm[Hg] Gael Buehrer Other [facility] Other 02-14-2023 12:30-0400 SaO2% (BldA) [Mass fraction] 97 % Gael Buehrer Other [facility] Other 02-14-2023 12:30-0400 Systolic blood pressure 140 mm[Hg] Gael Buehrer Other [facility] Other 01-13-2023 08:23-0400 Body height 177.8 cm Lety Downey Work Phone: [facility] Work Phone: 01-13-2023 08:23-0400 Body mass index (BMI) [Ratio] 35.94 kg/m2 Lety Downey Work Phone: [facility] Work Phone: 01-13-2023 08:23-0400 Body surface area Derived from formula 2.3 m2 Lety Downey Work Phone: [facility]tpyqzjsssk[facility] Work Phone: 01-13-2023 08:23-0400 Body temperature 96.9 [degF] Lety Downey Work Phone: GI[facility]wydqluurrhnsx[facility] Work Phone: 01-13-2023 08:23-0400 Body weight 113.63 kg Lety Downey Work Phone: [facility] 4100 Work Phone: 01-02-2023 11:49-0400 Body height 177.8 cm [facility] Work Phone: 01-02-2023 11:49-0400 Body mass index (BMI) [Ratio] 36.45 kg/m2 [facility] Dow[facility] Work Phone: 01-02-2023 11:49-0400 Body surface area Derived from formula 2.31 m2 [facility] Downey [facility] Work Phone: 01-02-2023 11:49-0400 Body weight 115.21 kg Lety Downey Work Phone: [facility] DO Work Phone: 01-02-2023 11:49-0400 Diastolic blood pressure 70 mm[Hg] Lety Downey Work Phone: [facility] DO Work Phone: 01-02-2023 11:49-0400 Heart rate 60 /min Lety Downey Work Phone: [facility] DO Work Phone: 01-02-2023 11:49-0400 Systolic blood pressure 138 mm[Hg] Lety Downey Work Phone: [facility] DO Work Phone: 08-01-2022 10:46-0400 Body height 177.8 cm Lety Downey Work Phone: [facility] DO Work Phone: 08-01-2022 10:46-0400 Body mass index (BMI) [Ratio] 36.73 kg/m2 Lety Downey Work Phone: [facility] DO Work Phone: 08-01-2022 10:46-0400 Body surface area Derived from formula 2.32 m2 Lety Downey Work Phone: [facility] DO Work Phone: 08-01-2022 10:46-0400 Body weight 116.12 kg Lety Downey Work Phone: [facility] DO Work Phone: 08-01-2022 10:46-0400 Diastolic blood pressure 72 mm[Hg] Lety Downey Work Phone: [facility] DO Work Phone: 08-01-2022 10:46-0400 Heart rate 68 /min Lety Downey Work Phone: [facility] DO Work Phone: 08-01-2022 10:46-0400 Systolic blood pressure 130 mm[Hg] Lety Downey Work Phone: [facility] DO Work Phone: 02-10-2022 11:49-0400 Body height 177.8 cm Lety Downey Work Phone: [facility] DO Work Phone: 02-10-2022 11:49-0400 Body mass index (BMI) [Ratio] 35.73 kg/m2 Lety Downey Work Phone: [facility] DO Work Phone: 02-10-2022 11:49-0400 Body surface area Derived from formula 2.29 m2 Lety Downey Work Phone: [facility] DO Work Phone: 02-10-2022 11:49-0400 Body weight 112.95 kg Lety Downey Work Phone: [facility] DO Work Phone: 02-10-2022 11:49-0400 Diastolic blood pressure 68 mm[Hg] Lety Downey Work Phone: [facility] DO Work Phone: 02-10-2022 11:49-0400 Heart rate 56 /min Lety Downey Work Phone: [facility] DO Work Phone: 10-20-2022 11:49-0400 Systolic blood pressure 118 mm[Hg] Lety Downey Work Phone: [facility] DO Work Phone: 02-08-2022 13:30-0400 Body height 177.8 cm Monique Philip Other [facility] Other 02-08-2022 13:30-0400 Body mass index (BMI) [Ratio] 35.44 kg/m2 Monique Pinedachang Other [facility] Other 02-08-2022 13:30-0400 Body temperature 98 [degF] Monique Pinedachang Other [facility] Other 02-08-2022 13:30-0400 Body weight 112.04 kg Monique Pinedachang Other [facility] Other 02-08-2022 13:30-0400 Diastolic blood pressure 70 mm[Hg] Monique Philip Other [facility] Other 02-08-2022 13:30-0400 SaO2% (BldA) [Mass fraction] 98 % Monique Pinedachang Other [facility] Other 02-08-2022 13:30-0400 Systolic blood pressure 132 mm[Hg] Monique Pinedachang Other [facility] Other 12-17-2021 12:09-0400 Body height 177.8 cm Lety Downey Work Phone: DE[facility]bpdcxcyefjzf[facility] Work Phone: 12-17-2021 12:09-0400 Body mass index (BMI) [Ratio] 34.65 kg/m2 Lety Downey Work Phone: CH-Qsywhihdtyfiuh-Mg[facility] 4[facility] Work Phone: 12-17-2021 12:09-0400 Body surface area Derived from formula 2.26 m2 Lety Downey Work Phone: KM-Tgcprkpuqmybgg-[facility] 4[facility] Work Phone: 12-17-2021 12:09-0400 Body temperature 96.3 [degF] Lety Downey Work Phone: EU-Bwqpjzepzljuqr-Oc[facility] 4100 Work Phone: 12-17-2021 12:09-0400 Body weight 109.54 kg Lety Downey Work Phone: JP-Npgojfhtmrryie-[facility] 4[facility] Work Phone: 11-16-2021 10:21-0400 Body height 177.8 cm Lety Downey Work Phone: HL-Oauawthrlbziqs-Sa burban Work Phone: 11-16-2021 10:21-0400 Body mass index (BMI) [Ratio] 35.08 kg/m2 Lety Downey Work Phone: VX-Atzltalwpcrtpm-Fm [facility] Work Phone: 11-16-2021 10:21-0400 Body surface area Derived from formula 2.27 m2 Lety Downey Work Phone: UP-Ldqaeqofrrujkt-Zl [facility] Work Phone: 11-16-2021 10:21-0400 Body temperature 96.8 [degF] Lety Downey Work Phone: SM-Vuuvhhljcywflq-Hb [facility] Work Phone: 11-16-2021 10:21-0400 Body weight 110.91 kg Lety Downey Work Phone: UJ-Vavktmlmttneah-Zp [facility] Work Phone: 11-05-2021 10:47-0400 Body height 177.8 cm Lety Downey Work Phone: ZR-Dhxgywnoloxzyp-[facility] 4[facility] Work Phone: 11-05-2021 10:47-0400 Body mass index (BMI) [Ratio] 32.14 kg/m2 Lety Downey Work Phone: SH-Nfpvosszebhrlk-[facility] Work Phone: 11-05-2021 10:47-0400 Body surface area Derived from formula 2.19 m2 Lety Downey Work Phone: EL-Mvxhiirnfyosqe-[facility] 4[facility] Work Phone: 11-05-2021 10:47-0400 Body temperature 96.1 [degF] Lety Downey Work Phone: PD-Ozqhmjxmcfgfoe-[facility] 4[facility] Work Phone: 11-05-2021 10:47-0400 Body weight 101.61 kg Lety Downey Work Phone: ON-Dyfkbocjdrhrdl-Tm[facility] 4[facility] Work Phone: 10-15-2021 10:32-0400 Body height 177.8 cm Lety Downey Work Phone: PV-Caffjjofhipjsy-Cw[facility] 4[facility] Work Phone: 10-15-2021 10:32-0400 Body mass index (BMI) [Ratio] 32.14 kg/m2 Lety Downey Work Phone: VL-Fpegrkkzesnjya-Mx[facility] 4100 Work Phone: 10-15-2021 10:32-0400 Body surface area Derived from formula 2.19 m2 Lety Downey Work Phone: HI-Lccgncnouihdtt-[facility] Work Phone: 10-15-2021 10:32-0400 Body temperature 96.1 [degF] Lety Downey Work Phone: RW-Hheavcyjsoyeyb-Xb[facility] 4[facility] Work Phone: 10-15-2021 10:32-0400 Body weight 101.61 kg Lety Downey Work Phone: AS-Yfdwsymcutajfb-Gf[facility] 4[facility] Work Phone: 09-17-2021 09:21-0400 Body height 177.8 cm Lety Downey Work Phone: HA-Hpueezaspflgkd-Ys[facility] Work Phone: 09-17-2021 09:21-0400 Body mass index (BMI) [Ratio] 32.14 kg/m2 Lety Downey Work Phone: KF-Vplcswkwufvsus-Fx[facility] 4[facility] Work Phone: 09-17-2021 09:21-0400 Body surface area Derived from formula 2.19 m2 Lety Downey Work Phone: UX-Utkdmnpbpgdsao-Hk[facility] Work Phone: 09-17-2021 09:21-0400 Body temperature 97.7 [degF] Lety Downey Work Phone: ZQ-Azeqovwctsnoof-PsSouth[facility] 4100 Work Phone: 09-17-2021 09:21-0400 Body weight 101.61 kg Lety Downey Work Phone: NL-Gwjvovpouqhlrc-Kg[facility] 4[facility] Work Phone: 08-27-2021 13:08-0400 Body height 177.8 cm Lety Downey Work Phone: DB-Cfqrufcdmbdrey-Sg[facility] 4[facility] Work Phone: 08-27-2021 13:08-0400 Body mass index (BMI) [Ratio] 33.7 kg/m2 Lety Downey Work Phone: LL-Ckevldksfehcay-LeSouth[facility] 4100 Work Phone: 08-27-2021 13:08-0400 Body surface area Derived from formula 2.23 m2 Lety Downey Work Phone: ZE-Rydancoakryefs-Dm[facility] 4100 Work Phone: 08-27-2021 13:08-0400 Body temperature 97.8 [degF] Lety Downey Work Phone: KX-Hxpnsdlvsyrrcg-AtSouth[facility] 4100 Work Phone: 08-27-2021 13:08-0400 Body weight 106.55 kg Lety Downey Work Phone: SC-Xehpznrcszhupl-Uw[facility] 4[facility] Work Phone: 08-16-2021 08:18-0400 Body height 177.8 cm Lety Downey Work Phone: RV-Qrgwyxtewmzcxn-Ea [facility] Work Phone: 08-12-2021 13:35-0400 Body height 177.8 cm Lety Downey Work Phone: [facility] 250 DO Work Phone: 08-12-2021 13:35-0400 Body mass index (BMI) [Ratio] 34.29 kg/m2 Lety Downey Work Phone: [facility] 250 DO Work Phone: 08-12-2021 13:35-0400 Body surface area Derived from formula 2.25 m2 Lety Downey Work Phone: [facility] 250 DO Work Phone: 08-12-2021 13:35-0400 Body weight 108.41 kg Lety Downey Work Phone: [facility] DO Work Phone: 08-12-2021 13:35-0400 Diastolic blood pressure 63 mm[Hg] Lety Downey Work Phone: [facility] DO Work Phone: 08-12-2021 13:35-0400 Heart rate 61 /min Lety Downey Work Phone: [facility] DO Work Phone: 08-12-2021 13:35-0400 Systolic blood pressure 112 mm[Hg] Lety Downey Work Phone: [facility] DO Work Phone: 08-11-2021 15:06-0400 Body height 177.8 cm Lety Downey Work Phone: [facility] 250 DO Work Phone: 08-11-2021 15:06-0400 Body mass index (BMI) [Ratio] 34.23 kg/m2 Lety Downey Work Phone: [facility] 250 DO Work Phone: 08-11-2021 15:06-0400 Body surface area Derived from formula 2.25 m2 Lety Downey Work Phone: [facility] 250 DO Work Phone: 08-11-2021 15:06-0400 Body weight 108.21 kg Lety Downey Work Phone: [facility] 250 DO Work Phone: 08-01-2021 12:24-0400 Body temperature 96.98 [degF] Lety Downey Other Phone: [facility] 08-01-2021 12:24-0400 Diastolic blood pressure 75 mm[Hg] Lety Rosaan Other Phone: [facility] 08-01-2021 12:24-0400 Heart rate 74 /min Lety Downey Other Phone: [facility] 08-01-2021 12:24-0400 Respiratory rate 17 /min Lety Downey Other Phone: [facility] 08-01-2021 12:24-0400 SaO2% (BldA) [Mass fraction] 97 % Lety Downey Other Phone: [facility] 08-01-2021 12:24-0400 Systolic blood pressure 137 mm[Hg] Lety Downey Other Phone: [facility] 07-29-2021 17:20-0400 Body temperature 37.0 {degrees_C} Lety Downey Work Phone: [facility] 250 DO Work Phone: Comment on above: NOTE: PATIENT RESULTS ARE NOT CORRECTED FOR TEMPERATURE. 07-29-2021 17:20-0400 SaO2% (BldA) [Mass fraction] 100 % Lety Downey Work Phone: [facility] 250 DO Work Phone: 07-23-2021 12:55-0400 Body temperature 37.0 {degrees_C} Lety Downey Work Phone: [facility] 250 DO Work Phone: Comment on above: NOTE: PATIENT RESULTS ARE NOT CORRECTED FOR TEMPERATURE. 07-19-2021 13:09-0400 Body temperature 37.0 {degrees_C} Lety Downey Work Phone: [facility] 250 DO Work Phone: Comment on above: NOTE: PATIENT RESULTS ARE NOT CORRECTED FOR TEMPERATURE. 07-19-2021 13:09-0400 SaO2% (BldA) [Mass fraction] 99 % Lety Downey Work Phone: [facility] 250 DO Work Phone: 07-19-2021 10:28-0400 Body temperature 37.0 {degrees_C} Lety Downey Work Phone: [facility] 250 DO Work Phone: Comment on above: NOTE: PATIENT RESULTS ARE NOT CORRECTED FOR TEMPERATURE. 07-19-2021 10:28-0400 SaO2% (BldA) [Mass fraction] 100 % Lety Downey Work Phone: [facility] 250 DO Work Phone: 06-30-2021 13:10-0500 65 1 Lety Downey Work Phone: [facility] 250 DO Work Phone: Comment on above: [id number] 06-25-2021 08:24-0500 Body height 177.8 cm Lety Hunter Nasreen Work Phone: DU-Dfyguhlvggfggh-Qn burban Work Phone: 06-25-2021 08:24-0500 Body mass index (BMI) [Ratio] 35.67 kg/m2 Lety Downey Work Phone: KC-Kjkzcxofbstdzz-Eo burban Work Phone: 06-25-2021 08:24-0500 Body surface area Derived from formula 2.29 m2 Lety Downey Work Phone: GI-Rciaczpfgrsrgm-Uq burban Work Phone: 06-25-2021 08:24-0500 Body weight 112.75 kg Lety Downey Work Phone: KI-Yqzqukenbrpmuz-Yr burban Work Phone: 05-21-2021 11:58-0500 Body height 177.8 cm Lety Downey Work Phone: [facility] Work Phone: 05-21-2021 11:58-0500 Body mass index (BMI) [Ratio] 35.83 kg/m2 Lety Downey Work Phone: [facility]ikgnttcki[facility] 4100 Work Phone: 05-21-2021 11:58-0500 Body surface area Derived from formula 2.29 m2 Lety Downey Work Phone: AN[facility]Expbtsvbvrrccp[facility] 4100 Work Phone: 05-21-2021 11:58-0500 Body temperature 96.9 [degF] Lety Downey Work Phone: QM-Vqxryczgjxephp[facility] 4100 Work Phone: 05-21-2021 11:58-0500 Body weight 113.26 kg Lety Downey Work Phone: MM-Iriyvfgbawvhew-[facility] 4100 Work Phone: 05-13-2021 15:02-0500 Body height 177.8 cm Lety Downey Work Phone: [facility] 250 DO Work Phone: 05-13-2021 15:02-0500 Body mass index (BMI) [Ratio] 36.73 kg/m2 Lety Dale Downey Work Phone: [facility] 250 DO Work Phone: 05-13-2021 15:02-0500 Body surface area Derived from formula 2.32 m2 Lety Downey Work Phone: [facility] 250 DO Work Phone: 05-13-2021 15:02-0500 Body weight 116.12 kg Lety Dale Downey Work Phone: [facility] 250 DO Work Phone: 05-13-2021 15:02-0500 Diastolic blood pressure 68 mm[Hg] Lety Downey Work Phone: [facility] 250 DO Work Phone: 05-13-2021 15:02-0500 Heart rate 68 /min Lety Downey Work Phone: [facility] 250 DO Work Phone: 05-13-2021 15:02-0500 Systolic blood pressure 138 mm[Hg] Lety Downey Work Phone: [facility] 250 DO Work Phone: 01-25-2021 11:30-0400 Body height 177.8 cm Gael Buehrer Other [facility] Other 01-25-2021 11:30-0400 Body mass index (BMI) [Ratio] 35.87 kg/m2 Gael Hankinsrer Other [facility] Other 01-25-2021 11:30-0400 Body temperature 97.1 [degF] Gael Hankinsrer Other [facility] Other 01-25-2021 11:30-0400 Body weight 113.4 kg Gael Hankinsrer Other [facility] Other 01-25-2021 11:30-0400 Diastolic blood pressure 60 mm[Hg] Gael Hankinsrer Other [facility] Other 01-25-2021 11:30-0400 SaO2% (BldA) [Mass fraction] 97 % Gael Woodsonehrer Other [facility] Other 01-25-2021 11:30-0400 Systolic blood pressure 118 mm[Hg] Gael Hankinsrer Other [facility] Other Encounters Encounter Date Encounter Type Care Provider Facility Start: 10-10-2023 End: 10-10-2023 ambulatory LETY DOWNEY Not Available Start: 10-09-2023 End: 10-10-2023 Emergency department patient visit MD Lety Downey Work Phone: [facility] Work Phone: Start: 10-09-2023 End: 10-09-2023 ambulatory LETY DOWNEY [facility] Start: 10-08-2023 End: 10-08-2023 Emergency department patient visit MD Lety Downey Work Phone: [facility] Work Phone: Start: 10-06-2023 End: 10-06-2023 ambulatory ADELINE OREILLY [facility] Start: 09-25-2023 End: 09-25-2023 ambulatory [facility] Start: 09-22-2023 End: 09-22-2023 ambulatory [facility] Start: 09-20-2023 End: 09-20-2023 ambulatory [facility] Start: 09-11-2023 End: 09-11-2023 ambulatory [facility] Start: 09-08-2023 End: 09-08-2023 ambulatory [facility] Start: 08-28-2023 End: 08-28-2023 ambulatory [facility] Start: 08-25-2023 End: 08-25-2023 Office outpatient visit 15 minutes Pieter Duarte MD Work Phone: [facility] Comment on above: Osteoradionecrosis o f mandible (Primary Dx); 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, unsp ear Start: 08-25-2023 End: 08-25-2023 [facility] Start: 08-24-2023 End: 08-24-2023 ambulatory [facility] Start: 08-14-2023 End: 08-23-2023 ambulatory [facility] Start: 08-11-2023 End: 08-11-2023 ambulatory [facility] Start: 08-08-2023 End: 08-08-2023 ambulatory TINY PAVON Not Available Start: 08-01-2023 End: 08-01-2023 ambulatory MD Lety Downey Work Phone: [facility] Work Phone: Start: 08-01-2023 End: 08-01-2023 Patient encounter procedure MD Lety Downey Work Phone: [facility] Work Phone: Start: 07-31-2023 End: 07-31-2023 ambulatory LETY G [facility] Start: 07-28-2023 End: 07-28-2023 ambulatory [facility] Start: 07-25-2023 Orders Only Meredith farr ENVIRONMENTAL COMPLIANCE INSPECTOR-WASHER ENGINEER Work Phone: [facility] Comment on above: Anemia due to stage 4 chronic kidney disease (CMS-HCC) (Primary Dx) Start: 07-23-2023 Refyvan jovel MD Work Phone: [facility] Start: 07-17-2023 End: 07-17-2023 ambulatory Pfo Infusion Bed 1 Emelina Galicia [facility] Comment on above: Anemia due to stage 4 chronic kidney disease (CMS-HCC) (Primary Dx) Start: 07-13-2023 End: 07-13-2023 Orders Only Meredith Spicer ENVIRONMENTAL COMPLIANCE INSPECTOR-WASHER ENGINEER Work Phone: [facility] Comment on above: Anemia due to stage 4 chronic kidney disease (CMS-HCC) (Primary Dx) Start: 07-13-2023 End: 07-13-2023 Office outpatient visit 25 minutes Meredith Spicer ENVIRONMENTAL COMPLIANCE INSPECTOR-WASHER ENGINEER Work Phone: [facility] Comment on above: CKD (chronic kidney disease) stage 5, GFR less than 15 ml/min (CMS-HCC) (Primary Dx) Start: 07-12-2023 End: 07-13-2023 ambulatory PIETER P REZAEE [facility] Start: 07-12-2023 End: 07-12-2023 Office outpatient visit 15 minutes Pieter Duarte MD Work Phone: [facility] Comment on above: Osteoradionecrosis o f mandible (Primary Dx); Impacted cerumen of left ear; History of head and neck cancer; Infective otitis externa of left ear Start: 07-04-2023 Telephone encounter Vilma Garcia CMA PHN [facility] Start: 07-04-2023 End: 07-04-2023 ambulatory ADELINE PhanCristóbal [facility] Start: 07-03-2023 End: 07-03-2023 ambulatory Pfo Infusion Bed 1 Emelina Galicia [facility] Comment on above: Anemia due to stage 4 chronic kidney disease ([facility]-HCC) (Primary Dx) Start: 06-30-2023 End: 06-30-2023 ambulatory ADELINE Garcias [facility] Start: 06-19-2023 End: 06-19-2023 ambulatory LETY Coello [facility] Start: 06-16-2023 End: 06-16-2023 ambulatory ADELINE Katerine [facility] Start: 06-07-2023 End: 06-07-2023 ambulatory MD Lety Downey Work Phone: [facility] Work Phone: Start: 06-07-2023 End: 06-07-2023 Patient encounter procedure MD Lety Downey Work Phone: [facility] Start: 06-06-2023 End: 06-06-2023 ambulatory MD Lety Downey Work Phone: [facility] Work Phone: Start: 06-06-2023 End: 06-06-2023 Patient encounter procedure MD Lety Downey Work Phone: [facility] Work Phone: Start: 06-05-2023 End: 06-05-2023 ambulatory Pfo Infusion Chair 1 Emelina Phan [facility] Comment on above: Anemia due to stage 4 chronic kidney disease ([facility]-HCC) (Primary Dx) Start: 06-05-2023 Telephone encounter Lety alonzo MD Work Phone: [facility] Start: 06-02-2023 End: 06-02-2023 ambulatory LETY DOWNEY [facility] Start: 06-02-2023 End: 06-03-2023 ambulatory ADELINE OREILLY [facility] Start: 06-01-2023 Documentation procedure Jacey [facility] Start: 05-29-2023 Telephone encounter Qi Gatica [facility] Start: 05-18-2023 Refill Winnie Foreman [facility] Start: 05-18-2023 End: 05-18-2023 Office outpatient visit 25 minutes Adeline Oreilly MD Work Phone: [facility] Comment on above: Stage 4 chronic kidn ey disease ([facility]-HCC) (Primary Dx) Start: 05-09-2023 End: 05-09-2023 [facility] Start: 05-08-2023 Telephone encounter Vilma Garcia [facility] Start: 05-04-2023 End: 05-04-2023 Admission to same day surgery center MD Lety Downey Work Phone: [facility] [place] Start: 05-04-2023 End: 05-04-2023 ambulatory MD Lety Downey Work Phone: [facility] Work Phone: Start: 04-25-2023 End: 01-02-2024 ambulatory LETY DOWNEY Not Available Start: 04-19-2023 End: 04-19-2023 Patient encounter procedure MD Lety Downey Work Phone: [facility]Pre-Surgical Testing Work Phone: Start: 04-19-2023 End: 04-19-2023 ambulatory Gaellady Oneildale Facility:[facility] Start: 04-14-2023 End: 04-14-2023 ambulatory Gael Euceda Other [facility] Other Start: 04-14-2023 Telephone encounter Gael Euceda [facility] V[facility] Surgery Start: 04-10-2023 End: 04-10-2023 ambulatory TINY Bowden SAVANAH Not Available Start: 04-04-2023 End: 04-04-2023 ambulatory LETY DOWNEY Not Available Start: 03-27-2023 End: 03-27-2023 ambulatory Gael Claricedale Other [facility] Other Start: 03-27-2023 Telephone encounter Gael Euceda [facility] Vascular Surgery Start: 03-23-2023 ambulatory [facility] Start: 03-22-2023 End: 03-24-2023 Evaluation and management of inpatient MD Lety Downey Work Phone: [facility] [place] [facility] Work Phone: Start: 03-22-2023 ambulatory [facility] Start: 03-07-2023 End: 03-07-2023 ambulatory Gaellady Hankinsrer Other [facility] Other Start: 03-07-2023 Office outpatient vi sit 25 minutes Gael Euceda [facility] V[facility] Surgery Start: 02-28-2023 End: 02-28-2023 Patient encounter procedure MD Lety Downey Work Phone: [facility] [place] Work Phone: Start: 02-28-2023 End: 02-28-2023 ambulatory MD Lety Downey Work Phone: [facility] Work Phone: Start: 02-14-2023 Office outpatient vi sit 25 minutes Gael Euceda [facility] V[facility] Surgery Start: 02-14-2023 End: 02-14-2023 Patient encounter procedure MD Lety Downey Work Phone: [facility] Start: 02-14-2023 End: 02-14-2023 ambulatory MD Lety Downey Work Phone: [facility] Work Phone: Start: 01-13-2023 Office outpatient vi sit 15 minutes Lety Downey Work Phone: [facility]bp[facility]bs[facility]cd[facility] 4[facility] Work Phone: Start: 01-13-[address] Pieter Duarte Facility:[id number] Start: 01-02-2023 Office outpatient vi sit 25 minutes Lety Downey Work Phone: [facility] 250 DO Work Phone: Start: 01-02-[address] Ambar Will ty: Start: 08-01-2022 Office outpatient vi sit 25 minutes Lety Downey Work Phone: [facility] 250 DO Work Phone: Start: 08-01-[address] Ambar Will ty: Start: 06-07-[address] Lety Downey Facility:[id number] Start: 06-07-2022 End: 06-07-2022 ambulatory MD Lety Downey Work Phone: [facility] Work Phone: Start: 06-07-2022 End: 06-07-2022 Patient encounter procedure MD Lety Downey Work Phone: [facility]Electro[facility]ostic s Work Phone: Start: 04-29-2022 AUDIT Lety Cevallosestrada wilson Work Phone: RR-Nzamstzdqcfyyd-Ohp urban Work Phone: Start: 03-15-2022 AUDIT Lety Hunter [place] man Work Phone: KP[facility]cyfefu[facility] 4101 Work Phone: Start: 03-11-[address] Pieter Baltazar [facility] Facility:[id number] Start: 03-11-2022 Office outpatient vi sit 15 minutes Lety Downey Work Phone: [facility]ex[facility]dtcomae[facility] 410 Work Phone: Start: 03-11-2022 Patient encounter procedure Alec Downey Work Phone: [facility] 4108 Work Phone: Start: 02-10-2022 Office outpatient vi sit 25 minutes Lety Downey Work Phone: [facility] 250 DO Work Phone: Start: 02-10-[address] Ambar Will ty: Start: 02-08-2022 Follow-up encounter Monique Cruz [facility] Start: 02-08-2022 End: 02-08-2022 ambulatory MD Lety Downey Work Phone: [facility] Work Phone: Start: 02-08-2022 End: 02-08-2022 Patient encounter procedure MD Lety Downey Work Phone: [facility] Start: 12-28-2021 AUDIT Lety wilson Work Phone: VL-Wxwhcqwkxaakvi-Tub urban Work Phone: Start: 12-19-2021 Chart Update Lety wilson Work Phone: AN-Qekeuckejnndso-[facility] 4103 Work Phone: Start: 12-17-2021 Office outpatient vi sit 25 minutes Lety Dale CevallosNasreen Work Phone: WM-Gbfdjfdslipvoy-Trp[facility] 4107 Work Phone: Start: 12-08-2021 Rx Renewal Lety wilson Work Phone: -[facility] 127 DO Work Phone: Start: 11-19-2021 Chart Update Lety wilson Work Phone: TQ-Wbosezepinqspo-Zjj[facility] 4109 Work Phone: Start: 11-18-2021 Chart Update Lety wilson Work Phone: AK-Cwkfojssjlrqcn-Mfl[facility] 4105 Work Phone: Start: 11-17-2021 Chart Update Lety wilson Work Phone: XT-Ziicycbkktxoho-CiqCH[facility] 4101 Work Phone: Start: 11-16-2021 Office outpatient vi sit 15 minutes Lety Downey Work Phone: VX-Wcqsctwqmgvaga-Gdz urban Work Phone: Start: 11-05-2021 Office outpatient vi sit 15 minutes Lety Downey Work Phone: [facility]gbiaemswhuqqm[facility] 4103 Work Phone: Start: 11-05-2021 Patient encounter procedure Alec bashirzaida Downey Work Phone: [facility] 4104 Work Phone: Start: 10-15-2021 Postop follow up vis it related to original px Lety Downey Work Phone: XS-Ajuuxeuipheqpa-Wqw[facility] 4107 Work Phone: Start: 10-01-2021 AUDIT Lety wilson Work Phone: YK-Jfkxvvdqzepwnl-[facility] 1011 Work Phone: Start: 08-27-2021 Postop follow up vis it related to original px Lety Downey Work Phone: [facility] 0926 Work Phone: Start: 08-19-2021 AUDIT Lety wilson Work Phone: UX-Eilxrvfbvjkyfu-Oru urban Work Phone: Start: 08-12-2021 Office outpatient vi sit 25 minutes Lety Downey Work Phone: [facility] 250 DO Work Phone: Start: 07-19-2021 End: 08-01-2021 Evaluation and management of inpatient Pieter Goodwin 5 Rm [id number] Start: 07-13-2021 AUDIT Lety wilson Work Phone: CA-Ukhvuanaejkedc-Uzk urban Work Phone: Start: 06-29-2021 AUDIT Lety wilson Work Phone: DT-Qwixzpdmngqagt-Hoe urban Work Phone: Start: 06-29-2021 Telephone encounter Lety Downey Work Phone: [facility] 250 DO Work Phone: Start: 06-11-2021 UTE, Provider : Pieter Duarte, Status: Pen, Time: 4:00 PM Lety Downey Work Phone: MG-Fdnetmqyiogvga-Vrx[facility] 0949 Work Phone: Start: 06-09-2021 Chart Update Lety Hunter [place] man Work Phone: WK-Alcnfsswjjstko-ObeCH[facility] 3461 Work Phone: Start: 05-24-2021 Chart Update Lety Ventura man Work Phone: WF-Vydfvdrowioqph-Tut urban Work Phone: Start: 05-21-2021 Office outpatient ne w 60 minutes Lety Downey Work Phone: YC-Xhncknxtywilmy-JcmCH[facility] 1757 Work Phone: Start: 05-13-2021 Office outpatient vi sit 25 minutes Lety Downey Work Phone: [facility] 250 DO Work Phone: Start: 02-17-2021 Rx Renewal Lety Hunter Lorenzo wilson Work Phone: [facility] 600 DO Work Phone: Start: 01-25-2021 Follow-up encounter Gael Euceda [facility] Vascular Surgery Start: 01-30-2017 Ambulatory MATTYESSENIA AYON Facility :[id number] Start: 01-18-2017 End: 01-19-2017 Ambulatory MATTYESSENIA AYON Facility:[facility] Procedures Date Procedure Procedure Detail Performing Clinician Start: 10-08-2023 X-ray of right foot MD Lety Downey Work Phone: Start: 08-25-2023 Follow-up visit Follow-up PIETER SORTO Start: 08-01-2023 Ultrasonography of arteriovenous fistula MD Lety Downey Work Phone: Start: 06-28-2023 History of carotid endarterectomy H/O carotid endarterectomy Pieter Duarte MD Work Phone: Start: 05-04-2023 Arteriovenous fistulization MD Lety Downey Work Phone: Start: 03-23-2023 Doppler ultrasonogra phy of bilateral carotid arteries MD Lety Downey Work Phone: Start: 02-28-2023 US angiography MD Leila Downey Work Phone: Start: 02-14-2023 Doppler ultrasonogra phy of bilateral carotid arteries MD Lety Downey Work Phone: Start: 02-08-2022 Doppler ultrasonogra phy of bilateral carotid arteries MD Lety Downey Work Phone: Start: 07-24-2021 End: 07-24-2021 Release Blood Product-Packed Red Blood Cells Taran Vargo Start: 07-24-2021 Release Blood Product-Packed Red Blood Cells Taran Cecilio Start: 07-23-2021 End: 07-23-2021 Release Blood Product-Packed Red Blood Cells Rudy Webb Start: 07-23-2021 Echocardiography Linnette Downey Work Phone: Start: 07-23-2021 Release Blood Product-Packed Red Blood Cells Rudy Webb Start: 07-22-2021 End: 07-22-2021 Release Blood Product-Packed Red Blood Cells Jasmina Horton Start: 07-22-2021 Release Blood Product-Packed Red Blood Cells Jasmina Horton Start: 07-22-2021 End: 07-22-2021 EKG impression Thalia Michael Start: 07-21-2021 End: 07-21-2021 Release Blood Product-Packed Red Blood Cells Jasmina Horton Start: 07-21-2021 Release Blood Product-Packed Red Blood Cells Jasmina Clifford Start: 09-10-2018 Diabetic retinal eye exam Vilma Garcia [employer] Angioplasty of carot id artery Lety Downey Work Phone: Colonoscopy Lety kwong Work Phone: Comment on above: ONSET DATE [id number] ; Excision of lymph node Leila Downey Work Phone: Comment on above: LEFT CHEEK; History of carotid endarterectomy H/O carotid endarterectomy Lety Downey Work Phone: History of placement of stent in anterior descending branch of left coronary artery History of placement of stent in anterior descending branch of left coronary artery Lety Downey Other Phone: History of placement of stent in anterior descending branch of left coronary artery History of placement of stent in anterior descending branch of left coronary artery Pieter Rezaee Jaw and temporomandi bular joint operations Lety Downey Work Phone: Operation on nose Lety Downey Work Phone: Comment on above: R/T SLEEP APNEA; Percutaneous translu ileana coronary angioplasty Lety Downey Work Phone: Tonsillectomy and adenoidectomy Lety Downey Work Phone: Plan of Treatment Date Care Activity Detail Author Start: 01-24-2032 DTaP,Tdap and Td Vaccines (2 - Td or Tdap) DTaP,Tdap and Td Vaccines (2 - Td or Tdap) [facility] Start: 01-24-2032 DTaP/Tdap/Td Vaccines (2 - Td or Tdap) DTaP/Tdap/Td Vaccines (2 - Td or Tdap) [facility] Start: 07-16-2024 Adult BMI Screening Adult BMI Screening [facility] Start: 07-12-2024 Adult BMI Screening Adult BMI Screening [facility] Start: 07-02-2024 Adult BMI Screening Adult BMI Screening [facility] Start: 07-02-2024 Tobacco Screening Tobacco Screening [facility] Start: 06-05-2024 Adult BMI Screening Adult BMI Screening [facility] Start: 06-05-2024 Tobacco Screening Tobacco Screening [facility] Start: 05-18-2024 Adult BMI Screening Adult BMI Screening [facility] Start: 03-28-2024 Glaucoma screening Diabetes: Retinopathy Screening [facility] Start: 03-13-2024 Adult BMI Screening Adult BMI Screening [facility] Start: 02-28-2024 Tobacco Screening Tobacco Screening [facility] Start: 01-11-2024 Medicare Annual Wellness (AWV) Medicare Annual Wellness (AWV) [facility] Start: 12-24-2023 Influenza vaccination Influenza Vaccine [facility] Start: 10-27-2023 End: 10-27-2023 Patient encounter procedure 10/27/2023 2:15 PM EDT Office Visit [facility] [address] [facility] 4[address] [place] [address] [place] [address] [place] [address] [facility] Start: 10-23-2023 FUV, Provider: Ambar Sherwood, Status: Pen, Time: 2:15 PM FUV, Provider: Ambar Sherwood, Status: Pen, Time: 2:15 PM [facility] 250 DO Work Phone: Start: 10-23-2023 End: 10-23-2023 Patient encounter procedure 10/23/2023 2:15 PM EDT Office Visit [facility] [address] [facility] 250 [place] [address] Ambar Sherwood MD [address] [facility] [address] [place] [address] [facility] Start: 10-09-2023 CT of head without contrast CT head/brain wo con [facility] Start: 10-09-2023 CT Unspecified body region WO contrast [facility] Start: 10-09-2023 Plain chest X-ray XR chest 2V* [facility] Start: 10-09-2023 XR Chest 2 Views [facility] Start: 09-28-2023 End: 09-28-2023 Patient encounter procedure PHN [facility] Start: 08-08-2023 End: 08-08-2023 Patient encounter procedure 08/08/2023 8:45 AM EDT Office Visit [facility] [address] JOSÉ MANUEL [address] [place] [id number] Tiny Pavon DO [address] José [address] [place] [address] [facility] Start: 08-01-2023 Ultrasonography of arteriovenous fistula US AV Fistula [facility] Start: 07-31-2023 End: 07-31-2023 ambulatory 07/31/2023 2:30 PM EDT Infusion Emelina Phan Shakeel [facility] - Medical Oncology [address] [place] [phone] Emelina L [facility] [[email or web address] - Medical Oncology Start: 07-17-2023 End: 07-17-2023 ambulatory 07/17/2023 12:00 PM EDT Infusion Emelina Phan Franklin [facility] - Medical Oncology [address] [place] [phone] Emelina Chisholm Franklin [facility] - Medical Oncology Start: 07-16-2023 End: 05-17-2024 Basic metabolic 2000 panel - Serum or Plasma Basic Metabolic Panel Lab Routine Stage 4 chronic kidney disease ([facility]) Expected: 07/16/2023, Expires: 05/17/2024 [facility] Work Phone: Comment on above: Expected: 07/16/2023, Expires: Start: 07-16-2023 End: 05-17-2024 CBC panel - Blood by Automated count CBC without diff Lab Routine Stage 4 chronic kidney disease (CMS-HCC) Expected: 07/16/2023, Expires: 05/17/2024 [employer] Comment on above: Expected: 07/16/2023, Expires: Start: 07-16-2023 End: 05-17-2024 Magnesium [Mass/volume] in Serum or Plasma Magnesium Lab Routine Stage 4 chronic kidney disease ([facility]) Expected: 07/16/2023, Expires: 05/17/2024 [facility] Comment on above: Expected: 07/16/2023, Expires: Start: 07-16-2023 End: 05-17-2024 Parathyroid Hormone, intact Parathyroid Hormone, intact Lab Routine Stage 4 chronic kidney disease ([facility]) Expected: 07/16/2023, Expires: 05/17/2024 [facility] Comment on above: Expected: 07/16/2023, Expires: Start: 07-16-2023 End: 05-17-2024 Phosphate [Mass/volume] in Serum or Plasma Phosphorus Lab Routine Stage 4 chronic kidney disease ([facility]) Expected: 07/16/2023, Expires: 05/17/2024 [facility] Comment on above: Expected: 07/16/2023, Expires: Start: 07-16-2023 End: 05-17-2024 Protein creat ratio Protein creat ratio Lab Routine Stage 4 chronic kidney disease ([facility]) Expected: 07/16/2023, Expires: 05/17/2024 [facility] Comment on above: Expected: 07/16/2023, Expires: Start: 07-16-2023 End: 05-17-2024 Vitamin D 25 hydroxy Vitamin D 25 hydroxy Lab Routine Stage 4 chronic kidney disease ([facility]) Expected: 07/16/2023, Expires: 05/17/2024 [facility] Comment on above: Expected: 07/16/2023, Expires: Start: 07-13-2023 End: 07-13-2023 Patient encounter procedure 07/13/2023 8:00 AM EDT Office Visit [facility] [address] [phone] Meredith Spicer, ENVIRONMENTAL COMPLIANCE INSPECTOR-WASHER ENGINEER [address] [facility], [address] [place] [address] [facility] Start: 07-10-2023 Hemoglobin A1c measurement Diabetes: Hemoglobin A1C [facility] Start: 06-19-2023 End: 06-19-2023 ambulatory 06/19/2023 12:00 PM EST Infusion Emelina Beckford [facility] - Medical Oncology [address] [place] [phone] Emelina Chisholm Franklin [facility] - Medical Oncology Start: 06-07-2023 Echocardiography Echocardiogram [facility] Start: 06-05-2023 End: 06-05-2023 ambulatory 06/05/2023 2:30 PM EST Infusion Emelina L Franklin [facility] - Medical Oncology [address] [place] [phone] Emelina Chisholm Franklin [facility] - Medical Oncology Start: 05-18-2023 End: 05-18-2023 Patient encounter procedure 05/18/2023 8:00 AM EST Office Visit [facility] [address] [phone] Adeline Oreilly MD [address] [facility] [address] [place] [phone] [facility] Start: 05-04-2023 [facility] Start: 05-04-2023 [facility] Start: 03-30-2023 Glaucoma screening Diabetes: Retinopathy Screening [facility] Start: 03-24-2023 [facility] Start: 03-22-2023 Hospital admission [facility] Start: 03-22-2023 Referral to vascular surgeon [facility] Start: 02-28-2023 US angiography US map hemodial access ONESIMO [facility] Start: 02-28-2023 US Unspecified body region [facility] Start: 01-13-2023 FUV, Provider: Pieter Duarte, Status: Pen, Time: 8:45 AM [facility]UV, Provider: Pieter Duarte, Status: Pen, Time: 8:45 AM -[facility] 250 DO Work Phone: Start: 01-02-2023 FUV, Provider: Ambar Sherwood, Status: Pen, Time: 11:45 AM [facility]UV, Provider: Ambar Sherwood, Status: Pen, Time: 11:45 AM [facility] DO Work Phone: Start: 12-23-2022 COVID-19 Vaccine ( season) COVID-19 Vaccine () [facility] Start: 08-01-2022 Creatinine measurement Creatinine Level [facility] Start: 08-01-2022 Potassium measurement Potassium Level [facility] Start: 08-01-2022 FUV, Provider: Ambar Sherwood, Status: Pen, Time: 10:45 AM [facility], Provider: Ambar Sherwood, Status: Pen, Time: 10:45 AM [facility] DO Work Phone: Start: 03-11-2022 FUV, Provider: Pieter Duarte, Status: Pen, Time: 11:45 AM [facility]UV, Provider: Pieter Duarte, Status: Pen, Time: 11:45 AM [facility] 4100 Work Phone: Start: 02-18-2022 FUV, Provider: Pieter Duarte, Status: Pen, Time: 3:30 PM [facility]UV, Provider: Pieter Duarte, Status: Pen, Time: 3:30 PM [facility] Work Phone: Start: 02-18-2022 FUV, Provider: Pieter Duarte, Status: Pen, Time: 10:45 AM [facility]UV, Provider: Pieter Duarte, Status: Pen, Time: 10:45 AM [facility] 4100 Work Phone: Start: 02-10-2022 FUV, Provider: Ambar Sherwood, Status: Pen, Time: 11:15 AM [facility]UV, Provider: Ambar Sherwood, Status: Pen, Time: 11:15 AM [facility] DO Work Phone: Start: 12-17-2021 FUV, Provider: Pieter Duarte, Status: Pen, Time: 12:30 PM FUV, Provider: Pieter Duarte, Status: Pen, Time: 12:30 PM [facility] Work [facility]: Start: 11-15-2021 FUV, Provider: Lynn Holder, Status: Pen, Time: 2:00 PM FUV, Provider: Lynn Holder, Status: Pen, Time: 2:00 PM [facility] 250 DO Work Phone: Start: 11-15-2021 Patient encounter procedure [facility] Start: 11-05-2021 FUV, Provider: Pieter Duarte, Status: Pen, Time: 11:00 AM [facility], Provider: Pieter Duarte, Status: Pen, Time: 11:00 AM [facility] Work Phone: Start: 10-20-2021 Hemoglobin A1c measurement Diabetes: Hemoglobin A1C [facility] Start: 10-15-2021 FUV, Provider: Pieter Duarte, Status: Pen, Time: 11:00 AM [facility], Provider: Pieter Duarte, Status: Pen, Time: 11:00 AM [facility] Work Phone: Start: 09-17-2021 FUV, Provider: Pieter Duarte, Status: Pen, Time: 12:00 PM [facility]UV, Provider: Pieter Duarte, Status: Pen, Time: 12:00 PM [facility] Work Phone: Start: 08-27-2021 FUV, Provider: Pieter Duarte, Status: Pen, Time: 1:30 PM [facility]UV, Provider: Pieter Duarte, Status: Pen, Time: 1:30 PM -[facility] 250 DO Work Phone: Start: 08-27-2021 FUV, Provider: Pieter Duarte, Status: Pen, Time: 1:00 PM FUV, Provider: Pieter Duarte, Status: Pen, Time: 1:00 PM [facility]- [place] Work Phone: Start: 08-12-2021 Patient encounter procedure [facility] Start: 07-30-2021 End: 07-30-2022 Isosorbide Mononitrate Extended Release 30 mg Oral Tablet Daily ; Tablet, Extended Release (IMDUR)DOSE = 90 mg Oral DailyNotes from Pharmacy: Tablets can NOT be crushed Start: 30-Jul-2021 End: 29-Jul-2022 Ordered: 29-Jul-2021 Taran Hernandes Intent [facility] Start: 07-29-2021 End: 07-30-2022 Promethazine IV Piggy Back 12.5 mg/ NaCL 0.9% Every 6 Hours PRN ; in Sodium Chloride 0.9% 50 mL (PHENERGAN)DOSE = 6.25 mg Once, PRN persistent PONV if first line ineffectiveRecommended Infusion Time: 15 minute(s)Clinician Notes: Lizz-operative order ONLY Start: 29-Jul-2021 End: 29-Jul-2022 Ordered: 29-Jul-2021 Taran Hernandes Intent Comments: Lizz-operative order ONLY [facility] Comment on above: Lizz-operative order ONLY Start: 07-29-2021 End: 07-30-2022 [facility] Comment on above: HOLD SCRUB WOMAN Infusion and notify H.O. immedi ately IF patient HAS a sec ure IV access & is Unconscious, Conscious, NPO or Unable to Eat or Drink. Repeat until BG reaches 100 mg/dL or greater. Push 2-3 mL/minute. Discontinue Once BG reaches 100 mg/dL or greater. IF patient DOES NOT have secure IV access & is Unconscious, Conscious, NPO or Unable to Eat or Drink. Repeat until BG reaches 100 mg/dL or greater. Discontinue Once BG reaches 100 mg/dL or greater. When patient has valerio ble lumen, flush both lumens After each administr ation of a medicationAfter the administration of blood or blood productsWhen converting a continuous infusion to an intermittent device After blood draws May Give 1ml to 5ml to anesthetize insertion site for patient comfort. Start: 07-19-2021 [facility] Provider: Juni Tobar, Status: Pen, Time: 8:00 AM [facility], Provider: Juni Tobar, Status: Pen, Time: 8:00 AM [facility] Work [facility]: Start: 07-19-2021 [facility], Provider: Pieter Duarte, Status: Pen, Time: 7:00 AM [facility], Provider: Pieter Duarte, Status: Pen, Time: 7:00 AM [facility] Work Phone: Start: 06-11-2021 UTE, Provider: Pieter Duarte, Status: Pen, Time: 4:00 PM [facility]: Pieter Duarte, Status: Pen, Time: 4:00 [facility] Work Phone: Start: 05-21-2021 NPV, Provider: Pieter Duarte, Status: Pen, Time: 12:15 PM NPV, Provider: Pieter Duarte, Status: Pen, Time: 12:15 PM [facility] Work Phone: Start: 05-13-2021 FUV, Provider: Lynn Holder, Status: Pen, Time: 2:30 PM [facility], Provider: Lynn Holder, Status: Pen, Time: 2:30 PM [facility] Work Phone: Start: 09-11-2019 Glaucoma screening Diabetic Ophthalmology Exam [facility] Start: 11-05-2016 Fall Risk Screening Fall Risk Screening [facility] Start: 2011 RSV patients and/or patients aged 60+ years (1 - 1-dose 60+ series) RSV patients and/or patients aged 60+ years (1 - 1-dose 60+ series) [facility] Start: 11-05-2001 Administration of varicella zoster vaccine Zoster (Shingles) Vaccine (1 of 2) [facility] Start: 11-05-2001 Zoster Vaccines (1 of 2) Zoster Vaccines (1 of 2) [facility] Start: 11-05-1970 Urine screening for protein Diabetes: Urine Protein Screening [facility] Start: 11-05-1969 Adult BMI Follow Up Plan Adult BMI Follow Up Plan [facility] Start: 11-05-1969 Diabetic foot examination Diabetic Foot Exam [facility] Start: 11-05-1969 Hepatitis C screening Hepatitis C Screening [facility] Start: 1963 Depression Screening Depression Screening [facility] Start: 11-05-1961 Diabetic foot examination Diabetes: Foot Exam [facility] Start: 1950 Glaucoma screening Diabetic Ophthalmology Exam [facility] Start: 1950 Lipid panel Lipid Panel [facility] Start: 1950 Medicare Annual Wellness Visit [facility] Start: 1950 Screening for malignant neoplasm of colon [facility] End: 07-12-2024 Basic metabolic 2000 panel - Serum or Plasma Basic Metabolic Panel Lab Routine CKD (chronic kidney disease) stage 5, GFR less than 15 ml/min ([facility]) 1 Occurrences starting 07/13/2023 until 07/12/2024 [facility] [employer] Comment on above: 1 Occurrences starting 07/13/2023 until 07/12/2024 End: 07-12-2024 CBC panel - Blood by Automated count CBC without diff Lab Routine CKD (chronic kidney disease) stage 5, GFR less than 15 ml/min ([facility]) 1 Occurrences starting 07/13/2023 until 07/12/2024 [facility] [employer] Comment on above: 1 Occurrences starting 07/13/2023 until 07/12/2024 End: 07-12-2024 Magnesium [Mass/volume] in Serum or Plasma Magnesium Lab Routine CKD (chronic kidney disease) stage 5, GFR less than 15 ml/min ([facility]) 1 Occurrences starting 07/13/2023 until 07/12/2024 [employer] Comment on above: 1 Occurrences starting 07/13/2023 until 07/12/2024 End: 07-12-2024 Parathyroid Hormone, intact Parathyroid Hormone, intact Lab Routine CKD (chronic kidney disease) stage 5, GFR less than 15 ml/min ([facility]) 1 Occurrences starting 07/13/2023 until 07/12/2024 [facility] Work Phone: Comment on above: 1 Occurrences starting 07/13/2023 until 07/12/2024 Patient Education Neuropathic pain [facility] Work Phone: Patient referral [facility] Work Phone: End: 07-12-2024 Phosphate [Mass/volume] in Serum or Plasma Phosphorus Lab Routine CKD (chronic kidney disease) stage 5, GFR less than 15 ml/min ([facility]) 1 Occurrences starting 07/13/2023 until 07/12/2024 [employer] Comment on above: 1 Occurrences starting 07/13/2023 until 07/12/2024 End: 07-12-2024 Protein creat ratio Protein creat ratio Lab Routine CKD (chronic kidney disease) stage 5, GFR less than 15 ml/min ([facility]) 1 Occurrences starting 07/13/2023 until 07/12/2024 [employer] Comment on above: 1 Occurrences starting 07/13/2023 until 07/12/2024 End: 05-17-2024 Urinalysis Urinalysis Lab Routine Stage 4 chronic kidney disease ([facility]) 1 Occurrences starting 05/18/2023 until 05/17/2024 [employer] Comment on above: 1 Occurrences starting 05/18/2023 until 05/17/2024 End: 07-12-2024 Urinalysis Urinalysis Lab Routine CKD (chronic kidney disease) stage 5, GFR less than 15 ml/min ([facility]) 1 Occurrences starting 07/13/2023 until 07/12/2024 [employer] Comment on above: 1 Occurrences starting 07/13/2023 until 07/12/2024 US.doppler Carotid arteries - bilateral [facility] End: 07-12-2024 Vitamin D 25 hydroxy Vitamin D 25 hydroxy Lab Routine CKD (chronic kidney disease) stage 5, GFR less than 15 ml/min ([facility]) 1 Occurrences starting 07/13/2023 until 07/12/2024 [facility] Comment on above: 1 Occurrences starting 07/13/2023 until 07/12/2024 Immunizations Immunization Date Immunization Notes Care Provider Fa [facility] 01-10-2023 influenza, high dose seasonal, preservative-free Lety Downey MD Work Phone: [facility] 01-10-2023 Pneumococcal Conjuga te PCV 20 Lety Downey MD Work Phone: [facility] 01-10-2023 influenza virus vaccine, unspecified formulation Adeline Oreilly MD Work Phone: [facility] 02-04-2022 Fluzone High-Dose Quadrivalent 0.7 ML Intramuscular Suspension Prefilled Syringe Lety Downey Work Phone: [facility] 02-04-2022 influenza, high dose seasonal, preservative-free Lety Downey MD Work Phone: [facility] 01-23-2022 tetanus toxoid, redu bryanna diphtheria toxoid, and acellular pertussis vaccine, adsorbed Lety Downey Work Phone: [facility] 06-18-2021 Comirnaty 30 MCG/0.3 ML Intramuscular Suspension Lety Downey Work Phone: [facility] 250 DO Work Phone: 06-18-2021 COVID-19 (Pfizer) MD Adriano Downey Work Phone: [facility] 06-18-2021 Pfizer Purple Cap SARS-CoV-2 Vaccination Lety Downey MD Work Phone: [facility] 02-19-2021 Fluzone High-Dose Quadrivalent 0.7 ML Intramuscular Suspension Prefilled Syringe Lety Downey Work Phone: [facility] 02-19-2021 influenza, high dose seasonal, preservative-free Lety Downey MD Work Phone: [facility] 12-18-2020 COVID-19 (Pfizer) MD Adriano Downey Work Phone: [facility] 12-18-2020 Pfizer-BioNTech COVID-19 Vacc 30 MCG/0.3ML Intramuscular Suspension Lety Downey Work Phone: [facility] DO Work Phone: 12-17-2020 Pfizer Purple Cap SARS-CoV-2 Vaccination Lety Downey MD Work Phone: [facility] 11-27-2020 COVID-19 (Pfizer) MD Adriano Downey Work Phone: [facility] 11-27-2020 Pfizer-BioNTech COVID-19 Vacc 30 MCG/0.3ML Intramuscular Suspension Lety Downey Work Phone: [facility] DO Work Phone: 11-26-2020 Pfizer Purple Cap SARS-CoV-2 Vaccination Lety Downey MD Work Phone: [facility] 03-24-2020 influenza virus vaccine, unspecified formulation Lety Downey Work Phone: [facility] 250 DO Work Phone: 03-24-2020 influenza, high dose seasonal, preservative-free Lety Downey MD Work Phone: [facility] 03-24-2020 Influenza, High-dose Seasonal, Quadrivalent, Preservative Free Lety Downey MD Work Phone: [facility] 04-10-2018 pneumococcal polysaccharide vaccine, 23 valent Lety Downey Work Phone: [facility] 06-06-2017 influenza, high dose seasonal, preservative-free Lety Downey MD Work Phone: [facility] 06-06-2017 influenza, injectabl e, quadrivalent, preservative free Lety Downey Work Phone: [place] [address] DO Work Phone: 06-06-2017 pneumococcal conjuga te vaccine, 13 valent Lety Downey Work Phone: [facility] 11-07-2016 pneumococcal polysaccharide vaccine, 23 valent Gael Euceda Other [facility] [employer] Other 02-23-2016 influenza, injectabl e, quadrivalent, preservative free Lety Downey Work Phone: [facility] 01-23-2016 influenza virus vaccine, unspecified formulation Lety Downey Work Phone: [place] [address] DO Work Phone: 01-23-2016 pneumococcal polysaccharide vaccine, 23 valent Lety Downey Work Phone: [place] [address] DO Work Phone: 03-17-2015 influenza, injectabl e, quadrivalent, preservative free Lety Downey MD Work Phone: [facility] 03-17-2015 influenza, seasonal, injectable, preservative free Lety Downey Work Phone: [place] [address] DO Work Phone: 01-26-2012 influenza, seasonal, injectable, preservative free Lety Downey Work Phone: [facility] 01-31-2011 influenza virus vaccine, whole virus Lety Downey Work Phone: [place] [address] DO Work Phone: 01-31-2011 pneumococcal polysaccharide vaccine, 23 valent Lety Downey Work Phone: [facility] 01-31-2011 seasonal influenza, intradermal, preservative free Lety Downey MD Work Phone: [facility] Payers Date Payer Category Payer Self-pay [id number] 2016 Medicare [id number] 2016 Private Health Insurance [id number] 2016 Unknown 2016 Medicare [id number] 2.1 [id number] 2016 Private Health Insurance [id number] 2.840.1.957706.19 2016 Unknown [id number] Medicare [id number] 1950 Unknown [id number] 2.840.1.096536.3.579.2.356 1951 Unknown [id number] .0.1.161718.3.579.2. 1951 Unknown [id number] 2.840.1.278510.3.579.2. 1951 Unknown [id number] 2.840.1.940502.3.579.2.356 1951 Unknown [id number] 2.840.1.425755.3.579.2.356 1951 Unknown [id number] 2.16840.1.312172.3.579.2.356 1951 Unknown [id number] 2.16.840.1.411212.3.579.2.1285 1951 Unknown [id number] 2.16.840.1.245990.3.579.2.1285 1951 Unknown [id number] 2.16.840.1.164599.3.579.2.1244 1951 Unknown [id number] 2.16.840.1.410577.3.579.2.1243 1951 Unknown [id number] 2.16.840.1.687211.3.579.2.1285 1951 Unknown [id number] 2.16.840.1.762163.3.579.2.1285 1951 Unknown [id number] 2..840.1.273480.3.579.2.1285 1951 Unknown [id number] 2..840.1.728514.3.579.2.1285 1951 Unknown [id number] 2..840.1.631550.3.579.2.1285 1951 Unknown [id number] 2.16.840.1.981737.3.579.2.1285 1951 Unknown [id number] 2.16.840.1.679281.3.579.2.1285 1951 Unknown [id number] 2.16.840.1.741479.3.579.2.1285 1951 Unknown [id number] 2.16.840.1.435050.3.579.2.1285 1951 Unknown [id number] 2.16.840.1.786677.3.579.2.1285 1951 Unknown [id number] 2.16.840.1.059088.3.579.2.1285 1951 Unknown [id number] 2.16.840.1.958796.3.579.2.128 1951 Unknown [id number] 2.16.840.1.251043.3.579.2.1285 1951 Unknown [id number] 2.16.840.1.307242.3.579.2.1285 1951 Unknown [id number] 2.16.840.1.473370.3.579.2.1285 1951 Unknown [id number] 2.16.840.1.714104.3.579.2.1285 1951 Unknown [id number] 2.16.840.1.609479.3.579.2.1285 1951 Unknown [id number] 2.16.840.1.559645.3.579.2.1285 1951 Unknown [id number] 2.16.840.1.293395.3.579.2.1285 1951 Unknown [id number] 2.16.840.1.050626.3.579.2.1285 1951 Unknown [id number] 2.16.840.1.823308.3.579.2.1285 1951 Unknown [id number] 2.16.840.1.659973.3.579.2.1285 1951 Unknown [id number] 2.16.840.1.936891.3.579.2.1285 1951 Unknown [id number] 2.16.840.1.293017.3.579.2.1285 1951 Unknown [id number] 2.16.840.1.590221.3.579.2.9 1951 Unknown [id number] 2.16.840.1.048485.3.579.2.1259 1951 Unknown [id number] 2.16.840.1.070461.3.579.2.1259 1951 Unknown [id number] 2.16.840.1.007703.3.579.2.1259 1951 Unknown [id number] 2.16.840.1.558769.3.579.2.1259 Unknown Private Pay [facility] [id number] Unknown [id number] 2.16.840.1.489365.3.579.2.531 Unknown [id number] 2.16.840.1.155305.3.579.2.531 Unknown [id number] 2.16.840.1.588627.3.579.2.531 Unknown [id number] 2.16.840.1.847662.3.579.2.531 Unknown [id number] 2.16.840.1.957084.3.579.2.531 Unknown [id number] 2.16.840.1.150199.3.579.2.531 Unknown [id number] 2.16.840.1.341790.3.579.2.531 Unknown [id number] 2.16.840.1.334873.3.579.2.531 Social History Date Type Detail Facility Start: 02-27-2023 End: 07-12-2023 No illicit drug use No illicit drug use [place] [address] DO Work Phone: Comment on above: 3-4 CUPS OF COFFEE D AILY, 2-3 CUPS OF DIET SODA; 3 CUPS OF COFFEE NATHAN LY, 1 CUP OF DIET SODA; Tobacco smoking consumption unknown [facility] Start: 02-27-2023 End: 07-12-2023 Sex Assigned At [facility] [employer] Other Start: 08-14-2021 End: 10-09-2023 Tobacco smoking status NHIS Never smoked tobacco (finding) [facility] Start: 1950 Sex Assigned At Male F [facility] Start: 03-21-2017 End: 10-08-2023 Tobacco smoking status NHIS Ex-smoker [facility] History of tobacco use Current smoker [facility] [facility] Start: 03-21-2017 End: 07-12-2023 Tobacco use and exposure Smokeless tobacco non-user [facility] Start: 02-27-2023 End: 07-03-2023 Alcohol intake Current non-drinker of alcohol (finding) [facility] Housing Instability Unknown [facility] Start: 1950 Sex Assigned At Not on file [facility] Start: 04-25-2023 End: 08-25-2023 Alcohol intake Lifetime non-drinker (finding) [facility] How often to you hav e a drink containing alcohol? Never [facility] Start: 07-02-2023 End: 08-25-2023 Exposure to SARS-CoV-2 (event) Not sure [facility] Medical Equipment Procedure Code Equipment Code Equipment Origin al Text Equipment Identifier Dates Digital subtraction angiography of carotid and cerebral arteries Bare-metal carotid artery stent ()[id number] FDA Start: 10-29-2020 Angioplasty of carotid artery with insertion of stent IR STENT PRECISE [id number] FDA Start: 06-20-2018 Angioplasty of carotid artery with insertion of stent IR STENT PRECISE [id number] FDA Start: 06-20-2018 Angioplasty of carotid artery with insertion of stent IR STENT PRECISE [id number] FDA Start: 06-20-2018 Angioplasty of carotid artery with insertion of stent IR STENT PRECISE [id number] FDA Start: 06-20-2018 Angioplasty of carotid artery with insertion of stent IR STENT PRECISE [id number] FDA Start: 06-20-2018 Angioplasty of carotid artery with insertion of stent IR STENT PRECISE [id number] FDA Start: 06-20-2018 Angioplasty of carotid artery with insertion of stent IR STENT PRECISE 9X40MM FDA Start: 06-20-2018 Angioplasty of carotid artery with insertion of stent IR STENT PRECISE [id number] FDA Start: 06-20-2018 Angioplasty of carotid artery with insertion of stent IR STENT PRECISE 9X40MM FDA Start: 06-20-2018 Angioplasty of carotid artery with insertion of stent IR STENT PRECISE [id number] FDA Start: 06-20-2018 Angioplasty of carotid artery with insertion of stent IR STENT PRECISE [id number] FDA Start: 06-20-2018 Angioplasty of carotid artery with insertion of stent IR STENT PRECISE [id number] FDA Start: 06-20-2018 Stnt Cor 8mm 144 cm 2.75mm - [id number] FDA Start: 05-13-2016 Peg Kit, Gastro, Standard, Push, 20 Fr, W/Xylocaine Ampule Case [id number] Start: 07-19-2021 Comment on above: Description: Convert ed from [facility]. Please see archived information for full log information. Plate, Recon Ang 2.0 7x23h Rt Ti Case [id number] Start: 07-19-2021 Comment on above: Description: Convert ed from [facility]. Please see archived information for full log information. Screw, Lock 2.[address] Ti Case [id number] Start: 07-19-2021 Comment on above: Description: Convert ed from [facility]. Please see archived information for full log information. Screw, Lock 2.[address] Ti Case [id number] Start: 07-19-2021 Comment on above: Description: Convert ed from [facility]. Please see archived information for full log information. Screw, Emerg 2.[address] Ti Case [id number] Start: 07-19-2021 Comment on above: Description: Convert ed from [facility]. Please see archived information for full log information. Device, Anastomatic 3.5mm Purple Case [id number] Start: 07-19-2021 Comment on above: Description: Convert ed from [facility]. Please see archived information for full log information. Probe, Flow Doppler Syl Case [id number] Start: 07-19-2021 Comment on above: Description: Convert ed from [facility]. Please see archived information for full log information. Goals Date Patient Goal Desired Activity /State Functional Status Date Assessment Result Facility 03-24-2023 Functional status Patient at Baseline [facility] Work Phone: Functional observable [facility] Mental Status Date Assessment Result Facility 03-24-2023 Cognitive function Cognitive Sta tus Patient at Baseline [facility] Work Phone: 07-20-2021 Cognitive functi ons [id number] [facility] Clinical Notes 05-21-2019 to 08-25-2023 Pieter Duarte MD - 08/25/2023 12:45 PM Gian Dudley RN - 07/17/2023 12:00 PM EDNikki Spicer APRN-WASHER ENGINEER - 07/13/2023 8:00 AM JULIASTRclare Duarte MD - 07/12/2023 3:45 PM EDT Note Date & Type Note Facility 08-25-2023 History of Present illness Narrative Hx of remote bilateral parotidectomy and ND ( L RND) for oropharyngeal CA and melanoma treated approx (2014?) at outside hospital Underwent left composite resection for ORN with scapular flap 2021 Here for follow up ? Left TIA ( has carotid occlusion s/p stenting) 08/25/23 Here for follow-up visit, left ear continues to bother him He did take the drops Having some left-sided neck pain Physical Exam: CONSTITUTIONAL: No acute distress VOICE: No hoarseness or other abnormality RESPIRATION: Breathing comfortably, no stridor CV: No clubbing/cyanosis/edema in hands EYES: EOM intact, sclera normal NEURO: Alert and oriented times 3, Cranial nerves II-XII grossly intact and symmetric bilaterally HEAD AND FACE: aymmetric facial features, no masses or lesions, sinuses non-tender to palpation SALIVARY GLANDS: Parotid and submandibular glands normal bilaterally EARS: Normal external ears, external auditory canals, left canal with debris and cerumen impaction and purulence NOSE: External nose midline, anterior rhinoscopy is normal with limited visualization to the anterior aspect of the interior turbinates, no bleeding or drainage, no lesions ORAL CAVITY/OROPHARYNX/LIPS: Normal mucous membranes, flap in good position on the left no bone exposure PHARYNGEAL SWANSON: No masses or lesions NECK/LYMPH: Extensive left neck changes SKIN: Extensive radiotherapy and surgical changes PSYCH: Alert and oriented with appropriate mood and affect After informed verbal consent and utilizes small hand-held equipment curette suction otologic scope left ear was disimpacted drum intact after removal no canal trauma patient tolerated procedure well with some bone exposure download, gentian oscar applied Imp chronic left otitis Debrided today Will place on drops Will see back for repeat visit documented in this encounter [facility] Work Phone: 07-17-2023 History of Present illness Narrative Patient here for Aransep Vitals are stable HGB 9.7 Injection admin in Right arm Patient tolerated well Calendar given, patient discharged in stable condition documented in this encounter [employer] 07-13-2023 History of Present illness Narrative Images from the original note were not included. Date of Service: 07/13/23 PCP: Lety Downey MD History of Present Illness Mendez Drummond is a 72 y.o. male, who is following with us for management of his chronic kidney disease, hypertension, and volume status. He reports no new issues since his last visit. Presently, he denies any shortness of breath, chest pain, lower extremity edema, or difficulty with urination. At the time of his last office visit his creatinine was 3.99 mg/dL. Most recent laboratory studies show creatinine of 4.26 mg/dL. Problem List Stage 5 chronic kidney disease. Previous nephrologic investigations demonstrated creatinine 1.63 as remotely as March 08, 2016. Urinalysis on 08/08/2016 demonstrated 300 mg/dL protein with 2 red blood cells and 2 white blood cells per high-power field Previous serologies in June of 2020 included negative hepatitis C. An MARNIE screen was negative. Anti double-stranded DNA antibody titer were negative. Complement C3 and C4 were normal 138 and 47 mg/dL, respectively. Anti myeloperoxidase and anti proteinase 3 antibody titers were negative a free kappa lambda ratio was 2.47. Anti glomerular basement membrane antibody titer was negative. A previous serum protein electrophoresis with immunofixation on 03/10/2016 revealed no evidence of a monoclonal protein disorde Type 2 diabetes mellitus S/P head and neck surgery at [facility] in 06/2021 s/p bone grafting, long hospitalization. Hypertension Unhealthy body weight Hyperlipidemia Osteoarthritis affecting both knees Sensorineural hearing loss History of cutaneous malignancy. Atherosclerotic coronary artery disease. Status post angioplasty and stenting of the mid left anterior descending coronary artery. 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 He received 33 external beam radiation treatments in 2011. He received 6 cycles of chemotherapy under the care of Dr. Fraser at the [facility]. S/P extensive surgery at [facility] in June 2021. Decreased left ventricular function with ejection fraction 40% cardiac echo 12/12/2015. 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 Arthritis Carotid artery occlusion Chest pain Chronic kidney disease Coronary angioplasty status Coronary artery disease Depression Diabetes mellitus ([facility]) Heart murmur HLD (hyperlipidemia) Hyperlipidemia Hypertension Skin cancer Syncope Surgical History: Past Surgical History: Procedure Laterality Date CARDIAC CATHETERIZATION Coronary angiogram and left ventricular gram/pressure N/A 05/13/2016 Performed by Gregor Patiño MD at [facility] CARDIAC CATH LABS CORONARY ANGIOPLASTY 12/11/2015 MYRINGOTOMY NECK DISSECTION PARATHYROIDECTOMY Percutaneous coronary intervention N/A 05/13/2016 Performed by Gregor Patiño MD at [facility] CARDIAC CATH LABS SCALP LESION REMOVAL W/ FLAP AND SKIN GRAFT TONSILLECTOMY TONSILLECTOMY ADENOIDECTOMY Social History: Social History Socioeconomic History Marital status: Spouse name: Not on file Number of children: Not on file Years of education: Not on file Highest education level: Not on file Occupational History Not on file Tobacco Use Smoking status: Former Smokeless tobacco: Never Substance and Sexual Activity Alcohol use: No Drug use: Defer Sexual activity: Defer Other Topics Concern Caffeine Use Yes Social History Narrative Not on file Social Determinants of Health Financial Resource Strain: Not on file Food Insecurity: No Food Insecurity (07/03/2023) Hunger Screening Food Insecurity - Worry: Never True Food Insecurity - Inability: Never True Transportation Needs: Not on file Physical Activity: Not on file Stress: Not on file Social Connections: Not on file Interpersonal Safety: Not on file Housing Instability: Not on file Family History: Family History Problem Relation Age of Onset Diabetes Mother Heart disease Mother Cancer Maternal Grandfather Cancer Brother Alcohol abuse Father Allergies & Medications Allergies: Allergies Allergen Reactions Iodinated Contrast Media Benzoic Acid Rash Current Meds: Current Outpatient Medications Medication Sig Dispense Refill amLODIPine (NORVASC) 10 mg tablet Take 1 tablet (10 mg total) by mouth in the morning. aspirin 81 mg Take 1 tablet (81 mg total) by mouth in the morning. atorvastatin (LIPITOR) 80 mg tablet Take 1 tablet (80 mg total) by mouth Daily before evening meal. BASAGLAR KWIKPEN U-100 INSULIN 100 unit/mL (3 mL) insulin pen Inject 27 Units under the skin in the morning. calcitrioL (ROCALTROL) 0.25 MCG capsule Take 1 capsule (0.25 mcg total) by mouth in the morning for 360 days. 90 capsule 3 carvediloL (COREG) 25 mg tablet Take 1 tablet (25 mg total) by mouth 2 (two) times a day with meals. 180 tablet 3 cholecalciferol, vitamin D3, (VITAMIN D3) 2,000 units tablet Take 2 tablets (4,000 Units total) by mouth in the morning for 360 days. 180 tablet 3 clopidogreL (PLAVIX) 75 mg tablet Take 1 tablet (75 mg total) by mouth in the morning. FLUoxetine (PROzac) 40 mg capsule Take 1 capsule (40 mg total) by mouth in the morning. lisinopriL (PRINIVIL,ZESTRIL) 10 mg tablet Take 1 tablet (10 mg total) by mouth in the morning. 90 tablet 3 nitroglycerin (NITROSTAT) 0.4 MG SL tablet 1 under the tongue as needed for angina, may repeat q5mins for up three doses (Patient taking differently: Take 1 tablet (0.4 mg total) by mouth every 5 (five) minutes as needed for chest pain. 1 under the tongue as needed for angina, may repeat q5mins for up three doses) 25 tablet 3 pioglitazone (ACTOS) 30 mg tablet Take 1 tablet (30 mg total) by mouth in the morning. tamsulosin (FLOMAX) 0.4 mg capsule Take 1 capsule (0.4 mg total) by mouth nightly. 90 capsule 3 zinc gluconate 50 mg tablet Take 1 tablet (50 mg total) by mouth in the morning. No current facility-administered medications for this visit. Review of Systems Review of Systems Constitutional: Negative for chills, diaphoresis, fatigue and fever. HENT: Negative for congestion, ear discharge, ear pain, facial swelling and hearing loss. Eyes: Negative for pain, discharge, redness and itching. Respiratory: Negative for cough, shortness of breath and wheezing. Cardiovascular: Negative for chest pain, palpitations and leg swelling. Gastrointestinal: Negative for abdominal pain, constipation, diarrhea, nausea and vomiting. Endocrine: Negative for polydipsia, polyphagia and polyuria. Genitourinary: Negative for decreased urine volume, difficulty urinating, dysuria, enuresis, flank pain, frequency, hematuria and urgency. Musculoskeletal: Negative for arthralgias, joint swelling and myalgias. Skin: Negative for rash and wound. Neurological: Negative for dizziness, tremors, weakness, light-headedness and numbness. Hematological: Negative for adenopathy. Does not bruise/bleed easily. Physical Exam Vital Signs: Vitals: 07/13/23 0751 07/13/23 0753 BP: 124/73 108/56 BP Site: Left Arm Left Arm BP Postition: Sitting Standing BP CUFF SIZE: L (13-17 inches) L (13-17 inches) Pulse: 73 79 SpO2: 100% Weight: 114.4 kg (252 lb 3.2 oz) BMI: Body mass index is 36.19 kg/m . General appearance: alert in no apparent distress. Psychiatric: Oriented to place, time and person HEENT: atraumatic, supple, moist oral mucosa, no JVD Cardiovascular: normal S1-S2 Respiratory: No respiratory distress with no use of accessory muscles. Clear to auscultation bilaterally with no wheezes or crackles Abdomen: soft, no tenderness, no guarding, positive bowel sounds and no hepato or splenomegaly Vascular: adequate pulses and no carotid bruits. Musculoskeletal: no joint swelling or tenderness. Neurologic: No focal deficit in upper or lower extremities Lymphatic: no cervical or axillary lymphadenopathy. Edema: No edema Laboratory Studies Chemistry: Lab Results Component Value Date SODIUM 140 07/04/2023 K 4.6 07/04/2023 CL 107 07/04/2023 CO2 23 07/04/2023 ANIONGAP 10 07/04/2023 BUN 83 (H) 07/04/2023 CREATININE 4.26 (H) 07/04/2023 EGFR 14 (L) 07/04/2023 CALCIUM 9.5 07/04/2023 MG 1.8 07/04/2023 PHOSPHORUS 6.2 (H) 07/04/2023 Hematology: Lab Results Component Value Date WBC 6.1 07/04/2023 HGB 9.5 (L) 07/04/2023 HCT 28.3 (L) 07/04/2023 PLT 162 07/04/2023 Anemia Studies: No results found for: IRONSAT , [id number] , FOLATE Mineral and Bone Labs: Lab Results Component Value Date CALCIUM 9.5 07/04/2023 PHOSPHORUS 6.2 (H) 07/04/2023 VITD25 38.8 07/04/2023 PTH 153 (H) 07/04/2023 Urine Studies: Lab Results Component Value Date COLOR YELLOW 07/04/2023 TURBIDITY CLEAR 07/04/2023 SPECIFICGRA 1.012 07/04/2023 NITRITE Negative 07/04/2023 PHURINE 6.0 07/04/2023 LEUKOCYTE Negative 07/04/2023 PROTEIN 200 (A) 07/04/2023 KETONES Negative 07/04/2023 UROBILINOGEN <1.1 07/04/2023 BLOODHGB Trace (A) 07/04/2023 Lab Results Component Value Date UPROCRTRAT 2.13 (H) 07/04/2023 Immunology Profile Lab Results Component Value Date PROTELECTR 08/02/2022 Unremarkable protein distribution, no monoclonal bands. ANASCREEN Negative 07/04/2020 C3 138 07/04/2020 C4 47 07/04/2020 ANCA See Below 03/08/2016 MYELOP <0.2 08/02/2022 PROTEINASE3 <0.2 08/02/2022 ANTIGLOMERU <0.2 07/04/2020 No results found for: HAV , HEPAIGM , HEPBIGM , HEPBCAB , HBEAG , HEPCAB Imaging Echocardiogram: ECHO CONGENITAL LIMITED WITHOUT CONTRAST Result Date: 06/07/2022 PERFORMED AT [facility] LOCATION:[address] [place] [address] [place] [address] Echocardiogram Signed Patient: Mendez Drummond MR#: [id number] : 1950 Acct:[id number] Age/Sex: 71 / M ADM Date: 06/07/22 Loc: Room: Type: [facility] Attending Dr: Lety Downey MD Ordering Provider: Lety Downey MD Date of Service: 06/07/22/ ECH/ECH echo transthoracic: SOB. CHF. Edema. Copies to: Maria Teresa Ocampo MD, FACC Lety Downey MD Weight: 258 lb Performed By: Kaci Jimenez RDCS BSA: 2.3 m2 BP: 162/76 mmHg HR: 73 Reason For Study: SOB. CHF. Edema. History: HTN. HLD. DM. PCI. Family history of CAD. Interpretation Summary Mild concentric left ventricular hypertrophy. Ejection Fraction = 55-60%. A variety of Doppler measurements indicate impaired left ventricular relaxation, which is associated with grade I/IV or mild diastolic dysfunction. The left atrium appears mildly dilated. There is no prior echocardiogram noted for this patient. Procedure/Quality: A two-dimensional transthoracic echocardiogram with color flow and Doppler was performed. The study was technically good in quality. There is no prior echocardiogram noted for this patient. Left Ventricle: Mild concentric left ventricular hypertrophy. Left ventricular systolic function is normal. Ejection Fraction = 55-60%. A variety of Doppler measurements indicate impaired left ventricular relaxation, which is associated with grade I/IV or mild diastolic dysfunction. Left Atrium: The left atrium appears mildly dilated. The atrial septum appears normal. Right Atrium: The right atrium appears normal in size. Right Ventricle: The right ventricular size, thickness and function are normal. Aortic Valve: The aortic valve is mildly sclerotic. Mitral Valve: The mitral valve is mildly sclerotic. Tricuspid Valve: The tricuspid valve is normal. There is trace tricuspid regurgitation. Pulmonic Valve: The pulmonic valve is not well seen, but is grossly normal. Arteries: The aortic root is normal size. Pericardium/Pleura: No pericardial effusion seen. There is no pleural effusion. IVC/Hepatic Viens: The IVC is normal in size with an inspiratory collapse of greater then 50%, suggesting normal right atrial pressure. Miscellaneous: No thrombus, vegetation or mass is seen. Measurements with Normals IVSd: 1.5 cm (0.7-1.1 cm)LVIDd: 4.7 cm (3.7-5.4 cm) LVPWd: 1.4 cm (0.7-1.1 cm)LVIDs: 3.2 cm (2.3-3.6 cm) LA dimension: 4.3 cm (2.3-4.0 cm)Ao root diam: 3.0 cm(2.0-3.6 cm) asc Aorta Diam: 3.5 cm(2.1-3.4cm) Doppler with Normals LV V1 max: 94.3 cm/sec (0.7-1.7m/s)MV E max zulma: 97.5 cm/sec(0.8-1.3m/s) MV A max zulma: 95.1 cm/sec(0.0-0.0m/s) MV E/A: 1.0 (<1.5) MMode/2D Measurements Calculations TAPSE: 3.0 cm FS: 31.4 % Ao root area: LVOT diam: 2.2 cm RV S Zulma: EDV(Teich): 7.3 cm2 LVOT area: 3.9 cm2 19.6 cm/sec 99.8 ml ESV(Teich): 40.7 ml EF(Teich): 59.2 % __ LVLd ap4: 9.1 cm SV(MOD-sp4): LAV(MOD-sp4): LA A2 area: 16.3 cm2 EDV(MOD-sp4): 86.1 ml 67.5 ml 171.0 ml LAV(MOD-sp2): LA A4 area: 23.7 cm2 LVLs ap4: 7.6 cm 42.0 ml LA length (vol): ESV(MOD-sp4): 6.3 cm 84.9 ml LA vol: 52.5 ml EF(MOD-sp4): 50.4 % LA vol index: 22.8 ml/m2 Doppler Measurements Calculations MV dec time: E/E' lat: 10.4 MV dec slope: Ao V2 max: 0.19 sec E/E' med: 14.0 119.9 cm/sec 522.6 cm/sec2 Ao max P.7 mmHg Ao mean P.8 mmHg Ao V2 mean: 95.9 cm/sec Ao V2 VTI: 28.1 cm SHAHEEN(I,D): 3.2 cm2 SHAHEEN(V,D): 3.1 cm2 __ LV V1 max PG: TV max PG: TR max zulma: 3.6 mmHg 33.0 mmHg 287.8 cm/sec LV V1 mean PG: TR max P.1 mmHg 2.2 mmHg LV V1 mean: 71.1 cm/sec LV V1 VTI: 22.9 cm Transcribed By: SCV Performed At: 06/07/22 1241 Signed By: Maria Teresa Ocampo MD, [facility] 06/07/22 7578 Assessment & Plan 1. Chronic kidney disease stage 5 with an estimated GFR of 14 mL/min and a stable creatinine since his last visit. With underlying kidney disease likely related to hypertensive nephrosclerosis versus diabetic nephropathy. Was advised on the importance of proper blood pressure control, blood sugar control avoids NSAID medications, IV contrast dyes, possible. Did have an AV access created in April 2023. At this time there is no urgent indication to initiate hemodialysis. Follow up in 2 months 2. Hypertension: Blood pressures are well controlled 3. Hyperphosphatemia: Low phosphorus diet was educated. He may need to start a phosphorus binder if unable to control with diet alone. 4. Secondary hyperparathyroidism of renal origin: Continue calcitriol. 5. Diabetes mellitus type 2: Further management per primary care. 6. Anemia of chronic disease: On Aranesp. Will increase injections to 80 mcg Thank you Lety Downey MD for the allowing us to continue participant in the care of this patient. Please contact me at [phone] (Office) or [phone] (Answering service) with any questions. Meredith Spicer, ENVIRONMENTAL COMPLIANCE INSPECTOR-WASHER ENGINEER [facility] This note was created with the assistance of a speech-recognition program. Although the intention is to generate a document that actually reflects the content of the visit, no guarantees can be provided that every mistake has been identified and corrected by editing. AVA Scherer 07/13/23 0807 documented in this encounter [employer] 07-12-2023 History of Present illness Narrative Hx of remote bilateral parotidectomy and ND ( L RND) for oropharyngeal CA and melanoma treated approx (2014?) at outside hospital Underwent left composite resection for ORN with scapular flap 2021 Here for follow up ? Left TIA ( has carotid occlusion s/p stenting) Left ear is bothering him PE Physical Exam: CONSTITUTIONAL: No acute distress VOICE: No hoarseness or other abnormality RESPIRATION: Breathing comfortably, no stridor CV: No clubbing/cyanosis/edema in hands EYES: EOM intact, sclera normal NEURO: Alert and oriented times 3, Cranial nerves II-XII grossly intact and symmetric bilaterally HEAD AND FACE: Symmetric facial features, no masses or lesions, sinuses non-tender to palpation SALIVARY GLANDS: Parotid and submandibular glands normal bilaterally EARS: Normal external ears,bilateral cerumen impactions, left occluded NOSE: External nose midline, anterior rhinoscopy is normal with limited visualization to the anterior aspect of the interior turbinates, no bleeding or drainage, no lesions ORAL CAVITY/OROPHARYNX/LIPS: nicely reconstructed oral cavity, no mobility , poor residual dentition PHARYNGEAL SWANSON: No masses or lesions NECK/LYMPH: s/p RND on left, ND on right SKIN: extensive XRT and surgical changes PSYCH: Alert and oriented with appropriate mood and affect After informed verbal consent was obtained. I utilized the small hand-held equipment including the curette, suction and otologic scope bilateral ears were disimpacted. The drums were intact after removal. No canal trauma noted. Patient tolerated procedure well Exam after removal: Bilateral ears and canals are clear drums intact no trauma noted on right, exposed ORN bone in left canal, debris suctioned on left Imp ROXIE Left canal ORN , ciprodex for 10 days then will see him in 4-6 weeks Will discuss regimen of oil drops to minimize build up Discussed potential canaloplasty/STSG in future Left arm dysfunction, ? Brachial plexopathy from XRT vs from RND or combination, will refer to neurology for EMG and potentially PT documented in this encounter [facility] Work Phone: 07-04-2023 Miscellaneous Notes Patient return phone call and confirm appt for 07/12 documented in this encounter [facility] 07-04-2023 Telephone encounter Note Patient return phone call and confirm appt for 07/12 [facility] 07-04-2023 Miscellaneous Notes LVM for patient to return phone call back to the office to confirm appt as well to remind to have labs done documented in this encounter [facility] 07-04-2023 Telephone encounter Note LVM for patient to return phone call back to the office to confirm appt as well to remind to have labs done [facility] 07-03-2023 History of Present illness Narrative Patient is here for aranesp injection. H and H drawn at [facility]. Hgb 9.4. Medication administered in left upper arm subcutaneous tissue without incident and patient tolerated well. Treatment calendar and lab result provided. Patient discharged in stable condition to private vehicle. documented in this encounter [facility] 06-05-2023 Telephone encounter Note left 1:47- Daria would like to bring in Juan with his dexcom for some education on how it works. Would that be possible to set up. [phone] [facility] 06-05-2023 Miscellaneous Notes Vm left 1:47- Daria would like to bring in Juan with his dexcom for some education on how it works. Would that be possible to set up. [phone] documented in this encounter [facility] 06-05-2023 History of Present illness Narrative Patient here for Aransep Vitals are stable HGB 9.0 Injection admin in Right arm Patient tolerated well Calendar given, patient discharged in stable condition documented in this encounter [facility] 06-01-2023 History of Present illness Narrative Images from the original note were not included. Elisa Casey RN YES YOU SHOULD HAVE NO ISSUE WITH THE AUTHORIZED REFERRAL THANKS DIEGOV Previous Messages ----- Message ----- From: Jacey Casey RN Sent: 06/01/2023 12:49 PM EST To: Mary Carmen Almendarez RN; [facility] Subject: RE: aranesp order There is two referrals. One says authorized and one says closed? Just want to make sure we will be able to release the order. ----- Message ----- From: Mary Carmen Almendarez RN Sent: 05/31/2023 9:37 AM EST To: Jacey Casey RN; Kylie Parish; * Subject: RE: aranesp order Sorry, don't see the order in the referral shell. Will authorize referral. Mary Carmen Corley ----- Message ----- From: Jacey Casey RN Sent: 05/30/2023 12:20 PM EST To: Mary Carmen Almendarez RN; Kylie Parish; * Subject: RE: aranesp order The order is still good until 09/24/[address] Oreilly's office it is not yet in therapy plan. It is a standing order ----- Message ----- From: Mary Carmen Almendarez RN Sent: 05/30/2023 12:17 PM EST To: Kylie Parish; Dianne Tenorio LPN; * Subject: aranesp order Need new order for Aranesp to be entered into therapy plan, please, if Pt is to resume Aranesp. Thank you, Mary Carmen PCI Compliance documented in this encounter [facility] 05-29-2023 Miscellaneous Notes Daria called and states that the patient Hemoglobin is low again and needs to restart the injections. Daria would like a call back. Daria call back [phone] documented in this encounter [facility] 05-29-2023 Telephone encounter Note Daria called and states that the patient Hemoglobin is low again and needs to restart the injections. Daria would like a call back. Daria call back [phone] [facility] 05-18-2023 Miscellaneous Notes Daria, spouse, called into the office requesting a refill for Lisinopril 10 MG tab 1 PO QAM 90 day supply to [facility] in [place]. She stated Dr. Oreilly was the last person who prescribed it ( his name is on the bill bottle). He was last seen by Dr. Oreilly 05/18/23 in [place]. documented in this encounter [facility] 05-18-2023 Telephone encounter Note Daria, spouse, called into the office requesting a refill for Lisinopril 10 MG tab 1 PO QAM 90 day supply to [facility] in [place]. She stated Dr. Oreilly was the last person who prescribed it ( his name is on the bill bottle). He was last seen by Dr. Oreilly 05/18/23 in [place]. [facility] 05-18-2023 History of Present illness Narrative Images from the original note were not included. Date of Service: 05/18/23 PCP: Lety Downey MD History of Present Illness Mendez Drummond is a 72 y.o. male, who is following with us for with stage 4 chronic kidney disease returning for nephrologic follow-up. Laboratories January 19, 2023 showed a BUN of 73 creatinine 3.66 EGFR 17 and a urine protein creatinine ratio 4.5 gram/gram. He is managed with Aranesp for anemia of chronic kidney disease. When I last saw him in the office he agreed to be evaluated by Dr. Tiago Bates in [facility] for creation of an AV fistula. He underwent creation of a right radiocephalic AV fistula on May 04, 2023. He has been treated with sodium bicarbonate 650 mg p.o. t.i.d. for chronic metabolic acidosis and cholecalciferol for hypovitaminosis D. He was recently seen by Neurology for a left eye visual disturbance with concern for symptomatic left carotid artery stenosis.He also complains of tremors intermittently as well as weakness. More recent laboratories of May 09, 2023 show sodium 136 potassium 5 chloride 105 total CO2 22 BUN 63 creatinine 3.99 EGFR 15 Hemoglobin is 9.6 hematocrit 29.4 urine protein creatinine ratio was 4.6 grams/gram. Intact PTH was 190 pg/mL. He has experienced difficulty with vision. He's had injections in each eye in [place] and [place]. The pain with the last injection was excruciating; he's not certain he will return. He's re-thinking his whole approach to life at this point.He does have some numbness in is right thumb on the site of his fistula. There was no report of nausea vomiting shortness of breath pruritus or fetor. Problem List Stage III B chronic kidney disease. Previous nephrologic investigations demonstrated creatinine 1.63 as remotely as March 08, 2016. Urinalysis on 08/08/2016 demonstrated 300 mg/dL protein with 2 red blood cells and 2 white blood cells per high-power field Previous serologies in June of 2020 included negative hepatitis C. An MARNIE screen was negative. Anti double-stranded DNA antibody titer were negative. Complement C3 and C4 were normal 138 and 47 mg/dL, respectively. Anti myeloperoxidase and anti proteinase 3 antibody titers were negative a free kappa lambda ratio was 2.47. Anti glomerular basement membrane antibody titer was negative. A previous serum protein electrophoresis with immunofixation on 03/10/2016 revealed no evidence of a monoclonal protein disorde Type 2 diabetes mellitus S/P head and neck surgery at [facility] in 06/2021 s/p bone grafting, long hospitalization. Hypertension Unhealthy body weight Hyperlipidemia Osteoarthritis affecting both knees Sensorineural hearing loss History of cutaneous malignancy. Atherosclerotic coronary artery disease. Status post angioplasty and stenting of the mid left anterior descending coronary artery. 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 He received 33 external beam radiation treatments in 2011. He received 6 cycles of chemotherapy under the care of Dr. Fraser at the [facility] cancer [facility]ison. S/P extensive surgery at [facility] in June 2021. Decreased left ventricular function with ejection fraction 40% cardiac echo 12/12/2015. In 2015 at the time of cardiac catheterization the left ventricular ejection fraction was felt to be 55% Grade 1 left ventricular diastolic dysfunction cardiac echo 12/12/2015 Mild mitral regurgitation and mild tricuspid regurgitation cardiac echo 12/12/2015. Surgical, Family & Social History Surgical History: Past Surgical History: Procedure Laterality Date CARDIAC CATHETERIZATION Coronary angiogram and left ventricular gram/pressure N/A 05/13/2016 Performed by Gregor Patiño MD at [facility] CARDIAC CATH LABS CORONARY ANGIOPLASTY 12/11/2015 MYRINGOTOMY NECK DISSECTION PARATHYROIDECTOMY Percutaneous coronary intervention N/A 05/13/2016 Performed by Gregor Patiño MD at [facility] CARDIAC CATH LABS SCALP LESION REMOVAL W/ FLAP AND SKIN GRAFT TONSILLECTOMY TONSILLECTOMY ADENOIDECTOMY Social History: Social History Socioeconomic History Marital status: Spouse name: Not on file Number of children: Not on file Years of education: Not on file Highest education level: Not on file Occupational History Not on file Tobacco Use Smoking status: Former Smokeless tobacco: Never Substance and Sexual Activity Alcohol use: No Drug use: Defer Sexual activity: Defer Other Topics Concern Caffeine Use Yes Social History Narrative Not on file Social Determinants of Health Financial Resource Strain: Not on file Food Insecurity: No Food Insecurity (02/27/2023) Hunger Screening Food Insecurity - Worry: Never True Food Insecurity - Inability: Never True Transportation Needs: Not on file Physical Activity: Not on file Stress: Not on file Social Connections: Not on file Interpersonal Safety: Not on file Housing Instability: Not on file Family History: Family History Problem Relation Age of Onset Diabetes Mother Heart disease Mother Cancer Maternal Grandfather Cancer Brother Alcohol abuse Father Allergies & Medications Allergies: Allergies Allergen Reactions Iodinated Contrast Media Benzoic Acid Rash Current Meds: Current Outpatient Medications Medication Sig Dispense Refill amLODIPine (NORVASC) 10 mg tablet Take 1 tablet (10 mg total) by mouth in the morning. aspirin 81 mg Take 1 tablet (81 mg total) by mouth in the morning. atorvastatin (LIPITOR) 80 mg tablet Take 1 tablet (80 mg total) by mouth Daily before evening meal. JARRETT HUTTON U-100 INSULIN 100 unit/mL (3 mL) insulin pen Inject 30 Units under the skin in the morning. calcitrioL (ROCALTROL) 0.25 MCG capsule Take 1 capsule (0.25 mcg total) by mouth in the morning for 360 days. 90 capsule 3 carvediloL (COREG) 25 mg tablet Take 1 tablet (25 mg total) by mouth 2 (two) times a day with meals. 180 tablet 3 cholecalciferol, vitamin D3, (VITAMIN D3) 2,000 units tablet Take 2 tablets (4,000 Units total) by mouth in the morning for 360 days. 180 tablet 3 clopidogreL (PLAVIX) 75 mg tablet Take 1 tablet (75 mg total) by mouth in the morning. FLUoxetine (PROzac) 40 mg capsule Take 1 capsule (40 mg total) by mouth in the morning. lisinopriL (PRINIVIL,ZESTRIL) 10 mg tablet Take 1 tablet (10 mg total) by mouth in the morning. nitroglycerin (NITROSTAT) 0.4 MG SL tablet 1 under the tongue as needed for angina, may repeat q5mins for up three doses (Patient taking differently: Take 1 tablet (0.4 mg total) by mouth every 5 (five) minutes as needed for chest pain. 1 under the tongue as needed for angina, may repeat q5mins for up three doses) 25 tablet 3 pioglitazone (ACTOS) 30 mg tablet Take 1 tablet (30 mg total) by mouth in the morning. zinc gluconate 50 mg tablet Take 1 tablet (50 mg total) by mouth in the morning. No current facility-administered medications for this visit. Review of Systems Review of Systems Constitutional: Positive for fatigue. Negative for chills, diaphoresis and fever. HENT: Negative for congestion, ear discharge, ear pain, facial swelling and hearing loss. Eyes: Negative for pain, discharge, redness and itching. Respiratory: Positive for cough and shortness of breath. Negative for wheezing. Cardiovascular: Negative for chest pain, palpitations and leg swelling. Gastrointestinal: Negative for abdominal pain, constipation, diarrhea, nausea and vomiting. Endocrine: Negative for polydipsia, polyphagia and polyuria. Genitourinary: Positive for difficulty urinating and flank pain. Negative for decreased urine volume, dysuria, enuresis, frequency, hematuria and urgency. Musculoskeletal: Negative for arthralgias, joint swelling and myalgias. Skin: Negative for rash and wound. Neurological: Positive for dizziness, tremors, weakness and numbness. Negative for light-headedness. Hematological: Negative for adenopathy. Does not bruise/bleed easily. Physical Exam Vital Signs: Vitals: 05/18/23 0815 05/18/23 0820 BP: 112/60 (!) 154/115 BP Site: Left Arm Left Arm BP Postition: Sitting Standing BP CUFF SIZE: L (13-17 inches) L (13-17 inches) Pulse: 72 89 SpO2: 93% Weight: 114.8 kg (253 lb) BMI: Body mass index is 36.3 kg/m . General appearance: Chronically ill-appearing 72-year-old male Psychiatric: Oriented to place, time and person HEENT: atraumatic, supple, moist oral mucosa, no JVD Cardiovascular: normal S1-S2 there is no rub Respiratory: No respiratory distress with no use of accessory muscles. Clear to auscultation bilaterally with no wheezes or crackles Abdomen: soft, no tenderness, no guarding, positive bowel sounds and no hepato or splenomegaly Vascular: adequate pulses and no carotid bruits. Musculoskeletal: no joint swelling or tenderness. Neurologic: No focal deficit in upper or lower extremities Lymphatic: no cervical or axillary lymphadenopathy. Edema: he has no peripheral edema. His right arm AV fistula has a good thrill and bruit Laboratory Studies Chemistry: Lab Results Component Value Date SODIUM 136 05/09/2023 SODIUM 136 01/19/2023 SODIUM 139 10/21/2022 SODIUM 138 08/02/2022 SODIUM 137 05/16/2022 K 5.0 05/09/2023 K 4.6 01/19/2023 K 4.7 10/21/2022 K 4.7 08/02/2022 K 4.3 05/16/2022 CL 105 05/09/2023 CL 105 01/19/2023 CL 108 10/21/2022 CL 108 08/02/2022 CL 105 05/16/2022 CO2 22 05/09/2023 CO2 20 (L) 01/19/2023 CO2 21 (L) 10/21/2022 CO2 22 08/02/2022 CO2 25 05/16/2022 ANIONGAP 9 05/09/2023 ANIONGAP 11 01/19/2023 ANIONGAP 10 10/21/2022 ANIONGAP 8 08/02/2022 ANIONGAP 7 05/16/2022 BUN 63 (H) 05/09/2023 BUN 73 (H) 01/19/2023 BUN 64 (H) 10/21/2022 BUN 55 (H) 08/02/2022 BUN 55 (H) 05/16/2022 CREATININE 3.99 (H) 05/09/2023 CREATININE 3.66 (H) 01/19/2023 CREATININE 3.38 (H) 10/21/2022 CREATININE 3.17 (H) 08/02/2022 CREATININE 2.62 (H) 05/16/2022 EGFR 15 (L) 05/09/2023 EGFR 17 (L) 01/19/2023 EGFR 19 (L) 10/21/2022 EGFR 20 (L) 08/02/2022 EGFR 25 (L) 05/16/2022 CALCIUM 9.2 05/09/2023 CALCIUM 9.4 01/19/2023 CALCIUM 9.1 10/21/2022 CALCIUM 8.7 08/02/2022 CALCIUM 8.5 05/16/2022 MG 1.7 (L) 05/09/2023 MG 1.7 (L) 01/19/2023 MG 1.6 (L) 10/21/2022 MG 1.8 08/02/2022 MG 1.8 05/16/2022 PHOSPHORUS 4.4 05/09/2023 PHOSPHORUS 5.3 (H) 01/19/2023 PHOSPHORUS 4.6 10/21/2022 PHOSPHORUS 4.6 08/02/2022 PHOSPHORUS 4.6 05/16/2022 Lab Results Component Value Date TOTALPROTEI 5.9 (L) 08/02/2022 TOTALPROTEI 5.4 (L) 08/02/2022 ALBUMIN 3.3 08/02/2022 ALBUMIN 2.8 (L) 08/02/2022 AST 14 08/02/2022 AST 12 05/14/2016 ALT 11 08/02/2022 ALT 12 05/14/2016 BILIRUBIN Negative 05/09/2023 BILIRUBIN Negative 01/19/2023 ALKPHOS 115 08/02/2022 ALKPHOS 96 05/14/2016 Hematology: Lab Results Component Value Date WBC 6.9 05/09/2023 WBC 7.7 01/19/2023 HGB 9.6 (L) 05/09/2023 HGB 11.4 (L) 03/27/2023 HCT 29.4 (L) 05/09/2023 HCT 35.2 (L) 03/27/2023 PLT 176 05/09/2023 PLT 207 01/19/2023 Anemia Studies: No results found for: IRONSAT , FERRITIN , NLETEOBE34 , FOLATE Mineral and Bone Labs: Lab Results Component Value Date CALCIUM 9.2 05/09/2023 CALCIUM 9.4 01/19/2023 PHOSPHORUS 4.4 05/09/2023 PHOSPHORUS 5.3 (H) 01/19/2023 VITD25 40.6 05/09/2023 VITD25 45.2 01/19/2023 PTH 190 (H) 05/09/2023 PTH 111 (H) 01/19/2023 Urine Studies: Lab Results Component Value Date COLOR YELLOW 05/09/2023 TURBIDITY CLEAR 05/09/2023 SPECIFICGRA 1.012 05/09/2023 NITRITE Negative 05/09/2023 PHURINE 6.5 05/09/2023 LEUKOCYTE Negative 05/09/2023 PROTEIN 200 (A) 05/09/2023 KETONES Negative 05/09/2023 UROBILINOGEN <1.1 05/09/2023 BLOODHGB Trace (A) 05/09/2023 Lab Results Component Value Date UPROCRTRAT 4.66 (H) 05/09/2023 UPROCRTRAT 4.55 (H) 01/19/2023 UPROCRTRAT 5.89 (H) 10/21/2022 UPROCRTRAT 6.24 (H) 08/02/2022 UPROCRTRAT 10.05 (H) 05/16/2022 Immunology Profile Lab Results Component Value Date PROTELECTR 08/02/2022 Unremarkable protein distribution, no monoclonal bands. ANASCREEN Negative 07/04/2020 C3 138 07/04/2020 C4 47 07/04/2020 ANCA See Below 03/08/2016 MYELOP <0.2 08/02/2022 PROTEINASE3 <0.2 08/02/2022 ANTIGLOMERU <0.2 07/04/2020 No results found for: HAV , HEPAIGM , HEPBIGM , HEPBCAB , HBEAG , HEPCAB Imaging Echocardiogram: ECHO CONGENITAL LIMITED WITHOUT CONTRAST Result Date: 06/07/2022 PERFORMED AT [facility] LOCATION:[address] [place] [address] Echocardiogram Signed Patient: Mendez Drummond MR#: [id number] : 1950 Acct:[id number] Age/Sex: 71 / M ADM Date: 06/07/22 Loc: Room: Type: [facility] Attending Dr: Lety Downey MD Ordering Provider: Lety Downey MD Date of Service: 06/07/22/ ECH/ECH echo transthoracic: SOB. CHF. Edema. Copies to: Maria Teresa Ocampo MD, FACC Lety Downey MD Weight: 258 lb Performed By: Kaci Jimenez RDCS BSA: 2.3 m2 BP: 162/76 mmHg HR: 73 Reason For Study: SOB. CHF. Edema. History: HTN. HLD. DM. PCI. Family history of CAD. Interpretation Summary Mild concentric left ventricular hypertrophy. Ejection Fraction = 55-60%. A variety of Doppler measurements indicate impaired left ventricular relaxation, which is associated with grade I/IV or mild diastolic dysfunction. The left atrium appears mildly dilated. There is no prior echocardiogram noted for this patient. Procedure/Quality: A two-dimensional transthoracic echocardiogram with color flow and Doppler was performed. The study was technically good in quality. There is no prior echocardiogram noted for this patient. Left Ventricle: Mild concentric left ventricular hypertrophy. Left ventricular systolic function is normal. Ejection Fraction = 55-60%. A variety of Doppler measurements indicate impaired left ventricular relaxation, which is associated with grade I/IV or mild diastolic dysfunction. Left Atrium: The left atrium appears mildly dilated. The atrial septum appears normal. Right Atrium: The right atrium appears normal in size. Right Ventricle: The right ventricular size, thickness and function are normal. Aortic Valve: The aortic valve is mildly sclerotic. Mitral Valve: The mitral valve is mildly sclerotic. Tricuspid Valve: The tricuspid valve is normal. There is trace tricuspid regurgitation. Pulmonic Valve: The pulmonic valve is not well seen, but is grossly normal. Arteries: The aortic root is normal size. Pericardium/Pleura: No pericardial effusion seen. There is no pleural effusion. IVC/Hepatic Viens: The IVC is normal in size with an inspiratory collapse of greater then 50%, suggesting normal right atrial pressure. Miscellaneous: No thrombus, vegetation or mass is seen. Measurements with Normals IVSd: 1.5 cm (0.7-1.1 cm)LVIDd: 4.7 cm (3.7-5.4 cm) LVPWd: 1.4 cm (0.7-1.1 cm)LVIDs: 3.2 cm (2.3-3.6 cm) LA dimension: 4.3 cm (2.3-4.0 cm)Ao root diam: 3.0 cm(2.0-3.6 cm) asc Aorta Diam: 3.5 cm(2.1-3.4cm) Doppler with Normals LV V1 max: 94.3 cm/sec (0.7-1.7m/s)MV E max zulma: 97.5 cm/sec(0.8-1.3m/s) MV A max zulma: 95.1 cm/sec(0.0-0.0m/s) MV E/A: 1.0 (<1.5) MMode/2D Measurements Calculations TAPSE: 3.0 cm FS: 31.4 % Ao root area: LVOT diam: 2.2 cm RV S Zulma: EDV(Teich): 7.3 cm2 LVOT area: 3.9 cm2 19.6 cm/sec 99.8 ml ESV(Teich): 40.7 ml EF(Teich): 59.2 % __ LVLd ap4: 9.1 cm SV(MOD-sp4): LAV(MOD-sp4): LA A2 area: 16.3 cm2 EDV(MOD-sp4): 86.1 ml 67.5 ml 171.0 ml LAV(MOD-sp2): LA A4 area: 23.7 cm2 LVLs ap4: 7.6 cm 42.0 ml LA length (vol): ESV(MOD-sp4): 6.3 cm 84.9 ml LA vol: 52.5 ml EF(MOD-sp4): 50.4 % LA vol index: 22.8 ml/m2 Doppler Measurements Calculations MV dec time: E/E' lat: 10.4 MV dec slope: Ao V2 max: 0.19 sec E/E' med: 14.0 119.9 cm/sec 522.6 cm/sec2 Ao max P.7 mmHg Ao mean P.8 mmHg Ao V2 mean: 95.9 cm/sec Ao V2 VTI: 28.1 cm SHAHEEN(I,D): 3.2 cm2 SHAHEEN(V,D): 3.1 cm2 __ LV V1 max PG: TV max PG: TR max zulma: 3.6 mmHg 33.0 mmHg 287.8 cm/sec LV V1 mean PG: TR max P.1 mmHg 2.2 mmHg LV V1 mean: 71.1 cm/sec LV V1 VTI: 22.9 cm Transcribed By: SCV Performed At: 06/07/22 1241 Signed By: Maria Teresa Ocampo MD, [facility] 06/07/22 1438 IMPRESSION 1. Stage 4 chronic kidney disease: Mr. Drummond has progressive renal failure secondary to diabetic nephropathy. A left radiocephalic AV fistula was created by by Dr. Gael Euceda on May 04, 2023. There were no indications for hemodialysis at this time. 2. Hypovitaminosis D: now on cholecalciferol 4000 units p.o. daily. Vitamin-D has been corrected. Twenty-five hydroxy vitamin-D is 40.6 ng/mL which is satisfactory 3. Secondary hyperparathyroidism: On calcitriol 0.25 mcg p.o. daily. Intact PTH is 190 pg/mL. This is satisfactory. 4. Anemia of chronic kidney disease: on Aranesp 60 mcg every 2 weeks. Hemoglobin 9.6 hematocrit 29.4. He has not been to the center for over a month; we will reach out to the [facility] center to make certain that he is scheduled for Q 2 week ASHLIE injections 5. Metabolic acidosis: Secondary to progressive renal failure . On sodium bicarbonate 650 mg p.o. t.i.d. 6. Lower urinary tract symptoms; I will initiate Flomax 0.4 mg po QHS. He was warned that Flomax may cause lightheadedness dizziness or decrease in blood pressure 7. Retinopathy: He spent much of the session complaining that he did not understand his ophthalmological diagnosis and that he had excruciating pain at the time of injections recently. 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 PLAN 1. Continue current medication regimen. 2. Return to this office in 2 months time for repeat evaluation. A CKD panel will be obtained at that time 3. The patient was advised that should he develop symptoms of nausea, vomiting, shortness of breath, pruritus fetor tremor, worsening lower extremity edema he should call my office immediately as the symptoms could be a manifestation of worsening renal failure and the incumbent need for dialysis. He and his have a good understanding of the symptoms of uremia 4. Start Flomax 0.4 mg p.o. q.h.s. for lower urinary tract symptoms Thank you Lety Downey MD for the opportunity to participate in the care of your patients! Please contact me at [phone] (Office) or [phone] (Answering service) with any questions. ADELINE OREILLY MD [facility] This note was created with the assistance of a speech-recognition program. Although the intention is to generate a document that actually reflects the content of the visit, no guarantees can be provided that every mistake has been identified and corrected by editing. documented in this encounter [facility] 05-08-2023 Miscellaneous Notes Confirm appt with patient spouse, patient will go have labs done tomorrow on 05/09/23 documented in this encounter [facility] 05-08-2023 Telephone encounter Note Confirm appt with patient spouse, patient will go have labs done tomorrow on 05/09/23 [facility] 05-04-2023 History and physi sheri note Note Date/Time May 04, 2023 2:07pm [facility] [address] [place] [address] Vascular Surgery H&P Signed Patient: Mendez Drummond MR#: [id number] : 1950 Acct:[id number] Age/Sex: 72 / M Adm Date: 4 Loc: [place] Room: Type: [facility] Attending Dr: Gael Euceda MD Copies to: MD Lety Brady MD~ Date of Service: 05/04/2023 HPI History of Present Illness Chief complaint: Need for dialysis access HPI: Mr. Drummond is a 72 year old male with multiple chronic medical problems including severe carotid occlusive disease and previous head and neck cancer. He has stage IV chronic renal insufficiency and comes today for creation of an autologous fistula Review of Systems Review of Systems All other systems reviewed & are negative unless noted below or in HPI [facility] Medical History (Updated 05/04/23 @ 14:07 by Gael Euceda MD) Anemia Angina pectoris Arthritis Carotid stenosis, left 2 stents Chronic kidney disease Coronary artery disease Cutaneous fistula CVA (cerebral vascular accident) recent, lost vision in left eye Deafness in left ear Depression Diabetes ESRD (end stage renal disease) Hard of hearing Heart murmur History of cataract History of head and neck cancer History of hyperbaric oxygen therapy due to infection to left neck after procedures Hyperlipidemia Hypertension Inflammatory condition of jaw Kidney stones Melanoma Metal bone fixation hardware in place to the left mandible, has titanium plate Neuropathy Obesity Otitis media Parotid mass Radiological procedure and radiotherapy as the cause of abnormal reaction of thepatient, or of later complication, without mention of misadventure at the time of the procedure Squamous cell carcinoma Vertigo Surgical History H/O adenoidectomy H/O bone graft H/O coronary angioplasty 4 STENTS H/O lymph node excision H/O parathyroidectomy History of eye surgery laser eye surgery for leaking blood vessels History of tracheostomy Hx of tonsillectomy Status post neck dissection Family History Father Alcohol abuse Brother Alcohol abuse Cancer colon Sister Diabetes CHF (congestive heart failure) Cancer Heart disease Mother Diabetes CHF (congestive heart failure) Heart disease Sister Heart disease Social History Smoking Status: Never smoker Substance Use Type: None Meds Medications and Allergies Allergies Iodinated Contrast Media Adverse Reaction (Verified 04/19/23 13:35) [place] Home Medications aspirin 81 mg tablet,delayed release (Aspir-) 81 mg PO DAILY 05/31/18 [History Confirmed 04/19/23] atorvastatin 80 mg tablet 80 mg PO HS 05/31/18 [History Confirmed 04/19/23] carvedilol 25 mg tablet 25 mg PO BID 05/31/18 [History Confirmed 04/19/23] pioglitazone 30 mg tablet (Actos) 30 mg PO QAM 05/31/18 [History Confirmed 04/19/23] zinc 50 mg tablet 50 mg PO DAILY 05/31/18 [History Confirmed 04/19/23] lisinopril 20 mg tablet 10 mg PO QAM 10/29/20 [History Confirmed 04/19/23] amlodipine 10 mg tablet 10 mg PO QAM 03/22/23 [History Confirmed 04/19/23] calcitriol 0.25 mcg capsule 0.25 mcg PO 1XD 03/22/23 [History Confirmed 04/19/23] cholecalciferol (vitamin D3) 50 mcg (2,000 unit) tablet 100 mcg PO 1XD 03/22/23 [History Confirmed 04/19/23] fluoxetine 40 mg capsule 40 mg PO QPM 03/22/23 [History Confirmed 04/19/23] insulin glargine 100 unit/mL (3 mL) subcutaneous pen (Basaglar KwikPen U-100 Insulin) 27 unit subcut QAM 03/22/23 [History Confirmed 04/19/23] sodium bicarbonate 650 mg tablet 650 mg PO 3XD 03/23/23 [History Confirmed 04/19/23] clopidogrel 75 mg tablet 75 mg PO DAILY #30 tabs 03/24/23 [Rx Confirmed 04/19/23] Exam Physical Exam Vital Signs: Temp Pulse Resp BP Pulse Ox O2 Del Method 97.9 F 60 16 133/69 98 Room Air 05/04/23 08:06 05/04/23 11:15 05/04/23 11:15 05/04/23 11:15 05/04/23 11:15 05/04/23 11:15 Narrative: Pleasant male in no acute distress. Interacts appropriate the examiner. Head and neck changes of his prior surgery and radiation are noted. Right arm shows good quality cephalic vein. Results Labs 05/04/23 07:50 Labs: Laboratory Results - last 24 hr 05/04/23 05/04/23 05/04/23 07:48 07:50 10:36 Potassium 4.4 POC Glucose 83 146 POC Glucose Comment Glu2: cleaned meter A&P - Vascular (1) Chronic renal insufficiency, stage IV (severe): Plan Patient will undergo creation of a right Sandeep fistula. Indication and nature of the procedures been discussed in detail with the patient and his family who agree to proceed Documented By: Gael Euceda MD 05/04/23 140 5 Signed By: <Electronically signed by MD Gael Euceda> 05/04/[address] [facility] Work Phone: 1(607) 657-634612-22-2023 Evaluation note* Encounter Date Diagnosis Assessment Notes Treatment Notes Treatment Clinical Notes Mar, Peripheral arterial disease (ICD-10 - I73.9) First Aid Shot Therapy Other 11-30-2023 Consult note Author Gael Euceda [facility] March 24, 2023 12:13pm Note Date/Time March 23, 2023 2:57pm [facility] [address] [place] [address] Vascular Surgery Consult Note Signed Patient: Mendez Drummond MR#: [id number] : 1950 Acct:[id number] Age/Sex: 72 / M Adm Date: 3 Loc: Room: [address] [place] [address] Type: ADM IN Attending Dr: Sharri Cancino MD Copies to: ELEONORA Thakur MD Jennifer Greenslade Hohman, MD Matthew T Langenberg, MD Obaydah M Daromar, MD~ HPI Consult HPI Reason for consult: carotid stenosis History of present illness: This patient is well-known to our office. He has a long history of complications from head neck cancer. He has had 2 prior episodes of stenting for severe left carotid stenosis beneath his heavily radiated left neck. He wasscheduled to have carotid stenting done today but yesterday he called and canceled his procedure as he wanted to talk with his family more. This morning he tells me that he has been experiencing some visual changes in the left eye. He has had a couple episodes with partial vision loss that subsided over a couple hours time. This morning he denies any ongoing symptoms and tells me he has returned to his normal. He denies any hemispheric symptoms whatsoever this morning. He has had multiple procedures to the neck and facial region and does have a bit of drooping of the left lower lip which has become is normal. He also states some difficulty with range of motion of the left shoulder which has also become his normal and baseline. cc:: CC: Sharri Cancino MD Data of Consult Consult date: 03/23/2023 Requesting Physician: Sharri Cancino MD Review of Systems Review of Systems All other systems reviewed & are negative unless noted below or in HPI [facility] Medical History Anemia Angina pectoris Arthritis Carotid stenosis, left 2 stents Chronic kidney disease Coronary artery disease Cutaneous fistula Depression Diabetes Heart murmur History of head and neck cancer History of hyperbaric oxygen therapy due to infection to left neck after procedures Hyperlipidemia Hypertension Inflammatory condition of jaw Melanoma Metal bone fixation hardware in place to the left mandible Obesity Otitis media Parotid mass Radiological procedure and radiotherapy as the cause of abnormal reaction of thepatient, or of later complication, without mention of misadventure at the time of the procedure Squamous cell carcinoma Surgical History H/O adenoidectomy H/O bone graft H/O coronary angioplasty 4 STENTS H/O lymph node excision H/O parathyroidectomy Hx of tonsillectomy Status post neck dissection Family History Father Alcohol abuse Brother Alcohol abuse Cancer colon Sister Cancer Diabetes CHF (congestive heart failure) Mother Diabetes CHF (congestive heart failure) Other Heart disease Social History Smoking Status: Never smoker Substance Use Type: None Allergies & Active Medications Medications and Allergies Allergies Iodinated Contrast Media Adverse Reaction (Verified 08/14/21 12:16) [place] Exam Physical Exam Vital Signs: Temp Pulse Resp BP Pulse Ox O2 Del Method 98 F 70 18 155/84 H 98 Room Air 03/23/23 11:15 03/23/23 11:15 03/23/23 11:15 03/23/23 11:15 03/23/23 11:15 03/23/23 11:15 Narrative: 72-year-old male, no acute distress. He is resting comfortably in hisbed this morning on my rounds. He does have a bit of left lower lip drooping which is his normal. He has extensive scarring to the left neck due to previousradiation. His heart shows regular rate and rhythm, no murmur. Lung sounds areclear throughout bilaterally. Bilateral revenue agent strength is adequate and equal. Bilateral radial pulse 2+. Results Labs 03/23/23 04:17 03/23/23 06:15 Labs: Laboratory Results - last 24 hr 03/23/23 03/23/23 03/23/23 04:17 04:17 04:17 Corrected WBC 7.5 Uncorrected WBC Count 7.5 RBC 4.30 Hgb 11.1 L Hct 34.1 L MCV 79.3 L MCH 25.7 L MCHC 32.4 L RDW 15.9 H Plt Count 228 MPV 7.7 Neut % (Auto) 81.0 Lymph % (Auto) 10.1 [place] % (Auto) 6.4 Eos % (Auto) 1.3 Baso % (Auto) 1.2 Nucleat RBC Rel Count 0.1 Neut # (Auto) 6.1 Lymph # (Auto) 0.8 L [place] # (Auto) 0.5 Eos # (Auto) 0.1 Baso # (Auto) 0.1 PT 12.8 INR 1.1 APTT 37.9 H PHA Creatinine Clear 22.25 Sodium 135 L Potassium Chloride 106 Carbon Dioxide 20.3 L Anion Gap TNP BUN 60 H Creatinine 3.58 H Est GFR (CKD-EPI) 17.417 Glucose 95 POC Glucose Estimat Average Glucose Hemoglobin A1c Calcium 8.9 Magnesium 2.0 03/23/23 03/23/23 03/23/23 04:17 06:15 07:25 Corrected WBC Uncorrected WBC Count RBC Hgb Hct MCV MCH MCHC RDW Plt Count MPV Neut % (Auto) Lymph % (Auto) [place] % (Auto) Eos % (Auto) Baso % (Auto) Nucleat RBC Rel Count Neut # (Auto) Lymph # (Auto) [place] # (Auto) Eos # (Auto) Baso # (Auto) PT INR APTT PHA Creatinine Clear Sodium Potassium 4.5 Chloride Carbon Dioxide Anion Gap BUN Creatinine Est GFR (CKD-EPI) Glucose POC Glucose 96 Estimat Average Glucose 169 Hemoglobin A1c 7.5 H Calcium Magnesium 03/23/23 11:18 Corrected WBC Uncorrected WBC Count RBC Hgb Hct MCV MCH MCHC RDW Plt Count MPV Neut % (Auto) Lymph % (Auto) [place] % (Auto) Eos % (Auto) Baso % (Auto) Nucleat RBC Rel Count Neut # (Auto) Lymph # (Auto) [place] # (Auto) Eos # (Auto) Baso # (Auto) PT INR APTT PHA Creatinine Clear Sodium Potassium Chloride Carbon Dioxide Anion Gap BUN Creatinine Est GFR (CKD-EPI) Glucose POC Glucose 87 Estimat Average Glucose Hemoglobin A1c Calcium Magnesium PT 12.8 Seconds (9.0-12.9) 03/23/23 04:17 APTT 37.9 Seconds (25.1-36.5) H 03/23/23 04:17 A&P - Vascular (1) Carotid occlusion, left: Code(s): I65.22 - Occlusion and stenosis of left carotid artery Status: Acute (2) Carotid stenosis, left: Plan: This patient was originally scheduled for today to undergo left carotid angiogram and stenting however he canceled this as of yesterday due to him wanting to discuss it further with his family prior to having intervention. He ended up coming through the hospital with reported left eye visual changes. He now reports returned to his normal with no hemispheric symptoms whatsoever this morning. Continue to recommend moving forward with left carotid angiogram and probable stenting. We will try to get him back on the schedule in the near future. He should continue his medical therapy with use of aspirin and high intensity statin medication daily. This is Dr. Alegria dictating. I did see this patient in evaluation with thenurse practitioner. Family was in the room. We will order a repeat duplex to better understand the anatomy and to see if there is any acute changes since hislast visit. There is concern that the internal carotid artery on the left side is occluded. If this is the case then past medical management will be the plan moving forward. This is Dr. Euceda dictating. I reviewed the patient's duplex examination and he has complete occlusion of the common carotid artery. There is extensive amount of luminal debris in the common carotid artery. He has minimal symptomatology at this time although he has had some visual change. I discussedthe case with his medical team and he will be on dual antiplatelet therapy but is not a candidate for further intervention at this time. He also has severe chronic renal insufficiency with a current creatinine clearance of around 14 cc/min. He has had a vein mapping examination which suggest he is a candidate for fistula creation which we will schedule for in the near future. Code(s): I65.22 - Occlusion and stenosis of left carotid artery Status: Acute (3) Diabetes: Code(s): E11.9 - Type 2 diabetes mellitus without complications Status: Chronic (4) Chronic kidney disease: Code(s): N18.9 - Chronic kidney disease, unspecified Status: Acute (5) Hypertension: Code(s): I10 - Essential (primary) hypertension Status: Acute (6) Hyperlipidemia: Code(s): E78.5 - Hyperlipidemia, unspecified Status: Acute (7) CKD (chronic kidney disease) stage 4, GFR 15-29 ml/min: Code(s): N18.4 - Chronic kidney disease, stage 4 (severe) Status: Acute Documented By: Monique Palacios APRN 03/23/23 0 800 Signed By: <Electronically signed by ELEONORA Palacios> 03/23/23 1457 <Electronically signed by MD Gael Euceda> 03/24/23 1213 <Electronically signed by Gregory Alegria MD> 03/24/23 0745 [facility] Work Phone: 1(530) 958-369911-30-2023 Progress note Author Sharri Cancino [facility] March 23, 2023 2:48pm Note Date/Time March 23, 2023 2:46pm [facility] [address] [place] [address] Hospitalist Progress Note Signed Patient: Mendez Drummond MR#: [id number] : 1950 Acct:[id number] Age/Sex: 72 / M Adm Date: 3 Loc: Room: [address] [place] [address] Type: ADM IN Attending Dr: Sharri Cancino MD Copies to: ~ Date of Service: 03/23/2023 Subjective Subjective Narrative: Patient was seen and evaluated at bedside this morning, remained afebrile, slightly hypertensive today. During my encounter, patient denies any vision loss, he does confirm that he had partial vision loss in his left eye started Monday and was admitted to [facility]. Found to have carotid artery stent occlusion. Denies any new focal deficits during my encounter. at bedside. patient is very hard of hearing. Exam Physical Exam Vital Signs: Temp Pulse Resp BP Pulse Ox O2 Del Method 98 F 70 18 155/84 H 98 Room Air 03/23/23 11:15 03/23/23 11:15 03/23/23 11:15 03/23/23 11:15 03/23/23 11:15 03/23/23 11:15 Narrative: Const General: cooperative HEENT Normal oropharyngeal mucosa without any ulcers or exudates Eyes: Conjunctiva normal Pulmonary Auscultation: clear to auscultation , no crackles, no wheezes Cardiovascular Rate: normal rate Rhythm: regular rhythm Heart Sounds: S1 normal, S2 normal and no murmurs GI Inspection: non-distended Palpation: soft, not firm and nontender. No rigidity or rebound. Deferred Neuro General: alert, awake and oriented x3. very hard of hearing. No obvious new focal deficit Musculoskeletal: normal range of motion Extrem General: no cyanosis, no pedal edema Psych Appearance: appropriate affect. Grossly normal Objective Lab Results 03/23/23 04:17 03/23/23 06:15 Meds Allergies and Active Meds Allergies Iodinated Contrast Media Adverse Reaction (Verified 08/14/21 12:16) [place] Active Meds: Active Medications Generic Name Dose Route Start Last Admin Trade Name Freq PRN Reason Stop Dose Admin Acetaminophen 1,000 mg 03/22/23 21:51 Acetaminophen 500 Mg Tablet PO 03/21/24 21:50 Q6HR PRN Pain Scale 1 - 3 or fever Amlodipine Besylate 10 mg 03/23/23 10:10 03/23/23 10:34 Amlodipine 10 Mg Tablet PO 03/22/24 10:09 10 mg DAILY DEISI Administration Aspirin 81 mg 03/23/23 09:00 03/23/23 09:10 Aspirin 81 Mg Tablet.Dr PO 03/22/24 08:59 81 mg DAILY DEISI Administration Atorvastatin Calcium 80 mg 03/23/23 00:05 03/23/23 01:14 Atorvastatin 80 Mg Tablet PO 03/22/24 00:04 Not Given HS DEISI Calcitriol 0.25 mcg 03/23/23 10:15 03/23/23 10:34 Calcitriol 0.25 Mcg Capsule PO 03/22/24 10:14 0.25 mcg DAILY DEISI Administration Carvedilol 25 mg 03/23/23 10:10 03/23/23 10:34 Carvedilol 25 Mg Tablet PO 03/22/24 10:09 25 mg BID DEISI Administration Dextrose 0 gm 03/22/23 21:51 Dextrose 50% In Water 25 Gm/50 Ml Syringe IV-PUSH 03/21/24 21:50 PRN PRN Hypoglycemia Fluoxetine HCl 40 mg 03/23/23 22:00 Fluoxetine 20 Mg Capsule PO 03/22/24 21:59 [facility] Glucose 0 gm 03/22/23 21:51 Dextrose 40% Gel 15 Gm Tube PO 03/21/24 21:50 PRN PRN Hypoglycemia Insulin Aspart 0 units 03/22/23 22:00 03/23/23 12:14 Insulin Aspart 300 Units/3 Ml Insuln.Pen SUBCUT 03/21/24 21:59 Not Given TID.WM.HS [facility] Protocol Insulin Glargine 30 units 03/23/23 10:15 Insulin Glargine 300 Units/3 Ml Insuln.Pen SUBCUT 03/22/24 10:14 DAILY DEISI Lisinopril 10 mg 03/23/23 10:15 03/23/23 10:34 Lisinopril 10 Mg Tablet PO 03/22/24 10:14 10 mg DAILY DEISI Administration Ondansetron HCl 4 mg 03/22/23 21:51 Ondansetron 4 Mg/2 Ml Vial IV-PUSH 03/21/24 21:50 Q6H PRN Nausea And Vomiting Sodium Bicarbonate 650 mg 03/23/23 10:15 03/23/23 14:17 Sodium Bicarbonate 650 Mg Tablet PO 03/22/24 10:14 650 mg TID DEISI Administration Sodium Chloride 0 ml 03/22/23 21:51 Sodium Chloride 0.9 % 10 Ml Syringe IV-PUSH 03/21/24 21:50 PRN PRN Flush Vitamin D 100 mcg 03/24/23 09:00 Cholecalciferol 25 Mcg (1,000 Units) Tablet PO 03/23/24 08:59 DAILY DEISI Zinc Gluconate 50 mg 03/24/23 09:00 Zinc Gluconate 50 Mg Tablet PO 03/23/24 08:59 DAILY [facility] A&P - Hospitalist Assessment/Plan (1) Carotid occlusion, left: (2) Carotid stenosis, left: (3) Diabetes: (4) Chronic kidney disease: (5) Hypertension: (6) Hyperlipidemia: (7) CKD (chronic kidney disease) stage 4, GFR 15-29 ml/min: Plan Left carotid occlusion-on 02/14/2023 patient had Doppler study here that showed less than 50% stenosis in the right extracranial internal carotid artery, velocities in the left internal carotid artery markedly diminished by comparisonto the prior exam, calcified dense plaque formation in the common carotid arteryat the proximal endpoint of the previously stented segment compared to the carotid ultrasound performed at [facility] on 03/22/2023 which showed complete occlusion of the left common carotid artery stent with significant intimal thickening and possible thrombus distal aspect of the stent and proximal left internal carotid artery, extremely diminished flow within the visualized portions of the internal carotid artery. Left carotid stenosis - Patient did have partial loss of vision in his left eye which seems to be resolved during my encounter ? vascular surgery was consulted. Recommendations to follow ? Avoid hypotension Chronic conditions T2DM?fingersticks ACHS, SSI C, resume basal insulin when meds are confirmed CKD stage 4 ?monitor renal function. Will need close monitoring if requires surgery with contrast use for angiograms. Hold Lisinopril. Avoid NSAIDs. Consideration for nephrology evaluation if CKD progressed. HTN?monitor, continue home meds HLD?continue statin DVT PPx-SCDs, hold pharmacological therapy for possible surgical intervention Diet order-1800 ADA, n.p.o for possible intervention CODE STATUS-full code Discussed with patient and at bedside, all question answered Documented By: Sharri Cancino MD 03/23/23 14 41 Signed By: <Electronically signed by Sharri Cancino MD> 03/23/23 1448 [facility] Work Phone: [phone]) 129-560611-30-2023 History and physical note Author Lnyn Mane [facility] March 23, 2023 2:47am Note Date/Time March 22, 2023 9:25pm [facility] [address] [place] [address] Hospitalist H&P Signed Patient: Mendez Drummond MR#: [id number] : 1950 Acct:[id number] Age/Sex: 72 / M Adm Date: 3 Loc: 4 Room: [address] [place] [address] Type: ADM IN Attending Dr: Ngozi Conklin MD Copies to: MD Lynn Hui, DO KylieELEONORA Freed MD~ HPI DATE OF EXAMINATION: 03/22/23 CHIEF COMPLAINT: partial loss of vision to left eye HISTORY OF PRESENT ILLNESS: Mr. Drummond is a 72-year-old male with a PMH of squamous cell carcinoma, secondary malignancy of parotid glands, lymph nodes, radical neck procedure, T2DM, CKD stage IV, HTN, heart cath x 2 with 4 stents as a transfer from [facility] for an occluded carotid artery stent. Patient seen and examined at bedside, resting in bed quietly. He reports that on Monday he lost partial vision to his left eye that lasted for about an hour. And yesterday he woke up and had no vision to that on the top of his left eye for 10 to 15 minutes and then also to the left inside corner. He states that he also had double vision and blurry vision off and on since Monday. He reports no loss of vision at this time. He also states that he had a headache to the left caodaism and eye for a couple of hours on Monday. Currently denies pain, denies chest pain, shortness of breath, fever or chills, nausea or vomiting. He has had extensive surgery to his neck and left jaw. His last procedure was in [facility] 13 months ago he had a bone graft from his scapula and placed to his jaw. This was performed in [place] at [facility]. He has seen Dr. Gonzalez in [facility] for his cancer surgeries. He is also seeing Dr. Euceda for mapping for a right arm fistula for hemodialysis in the future. At the [facility] he had aids carotid Doppler study which showed completeocclusion of the left common carotid artery stent with significant intimal thickening and possible thrombus distal aspect of the stent from proximal left internal carotid artery. Extremely diminished flow within the visualized portions of the internal carotid artery. Antegrade flow within both vertebral arteries. EKG shows sinus rhythm with first-degree block, no ST elevation noted. While in the emergency room on 03/21/2023 ED provider consulted the telestroke team recommended the patient was loaded with 300 mg of Plavix and then 75 daily and he was admitted to the floor for TIA workup. MRI of the brainshowed mild chronic microvascular ischemic changes, no acute infarct or hemorrhage, high-grade stenosis or occlusion of the left cavernous ICA. MRA ofthe head and showed occlusion of the left cavernous ICA with reconstitution of the supraclinoid ICA, no high-grade stenosis or occlusion of the remaining majorintracranial arteries, right ophthalmic ICA 2 mm outpouching which may representand infundibulum or aneurysm. Echocardiogram was performed which showed an EF of 55 to 60%, grade 1 diastolic dysfunction, moderate pulmonary hypertension with RVSP of 45 mmHg, normal right ventricle size and systolic function, mild tomoderate biatrial dilatation, mild tricuspid regurg. CT of the brain showed no acute intracranial abnormality. CBC had an H&H of 10.4/33.4. BMP with a [id number], potassium 4.5, BUN 77, creatinine 4.16. Troponin 19.6. Lipid panel with atriglycerides of 91, cholesterol 121, VLDL 18.2, HDL 36, cholesterol/HDL ratio 3.4. He was transferred here to [facility] under the care of the hospitalist team for further evaluation and treatment. Review of Systems Review of Systems Review of systems: A 10 point review of systems was obtained, negative unless noted in the HPI or below. [facility] Medical History (Updated 03/22/23 @ 21:51 by Kylie Salazar APRN) Anemia Angina pectoris Arthritis Carcinoma Carotid stenosis, left 2 stents Chronic kidney disease Coronary artery disease Cutaneous fistula Depression Diabetes Heart murmur History of head and neck cancer History of hyperbaric oxygen therapy due to infection to left neck after procedures Hyperlipidemia Hypertension Inflammatory condition of jaw Metal bone fixation hardware in place to the left mandible Obesity Otitis media Parotid mass Radiological procedure and radiotherapy as the cause of abnormal reaction of thepatient, or of later complication, without mention of misadventure at the time of the procedure Surgical History (Updated 03/22/23 @ 20:57 by Kaylan Davis RN) H/O adenoidectomy H/O bone graft H/O coronary angioplasty 4 STENTS H/O lymph node excision H/O parathyroidectomy Hx of tonsillectomy Status post neck dissection Family History (Updated 03/22/23 @ 21:44 by Kylie Salazar APRN) Father Alcohol abuse Brother Alcohol abuse Cancer colon Sister Cancer Diabetes CHF (congestive heart failure) Mother Diabetes CHF (congestive heart failure) Other Heart disease Social History Marital Status: Household Members: spouse Housing: house Smoking Status: Never smoker Substance Use Type: None Current Occupational Status: retired 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 Meds Medications and Allergies Allergies Iodinated Contrast Media Adverse Reaction (Verified 08/14/21 12:16) [place] Home Medications aspirin 81 mg tablet,delayed release (Aspir-) 81 mg PO DAILY 05/31/18 [History Confirmed 03/22/23] atorvastatin 80 mg tablet 80 mg PO HS 05/31/18 [History Confirmed 03/22/23] carvedilol 25 mg tablet 25 mg PO BID 05/31/18 [History Confirmed 03/22/23] clopidogrel 75 mg tablet 75 mg PO DAILY 05/31/18 [History Confirmed 12/14/20] pioglitazone 30 mg tablet 30 mg PO DAILY 05/31/18 [History Confirmed 03/22/23] zinc 50 mg tablet 50 mg PO DAILY 05/31/18 [History Confirmed 03/22/23] lisinopril 20 mg tablet 10 mg PO 1XD 10/29/20 [History Confirmed 03/22/23] amlodipine 10 mg tablet 10 mg PO 1XD 03/22/23 [History Confirmed 03/22/23] calcitriol 0.25 mcg capsule 0.25 mcg PO 1XD 03/22/23 [History Confirmed 03/22/23] cholecalciferol (vitamin D3) 50 mcg (2,000 unit) tablet 100 mcg PO 1XD 03/22/23 [History Confirmed 03/22/23] fluoxetine 40 mg capsule 40 mg PO 1XD 03/22/23 [History Confirmed 03/22/23] insulin glargine 100 unit/mL (3 mL) subcutaneous pen (Basaglar KwikPen U-100 Insulin) 30 unit subcut 1XD 03/22/23 [History Confirmed 03/22/23] Exam Physical Exam Vital Signs: Temp Pulse Resp BP Pulse Ox O2 Del Method 97.8 F 77 22 164/79 H 99 Room Air 03/22/23 20:42 03/22/23 20:42 03/22/23 20:42 03/22/23 20:42 03/22/23 20:42 03/22/23 20:42 Narrative: CONST- Appears well -developed and well nourished. HEAD - Normocephalic and atraumatic EENT-Sclera nonicteric, conjunctive are non-erythemic, moist oral mucosa, pharynx clear NECK- history of radical neck surgery, radiation to neck CARDIAC-normal rate, irregular rhythm, S1 & S2. PULM-diminished without wheeze or rhonchi, RA, no accessory muscle use or cough noted ABD - Soft. Bowel sounds are hyperactive. No distention. No tenderness EXTREM-no edema BLE calves, nontender SKIN- W/D good turgor MS- MAEX4 spontaneously with equal with equal strength-weakness to LUE from bonegraft and radical neck in the past NEURO- A&Ox3 speech clear, slurred at times, and tongue midline, no focal motor deficits, no visual field deficits at this time, Pupils equal, round and reactive PSYCH-Mood, affect, and behavior appropriate Assessment & Plan Assessment/Plan (1) Carotid occlusion, left: (2) Carotid stenosis, left: (3) Diabetes: (4) Chronic kidney disease: (5) Hypertension: (6) Hyperlipidemia: Plan Left carotid occlusion-on 02/14/2023 patient had Doppler study here that showed less than 50% stenosis in the right extracranial internal carotid artery, velocities in the left internal carotid artery markedly diminished by comparisonto the prior exam, calcified dense plaque formation in the common carotid arteryat the proximal endpoint of the previously stented segment compared to the carotid ultrasound performed at [facility] on 03/22/2023 which showed complete occlusion of the left common carotid artery stent with significant intimal thickening and possible thrombus distal aspect of the stent and proximal left internal carotid artery, extremely diminished flow within the visualized portions of the internal carotid artery. Left carotid stenosis ? Consult vascular surgery ? Avoid hypotension Chronic conditions T2DM?fingersticks ACHS, SSI C, resume basal insulin when meds are confirmed CKD?monitor renal function HTN?monitor, hold carvedilol, amlodipine, lisinopril for now HLD?continue statin DVT PPx-SCDs, hold pharmacological therapy for possible surgical intervention Diet order-1800 ADA, n.p.o. at midnight CODE STATUS-full code as discussed with patient IP vs OBS Justification Based on differential dx, clinical care plan, and risk of adverse events, if untreated, in my clinical judgement this patient requires an acute care setting as: INPATIENT because of an expectation of an over 2 midnight stay. Estimated length of stay (# of days): 3 Documented By: Kylie Salazar APRN 03/22/232123 Signed By: <Electronically signed by ELEONORA Salazar> 03/23/23 0006 <Electronically signed by Lynn Mane DO> 03/23/[address] [facility] Work Phone: 1(988) 272-324011-14-2023 Evaluation note* Encounter Date Diagnosis Assessment Notes Treatment Notes Treatment Clinical Notes Feb, Left carotid stenosis (ICD-10 - I65.22) Feb, Chronic renal insufficiency, stage IV (severe) (ICD-10 - N18.4) Feb, Peripheral arterial disease (ICD-10 - I73.9) Feb, Other 1. Recurrent le ft carotid stenosis We will go ahead with diagnostic arteriogram and potential repeat stenting for this left carotid depending on the severity of stenosis. We will need to be very cognizant of the amount of contrast and also treat him for contrast allergy. Indication is stroke prevention. He has had significant change between serial carotid duplex examinations. He remains on aspirin and atorvastatin at this time and we will consider adding Plavix if we wanted to place an additional stent. 2. Chronic renal insufficiency stage IV After his carotid is treated we will plan to proceed with creation of a right Sandeep fistula. I believe the vein should respond well given his anatomy. 3. Peripheral vascular disease with right foot pain When he is in the hospital recovering from his carotid angiogram we will perform noninvasive arterial studies to confirm the severity of his peripheral vascular disease. He does not describe clear ischemic rest pain but the distal comfort that he feels may be ischemic in nature particular since he gives a history of hanging the foot down for relief. [facility] Other 10-24-2023 Evaluation note* Encounter Date Diagnosis Assessment Notes Treatment Notes Treatment Clinical Notes Jan, Left carotid stenosis (ICD-10 - I65.22) Jan, Chronic renal insufficiency, stage IV (severe) (ICD-10 - N18.4) Jan, Other Carotid artery occlusive disease Based on his duplex today with a significant drop in his distal internal carotid artery velocities I suspect he has a high-grade inflow lesion in the common carotid artery. This could be treated with additional stenting however we need to be cognizant of the severity of his renal dysfunction. Chronic renal insufficiency stage IV In trying to help him decide about hemodialysis we will go ahead with a vein mapping study. I will see him back once that is accomplished and then we can visit regarding all of the above medical issues. He agrees to that plan. [facility] Other 04-01-2023 History of Present illness Narrative* 82-year-old with history of atherosclerotic lac vieux vessel coronary artery disease, insulin requiring diabetes, hypertension, dyslipidemia, acute on chronic kidney disease with stage V kidney disease at this time with most recent GFR of 20 from July 2022, is followed by nephrology and primary care. History of extensive head and neck surgery and dissection on the left side of the neck for cancer, cancer free. * Blood pressure is at target * Does not report any chest discomfort pressure tightness heaviness or palpitations. * Primary MD apparently had labs drawn recently results are not available to me. * I reviewed the laboratory data from July 2022 to include comprehensive profile, CBC, LDL cholesterol 80, patient remains on high-dose high intensity statin. GFR 20, potassium 4.7. Getting infusion of Aranesp every 2 weeks for anemia. Feeling better, says hemoglobin now is greater than 10.5. * Assessment: * 1. Hypertension, at target with hypertensive heart and kidney disease functional class II * 2. Hyperlipidemia, at target * 3. Insulin requiring diabetes, with diabetic kidney disease currently stage IV * 4. Cerebrovascular disease status post left carotid stenting, followed by vascular surgery * 5. Chronic kidney disease stage IV GFR July 2021 27, creatinine clearance 36, July 2022 GFR 20 * 6. Lexiscan Myoview June 2021-normal LV ejection fraction of 65% normal transient ischemic dilatation 1.1 no ischemia * 7. CTA of the abdominal aorta with iliofemoral runoff May 2021-no evidence of abdominal aorticaneurysm overall limited study, suggesting moderate to high-grade stenosis of the mid to distal SFAextending to the level of the popliteal artery on the left side. Patient is followed by vascular ami sutherland. Does not report any claudication * 8. Atherosclerotic lac vieux vessel coronary artery disease with stenting of the LAD in 2017, does notreport angina or anginal equivalents * 9. Status post head and neck surgery left side for malignancy. Patient had squamous cell carcinoma,requiring left neck dissection bilateral parotidectomy radiation chemotherapy. * Recommendations: * 1. Cardiac medications were reviewed * 2. Encouraged patient's to bring in lab data ordered by primary care so we can discuss at timeof office visit * 3. Follow-up in October 2023 with comprehensive profile hemoglobin A1c CBC and lipid profile prior to next visit * 4. Once again consideration to be made for Farxiga or Jardiance, and discontinuation of pioglitazone, defer to nephrology and primary care. -[facility]-Dave Rodriguez DO Work Phone: 1([phone]) 614-579910-18-2022 Evaluation note* Encounter Date Diagnosis Assessment Notes Treatment Notes Treatment Clinical Notes Jan, Occlusion and stenosis of bilateral carotid arteries (ICD-10 - I65.23) We reviewed today's duplex studies which remained stable. He remains asymptomatic of his carotid occlusive disease and on good medical therapy with use of aspirin, Plavix, and statin medications daily. We will continue to see him on an annual basis and have him back next year with routine surveillance duplex studies. He knows to call us in the meantime with any issues. They verbalized understanding of all discussion, agrees with this plan, denies any questions. [facility] Other 04-23-2022 History of Present illness Narrative* 6 month FU, seen by 6 months ago.Per notes, * Mr. Drummond is a 70-year-old male who is seen back today for follow-up on his history of coronary disease. He has a history of coronary disease with previous intervention to the LAD in 2017. He had restenosis of that lesion and required further intervention in 2016 but has been stable since then. He has a history of carotid disease and recently ENT cancer and had recent surgery. Prior to his surgery he did have a stress test done that did not demonstrate evidence for ischemia. He has no cardiac complaints today. Still recovering from his recent ENT surgery. * Patient does not report any chest discomfort pressure tightness or heaviness. He has multiple comorbidities. Accompanied by to the office. Patient is now 71 years old. * Fell 2 weeks ago right knee gave out, broke seventh rib, and has been using a cane. * Is hard of hearing, examination shows extensive scarring left side of the neck from prior surgery, there is limited lateral flexion of the neck, forward flexion is intact, lungs are clear heart sounds are regular without murmur rub or gallop and he has trace lower extremity edema. * Laboratory data July 2021-hemoglobin 8.5 hematocrit 29 MCV 94 platelets 302 white blood cell count10.5. On 08/14/2021 hemoglobin and hematocrit were 8.2 and 25. Patient does not report any bleeding diathesis. * In July 2021 BUN was 31 creatinine 2.38 GFR 27 creatinine clearance 36 * Patient is followed by nephrology * Assessment: * 1. Hypertension * 2. Hyperlipidemia * 3. Insulin requiring diabetes * 4. Cerebrovascular disease status post left carotid stenting, followed by vascular surgery * 5. Chronic kidney disease stage IV GFR July 2021 27, creatinine clearance 36 * 6. Lexiscan Myoview June 2021-normal LV ejection fraction of 65% normal transient ischemic dilatation 1.1 no ischemia * 7. CTA of the abdominal aorta with iliofemoral runoff May 2021-no evidence of abdominal aorticaneurysm overall limited study, suggesting moderate to high-grade stenosis of the mid to distal SFAextending to the level of the popliteal artery on the left side. Patient is followed by vascular ami koko. * 8. Atherosclerotic lac vieux vessel coronary artery disease with stenting of the LAD in 2016 * 9. Status post head and neck surgery left side for malignancy. Patient had squamous cell carcinoma,requiring left neck dissection bilateral parotidectomy radiation chemotherapy. * Recommendations: * 1. I did not suggest any change in cardiac medications. * 2. Patient should continue follow-up with specialists such as nephrology and ENT and oncology as indicated. * 3. I do not know the etiology for his anemia, will defer this to primary. May be related to his chronic kidney disease? * 4. Fall precautions were reiterated * 5. Follow-up with me in 6 months sooner if interval problems arise, CBC basic metabolic profile lipid and liver prior to next visit. [facility] [address] DO Work Phone: [phone]) 812-423810-04-2021 Evaluation note* Encounter Date Diagnosis Assessment Notes Treatment Notes Treatment Clinical Notes Jan, Occlusion and stenosis of bilateral carotid arteries (ICD-10 - I65.23) I am pleased with Mendez's outcome. He does not have any significant symptoms and is on good medical therapy and has a normal ultrasound. We will see him back annually for follow-up Jan, Encounter for surgical aftercare following surgery on the circulatory system (ICD-10 - Z48.812) [facility] Other 09-22-2021 History of Present illness Narrative* 70 y/o male with a history of SCCa s/p WLE, L neck dissection, b/l parotidectomy with radiation andchemotherapy presenting with concern for ORN of the left mandible. States 1.5 years ago he noted issues with drainage from his left jaw and intraoral drainage as well. He has been tried on several courses of antibiotics and has recently completed hyperbaric oxygen therapy with no improvement. He continues to have an area of scabbing on the left mandible that intermittently drains. He has pain with chewing on the left side. * 06/11/20 * Patient having virtual follow-up visit with he and his family to further discuss his updated scans as well as the proposed procedure * Since expelling the shard of bone there is been less drainage * We reviewed my sharing screen his updated 3D CT scan showing the radio necrotic appearance of his left mandible with likely healed pathologic fracture but with additional bone fragment being seen * Also discussed his lower extremity angiogram showing patency in three vessel runoff * 08/11/21 * Here for follow-up visit * He is doing well * No significant neck drainage * 08/18/21 * here for wound check * no drainage * was in the ED over weekend * 08/27/21 * doing well * no issues with the wound vac * 09/17/21 * doing well * no issues * 10/15/21 * doing better * wouldl yajaira his tube removed * still on plavix * would like to see the dentist * 11/05/21 * diallo mckee * here for peg rem,oval * he is not using it * has stopped anitcoags * 11/16/21 * being seen today after noting some drainage in the left face yesterday * no pain * peg site has healed up * 12/17/21 * no further drainage * no pain * feeeling good * has two more weeks of antibiotics * 03/11/22 * doing well * no drainage or pain * decreaed hearing on left * feels good * 01/13/23 * doing well * concerend about an indentation on the left * no drainage or pain * feels good BY-Nrklijqpafbhaa-[facility] [address] Work Phone: [phone] History of Present illness Narrative* 70 y/o male with a history of SCCa s/p WLE, L neck dissection, b/l parotidectomy with radiation andchemotherapy presenting with concern for ORN of the left mandible. States 1.5 years ago he noted issues with drainage from his left jaw and intraoral drainage as well. He has been tried on several courses of antibiotics and has recently completed hyperbaric oxygen therapy with no improvement. He continues to have an area of scabbing on the left mandible that intermittently drains. He has pain with chewing on the left side. * 06/11/20 * Patient having virtual follow-up visit with he and his family to further discuss his updated scans as well as the proposed procedure * Since expelling the shard of bone there is been less drainage * We reviewed my sharing screen his updated 3D CT scan showing the radio necrotic appearance of his left mandible with likely healed pathologic fracture but with additional bone fragment being seen * Also discussed his lower extremity angiogram showing patency in three vessel runoff * 08/11/21 * Here for follow-up visit * He is doing well * No significant neck drainage * 08/18/21 * here for wound check * no drainage * was in the ED over weekend * 08/27/21 * doing well * no issues with the wound vac * 09/17/21 * doing well * no issues * 10/15/21 * doing better * wouldl yajaira his tube removed * still on plavix * would like to see the dentist * 11/05/21 * diallo mckee * here for peg rem,oval * he is not using it * has stopped anitcoags * 11/16/21 * being seen today after noting some drainage in the left face yesterday * no pain * peg site has healed up * 12/17/21 * no further drainage * no pain * feeeling good * has two more weeks of antibiotics * 03/11/22 * doing well * no drainage or pain * decreaed hearing on left * feels good NA-Fflqeduzwvfmsk-[facility]aeRed [facility] [address] Work Phone: [phone] History of Present illness Narrative* 70 y/o male with a history of SCCa s/p WLE, L neck dissection, b/l parotidectomy with radiation andchemotherapy presenting with concern for ORN of the left mandible. States 1.5 years ago he noted issues with drainage from his left jaw and intraoral drainage as well. He has been tried on several courses of antibiotics and has recently completed hyperbaric oxygen therapy with no improvement. He continues to have an area of scabbing on the left mandible that intermittently drains. He has pain with chewing on the left side. * 06/11/20 * Patient having virtual follow-up visit with he and his family to further discuss his updated scans as well as the proposed procedure * Since expelling the shard of bone there is been less drainage * We reviewed my sharing screen his updated 3D CT scan showing the radio necrotic appearance of his left mandible with likely healed pathologic fracture but with additional bone fragment being seen * Also discussed his lower extremity angiogram showing patency in three vessel runoff * 08/11/21 * Here for follow-up visit * He is doing well * No significant neck drainage * 08/18/21 * here for wound check * no drainage * was in the ED over weekend * 08/27/21 * doing well * no issues with the wound vac * 09/17/21 * doing well * no issues * 10/15/21 * doing better * wouldl yajaira his tube removed * still on plavix * would like to see the dentist * 11/05/21 * diallo mckee * here for peg rem,oval * he is not using it * has stopped anitcoags * 11/16/21 * being seen today after noting some drainage in the left face yesterday * no pain * peg site has healed up * 12/17/21 * no further drainage * no pain * feeeling good * has two more weeks of antibiotics KR-Aypoijesfywmtj-[facility]xkpkjzRed [facility] [address] Work Phone: [phone] History of Present illness Narrative* 70 y/o male with a history of SCCa s/p WLE, L neck dissection, b/l parotidectomy with radiation andchemotherapy presenting with concern for ORN of the left mandible. States 1.5 years ago he noted issues with drainage from his left jaw and intraoral drainage as well. He has been tried on several courses of antibiotics and has recently completed hyperbaric oxygen therapy with no improvement. He continues to have an area of scabbing on the left mandible that intermittently drains. He has pain with chewing on the left side. * 06/11/20 * Patient having virtual follow-up visit with he and his family to further discuss his updated scans as well as the proposed procedure * Since expelling the shard of bone there is been less drainage * We reviewed my sharing screen his updated 3D CT scan showing the radio necrotic appearance of his left mandible with likely healed pathologic fracture but with additional bone fragment being seen * Also discussed his lower extremity angiogram showing patency in three vessel runoff * 08/11/21 * Here for follow-up visit * He is doing well * No significant neck drainage * 08/18/21 * here for wound check * no drainage * was in the ED over weekend * 08/27/21 * doing well * no issues with the wound vac * 09/17/21 * doing well * no issues * 10/15/21 * doing better * wouldl yajaira his tube removed * still on plavix * would like to see the dentist * 11/05/21 * diallo mckee * here for peg rem,oval * he is not using it * has stopped anitcoags * 11/16/21 * being seen today after noting some drainage in the left face yesterday * no pain * peg site has healed up * 12/17/21 * no further drainage * no pain * feeeling good * has two more weeks of antibiotics ZM-[facility]jhmkujvraxycu-[facility]zyoRed [facility] [address] Work Phone: [phone] History of Present illness Narrative* 70 y/o male with a history of SCCa s/p WLE, L neck dissection, b/l parotidectomy with radiation andchemotherapy presenting with concern for ORN of the left mandible. States 1.5 years ago he noted issues with drainage from his left jaw and intraoral drainage as well. He has been tried on several courses of antibiotics and has recently completed hyperbaric oxygen therapy with no improvement. He continues to have an area of scabbing on the left mandible that intermittently drains. He has pain with chewing on the left side. * 06/11/20 * Patient having virtual follow-up visit with he and his family to further discuss his updated scans as well as the proposed procedure * Since expelling the shard of bone there is been less drainage * We reviewed my sharing screen his updated 3D CT scan showing the radio necrotic appearance of his left mandible with likely healed pathologic fracture but with additional bone fragment being seen * Also discussed his lower extremity angiogram showing patency in three vessel runoff * 08/11/21 * Here for follow-up visit * He is doing well * No significant neck drainage * 08/18/21 * here for wound check * no drainage * was in the ED over weekend * 08/27/21 * doing well * no issues with the wound vac * 09/17/21 * doing well * no issues * 10/15/21 * doing better * wouldl yajaira his tube removed * still on plavix * would like to see the dentist * 11/05/21 * diallo mckee * here for peg rem,oval * he is not using it * has stopped anitcoags * 11/16/21 * being seen today after noting some drainage in the left face yesterday * no pain * peg site has healed up CE-Blntypdpdesfdp-Wvcinxwv Work Phone: [phone] History of Present illness Narrative* 70 y/o male with a history of SCCa s/p WLE, L neck dissection, b/l parotidectomy with radiation andchemotherapy presenting with concern for ORN of the left mandible. States 1.5 years ago he noted issues with drainage from his left jaw and intraoral drainage as well. He has been tried on several courses of antibiotics and has recently completed hyperbaric oxygen therapy with no improvement. He continues to have an area of scabbing on the left mandible that intermittently drains. He has pain with chewing on the left side. * 06/11/20 * Patient having virtual follow-up visit with he and his family to further discuss his updated scans as well as the proposed procedure * Since expelling the shard of bone there is been less drainage * We reviewed my sharing screen his updated 3D CT scan showing the radio necrotic appearance of his left mandible with likely healed pathologic fracture but with additional bone fragment being seen * Also discussed his lower extremity angiogram showing patency in three vessel runoff * 08/11/21 * Here for follow-up visit * He is doing well * No significant neck drainage * 08/18/21 * here for wound check * no drainage * was in the ED over weekend * 08/27/21 * doing well * no issues with the wound vac * 09/17/21 * doing well * no issues * 10/15/21 * doing better * wouldl yajaira his tube removed * still on plavix * would like to see the dentist * 11/05/21 * diallo mckee * here for peg rem,oval * he is not using it * has stopped anitcoags [facility] [address] Work Phone: [phone] History of Present illness Narrative* 70 y/o male with a history of SCCa s/p WLE, L neck dissection, b/l parotidectomy with radiation andchemotherapy presenting with concern for ORN of the left mandible. States 1.5 years ago he noted issues with drainage from his left jaw and intraoral drainage as well. He has been tried on several courses of antibiotics and has recently completed hyperbaric oxygen therapy with no improvement. He continues to have an area of scabbing on the left mandible that intermittently drains. He has pain with chewing on the left side. * 06/11/20 * Patient having virtual follow-up visit with he and his family to further discuss his updated scans as well as the proposed procedure * Since expelling the shard of bone there is been less drainage * We reviewed my sharing screen his updated 3D CT scan showing the radio necrotic appearance of his left mandible with likely healed pathologic fracture but with additional bone fragment being seen * Also discussed his lower extremity angiogram showing patency in three vessel runoff * 08/11/21 * Here for follow-up visit * He is doing well * No significant neck drainage * 08/18/21 * here for wound check * no drainage * was in the ED over weekend * 08/27/21 * doing well * no issues with the wound vac * 09/17/21 * doing well * no issues * 10/15/21 * doing better * wouldl yajaira his tube removed * still on plavix * would like to see the dentist EK-Znveaubnvfqfby-[facility] [address] Work Phone: [phone] History of Present illness Narrative* 70 y/o male with a history of SCCa s/p WLE, L neck dissection, b/l parotidectomy with radiation andchemotherapy presenting with concern for ORN of the left mandible. States 1.5 years ago he noted issues with drainage from his left jaw and intraoral drainage as well. He has been tried on several courses of antibiotics and has recently completed hyperbaric oxygen therapy with no improvement. He continues to have an area of scabbing on the left mandible that intermittently drains. He has pain with chewing on the left side. * 06/11/20 * Patient having virtual follow-up visit with he and his family to further discuss his updated scans as well as the proposed procedure * Since expelling the shard of bone there is been less drainage * We reviewed my sharing screen his updated 3D CT scan showing the radio necrotic appearance of his left mandible with likely healed pathologic fracture but with additional bone fragment being seen * Also discussed his lower extremity angiogram showing patency in three vessel runoff * 08/11/21 * Here for follow-up visit * He is doing well * No significant neck drainage * 08/18/21 * here for wound check * no drainage * was in the ED over weekend * 08/27/21 * doing well * no issues with the wound vac * 09/17/21 * doing well * no issues * 10/15/21 * doing better * wouldl yajaira his tube removed * still on plavix * would like to see the dentist [facility] Work Phone: [phone] 115-515805-06-2020 History of Present illness Narrative* 70 y/o male with a history of SCCa s/p WLE, L neck dissection, b/l parotidectomy with radiation andchemotherapy presenting with concern for ORN of the left mandible. States 1.5 years ago he noted issues with drainage from his left jaw and intraoral drainage as well. He has been tried on several courses of antibiotics and has recently completed hyperbaric oxygen therapy with no improvement. He continues to have an area of scabbing on the left mandible that intermittently drains. He has pain with chewing on the left side. * 06/11/20 * Patient having virtual follow-up visit with he and his family to further discuss his updated scans as well as the proposed procedure * Since expelling the shard of bone there is been less drainage * We reviewed my sharing screen his updated 3D CT scan showing the radio necrotic appearance of his left mandible with likely healed pathologic fracture but with additional bone fragment being seen * Also discussed his lower extremity angiogram showing patency in three vessel runoff * 08/11/21 * Here for follow-up visit * He is doing well * No significant neck drainage * 08/18/21 * here for wound check * no drainage * was in the ED over weekend * 08/27/21 * doing well * no issues with the wound vac [facility] [address] Work Phone: [phone] History of Present illness Narrative* 70 y/o male with a history of SCCa s/p WLE, L neck dissection, b/l parotidectomy with radiation andchemotherapy presenting with concern for ORN of the left mandible. States 1.5 years ago he noted issues with drainage from his left jaw and intraoral drainage as well. He has been tried on several courses of antibiotics and has recently completed hyperbaric oxygen therapy with no improvement. He continues to have an area of scabbing on the left mandible that intermittently drains. He has pain with chewing on the left side. * PMH: CAD, melanoma. SCCa skin * PSH: WLE SCCa, b/l parotidectomy, T&A, cardiac angio * Social: non smoker, no etoh * Current medications: reviewed and noted * Family history: reviewed and not significant to presenting complaint * ROS: All other systems have been reviewed and are negative for complaint. I personally reviewed theintake form that was scanned in today * Radiology reviewed: * I personally reviewed the CT facial bones from March 2020 and this is my impression: extensive bony erosion of the left mandibular body with communication with the oral cavity, pathologic fracture * Staff note * Above resident note reviewed and confirmed * I saw and examined the patient. I personally obtained the rangel and critical portions of the history and physical exam or was physically present for the rnagel and critical portions performed by the resident/fellow. I reviewed the resident/fellow's documentation and discussed the patient with the residen t/fellow. I agree with the resident/fellow's medical decision making as documented in the resident's note. [facility] 1229 Work Phone: Chief complaint Narrative - Reportedjaw don, Dr. Mariscal munkmktmNG-Zubvsazfmbsgkn-Domkxni [facility] 0919 Work Phone: Discharge summary Author Obaydah Daromar [facility] March 24, 2023 12:02pm Note Date/Time March 24, 2023 1 1:35am [facility] [address] [place] [address] Discharge Summary Signed Patient: Mendez Drummond MR#: [id number] : 1950 Acct:[id number] Age/Sex: 72 / M Adm Date: 3 Loc: Room: [address] [place] [address]: Sharri Cancino MD Copies to: MD Sharri Hui MD~ Providers Date of Discharge: 03/24/23 Discharging Provider: Sharri Cancino Primary Care Provider: Lety Downey Consults: 03/22/23 21:51 Consult to Vascular Surgery Routine Discharge Diagnosis (1) Carotid occlusion, left: (2) Carotid stenosis, left: (3) Diabetes: (4) Chronic kidney disease: (5) Hypertension: (6) Hyperlipidemia: (7) CKD (chronic kidney disease) stage 4, GFR 15-29 ml/min: Final Diagnosis Final Discharge Diagnosis: as above Summary Hospital Course Hospital course: Mr. Drummond is a 72-year-old male with a PMH of squamous cell carcinoma, secondary malignancy of parotid glands, lymph nodes, radical neck procedure, T2DM, CKD stage IV, HTN, heart cath x 2 with 4 stents as a transfer from [facility] for an occluded carotid artery stent. Patient seen and examined at bedside, resting in bed quietly. He reports that on Monday he lost partial vision to his left eye that lasted for about an hour. And yesterday he woke up and had no vision to that on the top of his left eye for 10 to 15 minutes and then also to the left inside corner. He states that he also had double vision and blurry vision off and on since Monday. He reports no loss of vision at this time. He also states that he had a headache to the left caodaism and eye for a couple of hours on Monday. Currently denies pain, denies chest pain, shortness of breath, fever or chills, nausea or vomiting. He has had extensive surgery to his neck and left jaw. His last procedure was in [facility] 13 months ago he had a bone graft from his scapula and placed to his jaw. This was performed in [place] [facility]. He has seen Dr. Gonzalez in [facility] for his cancer surgeries. He is also seeing Dr. Euceda for mapping for a right arm fistula for hemodialysis in the future. At the [facility] he had aids carotid Doppler study which showed completeocclusion of the left common carotid artery stent with significant intimal thickening and possible thrombus distal aspect of the stent from proximal left internal carotid artery. Extremely diminished flow within the visualized portions of the internal carotid artery. Antegrade flow within both vertebral arteries. EKG shows sinus rhythm with first-degree block, no ST elevation noted. While in the emergency room on 03/21/2023 ED provider consulted the telestroke team recommended the patient was loaded with 300 mg of Plavix and then 75 daily and he was admitted to the floor for TIA workup. MRI of the brainshowed mild chronic microvascular ischemic changes, no acute infarct or hemorrhage, high-grade stenosis or occlusion of the left cavernous ICA. MRA ofthe head and showed occlusion of the left cavernous ICA with reconstitution of the supraclinoid ICA, no high-grade stenosis or occlusion of the remaining majorintracranial arteries, right ophthalmic ICA 2 mm outpouching which may representand infundibulum or aneurysm. Echocardiogram was performed which showed an EF of 55 to 60%, grade 1 diastolic dysfunction, moderate pulmonary hypertension with RVSP of 45 mmHg, normal right ventricle size and systolic function, mild tomoderate biatrial dilatation, mild TR. CT of the brain showed no acute intracranial abnormality. CBC had an H&H of 10.4/33.4. BMP with a sodium 140, potassium 4.5, BUN 77, creatinine 4.16. Troponin 19.6. Lipid panel with a triglycerides of 91, cholesterol 121, VLDL 18.2, HDL 36, cholesterol/HDL ratio 3.4. He was transferred here to [facility] under the care of the hospitalist team for further evaluation and treatment. Vascular surgery was consulted and patient was ordered carotid US. Patient had partial vision loss of left eye thats why he presented to [facility] and transferred her for anticipated vascular intervention. patient was originally scheduled by vascular to undergo left carotid angiogram and stenting however he canceled this due to him wanting to discuss it further with his family prior to having intervention. He ended up coming through the hospital with reported lefteye visual changes. He now reports returned to his normal with no hemispheric symptoms whatsoever while here. Continue to recommend moving forward with left carotid angiogram and probable stenting. We will try to get him back on the schedule in the near future. He should continue his medical therapy with use ofaspirin and high intensity statin medication daily. Plavix was added by [employer] and new prescription sent. Patient remained hemodynamically stable. Discussed with patient and at bedside. Advised to continue to follow-up with vascular team as well as nephrology regarding his CKD that has been progressing with anticipation for hemodialysis in the future and AV fistula creation by vascular. Discussed with vascular team, patient is cleared for discharge at this time. Condition Condition at Discharge: Stable Time Spent with Patient Time spent providing/coordinating discharge services (# min): 35 Diagnostic Studies Completed and Pending Studies Pending studies at discharge: 03/23/23 17:09 US carotid doppler BI Routine Labs on day of discharge: 03/24/23 11:07: POC Glucose 120 03/24/23 06:41: POC Glucose 133 03/24/23 04:48: PHA Creatinine Clear 19.13, Sodium 137, Potassium 4.6, Chloride 106, Carbon Dioxide 21.2, Anion Gap 14.4, BUN 60 H, Creatinine 4.14 H D, Est GFR(CKD- EPI) 14.629, Glucose 133 H, Calcium 9.0 03/23/23 20:44: POC Glucose 192 03/23/23 16:39: POC Glucose 86 03/23/23 11:18: POC Glucose 87 Exam Physical Exam Vital Signs: Temp Pulse Resp BP Pulse Ox O2 Del Method 97.5 F L 61 16 138/72 97 Room Air 03/24/23 11:17 03/24/23 11:17 03/24/23 11:17 03/24/23 11:17 03/24/23 11:17 03/24/23 11:17 Narrative: Const General: cooperative HEENT Normal oropharyngeal mucosa without any ulcers or exudates Eyes: Conjunctiva normal Pulmonary Auscultation: clear to auscultation , no crackles, no wheezes Cardiovascular Rate: normal rate Rhythm: regular rhythm Heart Sounds: S1 normal, S2 normal and no murmurs GI Inspection: non-distended Palpation: soft, not firm and nontender. No rigidity or rebound. Deferred Neuro General: alert, awake and oriented x3. very hard of hearing. No obvious new focal deficit Musculoskeletal: normal range of motion Extrem General: no cyanosis, no pedal edema Psych Appearance: appropriate affect. Grossly normal Discharge Plan Discharge Plan Patient Disposition: Home Activity: Ambulate as Tolerated Diet: Diabetic Prescriptions: New clopidogrel 75 mg Tablet 75 mg PO DAILY Qty: 30 0RF Continued atorvastatin 80 mg tablet 80 mg PO HS Patient Comments: carvedilol 25 mg tablet 25 mg PO BID Patient Comments: aspirin [Aspir-81] 81 mg Tablet,Delayed Release (Dr/Ec) 81 mg PO DAILY zinc 50 mg Tablet 50 mg PO DAILY pioglitazone 30 mg tablet 30 mg PO DAILY Patient Comments: fluoxetine 40 mg capsule 40 mg PO 1XD Patient Comments: TAKE 1 CAPSULE BY MOUTH IN THE MORNING amlodipine 10 mg tablet 10 mg PO 1XD Patient Comments: TAKE 1 TABLET BY MOUTH IN THE MORNING calcitriol 0.25 mcg capsule 0.25 mcg PO 1XD Patient Comments: TAKE 1 CAPSULE BY MOUTH IN THE MORNING insulin glargine [Basaglar KwikPen U-100 Insulin] 100 unit/mL (3 mL) insulin pen 30 unit SUBCUT 1XD Patient Comments: INJECT 30 UNITS SUBCUTANEOUSLY IN THE MORNING cholecalciferol (vitamin D3) 50 mcg (2,000 unit) tablet 100 mcg PO 1XD Patient Comments: TAKE 2 TABLETS BY MOUTH IN THE MORNING sodium bicarbonate 650 mg tablet 650 mg PO 3XD Patient Comments: TAKE 1 TABLET BY MOUTH THREE TIMES DAILY lisinopril 20 mg tablet 10 mg PO 1XD Patient Comments: TAKE 1 TABLET BY MOUTH TWICE DAILY Follow Up: Gael Euceda MD [Active Staff] - (The office is aware of your hospital stayand need to reschedule surgery, the office will call you to schedule. Please call the office if you have not heard from them by the next business day.) Lety Hodgson MD [Primary Care Provider] - 04/04/23 2:00 pm (You have been scheduled for a follow up appointment for the following date and time, please call to reschedule if needed. This is the next available appointment, please call with any questions or concerns prior to then.) Documented By: Sharri Cancino MD 03/24/23 11 35 Signed By: <Electronically signed by Sharri Cancino MD> 03/24/[address] [facility] Work Phone: Evaluation note* Skin: Warm and dryEyes: clear scleraENMT: Increased left jaw edema/tendernessHead/Neck: Difficult to assess JVDGastrointestinal: PEG in place. Soft, non tender abdomen.Cardiovascular: RRR, no mrgExtremities: No edemaNeurological: alert and oriented [id number]: Appropriate mood and behaviorRespiratory/Thorax: bibasilar rales, reduced A/E left baseConstitutional: Siting up in chair, trach capped, NAD [facility] assessment information available [facility] Work Phone: Evaluation note* Diagnosis Onset Date Resolution Status Carotid occlusion, left acut e Carotid stenosis, left acute Chronic kidney disease acute CKD (chronic kidney disease) stage 4, GFR 15-29 ml/min acute Hyperlipidemia acute Hypertension acute Diabetes chronic [facility] Work Phone: Evaluation noteNo InformationNosaint francis medical center [employer] Other Evaluskdas note* Diagnosis Onset Date Resolution Status Carotid occlusion, left acut e Carotid stenosis, left acute Chronic kidney disease acute CKD (chronic kidney disease) stage 4, GFR 15-29 ml/min acute Hyperlipidemia acute Hypertension acute Diabetes chronic Chronic renal insufficiency, stage IV (severe) acute [facility] Work Phone: Evaluation note* Diagnosis Stage 4 chronic kidney disease (CMS-HCC)- [facility] Diagnosis Anemia due to stage 4 chronic kidney disease (CMS-HCC)- Primary [facility] Diagnosis Onset Date Resolution Status Carotid occlusion, left acut e Carotid stenosis, left acute Chronic kidney disease acute CKD (chronic kidney disease) stage 4, GFR 15-29 ml/min acute Hyperlipidemia acute Hypertension acute Diabetes chronic Chronic renal insufficiency, stage IV (severe) acute Chronic kidney disease acute Encounter for surgical after care following surgery of circulatory system acute [facility] Work Phone: Evaluation note* Diagnosis Anemia due to stage 4 chronic kidney disease ([facility])- Primary [facility] in [facility] encounter [facility]* Diagnosis Osteoradionecrosis of mandible- Primary Impacted cerumen of left ear Impacted cerumen History of head and neck cancer Infective otitis externa of left ear documented in this encounter [facility] Work Phone: Evaluation note* Diagnosis CKD (chronic kidney disease) stage 5, GFR less than 15 ml/min ([facility])- Primary Chronic kidney disease, Stage V documented in this encounter [facility]* Diagnosis Anemia due to stage 4 chronic kidney disease ([facility])- Primary documented in this encounter [facility]* Diagnosis Onset Date Resolution Status Chronic renal insufficiency, stage IV (severe) acute Chronic kidney disease acute Encounter for surgical after care following surgery of circulatory system acute [facility] Work Phone: Evaluation note* Diagnosis Onset Date Resolution Status Chronic renal insufficiency, stage IV (severe) acute Chronic kidney disease acute Encounter for surgical after care following surgery of circulatory system acute AV fistula [facility] Work Phone: Evaluation note* Diagnosis Osteoradionecrosis of mandible- Primary 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, unsp ear documented in this encounter [facility] Work Phone: Evaluation note* Diagnosis Onset Date Resolution Status AV fistula acute [facility] Work Phone: History general Narrative - Reported* Type Description Date Medical History carotid artery stenosis Medical History HTN Medical History DM Medical History Hypercholesterolemia Medical History CVOD Medical History STAGE 4 KIDNEY DISEASE Surgical History tonsillectomy and adenoidectomy Surgical History Uvulopalatopharyngoplasty Surgical History skin cancer removal Surgical History lymph node resection Surgical History melanoma excision Surgical History heart stent X 2 05/13/2016 Surgical History carotid endarterectomy Surgical History Lt Carotid angioplasty & stent 06/20/2018 Hospitalization History tonsillectomy Hospitalization History see above First Aid Shot Therapy Other History of Present illness Narrative* Mr. Drummond is a 70-year-old male who is seen back today for follow-up on his history of coronary disease. He has a history of coronary disease with previous intervention to the LAD in 2016. He had restenosis of this and then required further intervention in 2017. He seems to have been stable since then. He has had no recent anginal pain. He also has a history of carotid disease and apparently has had intervention to his left carotid by vascular surgery. He has no complaints of chest pain today. He is relatively sedentary. 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 * Physical exam: * Neck: No carotid bruits are heard * Lungs: Clear * Heart: Regular rate and rhythm without murmurs or extra sounds * Extremities: No significant edema * Recommendation is continuation of current medications. No changes are made. He appears clinically stable at present time. He is to return in 6 months for follow-up. If he is going to require significant surgical intervention then preop clearance stress test would likely be required and this was discussed with him. [facility] [employer] DO Work Phone: History of Present illness Narrative* Mr. Drummond is a 70-year-old male who is seen back today for follow-up on his history of coronary disease. He has a history of coronary disease with previous intervention to the LAD in 2017. He had restenosis of that lesion and required further intervention in 2017 but has been stable since then. He has a history of carotid disease and recently ENT cancer and had recent surgery. Prior to his surgery he did have a stress test done that did not demonstrate evidence for ischemia. He has no cardiac complaints today. Still recovering from his recent ENT surgery. * Physical exam: * Neck is postsurgical * Lungs: Clear * Heart: Regular rate and rhythm without murmurs or extra sounds * Extremities: No significant edema * Recommendation is continuation of current medications. His Plavix will not be resumed at this time.Cardiac status appears stable. He is to return in 6 months for follow-up. [facility] [employer] [facility] DO Work Phone: History of Present illness Narrative* 6 month FU. * Companied by to the office. * Patient is hard of hearing. * Prior notes reviewed, patient is new to this provider. * Has atherosclerotic lac vie[place] vessel coronary artery disease with prior PCI and stenting, also cerebrovascular disease with stenting. * On examination he has extensive scars in the left side of the neck from head and neck surgery for cancer. * He ambulates with a cane, careful to avoid falls. * His blood sugars were elevated and his hemoglobin A1c was elevated, he was not taking his medications in the right manner, says that the medications have been resumed and his blood sugars are better. * No symptoms of hypoglycemia. * Sees nephrology Dr. Oreilly. * Consideration may be given for stopping the pioglitazone and switching to Farxiga. No recent laboratory data available. * Assessment: * 1. Hypertension * 2. Hyperlipidemia * 3. Insulin requiring diabetes * 4. Cerebrovascular disease status post left carotid stenting, followed by vascular surgery * 5. Chronic kidney disease stage IV GFR July 2021 27, creatinine clearance 36 * 6. Lexiscan Myoview June 2021-normal LV ejection fraction of 65% normal transient ischemic dilatation 1.1 no ischemia * 7. CTA of the abdominal aorta with iliofemoral runoff May 2021-no evidence of abdominal aorticaneurysm overall limited study, suggesting moderate to high-grade stenosis of the mid to distal SFAextending to the level of the popliteal artery on the left side. Patient is followed by vascular ami sutherland. * 8. Atherosclerotic lac vieux vessel coronary artery disease with stenting of the LAD in 2016 * 9. Status post head and neck surgery left side for malignancy. Patient had squamous cell carcinoma,requiring left neck dissection bilateral parotidectomy radiation chemotherapy. * Patient does not appear volume overloaded on examination, he is not complaining of angina pectoris,he reports compliance with medications. He remains on high intensity statin high-dose. * Recommendations: * 1. Vascular disease is addressed by Dr. Downey * 2. Cardiac medications were renewed * 3. Consider using Farxiga in place of pioglitazone-defer to primary service. * 4. Follow-up in 6 months with comprehensive profile CBC and lipid profile in the near future. -[facility] DO Work Phone: Hospital Discharge instructions* Activity:activity as tolerated. May shower. May return to school/work Instructions:. May not drive while taking narcotics. No pushing, pulling, or lifting objects greater than 10 pounds for 2 week(s). Other activity instructions: Slowly increase your activity each day. No strenuous or vigorous exercising until cleared by your surgeon. * Additional Orders:Additional Instructions: Your tracheostomy site will close on its own, without requiring suture closure or any additional procedure. To help ensure quick healing of the trach site, it is very important to apply pressure to the site whenever you cough, talk, swallow and laugh. Without adequate pressure to the site, air will continue to leak from the wound, serving to keep it openinstead of allowing it to heal. With consistent pressure during coughing, talking, laughing and swallowing, you will help to allow these tissues to heal more quickly.As the tracheotomy site will continue to drain for a while, it is important to keep clean, dry dressings in place until the wound site has completely healed. The site itself will heal from the inside out; meaning the trachea will likely close before the soft tissues of the neck. While air continues to leak from the site during respiration, speaking, etc., the trachea has not yet closed and particular attention should be pain to ensuring there is adequate manual pressure applied to the wound site when talking and coughing. Once no further air leakage is noted, it can usually be assumed that the trachea has closed. Although this may happen fairly quickly, the wound site itself may continue to seep/drain slightly for some time. This is very normal as the soft tissues of the neck, outside the trachea, continue to heal. Cover with 4x4 guaze as needed * Call Provider If:Breathing faster than normal. Fever of 100.4 F (38 C) or higher. Chills. Not beingable to go 4-6 hours between albuterol treatments. Acting very sleepy and difficult to awaken. Vomiting (throwing up) and not able to eat or drink for 12 hours. 3 or more loose, watery bowel movements in 24 hours (diarrhea). Any new concerning symptoms. * Home Care Face to Face Certification:Home Care Services Needed: yesSkilled Disciplines Ordered: RN/BRIDAL GOWN FITTER, PT, OTFace to Face Encounter Completed: yesDate of Encounter: [id number] Necessity for Homecare (based on clinical findings): My clinical findings support the need for the following skilled services: Patient needs Physical Therapist to improve deconditioning, and to restore the ability to walk without support; Jail/RN needed to instruct patient/caregiver to perform wound care dressing changes and to monitor for signs and symptoms of infection or adverse effects; Homebound Status: homeboundHomebound Due to: Based on my clinical findings, this patient is homebound due to inability to communicate secondary to a new tracheostomy (removed prior to discharge), multiple facial wounds, and also due to physical deconditioning acquired during hospitalization making independent ambulation contraindicated until the patient regains strength and endurance. Face to Face Completed and Home Care Orders Reviewed: I certify that this patient is under my care. I have reviewed the information included in the face to face and certify that the home care services ordered are medically necessary for this patient. * Home Care Skilled Service:Home Care Skilled Service: assessment, Rehab (PT/OT/SP eval and treat), tube feed, weight check, wound careType of Assessment: post op flapAssessment: First Home Care Visit:day after dischargeRehab: First Home Care Visit: day after dischargeTube Feed: First Home Care Visit: day after dischargeWeight Check: First Home Care Visit: day after dischargeWound Care: First HomeCare Visit: day after discharge * Follow Up Appointment 1:Physician/Dept/Service: Dr. Pieter Rosales for Referral: Post op appointmnetPhone Number: [phone] with questionsComments: Please arrive 10-15 minutes early, bring photoID, insurance information, and current list of medications. If unable to keep this appointment, please call to cancel at least 24 hours prior to appointment. * Follow Up Appointment 2:Physician/Dept/Service: NephrologyWyatt for Referral: Post-hospital followupComments: Please make an appointment follow-up with your oral surgery assistant (kidney doctor) within 2 days of discharge from the hospital * Follow Up Appointment 3:Physician/Dept/Service: CardiologyRechristel for Referral: post-hospital followupComments: Please make an appointment to follow-up with your lawn and garden technician within 1 week of discharge from the hospital * PEG Tube Care:PEG Tube Care: Cleanse with 1:1 mixture of hydrogen peroxide and normal saline to remove any crust. Spin bumper daily. If bumper does not spin freely notify MD. Monitor site for signs & symptoms of infection which include redness, warmth, increased tenderness and purulent drainage. * Incision Care:Facial/Neck Incision Care: Cleanse all facial/neck incisions twice daily with baby shampoo or mild soap and water. Apply petroleum jelly/vaseline to incision line twice daily until incision has healed. Intra- oral Incision Care: To care for your inta-oral incisions, please swish and spi t with 15 mls of peridex 3-4 times per day. * Flaps:Free Flap Donor Site Left Scapular tip. Cleanse incision with baby shampoo or mild soap and water twice a day. Apply vaseline to incision twice a day until healed. [facility] Additional Instructions DISCHARGE INSTRUCTIONS- TAKING CARE OF YOUR FISTULA OR GRAFT You have a: fistula, A fistula or graft (both called an access) was created to provide an adequate blood flow for dialysis. Dialysis is a process to clean your blood of waste products and remove fluid. You need to take care of your fistula or graft to keep it working well and to watch for problems such as blood clots or infection. Please wash your access site prior to dialysis and wear clothing to dialysis that allows easy access to your graft or fistula. CARE OF YOUR ACCESS Check your fistula or graft at least every day. It should be buzzing . This is called a thrill and is caused by blood flowing through the fistula or graft. If blood clots form in your access this blood flow is blocked and you will not feel the buzz . Please check with your physician if you cannot Feel the Thrill . PRECAUTIONS: The goal is to avoid activities that might decrease the blood flow or damage your new access. 1. Tell others that you have a fistula or graft. -Do NOT let anyone take your blood pressure or draw blood work in your fistula or graft arm. -Do NOT let anyone put name bands on this arm. 2. Keep it clean. Scratching is off-limits. 3. DO NOT use your fistula or graft as a pillow. DO NOT sleep with your arm under your head. 4. Avoid carrying items like purses and packages on your arm. Use your other arm to carry heavy items. 5. Avoid wearing clothes with tight sleeves or stretch bands at the wrist. DO NOT wear a watch on this arm. 6. If you have access in your leg: -Avoid underwear with tight bands of the legs. -Avoid heavy pressure on the graft leg such as the weight of a child or heavy item pressing on the graft. WATCH FOR INFECTION -At times, a fistula or graft can become infected. Check your fistula or graft at least once a day for infection. SIGNS OF INFECTION ARE: -Redness or warmth in the skin area over the fistula or graft -Swelling and soreness of the skin -A fever of over 100 degrees F -Drainage from fistula or graft site SPECIAL CARE FOR THOSE WITH A FISTULA ONLY -Over time usually in 1-4 months the vein in your arm near the surgery site will enlarge or mature. The bigger the vein becomes, the easier it will be to use for dialysis. -Making a fist or squeezing a rubber ball or hand revenue agent increases the blood flow to your fistula helping it to work better and mature faster. Try squeezing the ball during the commercials while watching TV. As a general guideline exercise can be started in 3 weeks after your fistula is placed. WHEN TO CALL YOUR DOCTOR -If you CANNOT feel the buzzing or hear it with a stethoscope, do not wait! CALL YOUR DOCTOR IMMEDIATELY SO IT CAN BE CHECKED. -If you have signs of infection, consult your physician. -Get to know your fistula or graft. Report any changes in how it sounds, feels, or looks! IMPORTANT NUMBERS -[facility] [phone] -[facility] Emergency Room [phone] -Nephrology [phone] -Vascular [phone] FOLLOW UP -Call your physician to schedule a post-operative appointment. [facility] Work Phone: Hospital Discharge instructions Additional Instructions Try and take the gabapentin you can take it up to 3 times a day for pain it might make you drowsy initially Continue good wound care keeping the wound on your foot clean applying antibiotic ointment such as Neosporin and a bandage May also use topical medicine such as IcyHot spray or Bengay Follow-up with family doctor as scheduled Return to the ER for worsening pain fever chills or any other [facility]St[facility]: Hospital Discharge instructions Additional Instructions You should be taking 20 units of insulin in the morning. Make sure that you are eating every day if you are going to be taking insulin. You should not be taking any more than a total dose of 600 mg of gabapentin in 24 hours. Just take one 400 mg tablet in 24 hours. Follow-up with your primary care provider to see if he should be continuing this medication.[facility] Work Phone: InstructionsNot on filedocumented in this encounter [facility] SystemInstructionsNot on filedocumented in this encounter [facility] SystemInstructionsNot on filedocumented in this encounter [facility] SystemInstructionsNot on filedocumented in this encounter [facility] SystemReason for referral (narrative)* Reason for Referral: 70 yr old male s/p Neck Exploration. Free flap debridement skins, subq, muscleand bone, and Primary closure intraoral defect. [facility] Summary Purpose Family History No Family History Records FoundUnknown Family Member Name Dates Details FHx: myocardial infarction: Mother, Sister(V17.3, Z82.49) Status:Active FH: coronary artery disease: Father(V17.3, Z82.49) Status:Active Family history of congestive heart failure: Father(V17.49, Z82.49) Status:Active Unknown Family Member Name Dates Details Family history of congestive heart failure: Father(V17.49, Z82.49) Status:Active FH: coronary artery disease: Father(V17.3, Z82.49) Status:Active FHx: myocardial infarction: Mother, Sister(V17.3, Z82.49) Status:Active Unknown Family Member Name Dates Details FHx: myocardial infarction: Mother, Sister(V17.3, Z82.49) Status:Active FH: coronary artery disease: Father(V17.3, Z82.49) Status:Active Family history of congestive heart failure: Father(V17.49, Z82.49) Status:Active Unknown Family Member Name Dates Details Family history of congestive heart failure: Father(V17.49, Z82.49) Status:Active FH: coronary artery disease: Father(V17.3, Z82.49) Status:Active FHx: myocardial infarction: Mother, Sister(V17.3, Z82.49) Status:Active Unknown Family Member Name Dates Details Family history of congestive heart failure: Father(V17.49, Z82.49) Status:Active FH: coronary artery disease: Father(V17.3, Z82.49) Status:Active FHx: myocardial infarction: Mother, Sister(V17.3, Z82.49) Status:Active Unknown Family Member Name Dates Details Family history of congestive heart failure: Father(V17.49, Z82.49) Status:Active FH: coronary artery disease: Father(V17.3, Z82.49) Status:Active FHx: myocardial infarction: Mother, Sister(V17.3, Z82.49) Status:Active Unknown Family Member Name Dates Details Family history of congestive heart failure: Father(V17.49, Z82.49) Status:Active FH: coronary artery disease: Father(V17.3, Z82.49) Status:Active FHx: myocardial infarction: Mother, Sister(V17.3, Z82.49) Status:Active Unknown Family Member Name Dates Details Family history of congestive heart failure: Father(V17.49, Z82.49) Status:Active FH: coronary artery disease: Father(V17.3, Z82.49) Status:Active FHx: myocardial infarction: Mother, Sister(V17.3, Z82.49) Status:Active Unknown Family Member Name Dates Details Family history of congestive heart failure: Father(V17.49, Z82.49) Status:Active FH: coronary artery disease: Father(V17.3, Z82.49) Status:Active FHx: myocardial infarction: Mother, Sister(V17.3, Z82.49) Status:Active Unknown Family Member Name Dates Details Family history of congestive heart failure: Father(V17.49, Z82.49) Status:Active FH: coronary artery disease: Father(V17.3, Z82.49) Status:Active FHx: myocardial infarction: Mother, Sister(V17.3, Z82.49) Status:Active Unknown Family Member Name Dates Details Family history of congestive heart failure: Father(V17.49, Z82.49) Status:Active FH: coronary artery disease: Father(V17.3, Z82.49) Status:Active FHx: myocardial infarction: Mother, Sister(V17.3, Z82.49) Status:Active Unknown Family Member Name Dates Details Family history of congestive heart failure: Father(V17.49, Z82.49) Status:Active FH: coronary artery disease: Father(V17.3, Z82.49) Status:Active FHx: myocardial infarction: Mother, Sister(V17.3, Z82.49) Status:Active Unknown Family Member Name Dates Details Family history of congestive heart failure: Father(V17.49, Z82.49) Status:Active FH: coronary artery disease: Father(V17.3, Z82.49) Status:Active FHx: myocardial infarction: Mother, Sister(V17.3, Z82.49) Status:Active Unknown Family Member Name Dates Details FHx: myocardial infarction: Mother, Sister(V17.3, Z82.49) Status:Active FH: coronary artery disease: Father(V17.3, Z82.49) Status:Active Family history of congestive heart failure: Father(V17.49, Z82.49) Status:Active Unknown Family Member Name Dates Details Family history of congestive heart failure: Father(V17.49, Z82.49) Status:Active FH: coronary artery disease: Father(V17.3, Z82.49) Status:Active FHx: myocardial infarction: Mother, Sister(V17.3, Z82.49) Status:Active Unknown Family Member Name Dates Details Family history of congestive heart failure: Father(V17.49, Z82.49) Status:Active FH: coronary artery disease: Father(V17.3, Z82.49) Status:Active FHx: myocardial infarction: Mother, Sister(V17.3, Z82.49) Status:Active Unknown Family Member Name Dates Details Family history of congestive heart failure: Father(V17.49, Z82.49) Status:Active FH: coronary artery disease: Father(V17.3, Z82.49) Status:Active FHx: myocardial infarction: Mother, Sister(V17.3, Z82.49) Status:Active Unknown Family Member Name Dates Details Family history of congestive heart failure: Father(V17.49, Z82.49) Status:Active FH: coronary artery disease: Father(V17.3, Z82.49) Status:Active FHx: myocardial infarction: Mother, Sister(V17.3, Z82.49) Status:Active Unknown Family Member Name Dates Details Family history of congestive heart failure: Father(V17.49, Z82.49) Status:Active FH: coronary artery disease: Father(V17.3, Z82.49) Status:Active FHx: myocardial infarction: Mother, Sister(V17.3, Z82.49) Status:Active Unknown Family Member Name Dates Details Family history of congestive heart failure: Father(V17.49, Z82.49) Status:Active FH: coronary artery disease: Father(V17.3, Z82.49) Status:Active FHx: myocardial infarction: Mother, Sister(V17.3, Z82.49) Status:Active Unknown Family Member Name Dates Details Family history of congestive heart failure: Father(V17.49, Z82.49) Status:Active FH: coronary artery disease: Father(V17.3, Z82.49) Status:Active FHx: myocardial infarction: Mother, Sister(V17.3, Z82.49) Status:Active Relationship Condition Age at Onset Recorded Date/T jair Not Specified Diabetes mellitus Unknown Alcohol abuse Unknown Heart disease Unknown Malignant neoplasm Unknown Unknown Family Member Name Dates Details Family history of congestive heart failure: Father(V17.49, Z82.49) Status:Active FH: coronary artery disease: Father(V17.3, Z82.49) Status:Active FHx: myocardial infarction: Mother, Sister(V17.3, Z82.49) Status:Active Unknown Family Member Name Dates Details Family history of congestive heart failure: Father(V17.49, Z82.49) Status:Active FH: coronary artery disease: Father(V17.3, Z82.49) Status:Active FHx: myocardial infarction: Mother, Sister(V17.3, Z82.49) Status:Active Unknown Family Member Name Dates Details Family history of congestive heart failure: Father(V17.49, Z82.49) Status:Active FH: coronary artery disease: Father(V17.3, Z82.49) Status:Active FHx: myocardial infarction: Mother, Sister(V17.3, Z82.49) Status:Active Unknown Family Member Name Dates Details FHx: myocardial infarction: Mother, Sister(V17.3, Z82.49) Status:Active FH: coronary artery disease: Father(V17.3, Z82.49) Status:Active Family history of congestive heart failure: Father(V17.49, Z82.49) Status:Active Unknown Family Member Name Dates Details FHx: myocardial infarction: Mother, Sister(V17.3, Z82.49) Status:Active FH: coronary artery disease: Father(V17.3, Z82.49) Status:Active Family history of congestive heart failure: Father(V17.49, Z82.49) Status:Active Unknown Family Member Name Dates Details Family history of congestive heart failure: Father(V17.49, Z82.49) Status:Active FH: coronary artery disease: Father(V17.3, Z82.49) Status:Active FHx: myocardial infarction: Mother, Sister(V17.3, Z82.49) Status:Active Unknown Family Member Name Dates Details FHx: myocardial infarction: Mother, Sister(V17.3, Z82.49) Status:Active FH: coronary artery disease: Father(V17.3, Z82.49) Status:Active Family history of congestive heart failure: Father(V17.49, Z82.49) Status:Active Unknown Family Member Name Dates Details Family history of congestive heart failure: Father(V17.49, Z82.49) Status:Active FH: coronary artery disease: Father(V17.3, Z82.49) Status:Active FHx: myocardial infarction: Mother, Sister(V17.3, Z82.49) Status:Active Unknown Family Member Name Dates Details Family history of congestive heart failure: Father(V17.49, Z82.49) Status:Active FH: coronary artery disease: Father(V17.3, Z82.49) Status:Active FHx: myocardial infarction: Mother, Sister(V17.3, Z82.49) Status:Active Relationship Condition Age at Onset Recorded Date/T jair Not Specified Heart disease Unknown father Alcohol abuse Unknown brother Alcohol abuse Unknown Malignant neoplasm Unknown sister Malignant neoplasm Unknown Diabetes mellitus Unknown Congestive heart failure Unknown Not Specified Diabetes mellitus Unknown Relationship Condition Age at Onset Recorded Date/T jair father Alcohol abuse Unknown brother Alcohol abuse Unknown Malignant neoplasm Unknown sister Diabetes mellitus Unknown Congestive heart failure Unknown Heart disease Unknown Not Specified Diabetes mellitus Unknown sister Heart disease Unknown Relationship Condition Age at Onset Recorded Date/T jair father Alcohol abuse Unknown brother Alcohol abuse Unknown Malignant neoplasm Unknown sister Diabetes mellitus Unknown Congestive heart failure Unknown Heart disease Unknown Not Specified Diabetes mellitus Unknown sister Heart disease Unknown brother Diabetes mellitus Unknown Unknown brother Unknown father Alcoholism Unknown sister Unknown Diabetes mellitus Unknown Advance Directives No Advanced Directives Records Found Advance Directive Response Recorded Date/ Time Advance Directives No February 02, 2017 11:03am Advance Directive Response Recorded Date/ Time Advance Directives No February 02, 2017 10:03am Documents on File Type Date 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 wound vac changefollow upwound checkreview imagingLENGERARDO DRUMMOND is being seen for a 6 month follow-up of.follow upfollow upLNEETA DRUMMOND is being seen for a 6 month follow-up of.MENDEZ DRUMMOND is being seen for a 6 month follow-up of.MENDEZ DRUMMOND is being seen for a 5 month follow-up of. Chief Complaint and Reason for Visit Chief Complaint i65.23 Chief Complaint sob edema i50.9 Chief Complaint I65.23 Chief Complaint I65.23 n18.6 z01.818 for hemo access Chief Complaint I65.23 n18.6 z01.818 for hemo access TIA Reason for Visit Carotid occlusion, l eft Carotid stenosis, left Chronic kidney disease CKD (chronic kidney disease) stage 4, GFR 15-29 ml/min Hyperlipidemia Hypertension Diabetes Chief Complaint I65.23 n18.6 z01.818 for hemo access TIA ESRD ESRD Reason for Visit Carotid occlusion, l eft Carotid stenosis, left Chronic kidney disease CKD (chronic kidney disease) stage 4, GFR 15-29 ml/min Hyperlipidemia Hypertension Diabetes Chronic renal insufficiency, stage IV (severe) Chief Complaint TIA ESRD ESRD 4 WK FISTULA CREATION Reason for Visit Carotid occlusion, l eft Carotid stenosis, left Chronic kidney disease CKD (chronic kidney disease) stage 4, GFR 15-29 ml/min Hyperlipidemia Hypertension Diabetes Chronic renal insufficiency, stage IV (severe) Chronic kidney disease Encounter for surgical aftercare following surgery of circulatory system Chief Complaint ESRD 4 WK FISTULA CREATION 8 WK F/U WITH GFS RT ARM 1PM N18.4 Reason for Visit Chronic renal insuff iciency, stage IV (severe) Chronic kidney disease Encounter for surgical aftercare following surgery of circulatory system Chief Complaint ESRD 4 WK FISTULA CREATION 8 WK F/U WITH GFS RT ARM 1PM N18.4 Reason for Visit Chronic renal insuff iciency, stage IV (severe) Chronic kidney disease Encounter for surgical aftercare following surgery of circulatory system AV fistula Chief Complaint 8 WK F/U WITH GFS RT ARM 1PM N18.4 rt foot toe issues Reason for Visit AV fistula Chief Complaint 8 WK F/U WITH GFS RT ARM 1PM N18.4 rt foot toe issues weak, cant walk Reason for Visit AV fistula Additional Source Comments (unrecognized sect ion and content) No Status Records FoundNo Status Records FoundNo Status Records FoundNo Status Records FoundNo Status Records FoundNo Status Records FoundNo Status Records FoundNo Status Records FoundNo Status Records FoundNo Status Records FoundNo Status Records FoundNo Status Records FoundNo Status Records FoundNo Status Records Found INFORMATION SOURCE (unrecogn ized section and content) DATE CREATED AUTHOR 10/17/2017 [facility] DATE CREATED AUTHOR AUTHOR'S ORGANIZ ATION 10/18/2017 [facility] DATE CREATED AUTHOR AUTHOR'S ORGANIZ ATION 04/23/2020 [facility] DATE CREATED AUTHOR AUTHOR'S ORGANIZ ATION 06/18/2021 [facility] DATE CREATED AUTHOR AUTHOR'S ORGANIZ ATION 08/16/2021 [facility] DATE CREATED AUTHOR AUTHOR'S ORGANIZ ATION 05/12/[address] [facility] dical Specialist DATE CREATED AUTHOR AUTHOR'S ORGANIZ ATION 01/15/2023 [facility] DATE CREATED AUTHOR AUTHOR'S ORGANIZ ATION 01/15/2023 [facility] DATE CREATED AUTHOR AUTHOR'S ORGANIZ ATION 07/06/2023 [facility] DATE CREATED AUTHOR AUTHOR'S ORGANIZ ATION 07/16/2023 [facility] DATE CREATED AUTHOR AUTHOR'S ORGANIZ ATION 10/03/2023 [facility] DATE CREATED AUTHOR AUTHOR'S ORGANIZ ATION 10/10/2023 [facility] DATE CREATED AUTHOR AUTHOR'S ORGANIZ ATION 10/11/2023 [facility] DATE CREATED AUTHOR AUTHOR'S ORGANIZ ATION 10/11/[address] [facility] dical Specialists EPIC <item> Privacy Markings (unrecogniz ed section and content) Section Author: Tiffanie Moore PROHIBITION ON REDISCLOSURE OF CONFIDENTIAL INFORMATION This notice accompanies a disclosure of information concerning a client made to you with the consent of such client. REASON FOR VISIT (unrecogniz ed section and content) Specialty Diagnoses / Procedures Referred By Contac t Referred To Contact Oncology Diagnoses Anemia due to stage 4 chronic kidney disease ([facility]) Procedures DC DARBEPOETIN FRANCISCO, NON-ESRD Adeline Oreilly MD [address] [place] [phone] [facility] [address] [place] [address] Referral ID Status Reason Start Date Expiration Date V isits Requested Visits Authorized [id number] Authorized 04/24/2023 09/23/2023 12 24 Reason Comments Injection Aranesp Specialty Diagnoses / Procedures Referred By Blank ríos Referred To Contact Oncology Diagnoses Anemia due to stage 4 chronic kidney disease ([facility]) Procedures DC DARBEPOETIN FRANCISCO, NON-ESRD Adeline Oreilly MD [address] [place] [phone] [facility] [address] [place] [address] Reason Comments Follow-up Jaw replacement eval uation Reason Comments Med Refill Reason Comments Follow-up Ears cleaned. Care Teams (unrecognized sec tion and content) Team Status: Inactive Member Role Status Dates Lety Downey MD Primary Care Provider Active Gael Euceda MD Attending Provider Active Team Status: Active Member Role Status Dates Lety Downey MD Primary Care Provider Active Team Status: Inactive Member Role Status Dates Lety Downey MD Primary Care Provider, Indrain g Provider Active Team Status: Inactive Member Role Status Dates Lety Downey MD Primary Care Provider Active Monique Palacios , TARIFF INSPECTOR-C Attending Provider Active Team Status: Active Member Role Status Dates Lety Downey MD Primary Care Provide r Active Team Status: Inactive Member Role Status Dates Lety Downey MD Primary Care Provide r Active Monique Palacios , TARIFF INSPECTOR-C Attending Provider Active Team Status: Inactive Member Role Status Dates Lety Downey MD Primary Care Provide r Active Gael Euceda MD Attending Provider Active Team Status: Inactive Member Role Status Dates Lety Downey MD Primary Care Provide r Active Lynn Mane DO Admit Provider Active Sharri Cancino MD Attending Provider Active Thalia Milan LPN Other Provider Active Gael Euceda MD Other Provider Active Monique Palacios , TARIFF INSPECTOR-C Other Provider Active Coleman Joyce MD Other Provider Active Gregory Alegria MD Other Provider Active Decorative Greens Cutter Relationship Specialty Start Date End Date Lety Downey MD [address] [place] [address] PCP - General Family Medicine 05/13/16 Decorative Greens Cutter Relationship Specialty Start Date End Date Lety Downey MD [address] [place] [address] PCP - General Family Medicine 05/13/16 Decorative Greens Cutter Relationship Specialty Start Date End Date Lety Downey MD [address] [place] [address] PCP - General Family Medicine 05/13/16 Decorative Greens Cutter Relationship Specialty Start Date End Date Lety Downey MD [address] [place] [address] PCP - General Family Medicine 05/13/16 Decorative Greens Cutter Relationship Specialty Start Date End Date Tiny Pavon DO [address] [place] [address] PCP - ACO Reach 09/15/22 Lety Downey MD [address] [place] [id number] PCP - General Family Medicine 11/21/22 Team Status: Inactive Member Role Status Dates Lety Downey MD Primary Care Provider Active Start: March 222022 End: March 24, 2023 Lynn Mane DO Admit Provider Active Start: March 22, 2023 End: March 24, 2023 Sharri Cancino MD Attending Provider Active Start: March 22, 2023 End: March 24, 2023 Thalia Milan LPN Other Provider Active Star t: March 22, 2023 End: March 24, 2023 Gael Euceda MD Other Provider Active Start : March 22, 2023 End: March 24, 2023 Monique Palacios , TARIFF INSPECTOR-C Other Provider Active St art: March 22, 2023 End: March 24, 2023 Coleman Joyce MD Other Provider Active Start : March 22, 2023 End: March 24, 2023 Gregory Alegria MD Other Provider Active Start: March 22, 2023 End: March 24, 2023 Team Status: Inactive Member Role Status Dates Lety Downey MD Primary Care Provider Active Start: April 192022 End: April 19, 2023 Gael Euceda MD Attending Provider Active S tart: April 19, 2023 End: April 19, 2023 Team Status: Inactive Member Role Status Dates Lety Downey MD Primary Care Provider Active Start: April End: May 04, 2023 Gael Euceda MD Attending Provider Active S tart: May 04, 2023 End: May 04, 2023 Team Status: Inactive Member Role Status Dates Lety Downey MD Primary Care Provider Active Start: June 062023 End: June 06, 2023 Gael Euceda MD Attending Provider Active S tart: June 06, 2023 End: June 06, 2023 Team Status: Inactive Member Role Status Dates Lety Downey MD Primary Care Provider Active Start: June 072023 End: June 07, 2023 Gael Euceda MD Attending Provider Active S tart: June 07, 2023 End: June 07, 2023 Decorative Greens Cutter Relationship Specialty Start Date End Date Lety Downey MD [address] [place] [address] PCP - General Family Medicine 05/13/16 Decorative Greens Cutter Relationship Specialty Start Date End Date Lety Downey MD [address] [address] PCP - General 04/20/20 Decorative Greens Cutter Relationship Specialty Start Date End Date Lety Downey MD [address] [place] [address] PCP - General Family Medicine 05/13/16 Decorative Greens Cutter Relationship Specialty Start Date End Date Lety Downey MD [address] [place] [address] PCP - General Family Medicine 05/13/16 Decorative Greens Cutter Relationship Specialty Start Date End Date Lety Downey MD [address] [place] [address] PCP - General Family Medicine 05/13/16 Team Status: Inactive Member Role Status Dates Lety Downey MD Primary Care Provide r Active Start: August 01, 2023 End: August 01, 2023 Gael Euceda MD Attending Provider Active S tart: August 01, 2023 End: August 01, 2023 Team Status: Active Member Role Status Dates Lety Downey MD Primary Care Provide r Active Start: August 01, 2023 Gael Euceda MD Attending Provider Active S tart: August 01, 2023 Decorative Greens Cutter Relationship Specialty Start Date End Date Lety Downey MD [address] [address] PCP - General 04/20/20 Team Status: Inactive Member Role Status Dates Lety Downey MD Primary Care Provide r Active Start: October 08, 2023 End: October 08, 2023 Maritza Russell [facility] Emergency Provider Active Start: October 08, 2023 End: October 08, 2023 Team Status: Inactive Member Role Status Dates Lety Downey MD Primary Care Provide r Active Start: October 09, 2023 End: October 10, 2023 Gregory Rodriguez DO Emergency Provider Active Start: October 09, 2023 End: October 10, 2023 Goals (unrecognized section and content) Goals may be documented in a n alternate section FOR RECORDS PERTAINING TO PATIENTS WHO ARE OR HAVE BEEN ENROLLED IN A CHEMICAL DEPENDENCY/SUBSTANCEABUSE PROGRAM, SOME INFORMATION MAY BE OMITTED. This clinical summary was aggregated from multiple sources. Caution should be exercised in using it in the provision of clinical care. This summary normalizes information from multiple sources, and as a consequence, information in this document may materially change the coding, format and clinical context of patient data. In addition, data may be omitted in some cases. CLINICAL DECISIONS SHOULD BE BASED ON THE PRIMARY CLINICAL RECORDS. [facility] [employer] [facility]. provides no warranty or guarantee of the accuracy or completeness of information in this document.
[2023-10-12 23:30] VITALS: BP 111/65
--- NOTE | 2023-10-12 23:30 | XR_ITS ---
The [address] [address] Patient Name: SAHRA DRUMMOND MRN: [id number] date: 1950 Sex: M Assigned Patient Location: ER Current Patient Location: ER Accession/Order Number: [id number] Exam Date: 10/12/2023 23:59 Report Date: 10/13/2023 01:28 At the request of: RUPINDER MARKER Procedure: XR chest 1V EXAM: XR chest 1V HISTORY: Chest pain, dyspnea. COMPARISON: Chest x-ray 05/12/2016 TECHNIQUE: Single frontal view chest x-ray FINDINGS: Mild cardiomegaly. Left coronary artery stent is seen. Mild left diaphragm elevation. Mild bibasilar streaky lung opacities. No large pleural effusion, pneumothorax, or acute bony abnormality. XR/XR chest 1V IMPRESSION: Mild cardiomegaly. Left coronary artery stent is seen. Mild bibasilar streaky lung opacities reflect atelectasis or lung infiltrates. Mild left diaphragm elevation. Electronically authenticated by: BASHIR VILLATORO Date: 10/13/2023 01:28
[2023-10-12] MEDS: 0.9 % SODIUM CHLORIDE 1,000 ML 125 ML IV (23:53)
[2023-10-12 23:54] LABS: Basophils Percent Auto 0.5 % (0.2-2.0); Eosinophils Absolute Auto 0.1 10^3/uL (0.0-0.7); Eosinophils Percent Auto 1.6 % (0.9-7.0); Hematocrit 27.5 % (42.0-54.0); Hemoglobin 8.7 g/dL (14.0-18.0); Immature Granulocytes Abs Auto 0.02 10^3/uL (0.00-0.03); Immature Granulocytes Pct Auto 0.3 % (0.0-0.5); Lymphocytes Absolute Auto 0.8 10^3/uL (1.2-3.8); Lymphocytes Percent Auto 11.5 % (20.5-60.0); Mean Corpuscular HGB Conc 31.6 g/dL (29.9-35.2); Mean Corpuscular Hemoglobin 26.3 pg (25.9-34.0); Mean Corpuscular Volume 83.1 fL (80.0-94.0); Monocytes Absolute Auto 0.7 10^3/uL (0.3-0.8); Monocytes Percent Auto 9.6 % (1.7-12.0); Neutrophils Absolute Auto 5.6 10^3/uL (1.4-6.5); Neutrophils Percent Auto 76.5 % (43.0-75.0); Platelet Count 163 10^3/uL (150-450); Red Blood Count 3.31 10^6/uL (4.70-6.10); Red Cell Distribution Width 14.9 % (11.0-15.0); White Blood Count 7.3 10^3/uL (4.0-11.0)
[2023-10-13 00:01] VITALS: BP 144/66
--- NOTE | 2023-10-13 00:08 | ED.CHESTPAI1 ---
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 History is obtained from the patient and his and daughter. The patient recently injured his right foot. He was barefoot in the house and closed the door over the top of his foot. He has abrasions to the top of his right 3 toes, great toe, second toe and third toe. The patient thought that he was having a vascular problem with his foot and was seen at [facility]. They were able to get a pulse in his foot and evaluated him and thought that he did not have an infection in his foot but was having some neuropathic pain and prescribed him gabapentin 400 mg. The next day the patient took the gabapentin and became very sleepy and dizzy. He went to the bathroom and took a shower and fell in the shower. The patient's daughter was then called and helped him up and he was taken back to [facility] emergency department and was scanned and x-rayed and everything looked okay and he was discharged home again. His glucose was found to be low at that time and he was given something to eat or drink and his glucose improved. He does have a small bruise on the lateral lower flank area. The patient's states that tonight the patient was in his room where he keeps it very hot and she told him that it was too hot for him to be in there and he came out into the regular living space where it was cooler and complained of chest pain. He took 2 sublingual nitroglycerin and the chest pain resolved. EMS was then called and he was brought to the emergency department for evaluation. In the emergency department he is awake alert oriented and denies any complaint of pain except in the right foot. He was seen by his family physician and his gabapentin dosing was changed from 400 mg to 100 mg. He denies any headache, neck or chest pain. He denies any abdominal pain. His only complaint upon arrival is the right foot. The patient does have a fistula in the right arm but is not a dialysis patient as of yet. He had xrays of the chest and right foot at [facility] earlier this week Related Data Home Medications ?Medication ?Instructions ?Recorded ?Confirmed amlodipine 10 mg tablet 10 mg PO DAILY 03/21/23 10/12/23 aspirin 81 mg capsule 81 mg PO DAILY 03/21/23 10/12/23 atorvastatin 80 mg tablet 80 mg PO DAILY 03/21/23 10/12/23 calcitriol 0.25 mcg capsule 0.25 mcg PO DAILY 03/21/23 10/12/23 carvedilol 25 mg tablet 25 mg PO BID 03/21/23 10/12/23 fluoxetine 40 mg capsule 40 mg PO DAILY 03/21/23 10/12/23 insulin glargine 100 unit/mL (3 40 unit subcut DAILY 03/21/23 10/12/23 mL) subcutaneous pen (Basaglar KwikPen U-100 Insulin) lisinopril 10 mg tablet 10 mg PO DAILY 03/21/23 10/12/23 pioglitazone 30 mg tablet 30 mg PO DAILY 03/21/23 10/12/23 nitroglycerin 0.4 mg sublingual 0.4 mg sublingual Q5M PRN chest 03/22/23 03/22/23 tablet pain zinc gluconate 50 mg tablet 50 mg PO DAILY 03/22/23 10/12/23 cholecalciferol (vitamin D3) 50 100 mcg PO DAILY 10/12/23 10/12/23 mcg (2,000 unit) tablet clopidogrel 75 mg tablet 75 mg PO DAILY 10/12/23 10/12/23 gabapentin 100 mg capsule 100 mg PO TID 10/12/23 10/12/23 tamsulosin 0.4 mg capsule 0.4 mg PO Q24H 10/12/23 10/12/23 Allergies Allergy/AdvReac Type Severity Reaction Status Date / Time Iodinated Contrast Media Allergy Verified 03/21/23 18:21 Review of Systems ROS Status of ROS 10 or more systems reviewed and unremarkable except as noted in history and below [facility] Medical History (Updated 10/13/23 @ 01:55 by Ro Christine MD) A-V fistula ?I77.0 - Arteriovenous fistula, acquired (ICD-10) Depression ?F32.A - Depression, unspecified (ICD-10) HTN (hypertension) ?I10 - Essential (primary) hypertension (ICD-10) TIA (transient ischemic attack) ?G45.9 - Transient cerebral ischemic attack, unspecified (ICD-10) Anemia in CKD (chronic kidney disease) ?N18.9 - Chronic kidney disease, unspecified (ICD-10) ?D63.1 - Anemia in chronic kidney disease (ICD-10) Carotid artery stenosis ?I65.29 - Occlusion and stenosis of unspecified carotid artery (ICD-10) Diabetic retinopathy associated with type 2 diabetes mellitus ?E11.319 - Type 2 diabetes mellitus with unspecified diabetic retinopathy without macular edema (ICD-10) Type 2 diabetes mellitus with hyperglycemia ?E11.65 - Type 2 diabetes mellitus with hyperglycemia (ICD-10) Chronic kidney disease (CKD) ?N18.9 - Chronic kidney disease, unspecified (ICD-10) 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 - Secondary and unspecified malignant neoplasm of lymph nodes of head, face and neck (ICD-10) Sleep apnea ?G47.30 - Sleep apnea, unspecified (ICD-10) Squamous cell carcinoma Diabetic retinopathy ?E11.319 - Type 2 diabetes mellitus with unspecified diabetic retinopathy without macular edema (ICD-10) Diabetes mellitus ?E11.9 - Type 2 diabetes mellitus without complications (ICD-10) Dehydration ?E86.0 - Dehydration (ICD-10) CKD (chronic kidney disease), stage IV ?N18.4 - Chronic kidney disease, stage 4 (severe) (ICD-10) History of recurrent TIAs ?Z86.73 - Personal history of transient ischemic attack (TIA), and cerebral infarction without residual deficits (ICD-10) Pancreatitis ?K85.90 - Acute pancreatitis without necrosis or infection, unspecified (ICD-10) Abdominal pain ?R10.9 - Unspecified abdominal pain (ICD-10) Surgical History (Updated 03/22/23 @ 00:55 by Allie Chen RN) Hx of parotidectomy ?Z90.49 - Acquired absence of other specified parts of digestive tract (ICD-10) History of mandibular surgery ?Z98.890 - Other specified postprocedural states (ICD-10) Hx of heart artery stent ?Z95.5 - Presence of coronary angioplasty implant and graft (ICD-10) Stented coronary artery ?Z95.5 - Presence of coronary angioplasty implant and graft (ICD-10) History of uvulectomy ?Z90.89 - Acquired absence of other organs (ICD-10) Family History (Updated 03/22/23 @ 00:55 by Allie Chen RN) Other Family history of COPD (chronic obstructive pulmonary disease) Family history of cancer Family history of diabetes mellitus Family history of hypertension Family history of stroke Social History (Updated 03/22/23 @ 00:56 by Allie Chen, RN) Within the past year, how often did you have a drink containing alcohol: never Within the past year, how often did you have six or more drinks on one occasion: never Score interpretation: A score less than 4 is consistent with normal alcohol consumption. Smoking status: Former smoker Non-prescribed substance use: denies use Do you think of yourself as: straight/heterosexual Gender Identity: male Exam Narrative Exam Narrative: Vital signs and Nursing Notes reviewed: Patient is a arrival with a normal pulse, normal blood pressure, he is not hypoxic with pulse ox of 99% on room air General: Awake, alert, oriented, no acute distress, lying comfortably on the stretcher HEENT: Normocephalic, large defect on the left side of his neck status post radical neck dissection surgery for squamous cell carcinoma Neck: Left-sided neck dissection as described above, neck is supple Chest: Lungs are clear to auscultation with good air entry, there is no wheezing rhonchi or rales appreciated no accessory muscle use, patient is speaking in complete sentences-no chest wall tenderness to palpation CVS: Regular rate and rhythm S1-S2, no murmurs rubs or gallops, pulses are brisk and equal bilaterally ABD: Soft, nondistended, nontender, no rebound guarding or rigidity, bowel sounds are normal, no pulsatile masses appreciated Extremities: Moving all extremities, there is a small sore on the dorsal aspect of the right foot at the web space between the hallux and second toe and the web space between the 2nd and third toe, the toenail on the great toe is overgrown and hypertrophic. there is mild erythema and tenderness to the right great toe, toes are otherwise warm and sensate with normal capillary refill Skin: Normal in appearance without rash,pallor, petechiae or purpura Neuro: No focal deficits Constitutional Vital Signs, click to edit/add: Last Vital Signs Temp 98.4 F 10/12/23 23:08 Pulse 80 10/12/23 23:08 Resp 20 10/12/23 23:08 BP 141/72 10/13/23 01:31 Pulse Ox 99 10/12/23 23:08 O2 Del Method Room Air 10/12/23 23:08 Course Vital Signs Vital signs: Vital Signs Temperature 98.4 F 10/12/23 23:08 Pulse Rate 80 10/12/23 23:08 Respiratory Rate 20 10/12/23 23:08 Blood Pressure 138/54 10/12/23 23:08 Pulse Oximetry 99 10/12/23 23:08 Oxygen Delivery Method Room Air 10/12/23 23:08 Temperature 98.4 F 10/12/23 23:08 Pulse Rate 80 10/12/23 23:08 Respiratory Rate 20 10/12/23 23:08 Blood Pressure 141/72 10/13/23 01:31 Pulse Oximetry 99 10/12/23 23:08 Oxygen Delivery Method Room Air 10/12/23 23:08 MDM - Chest Pain MDM Narrative Medical decision making narrative: This 72-year-old male is brought to the emergency department by EMS from home accompanied by his family. The patient has multiple medical problems including chronic renal insufficiency has a dialysis catheter in his right arm and has recently been seen at [facility] twice after he injured his right foot. The patient was not found to have any vascular insufficiency in the right foot and was discharged home with a prescription for gabapentin. Apparently the gabapentin was too strong for him and after taking a dose he became dizzy and fell in the bathroom. He struck the left side of his flank at that time and was seen again at [facility]. He was then evaluated with CT scan and x-rays and discharged home. The patient has been having ongoing pain in the right foot after he grazed it while closing a door and has 2 small abrasions on the dorsal aspect of the right foot. The right foot was x-rayed at [facility] according to the patient's but they thought that it was not infected and he did not require antibiotics despite the fact that he is diabetic. The patient's states he was in his room where it was very hot then came into the main living space when it was cooler and complained of chest pain and shortness of breath. He was given 2 nitroglycerin. Upon arrival he is not having any chest pain. He also complained of shortness of breath EMS but denied any shortness of breath to me. EKG done upon arrival was a sinus rhythm at 78 bpm with a first-degree AV block. An IV was placed and he was medicated with gentle hydration and a cardiac workup was ordered. He has a normal white count. His hemoglobin is moderately low at 8.7. He does have chronic renal disease as previously stated. I do not have any prior labs here since last February to trend his hemoglobin.. The patient's BUN and creatinine are markedly elevated at 98 and 5.09. Potassium is normal at 5. The patient is being monitored closely by a process control board operator at [facility] for his chronic kidney disease. He has a normal troponin. BNP is elevated at 1075. The patient has not had any complaints while in the emergency department of chest pain or shortness of breath. A delta troponin was ordered and is 30. He was given a dose of keflex in the ED and will be discharged home with his family who are in agreement with this plan and intend to keep him in the air conditioned area of the house and will soak his foot in epsom salt water and continue with the antibiotics. Lab Data Labs: Lab Results 10/12/23 10/13/23 Range/Units 23:46 01:16 WBC 7.3 (4.0-11.0) 10^3/uL RBC 3.31 L (4.70-6.10) 10^6/uL Hgb 8.7 L (14.0-18.0) g/dL Hct 27.5 L (42.0-54.0) % MCV 83.1 (80.0-94.0) fL MCH 26.3 (25.9-34.0) pg MCHC 31.6 (29.9-35.2) g/dL RDW 14.9 (11.0-15.0) % Plt Count 163 (150-450) 10^3/uL MPV 10.0 (9.5-13.5) fL Neut % (Auto) 76.5 H (43.0-75.0) % Lymph % (Auto) 11.5 L (20.5-60.0) % [place] % (Auto) 9.6 (1.7-12.0) % Eos % (Auto) 1.6 (0.9-7.0) % Baso % (Auto) 0.5 (0.2-2.0) % Neut # (Auto) 5.6 (1.4-6.5) 10^3/uL Lymph # (Auto) 0.8 L (1.2-3.8) 10^3/uL [place] # (Auto) 0.7 (0.3-0.8) 10^3/uL Eos # (Auto) 0.1 (0.0-0.7) 10^3/uL Baso # (Auto) 0.0 (0.0-0.1) 10^3/uL Abs Immat Gran (auto) 0.02 (0.00-0.03) 10^3/uL Imm/Tot Granulo (auto) 0.3 (0.0-0.5) % Sodium 135 L (136-145) mmol/L Potassium 5.0 (3.5-5.1) mmol/L Chloride 101 (98-107) mmol/L Carbon Dioxide 23.1 (21.0-32.0) mmol/L Anion Gap 15.9 BUN 98.0 H* (7.0-18.0) mg/dL Creatinine 5.09 H* (0.70-1.30) mg/dL Est GFR ( Amer) 14 L (>=60) Est GFR (Non-Af Amer) 11 L (>=60) BUN/Creatinine Ratio 19.3 Glucose 138 H (74-106) mg/dL Lactate 0.8 (0.4-2.0) mmol/L Calcium 9.4 (8.5-10.1) mg/dL Total Bilirubin 0.3 (0.2-1.0) mg/dL AST 18 (15-37) U/L ALT 17 (16-63) U/L Alkaline Phosphatase 95 (46-116) U/L Troponin I High Sens 26.6 30.2 (4.0-76.1) pg/mL NT-Pro-B Natriuret Pep 1075.0 H (<=900.0) pg/mL Total Protein 6.2 L (6.4-8.2) g/dL Albumin 2.9 L (3.4-5.0) g/dL Globulin 3.3 g/dL Albumin/Globulin Ratio 0.[address] [address] XRay Report Signed Patient: SAHRA DRUMMOND MR#: [id number] : 1950 Acct:[id number] Age/Sex: 72 / M ADM Date: 10/12/23 Loc: ER Attending Dr: Ordering Physician: Ro Christine Date of Service: 10/12/23 Procedure(s): XR chest 1V Accession Number(s): [id number] cc: ANGEL LUIS DOWNEY ; Ro Christine~ The [place] [id number] Patient Name: SAHRA DRUMMOND MRN: [id number] date: 1950 Sex: M Assigned Patient Location: ER Current Patient Location: ER Accession/Order Number: [id number] Exam Date: 10/12/2023 23:59 Report Date: 10/13/2023 01:28 At the request of: RO MARKER Procedure: XR chest 1V EXAM: XR chest 1V HISTORY: Chest pain, dyspnea. COMPARISON: Chest x-ray 05/12/2016 TECHNIQUE: Single frontal view chest x-ray FINDINGS: Mild cardiomegaly. Left coronary artery stent is seen. Mild left diaphragm elevation. Mild bibasilar streaky lung opacities. No large pleural effusion, pneumothorax, or acute bony abnormality. XR/XR chest 1V IMPRESSION: Mild cardiomegaly. Left coronary artery stent is seen. Mild bibasilar streaky lung opacities reflect atelectasis or lung infiltrates. Mild left diaphragm elevation. Electronically authenticated by: BASHIR VILLATORO Date: 10/13/2023 01:28 ECG Data Attestation: I personally reviewed and interpreted this ECG as follows: (Sinus rhythm at 78 bpm, first-degree AV block, Q-wave in lead III, no acute ST segment elevation or T wave inversion) Heart Score History: Slightly/Non-Suspicious ECG: Normal Age: >65 years Risk Factors: 1 or 2 Risk Factors Troponin: <Normal Limit Total Heart Score Recommendations & Risks:: 3 Discharge Plan Discharge Stand Alone Forms: Portal Instructions Chief Complaint: Chest Pain Clinical Impression: Chest pain, Chronic renal disease, Acute foot pain Patient Disposition: Home, Self-Care Time of Disposition Decision: 01:54 Condition: Good Prescriptions / Home Meds: No Action pioglitazone 30 mg tablet 30 mg PO DAILY amlodipine 10 mg tablet 10 mg PO DAILY calcitriol 0.25 mcg capsule 0.25 mcg PO DAILY lisinopril 10 mg tablet 10 mg PO DAILY aspirin 81 mg capsule 81 mg PO DAILY carvedilol 25 mg tablet 25 mg PO BID insulin glargine [Basaglar KwikPen U-100 Insulin] 100 unit/mL (3 mL) insulin pen 40 unit SUBCUT DAILY atorvastatin 80 mg tablet 80 mg PO DAILY fluoxetine 40 mg capsule 40 mg PO DAILY nitroglycerin 0.4 mg tablet, sublingual 0.4 mg sublingual Q5M PRN (Reason: chest pain) zinc gluconate 50 mg tablet 50 mg PO DAILY gabapentin 100 mg capsule 100 mg PO TID cholecalciferol (vitamin D3) 50 mcg (2,000 unit) tablet 100 mcg PO DAILY clopidogrel 75 mg tablet 75 mg PO DAILY tamsulosin 0.4 mg capsule 0.4 mg PO Q24H Print Language: Trinidadian Instructions: Chest Pain (ED), Chronic Kidney Disease (ED), Arthralgia (ED) Referrals: ANGEL LUIS DOWNEY [Primary Care Provider] - 1 week Discharge Date/Time: 10/13/23 02:27
[2023-10-13 00:11] LABS: Lactate/Lactic Acid 0.8 mmol/L (0.4-2.0)
[2023-10-13 00:17] LABS: Alanine Aminotransferase 17 U/L (16-63); Albumin Globulin Ratio 0.9; Albumin Level 2.9 g/dL (3.4-5.0); Alkaline Phosphatase 95 U/L (46-116); Anion Gap 15.9; Aspartate Amino Transferase 18 U/L (15-37); BUN Creatinine Ratio 19.3; Bilirubin Total 0.3 mg/dL (0.2-1.0); Calcium 9.4 mg/dL (8.5-10.1); Carbon Dioxide 23.1 mmol/L (21.0-32.0); Chloride 101 mmol/L (98-107); Estimated GFR (African America 14 (>=60); Estimated GFR (Non-African Ame 11 (>=60); Globulin 3.3 g/dL; Glucose 138 mg/dL (74-106); Sodium 135 mmol/L (136-145); Total Protein 6.2 g/dL (6.4-8.2); Troponin I High Sensitivity 26.6 pg/mL (4.0-76.1)
[2023-10-13 00:31] VITALS: BP 139/61
[2023-10-13 01:00] VITALS: BP 142/65
[2023-10-13 01:31] VITALS: BP 141/72
[2023-10-13] MEDS: CEPHALEXIN 500 MG CAPSULE PO (01:31)
[2023-10-13 01:38] LABS: Troponin I High Sensitivity 30.2 pg/mL (4.0-76.1)
--- NOTE | 2023-10-13 02:20 | ECG_ITS ---
The [facility] Test Date: 2023-10-12 Pat Name: SAHRA DRUMMOND Department: Room: - Gender: Male Office Clin Asst: : 1950 Requested By: [id number] Order Number: [id number] Reading MD: OTONIEL BADILLO Measurements Intervals Rawlings Rate: 78 P: 49 WV: 248 QRS: 13 QRSD: 98 T: 16 QT: 364 QTc: 398 Interpretive Statements 1100 Sinus rhythm 2231 First degree AV block Low voltage across the precordium 3632 Inferior myocardial infarction 9150 abnormal ECG Electronically Signed On 10-13-2023 6:53:08 EDT by OTONIEL BADILLO
== END 2023-10-13 02:27 | disposition home or self-care (01) ==
PROVIDERS: Emergency Provider Emergency Medicine; PCP Family Medicine
DX: R07.9 Chest pain, unspecified (principal); N18.9 Chronic kidney disease, unspecified; M79.671 Pain in right foot; R06.02 Shortness of breath; E11.22 Type 2 diabetes mellitus with diabetic chronic kidney disease; I51.9 Heart disease, unspecified; Z85.828 Personal history of other malignant neoplasm of skin; Z87.891 Personal history of nicotine dependence
CPT/HCPCS: 36415; 71045; 80053; 83605; 83880; 84484; 85025; 93005; 99285